=== PATIENT | female | born 1940 | race American Indian/Alaskan Native ===

== ENCOUNTER 2016-09-30 13:29 | Inpatient (IN) | payer MEDICAID, MEDICARE ==
[2016-09-30 15:42] LABS: Anion Gap 21 mmol/L; Blood Urea Nitrogen 26 mg/dL (7-17); Carbon Dioxide 27 mmol/L (22-30); Chloride 98.6 mmol/L (98-107); Glucose 104 mg/dL (65-100); Potassium 3.9 mmol/L (3.6-5.0); Sodium 143 mmol/L (137-145)
[2016-09-30 15:50] LABS: Basophils % (Auto) 0.8 % (0.0-1.8); Eosinophils % (Auto) 0.6 % (0.0-4.3); Hematocrit 44.1 % (30.3-42.9); Hemoglobin 14.2 gm/dl (10.1-14.3); Mean Corpuscular HGB Conc 32 % (30-34); Mean Corpuscular Hemoglobin 29 pg (28-32); Mean Corpuscular Volume 90 fl (79-97); Platelet Count 192 K/mm3 (140-440); Red Blood Count 4.88 M/mm3 (3.65-5.03); White Blood Count 8.6 K/mm3 (4.5-11.0)
--- NOTE | 2016-09-30 18:04 | Emergency Department Report ---
HPI - General Chief Complaint: Psych Time Seen by Provider: 09/30/16 16:13 - HPI HPI: The patient is a 76 yo F with a history of dementia, who presents for evaluation of mental health. The patient arrived via EMS. The patient's daughter reported that the patient has been wondering more frequently, and exhibiting angry moods and behavior over the past week, on and off, progressive , severe for the past one day. The patient states that she has no feelings of anger or sediment for her daughter or others whatsoever. The patient also denies fever, headache, unexplained weight loss or weight gain, heat or cold intolerance, skin, hair, or nail changes, neuro deficits, suicidal ideations, homicidal ideations, or auditory or visual hallucinations. ED Review of Systems ROS: Stated complaint: EVALUATION Other details as noted in HPI Constitutional: denies: fever ENT: denies: throat or neck pain Respiratory: denies: cough, shortness of breath Cardiovascular: denies: chest pain Endocrine: denies unexplained weight loss or gain Gastrointestinal: denies: abdominal pain, nausea Genitourinary: denies: dysuria Musculoskeletal: denies: leg swelling Skin: denies: rash Neurological: denies: headache Hematological/Lymphatic: denies: easy bleeding or easy bruising Psych: denies sadness or hopelessness Physical Exam - Physical Exam Vital Signs: Vital Signs 09/30/16 14:40 Temperature 98.9 F Pulse Rate 83 Respiratory 16 Rate Blood Pressure 155/70 O2 Sat by Pulse 99 Oximetry Physical Exam: General: well-nourished, well-developed, pleasant appearing Head: Normocephalic, atraumatic Eyes: normal sclera ENT: Mucous membranes are pink and moist Neck: trachea midline, neck supple, No neck stiffness, no cervical adenopathy Respiratory: Breath sounds equal bilaterally, no wheezing, rales, or rhonchi Cardio: S1 and S2 present, no murmurs, rubs, gallops, capillary refill is brisk Abdomen: Normoactive bowel sounds, soft abdomen, no tenderness Musc: No pitting edema Skin: No rash Neuro: Alert, oriented to person, Moderate cognitive deficit, no facial drooping , normal speech Psych: Normal affect, normal mood, patient cooperative, no aggression or agitation ED Course Vital Signs 09/30/16 14:40 Temperature 98.9 F Pulse Rate 83 Respiratory 16 Rate Blood Pressure 155/70 O2 Sat by Pulse 99 Oximetry ED Medical Decision Making - Lab Data Result diagrams: 09/30/16 15:06 09/30/16 15:06 - Medical Decision Making The patient was seen and examined by myself. The patient is placed on a youth nutritional monitor and continuous pulse ox. On initial evaluation, the patient was found to be in no distress. Labs are obtained. Lab results are grossly unremarkable. The patient is medically clear. Mental health is consulted. Mental health evaluates the patient and agrees that the patient is negative for any findings concerning for risk of harm to herself or others, or concerning for acute psychosis. Evaluation findings are consistent with moderate to severe dementia. The patient's daughter is informed that the patient does not meet criteria for hospitalization. She is informed that as the patient's primary caregiver she may not abandon the patient in the emergency department. She agrees to presents to the emergency department to forklift picker the patient. If the patient's daughter does not present to forklift picker the patient, then case management social worker and protective services will be consulted in the a.m. Critical care attestation.: If time is entered above; I have spent that time in minutes in the direct care of this critically ill patient, excluding procedure time. ED Disposition Clinical Impression: Dementia Qualifiers: Dementia type: unspecified type Dementia behavioral disturbance: with behavioral disturbance Qualified Code(s): F03.91 - Unspecified dementia with behavioral disturbance Disposition: DISCHARGED TO HOME OR SELFCARE Is pt being admited?: No Does the pt Need Aspirin: No Condition: Stable Instructions: Dementia (ED) Referrals: PRIMARY CARE, [Primary Care Provider[facility] - [facility]5 Days SHALA BERRIOS, [employer], [employer] PROFESSIONAL-BC [Referring] - 3-5 Days Time of Disposition: 17:04
[2016-09-30 22:20] LABS: Urine Drugs of Abuse Note Disclamer
[2016-09-30 22:28] LABS: Bilirubin,Urine NEG (Negative); Blood,Urine LG (Negative); Ketones,Urine TR mg/dL (Negative); Leukocyte Esterase,Urine MOD (Negative); Nitrite,Urine NEG (Negative); Urobilinogen,Urine < 2.0 mg/dL (<2.0)
--- NOTE | 2016-10-01 10:27 | Cat Scan Report ---
CT HEAD WITHOUT CONTRAST INDICATION: Headache. COMPARISON: None similar. FINDINGS: Noncontrast head CT slightly limited due to motion artifact, though demonstrates symmetric, age-appropriate ventricles and sulci. Mild periventricular white matter hypodensities. Minimal, benign bilateral basal ganglia calcifications. No definite acute infarct, hemorrhage, mass effect or midline shift. No abnormal extra axial fluid collections. Normal posterior fossa with preserved basilar cisterns. Unremarkable eye globes. Slight rightward nasal septal bowing. Minimal right maxillary sinus mucosal thickening. Clear remainder imaged paranasal sinuses and mastoid air cells. Atherosclerotic internal carotid artery calcifications. Intact calvarium. Normal scalp. Edentulous jaw. CONCLUSION: No acute intracranial CT abnormality, as described. Thank you for the opportunity to participate in this patient's care.
--- NOTE | 2016-10-01 11:20 | History and Physical Report ---
History of Present Illness Date of examination: 10/01/16 Date of admission: 10/01/16 Chief complaint: ams History of present illness: The patient is a 76 yo F with a history of dementia, who presents for evaluation of mental health. The patient arrived via EMS approximately 2 days ago. The patient's daughter reported that the patient has been wondering more frequently, and exhibiting angry moods and behavior over the past week, on and off, progressive, severe for the past one day. The patient states that she has no feelings of anger or sediment for her daughter or others whatsoever. The patient also denies fever, headache, unexplained weight loss or weight gain, heat or cold intolerance, skin, hair, or nail changes, neuro deficits, suicidal ideations, homicidal ideations, or auditory or visual hallucinations. Patient is unable to give any history. All history was obtained from the ER record. Past History Past Medical History: other (dementia) Past Surgical History: No surgical history Social history: no significant social history Family history: no significant family history Medications and Allergies Allergies Allergy/AdvReac Type Severity Reaction Status Date / Time Unable to Assess Allergy Unverified 09/30/16 14:42 Review of Systems All systems: negative Exam - Constitutional Vitals: Temp Pulse Resp BP Pulse Ox 98.2 F 60 20 140/65 99 09/30/16 19:10 09/30/16 19:10 09/30/16 19:10 09/30/16 19:10 09/30/16 19:10 General appearance: Present: no acute distress, well-nourished - EENT Eyes: Present: PERRL ENT: hearing intact, clear oral mucosa - Neck Neck: Present: supple, normal ROM - Respiratory Respiratory effort: normal Respiratory: bilateral: CTA - Cardiovascular Heart Sounds: Present: S1 & S2. Absent: rub, click - Extremities Extremities: pulses symmetrical, No edema Peripheral Pulses: within normal limits - Abdominal General gastrointestinal: Present: soft, non-tender, non-distended, normal bowel sounds Female genitourinary: Present: normal - Integumentary Integumentary: Present: clear, warm, dry - Musculoskeletal Musculoskeletal: gait normal, strength equal bilaterally - Psychiatric Psychiatric: appropriate mood/affect, intact judgment & insight - Neurologic Neurologic: CNII-XII intact, moves all extremities Results - Labs CBC & Chem 7: 09/30/16 15:06 09/30/16 15:06 Labs: Laboratory Last Values WBC 8.6 K/mm3 (4.5-11.0) 09/30/16 15:06 RBC 4.88 M/mm3 (3.65-5.03) 09/30/16 15:06 Hgb 14.2 gm/dl (10.1-14.3) 09/30/16 15:06 Hct 44.1 % (30.3-42.9) H 09/30/16 15:06 MCV 90 fl (79-97) 09/30/16 15:06 MCH 29 pg (28-32) 09/30/16 15:06 MCHC 32 % (30-34) 09/30/16 15:06 RDW 15.0 % (13.2-15.2) 09/30/16 15:06 Plt Count 192 K/mm3 (140-440) 09/30/16 15:06 Lymph % (Auto) 36.0 % (13.4-35.0) H 09/30/16 15:06 [place] % (Auto) 7.2 % (0.0-7.3) 09/30/16 15:06 Eos % (Auto) 0.6 % (0.0-4.3) 09/30/16 15:06 Baso % (Auto) 0.8 % (0.0-1.8) 09/30/16 15:06 Lymph # 3.1 K/mm3 (1.2-5.4) 09/30/16 15:06 [place] # 0.6 K/mm3 (0.0-0.8) 09/30/16 15:06 Eos # 0.0 K/mm3 (0.0-0.4) 09/30/16 15:06 Baso # 0.1 K/mm3 (0.0-0.1) 09/30/16 15:06 Seg Neutrophils % 55.4 % (40.0-70.0) 09/30/16 15:06 Seg Neutrophils # 4.8 K/mm3 (1.8-7.7) 09/30/16 15:06 Sodium 143 mmol/L (137-145) 09/30/16 15:06 Potassium 3.9 mmol/L (3.6-5.0) 09/30/16 15:06 Chloride 98.6 mmol/L (98-107) 09/30/16 15:06 Carbon Dioxide 27 mmol/L (22-30) 09/30/16 15:06 Anion Gap 21 mmol/L 09/30/16 15:06 BUN 26 mg/dL (7-17) H 09/30/16 15:06 Creatinine 1.0 mg/dL (0.7-1.2) 09/30/16 15:06 Estimated GFR > 60 ml/min 09/30/16 15:06 BUN/Creatinine Ratio 26.00 % 09/30/16 15:06 Glucose 104 mg/dL (65-100) H 09/30/16 15:06 Calcium 10.0 mg/dL (8.4-10.2) 09/30/16 15:06 Urine Color Yellow (Yellow) 09/30/16 22:15 Urine Turbidity Clear (Clear) 09/30/16 22:15 Urine pH 5.0 (5.0-7.0) 09/30/16 22:15 Ur Specific [place] 1.024 (1.003-1.030) 09/30/16 22:15 Urine Protein 30 mg/dl mg/dL (Negative) 09/30/16 22:15 Urine Glucose (UA) Neg mg/dL (Negative) 09/30/16 22:15 Urine Ketones Tr mg/dL (Negative) 09/30/16 22:15 Urine Blood Lg (Negative) 09/30/16 22:15 Urine Nitrite Neg (Negative) 09/30/16 22:15 Urine Bilirubin Neg (Negative) 09/30/16 22:15 Urine Urobilinogen < 2.0 mg/dL (<2.0) 09/30/16 22:15 Ur Leukocyte Esterase Mod (Negative) 09/30/16 22:15 Urine WBC (Auto) 8.0 /HPF (0.0-6.0) H 09/30/16 22:15 Urine RBC (Auto) 15.0 /HPF (0.0-6.0) 09/30/16 22:15 U Epithel Cells (Auto) 1.0 /HPF (0-13.0) 09/30/16 22:15 Urine Opiates Screen Presumptive negative 09/30/16 22:15 Urine Methadone Screen Presumptive negative 09/30/16 22:15 Ur Barbiturates Screen Presumptive negative 09/30/16 22:15 Ur Phencyclidine Scrn Presumptive negative 09/30/16 22:15 Ur Amphetamines Screen Presumptive negative 09/30/16 22:15 U Benzodiazepines Scrn Presumptive negative 09/30/16 22:15 Urine Cocaine Screen Presumptive negative 09/30/16 22:15 U Marijuana (THC) Screen Presumptive negative 09/30/16 22:15 Drugs of Abuse Note Disclamer 09/30/16 22:15 Plasma/Serum Alcohol < 0.01 gm% (0-0.07) 09/30/16 15:06 Assessment and Plan Assessment and plan: 1. Dementia with behavioral disturbance. The patient is medically clear. Mental health is consulted. Mental health evaluates the patient and agrees that the patient is negative for any findings concerning for risk of harm to herself or others, or concerning for acute psychosis. Evaluation findings are consistent with moderate to severe dementia. Case management deformity to admit the patient for placement purposes.
[2016-10-01] MEDS ORDERED: MILK OF MAGNESIA PO PRN (11:28)
[2016-10-01] MEDS ORDERED: TYLENOL PO PRN (11:28)
[2016-10-01] MEDS ORDERED: DULCOLAX PR PRN (11:28)
[2016-10-01] MEDS ORDERED: ZOFRAN IV PRN (11:28)
[2016-10-02 06:09] LABS: Basophils % (Auto) 0.9 % (0.0-1.8); Eosinophils % (Auto) 1.9 % (0.0-4.3); Hematocrit 41.4 % (30.3-42.9); Hemoglobin 13.3 gm/dl (10.1-14.3); Mean Corpuscular HGB Conc 32 % (30-34); Mean Corpuscular Hemoglobin 29 pg (28-32); Mean Corpuscular Volume 91 fl (79-97); Platelet Count 172 K/mm3 (140-440); Red Blood Count 4.56 M/mm3 (3.65-5.03); Red Cell Distribution Width 15.2 % (13.2-15.2); White Blood Count 6.4 K/mm3 (4.5-11.0)
[2016-10-02 06:25] LABS: Anion Gap 16 mmol/L; BUN/Creatinine Ratio 25.71; Blood Urea Nitrogen 18 mg/dL (7-17); Carbon Dioxide 28 mmol/L (22-30); Chloride 99.5 mmol/L (98-107); Glucose 99 mg/dL (65-100); Potassium 3.8 mmol/L (3.6-5.0); Sodium 140 mmol/L (137-145)
[2016-10-02 07:47] LABS: Calcium 9.2 mg/dL (8.4-10.2)
[2016-10-02] MEDS: LOVENOX SUB-Q SCH (09:15)
[2016-10-02] MEDS: LEVAQUIN PO SCH (09:15)
--- NOTE | 2016-10-02 10:14 | Progress Note ---
Assessment and Plan Assessment and plan: The patient is a 76 yo F with a history of dementia, who presents for evaluation of mental health. The patient arrived via EMS approximately 2 days ago. The patient's daughter reported that the patient has been wondering more frequently, and exhibiting angry moods and behavior over the past week, on and off, progressive, severe for the past one day. The patient states that she has no feelings of anger or sediment for her daughter or others whatsoever. The patient also denies fever, headache, unexplained weight loss or weight gain, heat or cold intolerance, skin, hair, or nail changes, neuro deficits, suicidal ideations, homicidal ideations, or auditory or visual hallucinations. Patient is unable to give any history. All history was obtained from the ER record 1. Dementia with behavioral disturbance. The patient is medically clear. Mental health is consulted. Also documentation that Mental health evaluates the patient and agrees that the patient is negative for any findings concerning for risk of harm to herself or others, or concerning for acute psychosis. Evaluation findings are consistent with moderate to severe dementia. I do not see where this was documented nevertheless. Case management consulted for patient for placement purposes. 2. Encephalopathy likely secondary to 1 3. UTI-she reports polydipsia and polyphagia, no dysuria, will check urine culture. We will empirically treat. 4. Remote unavailable at this time plan discussed with patient and she verbalized understanding. History Interval history: Follow-up admitted with mental status change Patient seen and examined this morning in no acute distress Denies any chest pain, nausea, vomiting, diarrhea No fever noted blood pressure controlled No adverse events reported to me by nursing staff Hospitalist Physical - Physical exam Narrative exam: VITAL SIGNS: Reviewed. GENERAL: The patient appeared well nourished and normally developed. Vital signs as documented. HEAD: No signs of head trauma. EYES: Pupils are equal. Extraocular motions intact. EARS: Hearing grossly intact. MOUTH: Oropharynx is normal. NECK: No adenopathy, no JVD. CHEST: Chest with clear breath sounds bilaterally. No wheezes, rales, or rhonchi. CARDIAC: Regular rate and rhythm. S1 and S2, without murmurs, gallops, or rubs. VASCULAR: No Edema. Peripheral pulses normal and equal in all extremities. ABDOMEN: Soft, without detectable tenderness. No sign of distention. No rebound or guarding, and no masses palpated. Bowel Sounds normal. MUSCULOSKELETAL: Good range of motion of all major joints. Extremities without clubbing, cyanosis or edema. NEUROLOGIC EXAM: Alert and oriented x 3. No focal sensory or strength deficits. Speech normal. Follows commands. PSYCHIATRIC: Mood normal. SKIN: No rash or lesions. - Constitutional Vitals: Temp Pulse Resp BP Pulse Ox 97.7 F 53 L 16 115/56 100 10/01/16 23:00 10/01/16 23:00 10/01/16 23:00 10/01/16 23:00 10/01/16 23:00 General appearance: Present: no acute distress, well-nourished Results - Labs CBC & Chem 7: 10/02/16 05:02 10/02/16 05:02 Labs: Laboratory Last Values WBC 6.4 K/mm3 (4.5-11.0) 10/02/16 05:02 RBC 4.56 M/mm3 (3.65-5.03) 10/02/16 05:02 Hgb 13.3 gm/dl (10.1-14.3) 10/02/16 05:02 Hct 41.4 % (30.3-42.9) 10/02/16 05:02 MCV 91 fl (79-97) 10/02/16 05:02 MCH 29 pg (28-32) 10/02/16 05:02 MCHC 32 % (30-34) 10/02/16 05:02 RDW 15.2 % (13.2-15.2) 10/02/16 05:02 Plt Count 172 K/mm3 (140-440) 10/02/16 05:02 Lymph % (Auto) 34.4 % (13.4-35.0) 10/02/16 05:02 [place] % (Auto) 6.7 % (0.0-7.3) 10/02/16 05:02 Eos % (Auto) 1.9 % (0.0-4.3) 10/02/16 05:02 Baso % (Auto) 0.9 % (0.0-1.8) 10/02/16 05:02 Lymph # 2.2 K/mm3 (1.2-5.4) 10/02/16 05:02 [place] # 0.4 K/mm3 (0.0-0.8) 10/02/16 05:02 Eos # 0.1 K/mm3 (0.0-0.4) 10/02/16 05:02 Baso # 0.1 K/mm3 (0.0-0.1) 10/02/16 05:02 Seg Neutrophils % 56.1 % (40.0-70.0) 10/02/16 05:02 Seg Neutrophils # 3.6 K/mm3 (1.8-7.7) 10/02/16 05:02 Sodium 140 mmol/L (137-145) 10/02/16 05:02 Potassium 3.8 mmol/L (3.6-5.0) 10/02/16 05:02 Chloride 99.5 mmol/L (98-107) 10/02/16 05:02 Carbon Dioxide 28 mmol/L (22-30) 10/02/16 05:02 Anion Gap 16 mmol/L 10/02/16 05:02 BUN 18 mg/dL (7-17) H 10/02/16 05:02 Creatinine 0.7 mg/dL (0.7-1.2) 10/02/16 05:02 Estimated GFR > 60 ml/min 10/02/16 05:02 BUN/Creatinine Ratio 25.71 % 10/02/16 05:02 Glucose 99 mg/dL (65-100) 10/02/16 05:02 Calcium 9.2 mg/dL (8.4-10.2) 10/02/16 05:02 Urine Color Yellow (Yellow) 09/30/16 22:15 Urine Turbidity Clear (Clear) 09/30/16 22:15 Urine pH 5.0 (5.0-7.0) 09/30/16 22:15 Ur Specific [place] 1.024 (1.003-1.030) 09/30/16 22:15 Urine Protein 30 mg/dl mg/dL (Negative) 09/30/16 22:15 Urine Glucose (UA) Neg mg/dL (Negative) 09/30/16 22:15 Urine Ketones Tr mg/dL (Negative) 09/30/16 22:15 Urine Blood Lg (Negative) 09/30/16 22:15 Urine Nitrite Neg (Negative) 09/30/16 22:15 Urine Bilirubin Neg (Negative) 09/30/16 22:15 Urine Urobilinogen < 2.0 mg/dL (<2.0) 09/30/16 22:15 Ur Leukocyte Esterase Mod (Negative) 09/30/16 22:15 Urine WBC (Auto) 8.0 /HPF (0.0-6.0) H 09/30/16 22:15 Urine RBC (Auto) 15.0 /HPF (0.0-6.0) 09/30/16 22:15 U Epithel Cells (Auto) 1.0 /HPF (0-13.0) 09/30/16 22:15 Urine Opiates Screen Presumptive negative 09/30/16 22:15 Urine Methadone Screen Presumptive negative 09/30/16 22:15 Ur Barbiturates Screen Presumptive negative 09/30/16 22:15 Ur Phencyclidine Scrn Presumptive negative 09/30/16 22:15 Ur Amphetamines Screen Presumptive negative 09/30/16 22:15 U Benzodiazepines Scrn Presumptive negative 09/30/16 22:15 Urine Cocaine Screen Presumptive negative 09/30/16 22:15 U Marijuana (THC) Screen Presumptive negative 09/30/16 22:15 Drugs of Abuse Note Disclamer 09/30/16 22:15 Plasma/Serum Alcohol < 0.01 gm% (0-0.07) 09/30/16 15:06
--- NOTE | 2016-10-02 15:37 | Consultation ---
History of Present Illness - Reason for Consult Consult date: 10/02/16 Reason for consult: altered mental status - Chief Complaint Chief complaint: ams - History of Present Psychiatric Illness Ms. Alfaro is a 76 year old female seen for bizarre and aggressive behavior. Per the record, she was found wandering in the street and stated she came from a [place] with a horse and a frog. During the interview, she was physically intrusive, but not aggressive. She had to redirected from going into other patient rooms. She stated her money is in there. She states she lives with her daughter, whom she calls mother. She states she was found wandering because "I got attitude with my mother's friend." She was intermittently agitated throughout the interview. Medications and Allergies Allergies Allergy/AdvReac Type Severity Reaction Status Date / Time Unable to Assess Allergy Unverified 09/30/16 14:42 Home Medications Medication Instructions Recorded Confirmed Last Taken Type Clopidogrel [Plavix] 75 mg PO QDAY 10/01/16 10/01/16 Unknown History Lisinopril/Hydrochlorothiazide 1 each PO DAILY 10/01/16 10/01/16 Unknown History [Zestoretic 20-12.5 mg] Metoprolol Tartrate 25 mg PO BID 10/01/16 10/01/16 Unknown History Nitrostat 0.4 mg SUBLINGUAL PRN PRN 10/01/16 10/01/16 Unknown History Simvastatin [Zocor TAB] 20 mg PO DAILY 10/01/16 10/01/16 Unknown History Zantac 150 MG TAB 150 mg PO BID 10/01/16 10/01/16 Unknown History Active Meds: Active Medications Acetaminophen (Tylenol) 650 mg PO Q4H PRN PRN Reason: Pain MILD(1-3)/Fever >100.5/NIÑO Bisacodyl (Dulcolax) 10 mg NV QDAY PRN PRN Reason: Constipation unrelieved by MOM Enoxaparin Sodium (Lovenox) 40 mg SUB-Q QDAY [facility] Last Admin: 10/02/16 09:15 Dose: 40 mg Levofloxacin (Levaquin) 500 mg PO Q24HR [facility] Last Admin: 10/02/16 09:15 Dose: 500 mg Magnesium Hydroxide (Milk Of Magnesia) 30 ml PO Q4H PRN PRN Reason: Constipation Ondansetron HCl (Zofran) 4 mg IV Q8H PRN PRN Reason: N/V unrelieved by Jean Past psychiatric history - Past Medical History Past Medical History: CAD, hypertension, hyperlipidemia - past Psychiatric treatment and history psychiatric treatment history: unknown. Attempt to contact her daughter Koki was unsuccessful - Social History Social history: lives with family (drinks alcohol once weekly, denies abuse of alcohol) Mental Status Exam - Vital signs Last Vital Signs Temp 97.6 F 10/02/16 08:00 Pulse 56 L 10/02/16 08:00 Resp 16 10/02/16 08:00 BP 118/57 10/02/16 08:00 Pulse Ox 100 10/02/16 08:00 - Exam Narrative exam: sleep and appetite disturbances are unknown Orientation: place ("I want out of here"), person Affect: anxious, agitated Mood: other (labile) Thought content: other (bizarre) Thought Process: Disorganized Perceptions: other (per the record, she was having visual hallucinations of seeing a car in the room) Speech: pressured Concentration: unable to pay attention Motor activity: agitated Level of consciousness: alert Memory: Recent Impaired Interaction: irritable Results Result Diagrams: 10/02/16 05:02 10/02/16 05:02 Abnormal lab results 10/02/16 Range/Units 05:02 BUN 18 H (7-17) mg/dL All other labs normal. Assessment and Plan Assessment and plan: Collateral is needed from her daughter. consider dementia with behavioral disturbance consider delirium - Psychiatric problem (1) Altered mental status Current Visit: Yes Status: Acute Qualifiers: Altered mental status type: A Coma depth: C Coma timing: C
[2016-10-03] MEDS: LOVENOX SUB-Q SCH (09:52)
[2016-10-03] MEDS: LEVAQUIN PO SCH (09:52)
--- NOTE | 2016-10-03 12:37 | Progress Note ---
Subjective - Reason for Consult Consult date: 10/03/16 Reason for consult: psychiatric follow up - Chief Complaint Chief complaint: ams Mental Status Exam - Vital signs Last Vital Signs Temp 97.3 F L 10/03/16 09:00 Pulse 91 H 10/03/16 09:00 Resp 19 10/03/16 09:00 BP 141/82 10/03/16 09:00 Pulse Ox 99 10/03/16 09:00 - Exam Narrative exam: "I ain't talking." She was observed attempting to connect the phone wire to the phone, which was already connected; it was not connected to the wall. Orientation: person Affect: anxious Mood: other (irritable) Thought Process: Disoriented Perceptions: other (unable to assess) Speech: normal rate and pattern Concentration: unable to pay attention Motor activity: restless Level of consciousness: alert Memory: Recent Impaired Interaction: uncooperative Assessment and Plan Collateral is needed from her daughter. consider dementia with behavioral disturbance She does not appear to have decision making capacity - Patient Problems (1) Altered mental status Current Visit: Yes Status: Acute Qualifiers: Altered mental status type: A Coma depth: C Coma timing: C
--- NOTE | 2016-10-03 13:43 | Progress Note ---
Assessment and Plan - Patient Problems (1) Altered mental status Current Visit: Yes Status: Acute Qualifiers: Altered mental status type: A Coma depth: C Coma timing: C Plan to address problem: Secondary to poor cognition awaiting placement detention facility remains confused. (2) Dementia Current Visit: Yes Status: Acute Qualifiers: Dementia type: unspecified type Alzheimer's disease onset: A Dementia behavioral disturbance: with behavioral disturbance Qualified Code(s): F03.91 - Unspecified dementia with behavioral disturbance Plan to address problem: Patient has advanced dementia confused wandering. At present very pleasant continue present management. Await skilled nurse facility placement. History Interval history: Very pleasant lady was found in the neighbors home. Asking him for ride home. After interviewing the patient clearly appears to be dementia with some mood disorder. Otherwise stable. Hospitalist Physical - Constitutional Vitals: Temp Pulse Resp BP Pulse Ox 97.3 F L 91 H 19 141/82 99 10/03/16 09:00 10/03/16 09:00 10/03/16 09:00 10/03/16 09:00 10/03/16 09:00 General appearance: Present: no acute distress, well-nourished - Respiratory Respiratory: bilateral: CTA - Cardiovascular Rhythm: regular Heart Sounds: Present: S1 & S2 - Extremities Extremities: no ischemia, pulses intact Peripheral Pulses: within normal limits - Abdominal General gastrointestinal: soft, non-tender, non-distended - Psychiatric Psychiatric: appropriate mood/affect - Neurologic Neurologic: CNII-XII intact Results - Labs CBC & Chem 7: 10/02/16 05:02 10/02/16 05:02 Labs: Laboratory Last Values WBC 6.4 K/mm3 (4.5-11.0) 10/02/16 05:02 RBC 4.56 M/mm3 (3.65-5.03) 10/02/16 05:02 Hgb 13.3 gm/dl (10.1-14.3) 10/02/16 05:02 Hct 41.4 % (30.3-42.9) 10/02/16 05:02 MCV 91 fl (79-97) 10/02/16 05:02 MCH 29 pg (28-32) 10/02/16 05:02 MCHC 32 % (30-34) 10/02/16 05:02 RDW 15.2 % (13.2-15.2) 10/02/16 05:02 Plt Count 172 K/mm3 (140-440) 10/02/16 05:02 Lymph % (Auto) 34.4 % (13.4-35.0) 10/02/16 05:02 [place] % (Auto) 6.7 % (0.0-7.3) 10/02/16 05:02 Eos % (Auto) 1.9 % (0.0-4.3) 10/02/16 05:02 Baso % (Auto) 0.9 % (0.0-1.8) 10/02/16 05:02 Lymph # 2.2 K/mm3 (1.2-5.4) 10/02/16 05:02 [place] # 0.4 K/mm3 (0.0-0.8) 10/02/16 05:02 Eos # 0.1 K/mm3 (0.0-0.4) 10/02/16 05:02 Baso # 0.1 K/mm3 (0.0-0.1) 10/02/16 05:02 Seg Neutrophils % 56.1 % (40.0-70.0) 10/02/16 05:02 Seg Neutrophils # 3.6 K/mm3 (1.8-7.7) 10/02/16 05:02 Sodium 140 mmol/L (137-145) 10/02/16 05:02 Potassium 3.8 mmol/L (3.6-5.0) 10/02/16 05:02 Chloride 99.5 mmol/L (98-107) 10/02/16 05:02 Carbon Dioxide 28 mmol/L (22-30) 10/02/16 05:02 Anion Gap 16 mmol/L 10/02/16 05:02 BUN 18 mg/dL (7-17) H 10/02/16 05:02 Creatinine 0.7 mg/dL (0.7-1.2) 10/02/16 05:02 Estimated GFR > 60 ml/min 10/02/16 05:02 BUN/Creatinine Ratio 25.71 % 10/02/16 05:02 Glucose 99 mg/dL (65-100) 10/02/16 05:02 Calcium 9.2 mg/dL (8.4-10.2) 10/02/16 05:02 Urine Color Yellow (Yellow) 09/30/16 22:15 Urine Turbidity Clear (Clear) 09/30/16 22:15 Urine pH 5.0 (5.0-7.0) 09/30/16 22:15 Ur Specific [place] 1.024 (1.003-1.030) 09/30/16 22:15 Urine Protein 30 mg/dl mg/dL (Negative) 09/30/16 22:15 Urine Glucose (UA) Neg mg/dL (Negative) 09/30/16 22:15 Urine Ketones Tr mg/dL (Negative) 09/30/16 22:15 Urine Blood Lg (Negative) 09/30/16 22:15 Urine Nitrite Neg (Negative) 09/30/16 22:15 Urine Bilirubin Neg (Negative) 09/30/16 22:15 Urine Urobilinogen < 2.0 mg/dL (<2.0) 09/30/16 22:15 Ur Leukocyte Esterase Mod (Negative) 09/30/16 22:15 Urine WBC (Auto) 8.0 /HPF (0.0-6.0) H 09/30/16 22:15 Urine RBC (Auto) 15.0 /HPF (0.0-6.0) 09/30/16 22:15 U Epithel Cells (Auto) 1.0 /HPF (0-13.0) 09/30/16 22:15 Urine Opiates Screen Presumptive negative 09/30/16 22:15 Urine Methadone Screen Presumptive negative 09/30/16 22:15 Ur Barbiturates Screen Presumptive negative 09/30/16 22:15 Ur Phencyclidine Scrn Presumptive negative 09/30/16 22:15 Ur Amphetamines Screen Presumptive negative 09/30/16 22:15 U Benzodiazepines Scrn Presumptive negative 09/30/16 22:15 Urine Cocaine Screen Presumptive negative 09/30/16 22:15 U Marijuana (THC) Screen Presumptive negative 09/30/16 22:15 Drugs of Abuse Note Disclamer 09/30/16 22:15 Plasma/Serum Alcohol < 0.01 gm% (0-0.07) 09/30/16 15:06
[2016-10-04] MEDS: LOVENOX SUB-Q SCH (10:39)
[2016-10-04] MEDS: LEVAQUIN PO SCH (10:39)
--- NOTE | 2016-10-04 14:24 | Progress Note ---
Subjective - Reason for Consult Consult date: 10/04/16 Reason for consult: psychiatric follow up - Chief Complaint Chief complaint: ams Mental Status Exam - Vital signs Last Vital Signs Temp 98.9 F 10/04/16 07:00 Pulse 58 L 10/04/16 07:00 Resp 16 10/04/16 07:00 BP 150/70 10/04/16 07:00 Pulse Ox 98 10/04/16 07:00 - Exam Narrative exam: She would only speak with the mental health professor of visual arts, Gabriel. This author, Jerrod Holloway NP, was present for the discussion. She states the staff is trying to keep her in the hospital. No suicidal or homicidal ideation. She frequently attempts to leave the room. She does not know why she cannot return home. Case management and this author have made attempts to contact her daughter, unsuccessfully. Orientation: place, person Affect: agitated Mood: congruent with affect Thought Process: Tangential Perceptions: none Speech: other (loud at times) Concentration: unable to pay attention Motor activity: restless Level of consciousness: alert Memory: Recent Impaired, Remote Impaired Sleep Symptoms: Restless Appetite: decreased Interaction: irritable, defensive Assessment and Plan Collateral is needed from her daughter. Discussed the need for collateral from daughter. consider dementia with behavioral disturbance She does not appear to have decision making capacity Recommendation: investigations manager, Belkis, informed of need for well check for daughter Koki. - Patient Problems (1) Altered mental status Current Visit: Yes Status: Acute Qualifiers: Altered mental status type: A Coma depth: C Coma timing: C
--- NOTE | 2016-10-04 15:09 | Admit Criteria Form ---
Admission Criteria Documentation: MENTAL STATUS CHANGE Clinical Indications for Inpatient Care (Place 'X' for any and all applicable criteria): Ongoing inpatient care may be needed for ANY ONE of the following(1)(2)(3)(5)(6) : [X ]I. Suspected serious etiology (eg, medical disorder, BRAND MARKETING COORDINATOR event) of mental status change [ ]II. Danger to self or others not manageable at lower level of care [ ]III. Grave disability (eg, inability to perform self care necessary at lower level of care) [ ]IV. Agitation or inappropriate behavior interfering with care for primary condition (eg, attempting to discontinue lines or drains prematurely, unable to cooperate with respiratory care) [ ]V. Delirium [A] [D][E] as described by ANY ONE of the following(26): [ ]a) Delirium due to alcohol or sedative [F] withdrawal [ ]b) Delirium of uncertain etiology that has not responded to appropriate empiric treatment [ ]c) Delirium that prevents performance of a life-sustaining function (eg, feeding or hydrating oneself) [ X]. General contraindications and/or Inappropriate clinical situations for Observational Care in patients with Mental Status Change, when ANY ONE of the following is required: [X ]a) Prediction of prolongation of LOS based on ANY ONE of the following may be considered as a contraindication for observational care 2, 3, 4, 5, 6, 7, 8, 9, 10, 11 [X ]i) Age > 65 yrs. [ ]ii) Patient arriving by ambulance [ ]iii) Patient with high acuity [ ]iv) Patient requiring vital sign monitoring [ ]v) Patient on IV medication [ ]b) Systolic blood pressures 180mmHg 3,12 [ ]c) Patient with altered mental status including delirium and other alteration of consciousness, (3) [ ]d) Patient whose discharge disposition will be to a penitentiary home or rehabilitation home should not be managed in Emergency Department Observation Unit. CMS rule requires 3 days hospital stay before such placement.3,13 [ ]e) Patient with failure to thrive due to broad array of etiologies 3,16,17 [ ]f) Inability to ambulate 3,14 Extended stay beyond goal length of stay for the primary condition may be needed until ALL of the following are present(3)(5): [ ]a) Underlying medical etiology of mental status change is absent, or has been established and adequately treated [ ]b) Danger to self or others is absent or manageable at lower level of care. [ ]c) Behavior crisis management, including physical or chemical restraints, is not required or available at lower level of car [ ]d) Substance or alcohol withdrawal is absent or manageable at lower level of care. [ ]e) Behavioral symptoms (eg, agitation, somnolence, inappropriate behavior) are absent, or are manageable at lower level of care. The original [facility] [employer] content created by [facility] has been revised. The portions of the content which have been revised are identified through the use of italic text or in bold, and [facility] has neither reviewed nor approved the modified material. All other unmodified content is copyright [facility]. Please see references footnoted in the original [facility] edition 2016 Admission Criteria Met: Yes
--- NOTE | 2016-10-04 17:26 | Progress Note ---
Assessment and Plan - Patient Problems (1) Altered mental status Current Visit: Yes Status: Acute Qualifiers: Altered mental status type: A Coma depth: C Coma timing: C Plan to address problem: Altered mental status secondary to advanced dementia. Still awaiting placement. (2) Dementia Current Visit: Yes Status: Acute Qualifiers: Dementia type: unspecified type Alzheimer's disease onset: A Dementia behavioral disturbance: with behavioral disturbance Qualified Code(s): F03.91 - Unspecified dementia with behavioral disturbance Plan to address problem: Patient has advanced dementia confused wandering. At present very pleasant continue present management. Await skilled nurse facility placement. History Interval history: Patient again was noted wondering this time in the neighbor 2 doors down room. He should ask cannot take her home. Hospitalist Physical - Constitutional Vitals: Temp Pulse Resp BP Pulse Ox 98.4 F 102 H 18 166/76 98 10/04/16 16:56 10/04/16 16:56 10/04/16 16:56 10/04/16 16:56 10/04/16 07:00 General appearance: Present: no acute distress, well-nourished - EENT Eyes: Present: PERRL, EOM intact ENT: hearing intact, clear oral mucosa - Neck Neck: Present: supple, normal ROM - Respiratory Respiratory: bilateral: CTA - Cardiovascular Rhythm: regular Heart Sounds: Present: S1 & S2 - Extremities Extremities: no ischemia, pulses intact, pulses symmetrical Peripheral Pulses: within normal limits - Abdominal General gastrointestinal: soft, non-tender, non-distended, normal bowel sounds - Psychiatric Psychiatric: other (mood is calm poor cognition poor insight) - Neurologic Neurologic: moves all extremities Results - Labs CBC & Chem 7: 10/02/16 05:02 10/02/16 05:02 Labs: Laboratory Last Values WBC 6.4 K/mm3 (4.5-11.0) 10/02/16 05:02 RBC 4.56 M/mm3 (3.65-5.03) 10/02/16 05:02 Hgb 13.3 gm/dl (10.1-14.3) 10/02/16 05:02 Hct 41.4 % (30.3-42.9) 10/02/16 05:02 MCV 91 fl (79-97) 10/02/16 05:02 MCH 29 pg (28-32) 10/02/16 05:02 MCHC 32 % (30-34) 10/02/16 05:02 RDW 15.2 % (13.2-15.2) 10/02/16 05:02 Plt Count 172 K/mm3 (140-440) 10/02/16 05:02 Lymph % (Auto) 34.4 % (13.4-35.0) 10/02/16 05:02 [place] % (Auto) 6.7 % (0.0-7.3) 10/02/16 05:02 Eos % (Auto) 1.9 % (0.0-4.3) 10/02/16 05:02 Baso % (Auto) 0.9 % (0.0-1.8) 10/02/16 05:02 Lymph # 2.2 K/mm3 (1.2-5.4) 10/02/16 05:02 [place] # 0.4 K/mm3 (0.0-0.8) 10/02/16 05:02 Eos # 0.1 K/mm3 (0.0-0.4) 10/02/16 05:02 Baso # 0.1 K/mm3 (0.0-0.1) 10/02/16 05:02 Seg Neutrophils % 56.1 % (40.0-70.0) 10/02/16 05:02 Seg Neutrophils # 3.6 K/mm3 (1.8-7.7) 10/02/16 05:02 Sodium 140 mmol/L (137-145) 10/02/16 05:02 Potassium 3.8 mmol/L (3.6-5.0) 10/02/16 05:02 Chloride 99.5 mmol/L (98-107) 10/02/16 05:02 Carbon Dioxide 28 mmol/L (22-30) 10/02/16 05:02 Anion Gap 16 mmol/L 10/02/16 05:02 BUN 18 mg/dL (7-17) H 10/02/16 05:02 Creatinine 0.7 mg/dL (0.7-1.2) 10/02/16 05:02 Estimated GFR > 60 ml/min 10/02/16 05:02 BUN/Creatinine Ratio 25.71 % 10/02/16 05:02 Glucose 99 mg/dL (65-100) 10/02/16 05:02 Calcium 9.2 mg/dL (8.4-10.2) 10/02/16 05:02 Urine Color Yellow (Yellow) 09/30/16 22:15 Urine Turbidity Clear (Clear) 09/30/16 22:15 Urine pH 5.0 (5.0-7.0) 09/30/16 22:15 Ur Specific [place] 1.024 (1.003-1.030) 09/30/16 22:15 Urine Protein 30 mg/dl mg/dL (Negative) 09/30/16 22:15 Urine Glucose (UA) Neg mg/dL (Negative) 09/30/16 22:15 Urine Ketones Tr mg/dL (Negative) 09/30/16 22:15 Urine Blood Lg (Negative) 09/30/16 22:15 Urine Nitrite Neg (Negative) 09/30/16 22:15 Urine Bilirubin Neg (Negative) 09/30/16 22:15 Urine Urobilinogen < 2.0 mg/dL (<2.0) 09/30/16 22:15 Ur Leukocyte Esterase Mod (Negative) 09/30/16 22:15 Urine WBC (Auto) 8.0 /HPF (0.0-6.0) H 09/30/16 22:15 Urine RBC (Auto) 15.0 /HPF (0.0-6.0) 09/30/16 22:15 U Epithel Cells (Auto) 1.0 /HPF (0-13.0) 09/30/16 22:15 Urine Opiates Screen Presumptive negative 09/30/16 22:15 Urine Methadone Screen Presumptive negative 09/30/16 22:15 Ur Barbiturates Screen Presumptive negative 09/30/16 22:15 Ur Phencyclidine Scrn Presumptive negative 09/30/16 22:15 Ur Amphetamines Screen Presumptive negative 09/30/16 22:15 U Benzodiazepines Scrn Presumptive negative 09/30/16 22:15 Urine Cocaine Screen Presumptive negative 09/30/16 22:15 U Marijuana (THC) Screen Presumptive negative 09/30/16 22:15 Drugs of Abuse Note Disclamer 09/30/16 22:15 Plasma/Serum Alcohol < 0.01 gm% (0-0.07) 09/30/16 15:06
--- NOTE | 2016-10-05 09:43 | Discharge Summary ---
Providers - Providers Date of Admission: 10/01/16 11:28 Date of discharge: 10/05/16 Attending physician: LOIDA PATEL MD Primary care physician: CONSTRUCTION SUPERVISOR/CARPENTER Hospitalization Reason for admission: altered mental status Condition: Stable Hospital course: The patient is a 76 yo F with a history of dementia, who presents for evaluation of mental health. The patient arrived via EMS approximately 2 days ago. The patient's daughter reported that the patient has been wondering more frequently, and exhibiting angry moods and behavior over the past week, on and off, progressive, severe for the past one day. The patient states that she has no feelings of anger or sentiments for her daughter or others whatsoever. The patient also denies fever, headache, unexplained weight loss or weight gain, heat or cold intolerance, skin, hair, or nail changes, neuro deficits, suicidal ideations, homicidal ideations, or auditory or visual hallucinations. Patient is unable to give any history. Psychiatry was consulted to see the patient patient was noted that all symptoms are likely related to dementia. UTI was small for soft diagnosis but was treated nevertheless to rule out this as a compound factor. Patient clinically said improved at this time is stable for transfer to inpatient psych for continued treatment. Discharge diagnosis 1. Dementia with behavioral disturbance. 2. Encephalopathy likely secondary to 1 3. UTI- Disposition: DC/[place] SNF [facility] Time spent for discharge: 35 mins Core Measure Documentation - Palliative Care Palliative Care/ Comfort Measures: Not Applicable - Core Measures Any of the following diagnoses?: none - VTE Discharge Requirements Deep Vein Thrombosis/Pulmonary Embolism Present on Admission: No Exam - Physical Exam Narrative exam: VITAL SIGNS: Reviewed. GENERAL: The patient appeared well nourished and normally developed. Vital signs as documented. Sitting up at bedside. HEAD: No signs of head trauma. EYES: Pupils are equal. Extraocular motions intact. EARS: Hearing grossly intact. MOUTH: Oropharynx is normal. NECK: No adenopathy, no JVD. CHEST: Chest with clear breath sounds bilaterally. No wheezes, rales, or rhonchi. CARDIAC: Regular rate and rhythm. S1 and S2, without murmurs, gallops, or rubs. VASCULAR: No Edema. Peripheral pulses normal and equal in all extremities. ABDOMEN: Soft, without detectable tenderness. No sign of distention. No rebound or guarding, and no masses palpated. Bowel Sounds normal. MUSCULOSKELETAL: Good range of motion of all major joints. Extremities without clubbing, cyanosis or edema. NEUROLOGIC EXAM: Alert and oriented x 3. No focal sensory or strength deficits. Speech normal. Follows commands. PSYCHIATRIC: Mood normal. SKIN: No rash or lesions. - Constitutional Vitals: Temp Pulse Resp BP Pulse Ox 98.4 F 57 L 20 152/64 98 10/05/16 04:30 10/05/16 04:30 10/05/16 04:30 10/05/16 04:30 10/04/16 07:00 Plan Activity: advance as tolerated, fall precautions Diet: low fat Special Instructions: record daily weights, record daily BP diary Additional Instructions: fOLLOW WITH NEUROLOGY in 3-5 days. To be arranged by facility Follow up with: [facility] [Outside] - 3-5 Days SHALA BERRIOS, FRAMING MANAGER-BC, BASIN OPERATOR-BC [Referring] - 3-5 Days PRIMARY [facility]ARE, [Primary Care Provider] - 3-5 Days
[2016-10-05] MEDS: LOVENOX SUB-Q SCH (10:45)
[2016-10-05] MEDS: LEVAQUIN PO SCH (10:46)
--- NOTE | 2016-10-05 19:07 | Progress Note ---
Assessment and Plan Assessment and plan: The patient is a 76 yo F with a history of dementia, who presents for evaluation of mental health. The patient arrived via EMS approximately 2 days ago. The patient's daughter reported that the patient has been wondering more frequently, and exhibiting angry moods and behavior over the past week, on and off, progressive, severe for the past one day. The patient states that she has no feelings of anger or sediment for her daughter or others whatsoever. The patient also denies fever, headache, unexplained weight loss or weight gain, heat or cold intolerance, skin, hair, or nail changes, neuro deficits, suicidal ideations, homicidal ideations, or auditory or visual hallucinations. Patient is unable to give any history. All history was obtained from the ER record 1. Dementia with behavioral disturbance. Awaiting placement for patient verbalized that she does not want to go anywhere except for home. Family unable to care for the patient. 2. Encephalopathy likely secondary to 1 3. UTI-she reports polydipsia and polyphagia, no dysuria, no growth and urine culture. We'll discontinue treatment at this point. 4. Family unavailable at this time plan discussed with patient and she verbalized understanding. History Interval history: Follow-up admitted with mental status change Patient seen and examined this morning in no acute distress Denies any chest pain, nausea, vomiting, diarrhea No fever noted blood pressure controlled No adverse events reported to me by nursing staff Hospitalist Physical - Physical exam Narrative exam: VITAL SIGNS: Reviewed. GENERAL: The patient appeared well nourished and normally developed. Vital signs as documented. Sitting up at bedside. HEAD: No signs of head trauma. EYES: Pupils are equal. Extraocular motions intact. EARS: Hearing grossly intact. MOUTH: Oropharynx is normal. NECK: No adenopathy, no JVD. CHEST: Chest with clear breath sounds bilaterally. No wheezes, rales, or rhonchi. CARDIAC: Regular rate and rhythm. S1 and S2, without murmurs, gallops, or rubs. VASCULAR: No Edema. Peripheral pulses normal and equal in all extremities. ABDOMEN: Soft, without detectable tenderness. No sign of distention. No rebound or guarding, and no masses palpated. Bowel Sounds normal. MUSCULOSKELETAL: Good range of motion of all major joints. Extremities without clubbing, cyanosis or edema. NEUROLOGIC EXAM: Alert and oriented x 3. No focal sensory or strength deficits. Speech normal. Follows commands. PSYCHIATRIC: Mood normal. SKIN: No rash or lesions. - Constitutional Vitals: Temp Pulse Resp BP Pulse Ox 98.4 F 57 L 20 152/64 98 10/05/16 04:30 10/05/16 04:30 10/05/16 04:30 10/05/16 04:30 10/04/16 07:00 General appearance: Present: no acute distress, well-nourished Results - Labs CBC & Chem 7: 10/02/16 05:02 10/02/16 05:02 Labs: Laboratory Last Values WBC 6.4 K/mm3 (4.5-11.0) 10/02/16 05:02 RBC 4.56 M/mm3 (3.65-5.03) 10/02/16 05:02 Hgb 13.3 gm/dl (10.1-14.3) 10/02/16 05:02 Hct 41.4 % (30.3-42.9) 10/02/16 05:02 MCV 91 fl (79-97) 10/02/16 05:02 MCH 29 pg (28-32) 10/02/16 05:02 MCHC 32 % (30-34) 10/02/16 05:02 RDW 15.2 % (13.2-15.2) 10/02/16 05:02 Plt Count 172 K/mm3 (140-440) 10/02/16 05:02 Lymph % (Auto) 34.4 % (13.4-35.0) 10/02/16 05:02 [place] % (Auto) 6.7 % (0.0-7.3) 10/02/16 05:02 Eos % (Auto) 1.9 % (0.0-4.3) 10/02/16 05:02 Baso % (Auto) 0.9 % (0.0-1.8) 10/02/16 05:02 Lymph # 2.2 K/mm3 (1.2-5.4) 10/02/16 05:02 [place] # 0.4 K/mm3 (0.0-0.8) 10/02/16 05:02 Eos # 0.1 K/mm3 (0.0-0.4) 10/02/16 05:02 Baso # 0.1 K/mm3 (0.0-0.1) 10/02/16 05:02 Seg Neutrophils % 56.1 % (40.0-70.0) 10/02/16 05:02 Seg Neutrophils # 3.6 K/mm3 (1.8-7.7) 10/02/16 05:02 Sodium 140 mmol/L (137-145) 10/02/16 05:02 Potassium 3.8 mmol/L (3.6-5.0) 10/02/16 05:02 Chloride 99.5 mmol/L (98-107) 10/02/16 05:02 Carbon Dioxide 28 mmol/L (22-30) 10/02/16 05:02 Anion Gap 16 mmol/L 10/02/16 05:02 BUN 18 mg/dL (7-17) H 10/02/16 05:02 Creatinine 0.7 mg/dL (0.7-1.2) 10/02/16 05:02 Estimated GFR > 60 ml/min 10/02/16 05:02 BUN/Creatinine Ratio 25.71 % 10/02/16 05:02 Glucose 99 mg/dL (65-100) 10/02/16 05:02 Calcium 9.2 mg/dL (8.4-10.2) 10/02/16 05:02 Urine Color Yellow (Yellow) 09/30/16 22:15 Urine Turbidity Clear (Clear) 09/30/16 22:15 Urine pH 5.0 (5.0-7.0) 09/30/16 22:15 Ur Specific [place] 1.024 (1.003-1.030) 09/30/16 22:15 Urine Protein 30 mg/dl mg/dL (Negative) 09/30/16 22:15 Urine Glucose (UA) Neg mg/dL (Negative) 09/30/16 22:15 Urine Ketones Tr mg/dL (Negative) 09/30/16 22:15 Urine Blood Lg (Negative) 09/30/16 22:15 Urine Nitrite Neg (Negative) 09/30/16 22:15 Urine Bilirubin Neg (Negative) 09/30/16 22:15 Urine Urobilinogen < 2.0 mg/dL (<2.0) 09/30/16 22:15 Ur Leukocyte Esterase Mod (Negative) 09/30/16 22:15 Urine WBC (Auto) 8.0 /HPF (0.0-6.0) H 09/30/16 22:15 Urine RBC (Auto) 15.0 /HPF (0.0-6.0) 09/30/16 22:15 U Epithel Cells (Auto) 1.0 /HPF (0-13.0) 09/30/16 22:15 Urine Opiates Screen Presumptive negative 09/30/16 22:15 Urine Methadone Screen Presumptive negative 09/30/16 22:15 Ur Barbiturates Screen Presumptive negative 09/30/16 22:15 Ur Phencyclidine Scrn Presumptive negative 09/30/16 22:15 Ur Amphetamines Screen Presumptive negative 09/30/16 22:15 U Benzodiazepines Scrn Presumptive negative 09/30/16 22:15 Urine Cocaine Screen Presumptive negative 09/30/16 22:15 U Marijuana (THC) Screen Presumptive negative 09/30/16 22:15 Drugs of Abuse Note Disclamer 09/30/16 22:15 Plasma/Serum Alcohol < 0.01 gm% (0-0.07) 09/30/16 15:06
--- NOTE | 2016-10-05 22:13 | Progress Note ---
Subjective - Reason for Consult Reason for consult: psych management - Chief Complaint Chief complaint: 76 year old female. Presented to [facility] after her daughter noted some behaviors consistent with ongoing dementia. Pt today was pleasant and cooperative with majority of my interview. She denies any depression, no SI/HI/ AH/VH. No psychosis or deepak. She was sitting quietly watching TV wondering why she needed to be in the hospital. Regarding questions pertaining to her memory she knew her name but spent rest of time answering my memory questions with deflections or misdirection. Mental Status Exam - Vital signs Last Vital Signs Temp 98.2 F 10/05/16 20:00 Pulse 72 10/05/16 20:00 Resp 18 10/05/16 20:00 BP 154/72 10/05/16 20:00 Pulse Ox 100 10/05/16 20:00 - Exam Orientation: person Affect: normal Mood: appropriate Thought Process: Intact Perceptions: none Speech: normal rate and pattern Concentration: distractible Motor activity: normal Level of consciousness: alert Memory: Recent Impaired, Remote Impaired Interaction: pleasant (patient wasn't able to answer the date or place or recall. ) Assessment and Plan 76 year old female. Presented to [facility] after her daughter noted some behaviors consistent with ongoing dementia. Dementia: Regarding questions pertaining to her memory she knew her name but spent rest of time answering my memory questions with deflections or misdirection- which is typical for those suffering with dementia. This should be treated on an outpt basis first with some home health care services initially. Note that we have not been able to talk to the daughter for any collateral
[2016-10-06] MEDS: LOVENOX SUB-Q SCH (10:11)
[2016-10-06] MEDS: LEVAQUIN PO SCH (10:11)
[2016-10-06 16:17] VITALS: BP 145/57
--- NOTE | 2016-10-06 23:17 | Progress Note ---
Subjective - Reason for Consult Reason for consult: psych management - Chief Complaint Chief complaint: 76 year old female. Presented to [facility] after her daughter noted some behaviors consistent with ongoing dementia. Pt today was upset over me talking about her dispo issues. She insists on going home with her daughter. Memory questions attempted were met with laughter and irritability that I would question her memory She denies any SI/HI/AH/VH. She forgot her daughter visited yesterday. Mental Status Exam - Vital signs Last Vital Signs Temp 98 F 10/06/16 16:16 Pulse 86 10/06/16 16:16 Resp 18 10/06/16 16:16 BP 145/57 10/06/16 16:16 Pulse Ox 100 10/05/16 20:00 - Exam Orientation: person Affect: normal Mood: appropriate Thought Process: Circumstantial, Tangential Perceptions: none Speech: normal rate and pattern Concentration: distractible Motor activity: normal Level of consciousness: alert Memory: Recent Impaired, Remote Impaired Interaction: uncooperative Mini mental status exam(if necessary): 0-17 Assessment and Plan 76 year old female. Presented to [facility] after her daughter noted some behaviors consistent with ongoing dementia. Dementia: Patient does not meet inpt criteria for her memory- services can be made on an outpt basis with the family together making a decision in the patient 's best interest for placement. No current acute risk of harm to self or others.
== END 2016-10-06 16:35 | DRG 71 ==
LOC: EEVIPCON 13:29 → ED 13:29 → 3A 10-01 11:28 → CC2 10-04 12:48
PROVIDERS: ADMIT Hospitalist; ATTEND Internal Medicine
DX: G93.40 Encephalopathy, unspecified (principal); F03.91 Unspecified dementia, unspecified severity, with behavioral disturbance; N39.0 Urinary tract infection, site not specified; I25.10 Atherosclerotic heart disease of native coronary artery without angina pectoris; I10 Essential (primary) hypertension; E78.5 Hyperlipidemia, unspecified
CPT/HCPCS: 36415; 70450; 80048; 80307; 80320; 81001; 85025; 87086; G0480; J1650

== ENCOUNTER 2020-09-16 20:34 | Inpatient (IN) | payer MEDICARE, MEDICAID ==
[2020-09-16] MEDS ORDERED: SODIUM CHLORIDE 0.9% 1000 ML IV SOLN IV ONE (21:15)
--- NOTE | 2020-09-16 21:38 | Emergency Department Report ---
HPI - General Chief Complaint: Weakness PUI?: Yes Time Seen by Provider: 09/16/20 21:14 - HPI HPI: Room 30 The patient is a 80-year-old female present with a chief complaint of shortness of breath and decreased intake. The patient's family member states that she tested positive for UTI and a home test kit so that family began administering Levaquin 500 mg daily. The patient would occasionally refuse Levaquin so she only received a total of 3 doses in the past 5 days. Family states over the past week they have noticed increased work of breathing over the patient's baseline shortness of breath, decreased appetite including decreased fluid intake and at times he noted that the patient's fingers were blue. There has be en no history of cough, fever nausea or vomiting. Today the patient told family that she was not feeling well but did not give any specific complaints. When asked if anything is bothering her patient replies "no." ED Past Medical Hx - Past Medical History Previous Medical History?: Yes Hx Hypertension: Yes Hx GERD: Yes Hx of Cancer: Yes (Colon CA status post surgery) Hx Dementia: Yes - Surgical History Past Surgical History?: Yes Additional Surgical History: Colon resection - Family History Family history: no significant - Social History Smoking Status: Former Smoker (None x10 years) Substance Use Type: None (Denies illicit drug use) - Medications Home Medications: Home Medications Medication Instructions Recorded Confirmed Last Taken Type Clopidogrel [Plavix] 75 mg PO QDAY 10/01/16 10/01/16 Unknown History Lisinopril/Hydrochlorothiazide 1 each PO DAILY 10/01/16 10/01/16 Unknown History [Zestoretic 20-12.5 mg] Metoprolol Tartrate 25 mg PO BID 10/01/16 10/01/16 Unknown History Nitrostat 0.4 mg SUBLINGUAL PRN PRN 10/01/16 10/01/16 Unknown History Simvastatin (Nf) [Zocor TAB] 20 mg PO DAILY 10/01/16 10/01/16 Unknown History Zantac 150 MG TAB 150 mg PO BID 10/01/16 10/01/16 Unknown History ED Review of Systems ROS: Stated complaint: CONFUSION/BLUE FINGERS/NOT EATING Other details as noted in HPI Constitutional: denies: fever Eyes: denies: eye pain ENT: denies: throat pain Respiratory: shortness of breath. denies: cough Cardiovascular: denies: chest pain Endocrine: no symptoms reported Gastrointestinal: denies: nausea, vomiting Genitourinary: other (Positive home urine dip) Musculoskeletal: denies: back pain Neurological: denies: headache Physical Exam - Physical Exam Vital Signs: Vital Signs 09/16/20 20:49 Pulse Rate 77 Respiratory 16 Rate Blood Pressure 75/39 [Right] O2 Sat by Pulse 97 Oximetry Physical Exam: GENERAL: The patient is well-developed well-nourished female lying on stretcher not appearing to be in acute distress. [] HEENT: Normocephalic. Atraumatic. Extraocular motions are intact. Patient has moist mucous membranes. NECK: Supple. Trachea midline CHEST/LUNGS: Clear to auscultation. There is no respiratory distress noted. HEART/CARDIOVASCULAR: Regular. There is no tachycardia. There is a 3/6 systolic murmur (chronic per family). ABDOMEN: Abdomen is soft, nontender. Patient has normal bowel sounds. There is no abdominal distention. SKIN: There is no rash. There is no edema. There is no diaphoresis. NEURO: The patient is awake and alert. The patient is intermittently cooperative. The patient has no focal neurologic deficits. The patient has normal speech MUSCULOSKELETAL: There is no evidence of acute injury. ED Course Vital Signs 09/16/20 20:49 Pulse Rate 77 Respiratory 16 Rate Blood Pressure 75/39 [Right] O2 Sat by Pulse 97 Oximetry ED Medical Decision Making - Lab Data Result diagrams: 09/16/20 21:28 09/16/20 23:05 Laboratory Tests 09/16/20 09/16/20 09/16/20 21:28 21:28 21:28 WBC 5.0 RBC 3.89 Hgb 12.1 Hct 36.9 MCV 95 MCH 31 MCHC 33 RDW 16.5 H Plt Count 83 L Lymph % (Auto) 17.5 [place] % (Auto) 4.8 Eos % (Auto) 1.0 Baso % (Auto) 0.3 Lymph # (Auto) 0.9 L [place] # (Auto) 0.2 Eos # (Auto) 0.0 Baso # (Auto) 0.0 Seg Neutrophils % 76.4 H Seg Neutrophils # 3.8 D-Dimer 425.43 H Sodium Potassium Chloride Carbon Dioxide Anion Gap BUN Creatinine Estimated GFR BUN/Creatinine Ratio Glucose Lactic Acid 1.90 Calcium Ferritin Total Bilirubin AST ALT Alkaline Phosphatase Troponin T Total Protein Albumin Albumin/Globulin Ratio Urine Color Urine Turbidity Urine pH Ur Specific [place] Urine Protein Urine Glucose (UA) Urine Ketones Urine Blood Urine Nitrite Urine Bilirubin Urine Urobilinogen Ur Leukocyte Esterase Urine WBC (Auto) Urine RBC (Auto) U Epithel Cells (Auto) Urine Bacteria (Auto) Urine Mucus Urine Yeast (Budding) 09/16/20 09/16/20 09/17/20 21:28 23:05 00:38 WBC RBC Hgb Hct MCV MCH MCHC RDW Plt Count Lymph % (Auto) [place] % (Auto) Eos % (Auto) Baso % (Auto) Lymph # (Auto) [place] # (Auto) Eos # (Auto) Baso # (Auto) Seg Neutrophils % Seg Neutrophils # D-Dimer Sodium 142 Potassium 4.0 Chloride 103.8 Carbon Dioxide 27 Anion Gap 15 BUN 47 H Creatinine 1.6 H Estimated GFR 38 BUN/Creatinine Ratio 29 Glucose 73 Lactic Acid 2.30 H* Calcium 9.9 Ferritin 374.8 H Total Bilirubin 0.50 AST 62 H ALT 54 Alkaline Phosphatase 63 Troponin T 0.029 Total Protein 6.0 L Albumin 3.0 L Albumin/Globulin Ratio 1.0 Urine Color Urine Turbidity Urine pH Ur Specific [place] Urine Protein Urine Glucose (UA) Urine Ketones Urine Blood Urine Nitrite Urine Bilirubin Urine Urobilinogen Ur Leukocyte Esterase Urine WBC (Auto) Urine RBC (Auto) U Epithel Cells (Auto) Urine Bacteria (Auto) Urine Mucus Urine Yeast (Budding) 09/17/20 Unknown WBC RBC Hgb Hct MCV MCH MCHC RDW Plt Count Lymph % (Auto) [place] % (Auto) Eos % (Auto) Baso % (Auto) Lymph # (Auto) [place] # (Auto) Eos # (Auto) Baso # (Auto) Seg Neutrophils % Seg Neutrophils # D-Dimer Sodium Potassium Chloride Carbon Dioxide Anion Gap BUN Creatinine Estimated GFR BUN/Creatinine Ratio Glucose Lactic Acid Calcium Ferritin Total Bilirubin AST ALT Alkaline Phosphatase Troponin T Total Protein Albumin Albumin/Globulin Ratio Urine Color Yellow Urine Turbidity Cloudy Urine pH 5.0 Ur Specific [place] 1.023 Urine Protein 100 mg/dl Urine Glucose (UA) 50 Urine Ketones Tr Urine Blood Lg Urine Nitrite Neg Urine Bilirubin Neg Urine Urobilinogen < 2.0 Ur Leukocyte Esterase Neg Urine WBC (Auto) 28.0 H Urine RBC (Auto) > 182.0 U Epithel Cells (Auto) 7.0 Urine Bacteria (Auto) 1+ Urine Mucus 2+ Urine Yeast (Budding) 1+ - Radiology Data Radiology results: report reviewed (Chest x-ray), image reviewed (Chest x-ray) interpreted by me: Chest x-ray-left peripheral haziness. No pneumothorax. No foreign body seen [facility] [address] [place] [address] XRay Report Signed Patient: CHRISTINE MTZ MR#: [id number] 4 : 1940 Acct:[id number] Age/Sex: 80 / F ADM Date: 09/16/20 Loc: ED Attending Dr: Andrew thomas Physician: BRIDGET RUBALCAVA MD Date of Service: 09/16/20 Procedure(s): XR chest 1V ap Accession Number(s): [id number] cc: BRIDGET RUBALCAVA MD Fluoro Time In Minutes: CHEST 1 VIEW 09/16/2020 8:43 PM INDICATION / CLINICAL INFORMATION: Dyspnea on exertion. Cysts COMPARISON: None available. FINDINGS: SUPPORT DEVICES: None. HEART / MEDIASTINUM: Prominence of the left aspect of the middle mediastinum possibly representing adenopathy. Cardiac silhouette is normal size. LUNGS / PLEURA: Mild opacity in the left lung base which could represent aspiration or developing pneumonia. No significant pleural effusion. No pneumothorax. ADDITIONAL FINDINGS: No significant additional findings. IMPRESSION: 1. Mild left basilar pulmonary airspace disease possibly representing developing pneumonia or aspiration. Recommend clinical correlation and further evaluation as warranted. 2. Enlargement of the left middle med iastinum suggesting adenopathy. Consider further evaluation with CT chest, as warranted. Signer Name: Jennifer James MD Signed: 09/16/2020 10:05 PM Workstation Name: [id number] Transcribed By: RH Dictated By: JENNIFER JAMES III Electronically Authenticated By: JENNIFER JAMES III Signed Date/Time: 09/16/202204 DD/ 01 TD/TT: - Differential Diagnosis Sepsis, UTI, pneumonia, bacteremia, dehydration Critical care attestation.: If time is entered above; I have spent that time in minutes in the direct care of this critically ill patient, excluding procedure time. ED Disposition Clinical Impression: Sepsis, UTI (urinary tract infection), Dehydration, Pneumonia Disposition: DC- OP ADMIT IP TO THIS HOSP Is pt being admited?: Yes Does the pt Need Aspirin: Yes Condition: Fair Instructions: Bacterial Pneumonia (ED) Referrals: TARA DIAZ MD [Primary Care Provider] - 3-5 Days Time of Disposition: 01:28 (Hospitalist paged (Dr Desouza))
[2020-09-16 21:58] LABS: Basophils % (Auto) 0.3 % (0.0-1.8); Hematocrit 36.9 % (30.3-42.9); Hemoglobin 12.1 gm/dl (10.1-14.3); Lymphocytes # (Auto) 0.9 K/mm3 (1.2-5.4); Lymphocytes % (Auto) 17.5 % (13.4-35.0); Mean Corpuscular HGB Conc 33 % (30-34); Mean Corpuscular Volume 95 fl (79-97); Monocytes # (Auto) 0.2 K/mm3 (0.0-0.8); Monocytes % (Auto) 4.8 % (0.0-7.3); Red Blood Count 3.89 M/mm3 (3.65-5.03); Red Cell Distribution Width 16.5 % (13.2-15.2)
--- NOTE | 2020-09-16 22:09 | XRay Report ---
CHEST 1 VIEW 09/16/2020 8:43 PM INDICATION / CLINICAL INFORMATION: Dyspnea on exertion. Cysts COMPARISON: None available. FINDINGS: SUPPORT DEVICES: None. HEART / MEDIASTINUM: Prominence of the left aspect of the middle mediastinum possibly representing ad enopathy. Cardiac silhouette is normal size. LUNGS / PLEURA: Mild opacity in the left lung base which could represent aspiration or developing pne umonia. No significant pleural effusion. No pneumothorax. ADDITIONAL FINDINGS: No significant additional findings. IMPRESSION: 1. Mild left basilar pulmonary airspace disease possibly representing developing pneumonia or aspirat ion. Recommend clinical correlation and further evaluation as warranted. 2. Enlargement of the left middle mediastinum suggesting adenopathy. Consider further evaluation with CT chest, as warranted. Signer Name: Rajeev James MD Signed: 09/16/2020 10:05 PM Workstation Name: [id number]
[2020-09-16 23:03] LABS: Platelet Count 83 K/mm3 (140-440)
[2020-09-16 23:50] LABS: Calcium 9.9 mg/dL (8.4-10.2)
[2020-09-17 01:11] LABS: Bacteria,Urine 1+ /HPF (Negative); Bilirubin,Urine NEG (Negative); Blood,Urine LG (Negative); Color,Urine Yellow (Yellow); Mucus,Urine 2+ /HPF; Urobilinogen,Urine < 2.0 mg/dL (<2.0)
[2020-09-17 01:20] LABS: RBC,Urine > 182.0 /HPF (0.0-6.0)
[2020-09-17] MEDS ORDERED: cefTRIAXone/NS 1 GM/50 ML 1 GM/50 ML BAG IV ONE (01:27)
[2020-09-17] MEDS ORDERED: FLUCONAZOLE 100 MG/10 ML ORAL SYRINGE PO ONE (01:30)
[2020-09-17] MEDS ORDERED: AZITHROMYCIN/NS 500 MG/250 ML 500 MG/250 ML BAG IV ONE (01:30)
[2020-09-17] MEDS ORDERED: FLUCONAZOLE/NS 100 MG/50 ML 100 MG/50 ML BAG IV ONE (02:00)
[2020-09-17] MEDS ORDERED: MAGNESIUM HYDROXIDE (MOM) ORAL LIQD UDC PO PRN (03:32)
[2020-09-17] MEDS ORDERED: MORPHINE 2 MG/1 ML INJ IV PRN (03:32)
[2020-09-17] MEDS ORDERED: ACETAMINOPHEN 325 MG TAB PO PRN (03:32)
[2020-09-17] MEDS ORDERED: ONDANSETRON 4 MG/2 ML INJ IV PRN (03:32)
--- NOTE | 2020-09-17 03:43 | History and Physical Report ---
History of Present Illness Date of examination: 09/17/20 Date of admission: 09/17/20 01:56 Chief complaint: Decreased oral intake Shortness of breath History of present illness: 80-year-old female with known history of hypertension, dementia, and hyperlipidemia brought into the emergency room today accompanied by family member with a complaint of increased work of breathing, shortness of breath, decreased appetite and decreased oral intake over the past few days. Patient had tested positive for UTI on the home test kit and was subsequently started on oral Levaquin 500 mg daily. She has had about 3 doses over the past few days. There has been no fever or chills, no chest pain , no nausea , no vomiting and no diarrhea. No hematuria or dysuria. There has been no history of recent travel or sick contacts. No history of contact with anyone with COVID-19. Work-up in the emergency room today reveals: UTI on urinalysis, chemistry reveals elevated BUN and creatinine. Chest x-ray reveals:. Mild left basilar pulmonary airspace disease possibly representing developing pneumonia or aspiration. Recommend clinical correlation and further evaluation as warranted. 2. Enlargement of the left middle mediastinum suggesting adenopathy. Patient is being admitted with UTI and pneumonia. She will also be ruled out for COVID-19. Past History Past Medical History: GERD, hypertension, hyperlipidemia, other (Dementia.) Past Surgical History: Other (History of colon cancer status post surgery) Social history: smoking (Quit tobacco use 10 years ago) Family history: no significant family history Medications and Allergies Allergies Allergy/AdvReac Type Severity Reaction Status Date / Time No Known Allergies Allergy Verified 09/16/20 20:49 Home Medications Medication Instructions Recorded Confirmed Last Taken Type Clopidogrel [Plavix] 75 mg PO QDAY 10/01/16 10/01/16 Unknown History Lisinopril/Hydrochlorothiazide 1 each PO DAILY 10/01/16 10/01/16 Unknown History [Zestoretic 20-12.5 mg] Metoprolol Tartrate 25 mg PO BID 10/01/16 10/01/16 Unknown History Nitrostat 0.4 mg SUBLINGUAL PRN PRN 10/01/16 10/01/16 Unknown History Simvastatin (Nf) [Zocor TAB] 20 mg PO DAILY 10/01/16 10/01/16 Unknown History Zantac 150 MG TAB 150 mg PO BID 10/01/16 10/01/16 Unknown History Active Meds: Active Medications Acetaminophen (Acetaminophen 325 Mg Tab) 650 mg PO Q4H PRN PRN Reason: Pain MILD(1-3)/Fever >100.5/NIÑO Heparin Sodium (Porcine) (Heparin 5,000 Unit/1 Ml Vial) 5,000 unit SUB-Q Q8HR RIGO Sodium Chloride (Nacl 0.9% 1000 Ml) 1,000 mls @ 75 mls/hr IV DIRECT RIGO Ceftriaxone Sodium (Rocephin/Ns 2 Gm/100 Ml) 2 gm in 100 mls @ 200 mls/hr IV Q24H RIGO; Protocol Azithromycin (Zithromax/Ns) 500 mg in 250 mls @ 250 mls/hr IV Q24H RIGO; Protocol Magnesium Hydroxide (Magnesium Hydroxide (Mom) Oral Liqd Udc) 30 ml PO Q4H PRN PRN Reason: Constipation Morphine Sulfate (Morphine 2 Mg/1 Ml Inj) 2 mg IV Q4H PRN PRN Reason: Pain, Moderate (4-6) Ondansetron HCl (Ondansetron 4 Mg/2 Ml Inj) 4 mg IV Q8H PRN PRN Reason: Nausea And Vomiting Sodium Chloride (Sodium Chloride 0.9% 10 Ml Flush Syringe) 10 ml IV BID RIGO Sodium Chloride (Sodium Chloride 0.9% 10 Ml Flush Syringe) 10 ml IV PRN PRN PRN Reason: LINE FLUSH Review of Systems ROS unobtainable: due to mental status Exam - Constitutional Vitals: Temp Pulse Resp BP Pulse Ox 98.2 F 64 16 118/53 94 09/16/20 23:48 09/16/20 23:48 09/16/20 23:48 09/17/20 03:01 09/17/20 03:01 General appearance: Present: no acute distress, well-nourished - EENT Eyes: Present: PERRL, EOM intact. Absent: scleral icterus ENT: hearing intact, clear oral mucosa, dentition normal - Neck Neck: Present: supple, normal ROM - Respiratory Respiratory effort: normal Respiratory: bilateral: CTA - Cardiovascular Rhythm: regular Heart Sounds: Present: S1 & S2. Absent: gallop, systolic murmur, diastolic murmur, rub, click - Extremities Extremities: no ischemia, pulses intact, pulses symmetrical, No edema, normal temperature, normal color, Full ROM Peripheral Pulses: within normal limits - Abdominal General gastrointestinal: Present: soft, non-tender, non-distended, normal bowel sounds. Absent: mass - Integumentary Integumentary: Present: clear, warm, dry. Absent: rash - Musculoskeletal Musculoskeletal: strength equal bilaterally - Psychiatric Psychiatric: appropriate mood/affect, intact judgment & insight, memory intact, cooperative - Neurologic Neurologic: CNII-XII intact, no focal deficits, moves all extremities HEART Score - HEART Score Troponin: Troponin T 0.029 ng/mL (0.00-0.029) 09/16/20 23:05 Results - Labs CBC & Chem 7: 09/16/20 21:28 09/16/20 23:05 Labs: Abnormal lab results 09/16/20 09/16/20 09/16/20 Range/Units 21:28 21:28 21:28 RDW 16.5 H (13.2-15.2) % Plt Count 83 L (140-440) K/mm3 Lymph # (Auto) 0.9 L (1.2-5.4) K/mm3 Seg Neutrophils % 76.4 H (40.0-70.0) % D-Dimer 425.43 H (0-234) ng/mlDDU BUN (7-17) mg/dL Creatinine (0.6-1.2) mg/dL Lactic Acid (0.7-2.0) mmol/L Ferritin 374.8 H (10.0-200.0) ng/mL AST (5-40) units/L Total Protein (6.3-8.2) g/dL Albumin (3.9-5) g/dL Urine WBC (Auto) (0.0-6.0) /HPF 09/16/20 09/17/20 09/17/20 Range/Units 23:05 00:38 02:01 RDW (13.2-15.2) % Plt Count (140-440) K/mm3 Lymph # (Auto) (1.2-5.4) K/mm3 Seg Neutrophils % (40.0-70.0) % D-Dimer (0-234) ng/mlDDU BUN 47 H (7-17) mg/dL Creatinine 1.6 H (0.6-1.2) mg/dL Lactic Acid 2.30 H* 2.40 H* (0.7-2.0) mmol/L Ferritin (10.0-200.0) ng/mL AST 62 H (5-40) units/L Total Protein 6.0 L (6.3-8.2) g/dL Albumin 3.0 L (3.9-5) g/dL Urine WBC (Auto) (0.0-6.0) /HPF 09/17/20 Range/Units Unknown RDW (13.2-15.2) % Plt Count (140-440) K/mm3 Lymph # (Auto) (1.2-5.4) K/mm3 Seg Neutrophils % (40.0-70.0) % D-Dimer (0-234) ng/mlDDU BUN (7-17) mg/dL Creatinine (0.6-1.2) mg/dL Lactic Acid (0.7-2.0) mmol/L Ferritin (10.0-200.0) ng/mL AST (5-40) units/L Total Protein (6.3-8.2) g/dL Albumin (3.9-5) g/dL Urine WBC (Auto) 28.0 H (0.0-6.0) /HPF Assessment and Plan - Patient Problems (1) Pneumonia Current Visit: Yes Status: Acute Plan to address problem: Patient placed on empiric IV antibiotics. Will await culture results. We will also rule out COVID-19. (2) UTI (urinary tract infection) Current Visit: Yes Status: Acute Plan to address problem: We will continue on empiric IV antibiotics. We await urine culture results. (3) Sepsis Current Visit: Yes Status: Acute Plan to address problem: Possibly secondary to the underlying pneumonia and UTI. We will continue on antibiotics and IV fluid. (4) Dehydration Current Visit: Yes Status: Acute Plan to address problem: Possibly secondary to decreased oral intake. Patient has been placed on IV fluid normal saline. Will monitor BUN and creatinine. (5) Altered mental status Current Visit: No Status: Acute Plan to address problem: Possibly secondary to the underlying infection. Will monitor mental status. (6) Dementia Current Visit: No Status: Acute Qualifiers: Dementia type: unspecified type Dementia behavioral disturbance: with behavioral disturbance Qualified Code(s): F03.91 - Unspecified dementia with behavioral disturbance Plan to address problem: We will continue routine home medications. (7) DVT prophylaxis Current Visit: Yes Status: Acute Plan to address problem: Patient placed on subcutaneous heparin. (8) Full code status Current Visit: Yes Status: Acute Plan to address problem: Patient is a full code.
[2020-09-17] MEDS ORDERED: SODIUM CHLORIDE 0.9% 1000 ML 1,000 ML IV SCH ×2 (03:45→15:15)
[2020-09-17 06:11] LABS: C-Reactive Protein 14.9 mg/dL (0.00-1.30)
[2020-09-17] MEDS: HEPARIN 5,000 UNIT/1 ML VIAL SUB-Q SCH ×3 (11:29→23:51)
--- NOTE | 2020-09-17 15:16 | Progress Note ---
Assessment and Plan Assessment and plan: Sepsis -Presented with hypotension, acute kidney injury, and possible developing pneumonia on CXR -S/p 2.4 L normal saline in the emergency department -Infectious disease consulted, appreciate recommendations -Antibiotic therapy -09/16 blood cultures x2 pending COVID-19 pneumonia -09/17 COVID-19 PCR negative Pneumonia -09/17 CXR shows possible developing pneumonia -Antibiotic therapy -Pulmonary hygiene -SPO2 monitoring Urinary tract infection -Tested positive for urinary tract infection at home Kit and was given 3/5 doses of Levaquin -09/16 urinalysis with pyuria with budding yeast -S/p Diflucan in the emergency department Acute kidney injury -Presented with a BUN/creatinine 47/1.6 -Prior visits BUN 18-26/creatinine 0.7-1 -Avoid nephrotoxic medication -Renally dose medications -Trend BMP -MIVF for 1 L -Consider nephrology consult if not improving Lactic acidosis -09/17 lactic acid 1.9, 2.3, 2.4, 1.1 -Trend lactic acid -S/p 2.4 L normal saline in the ED -MIVF for 1 L Dementia -Supportive care -Verbal de-escalation and redirection as needed -Fall, aspiration precautions -Supportive care Hypertension -Hold antihypertensives in setting of hypotension -Blood pressure monitoring per protocol GERD -Continue PPI Hyperlipidemia -Continue statin therapy DVT prophylaxis -GI prophylaxis -Subcu heparin -SCDs to bilateral lower extremities while in bed History Interval history: This is a 80-year-old female with hypertension, GERD, colon cancer s/p resection, dementia and former smoker who presented to the emergency department with shortness of breath, decreased appetite and decreased p.o. intake over the past few days. Patient tested positive for urinary tract infection on home test kit and was subsequently started on oral Levaquin 500 mg daily for the past 3 days. Work-up in the emergency department revealed acute kidney injury, pyuria, possible developing pneumonia or aspiration, enlarged left middle mediastinum suggesting adenopathies. Patient was admitted to the hospital service for pneumonia as a COVID-19 PUI. Infectious disease was consulted. 09/17: Patient is on room air at the time my examination entry COVID-19 PCR resul natalie as negative. Patient will be transferred to medical floor. Hospitalist Physical - Constitutional Vitals: Temp Pulse Resp BP Pulse Ox 97.9 F 68 22 91/52 98 09/17/20 12:29 09/17/20 12:29 09/17/20 12:29 09/17/20 12:29 09/17/20 12:29 General appearance: Present: no acute distress, well-nourished - EENT Eyes: Present: PERRL ENT: hearing decreased, poor dentition - Neck Neck: Present: normal ROM - Respiratory Respiratory effort: normal - Cardiovascular Rhythm: regular - Extremities Extremities: no ischemia, pulses intact, pulses symmetrical, No edema, normal temperature, normal color, Full ROM Peripheral Pulses: within normal limits - Abdominal General gastrointestinal: soft, non-tender, non-distended, normal bowel sounds - Integumentary Integumentary: Present: clear, dry - Psychiatric Psychiatric: cooperative - Neurologic Neurologic: CNII-XII intact, no focal deficits, moves all extremities - Allied Health Allied health notes reviewed: nursing HEART Score - HEART Score Troponin: Troponin T 0.029 ng/mL (0.00-0.029) 09/16/20 23:05 Results - Labs CBC & Chem 7: 09/16/20 21:28 09/16/20 23:05 Labs: Laboratory Last Values WBC 5.0 K/mm3 (4.5-11.0) 09/16/20 21: RBC 3.89 M/mm3 (3.65-5.03) 09/16/20 21:28 Hgb 12.1 gm/dl (10.1-14.3) 09/16/20 21:28 Hct 36.9 % (30.3-42.9) 09/16/20 21: MCV 95 fl (79-97) 09/16/20 21: MCH 31 pg (28-32) 09/16/20 21:28 MCHC 33 % (30-34) 09/16/20 21: RDW 16.5 % (13.2-15.2) H 09/16/20 21:28 Plt Count 83 K/mm3 (140-440) L 09/16/20 21:28 Lymph % (Auto) 17.5 % (13.4-35.0) 09/16/20 21: [place] % (Auto) 4.8 % (0.0-7.3) 09/16/20 21: Eos % (Auto) 1.0 % (0.0-4.3) 09/16/20 21: Baso % (Auto) 0.3 % (0.0-1.8) 09/16/20: Lymph # (Auto) 0.9 K/mm3 (1.2-5.4) L 09/16/20: [place] # (Auto) 0.2 K/mm3 (0.0-0.8) 09/16/20: Eos # (Auto) 0.0 K/mm3 (0.0-0.4) 09/16/20: Baso # (Auto) 0.0 K/mm3 (0.0-0.1) 09/16/20: Seg Neutrophils % 76.4 % (40.0-70.0) H 09/16/20: Seg Neutrophils # 3.8 K/mm3 (1.8-7.7) 09/16/20: D-Dimer 425.43 ng/mlDDU (0-234) H 09/16/20 21: Sodium 142 mmol/L (137-145) 09/16/20 23:05 Potassium 4.0 mmol/L (3.6-5.0) 09/16/20 23:05 Chloride 103.8 mmol/L (98-107) 09/16/20 23:05 Carbon Dioxide 27 mmol/L (22-30) 09/16/20 23:05 Anion Gap 15 mmol/L 09/16/20 23:05 BUN 47 mg/dL (7-17) H 09/16/20 23:05 Creatinine 1.6 mg/dL (0.6-1.2) H 09/16/20 23:05 Estimated GFR 38 ml/min 09/16/20 23:05 BUN/Creatinine Ratio 29 % 09/16/20 23:05 Glucose 73 mg/dL (65-100) 09/16/20 23:05 Glucose 76 mg/dL (65-100) 09/16/20 23:05 Lactic Acid 1.10 mmol/L (0.7-2.0) 09/17/20 09:08 Calcium 9.9 mg/dL (8.4-10.2) 09/16/20 23:05 Ferritin 374.8 ng/mL (10.0-200.0) H 09/16/20 21:28 Total Bilirubin 0.50 mg/dL (0.1-1.2) 09/16/20 23:05 AST 62 units/L (5-40) H 09/16/20 23:05 ALT 54 units/L (7-56) 09/16/20 23:05 Alkaline Phosphatase 63 units/L (35-129) 09/16/20 23:05 Lactate Dehydrogenase 179 units/L (91-180) 09/16/20 23:05 Troponin T 0.029 ng/mL (0.00-0.029) 09/16/20 23:05 C-Reactive Protein 14.90 mg/dL (0.00-1.30) H 09/16/20 23:05 Total Protein 6.0 g/dL (6.3-8.2) L 09/16/20 23:05 Albumin 3.0 g/dL (3.9-5) L 09/16/20 23:05 Albumin/Globulin Ratio 1.0 % 09/16/20 23:05 Procalcitonin 0.09 ng/mL (<0.15) 09/16/20 21:28 Urine Color Yellow (Yellow) 09/17/20 Unknown Urine Turbidity Cloudy (Clear) 09/17/20 Unknown Urine pH 5.0 (5.0-7.0) 09/17/20 Unknown Ur Specific [place] 1.023 (1.003-1.030) 09/17/20 Unknown Urine Protein 100 mg/dl mg/dL (Negative) 09/17/20 Unknown Urine Glucose (UA) 50 mg/dL (Negative) 09/17/20 Unknown Urine Ketones Tr mg/dL (Negative) 09/17/20 Unknown Urine Blood Lg (Negative) 09/17/20 Unknown Urine Nitrite Neg (Negative) 09/17/20 Unknown Urine Bilirubin Neg (Negative) 09/17/20 Unknown Urine Urobilinogen < 2.0 mg/dL (<2.0) 09/17/20 Unknown Ur Leukocyte Esterase Neg (Negative) 09/17/20 Unknown Urine WBC (Auto) 28.0 /HPF (0.0-6.0) H 09/17/20 Unknown Urine RBC (Auto) > 182.0 /HPF (0.0-6.0) 09/17/20 Unknown U Epithel Cells (Auto) 7.0 /HPF (0-13.0) 09/17/20 Unknown Urine Bacteria (Auto) 1+ /HPF (Negative) 09/17/20 Unknown Urine Mucus 2+ /HPF 09/17/20 Unknown Urine Yeast (Budding) 1+ /HPF 09/17/20 Unknown Coronavirus (PCR) Negative (Negative) 09/17/20 Unknown Microbiology: Microbiology 09/16/20 21:28 Peripheral/Venous Blood Culture - Preliminary Culture in Progress 09/16/20 21:32 Peripheral/Venous Blood Culture - Preliminary Culture in Progress [place]/IV: Voiding Method External Female Catheter Active Medications - Current Medications Current Medications: Generic Name Dose Route Start Last Admin Trade Name Freq PRN Reason Stop Dose Admin Acetaminophen 650 mg 09/17/20 03:32 Acetaminophen 325 Mg Tab PO Q4H PRN Pain MILD(1-3)/Fever >100.5/NIÑO Clopidogrel Bisulfate 75 mg 09/18/20 10:00 Clopidogrel 75 Mg Tab PO QDAY [facility] Heparin Sodium (Porcine) 5,000 unit 09/17/20 06:00 09/17/20 11:29 Heparin 5,000 Unit/1 Ml Vial SUB-Q 5,000 unit Q8HR [facility] Administration Ceftriaxone Sodium 2 gm in 100 mls @ 200 mls/hr 09/17/20 22:00 Rocephin/Ns 2 Gm/100 Ml IV Q24HR@2200 [facility] Protocol Azithromycin 500 mg in 250 mls @ 250 mls/hr 09/17/20 22:00 Zithromax/Ns IV 09/20/20 22:59 Q24HR@2200 [facility] Protocol Sodium Chloride 1,000 mls @ 75 mls/hr 09/17/20 15:15 Nacl 0.9% 1000 Ml IV 09/18/20 04:34 DIRECT [facility] Magnesium Hydroxide 30 ml 09/17/20 03:32 Magnesium Hydroxide (Mom) Oral Liqd Udc PO Q4H PRN Constipation Miscellaneous Medication 20 mg 09/18/20 10:00 Simvastatin (Nf) PO DAILY [facility] Miscellaneous Medication 150 mg 09/17/20 22:00 Zantac 150 Mg Tab PO BID [facility] Morphine Sulfate 2 mg 09/17/20 03:32 Morphine 2 Mg/1 Ml Inj IV Q4H PRN Pain, Moderate (4-6) Ondansetron HCl 4 mg 09/17/20 03:32 Ondansetron 4 Mg/2 Ml Inj IV Q8H PRN Nausea And Vomiting Sodium Chloride 10 ml 09/17/20 10:00 09/17/20 11:29 Sodium Chloride 0.9% 10 Ml Flush Syringe IV 10 ml BID [facility] Administration Sodium Chloride 10 ml 09/17/20 03:32 Sodium Chloride 0.9% 10 Ml Flush Syringe IV PRN PRN LINE FLUSH
--- NOTE | 2020-09-17 16:16 | Consultation ---
History of Present Illness - Reason for Consult Consult date: 09/17/20 - History of Present Illness 80-year-old female past medical history hypertension, dementia, hyperlipidemia brought to the hospital today with complaints of shortness of breath, poor appetite and oral intake. As an outpatient she was diagnosed with UTI and was given outpatient Levaquin and has completed 3 days of therapy. Otherwise denies any known contact with Covid. Afebrile since admission with a white count of 5. Mild pyuria with 28 white blood cells Covid negative. GFR approximately 38. Procalcitonin normal. Blood cultures no growth so far. Imaging personally reviewed: Chest x-ray: Mild left basilar pulmonary airspace disease. Enlargement of the left middle mediastinum Review of Systems: Bold if positive, otherwise negative General: fevers, chills, rigors HEENT: visual disturbance, diplopia, eye pain Respiratory: cough, sputum, hemoptysis, shortness of breath Cardiovascular: chest pain, syncope Gastrointestinal: nausea, vomiting, diarrhea, abdominal pain Genitourinary: dysuria, hematuria, flank pain Musculoskeletal: neck pain, back pain, joint pain, edema Neurologic: headaches, seizures Hematologic: easy bruising or bleeding Endocrine: night sweats, acute weight loss Skin: rash, jaundice, redness Psychiatric: suicidal, homicidal ideation Past History Past Medical History: GERD, hypertension, hyperlipidemia, other (Dementia.) Past Surgical History: Other (History of colon cancer status post surgery) Social history: smoking (Quit tobacco use 10 years ago) Family history: no significant family history Medications and Allergies Allergies Allergy/AdvReac Type Severity Reaction Status Date / Time No Known Allergies Allergy Verified 09/16/20 20:49 Home Medications Medication Instructions Recorded Confirmed Last Taken Type Clopidogrel [Plavix] 75 mg PO QDAY 10/01/16 10/01/16 Unknown History Lisinopril/Hydrochlorothiazide 1 each PO DAILY 10/01/16 10/01/16 Unknown History [Zestoretic 20-12.5 mg] Metoprolol Tartrate 25 mg PO BID 10/01/16 10/01/16 Unknown History Nitrostat 0.4 mg SUBLINGUAL PRN PRN 10/01/16 10/01/16 Unknown History Simvastatin (Nf) [Zocor TAB] 20 mg PO DAILY 10/01/16 10/01/16 Unknown History Zantac 150 MG TAB 150 mg PO BID 10/01/16 10/01/16 Unknown History Active Meds: Active Medications Acetaminophen (Acetaminophen 325 Mg Tab) 650 mg PO Q4H PRN PRN Reason: Pain MILD(1-3)/Fever >100.5/NIÑO Clopidogrel Bisulfate (Clopidogrel 75 Mg Tab) 75 mg PO QDAY [facility] Famotidine (Famotidine 10 Mg Tab) 10 mg PO BID [facility] Heparin Sodium (Porcine) (Heparin 5,000 Unit/1 Ml Vial) 5,000 unit SUB-Q Q8HR S Last Admin: 09/17/20 11:29 Dose: 5,000 unit Documented by: Ceftriaxone Sodium (Rocephin/Ns 2 Gm/100 Ml) 2 gm in 100 mls @ 200 mls/hr IV Q24HR@2200 [facility]; Protocol Azithromycin (Zithromax/Ns) 500 mg in 250 mls @ 250 mls/hr IV Q24HR@2200 [facility]; Protocol Stop: 09/20/20 22:59 Sodium Chloride (Nacl 0.9% 1000 Ml) 1,000 mls @ 75 mls/hr IV DIRECT [facility] Stop: 09/18/20 04:34 Magnesium Hydroxide (Magnesium Hydroxide (Mom) Oral Liqd Udc) 30 ml PO Q4H PRN PRN Reason: Constipation Morphine Sulfate (Morphine 2 Mg/1 Ml Inj) 2 mg IV Q4H PRN PRN Reason: Pain, Moderate (4-6) Ondansetron HCl (Ondansetron 4 Mg/2 Ml Inj) 4 mg IV Q8H PRN PRN Reason: Nausea And Vomiting Pravastatin Sodium (Pravastatin 40 Mg Tab) 40 mg PO QHS [facility] Sodium Chloride (Sodium Chloride 0.9% 10 Ml Flush Syringe) 10 ml IV BID [facility] Last Admin: 09/17/20 11:29 Dose: 10 ml Documented by: Sodium Chloride (Sodium Chloride 0.9% 10 Ml Flush Syringe) 10 ml IV PRN PRN PRN Reason: LINE FLUSH Physical Examination - Physical Exam Narrative exam: Physical exam deferred due to PPE conservation strategy. Please refer to primary team's note. - Constitutional Vitals: Vital Signs Temp Pulse Resp BP Pulse Ox 97.9 F 68 22 91/52 98 09/17/20 12:29 09/17/20 12:29 09/17/20 12:29 09/17/20 12:29 09/17/20 12:29 Temperature -Last 24 Hours Temperature 97.9 F Temperature 98.2 F Results - Labs CBC & Chem 7: 09/16/20 21:28 09/16/20 23:05 Labs: Abnormal lab results 09/16/20 09/16/20 09/16/20 Range/Units 21:28 21:28 21:28 RDW 16.5 H (13.2-15.2) % Plt Count 83 L (140-440) K/mm3 Lymph # (Auto) 0.9 L (1.2-5.4) K/mm3 Seg Neutrophils % 76.4 H (40.0-70.0) % D-Dimer 425.43 H (0-234) ng/mlDDU BUN (7-17) mg/dL Creatinine (0.6-1.2) mg/dL Lactic Acid (0.7-2.0) mmol/L Ferritin 374.8 H (10.0-200.0) ng/mL AST (5-40) units/L C-Reactive Protein (0.00-1.30) mg/dL Total Protein (6.3-8.2) g/dL Albumin (3.9-5) g/dL Urine WBC (Auto) (0.0-6.0) /HPF 09/16/20 09/16/20 09/17/20 Range/Units 23:05 23:05 00:38 RDW (13.2-15.2) % Plt Count (140-440) K/mm3 Lymph # (Auto) (1.2-5.4) K/mm3 Seg Neutrophils % (40.0-70.0) % D-Dimer (0-234) ng/mlDDU BUN 47 H (7-17) mg/dL Creatinine 1.6 H (0.6-1.2) mg/dL Lactic Acid 2.30 H* (0.7-2.0) mmol/L Ferritin (10.0-200.0) ng/mL AST 62 H (5-40) units/L C-Reactive Protein 14.90 H (0.00-1.30) mg/dL Total Protein 6.0 L (6.3-8.2) g/dL Albumin 3.0 L (3.9-5) g/dL Urine WBC (Auto) (0.0-6.0) /HPF 09/17/20 09/17/20 Range/Units 02:01 Unknown RDW (13.2-15.2) % Plt Count (140-440) K/mm3 Lymph # (Auto) (1.2-5.4) K/mm3 Seg Neutrophils % (40.0-70.0) % D-Dimer (0-234) ng/mlDDU BUN (7-17) mg/dL Creatinine (0.6-1.2) mg/dL Lactic Acid 2.40 H* (0.7-2.0) mmol/L Ferritin (10.0-200.0) ng/mL AST (5-40) units/L C-Reactive Protein (0.00-1.30) mg/dL Total Protein (6.3-8.2) g/dL Albumin (3.9-5) g/dL Urine WBC (Auto) 28.0 H (0.0-6.0) /HPF Assessment and Plan Cultures: Blood culture no growth so far A/P: 80-year-old female past medical history hypertension, dementia, hyperlipidemia admitted with shortness of breath. #Left-sided pneumonia: Covid testing negative. Normal procalcitonin. Recommend retest of Covid #UTI: Minor pyuria, already completed 3 days Levaquin. Difficult to assess for symptoms on basis of dementia. #Dementia Recs: -Continue ceftriaxone for 3 days for possible UTI. -Stopazithromycin -Ordered Covid retest for tomorrow. -Follow-up cultures Thank you for the consult, we will continue to follow. Liz Valladares MD [facility] ([facility] O: [phone] F: [phone]
[2020-09-17] MEDS ORDERED: AZITHROMYCIN/NS 500 MG/250 ML 500 MG/250 ML BAG IV SCH (22:00)
[2020-09-17] MEDS ORDERED: ZANTAC 150 MG PO SCH (22:00)
[2020-09-17] MEDS: FAMOTIDINE 10 MG TAB PO SCH (23:49)
[2020-09-17] MEDS: PRAVASTATIN 40 MG TAB PO SCH (23:50)
[2020-09-17] MEDS: cefTRIAXone/NS 2 GM/100 ML 2 GM/100 ML BAG IV SCH (23:52)
[2020-09-18] MEDS: HEPARIN 5,000 UNIT/1 ML VIAL SUB-Q SCH ×2 (05:43→22:18)
[2020-09-18 07:12] LABS: Basophils % (Auto) 0.2 % (0.0-1.8); Hematocrit 32.8 % (30.3-42.9); Hemoglobin 10.7 gm/dl (10.1-14.3); Lymphocytes # (Auto) 0.8 K/mm3 (1.2-5.4); Lymphocytes % (Auto) 21.7 % (13.4-35.0); Mean Corpuscular HGB Conc 33 % (30-34); Mean Corpuscular Volume 95 fl (79-97); Monocytes # (Auto) 0.2 K/mm3 (0.0-0.8); Monocytes % (Auto) 6.2 % (0.0-7.3); Red Blood Count 3.47 M/mm3 (3.65-5.03); Red Cell Distribution Width 16.8 % (13.2-15.2)
[2020-09-18 07:19] LABS: INR 1.13 (0.87-1.13)
[2020-09-18 07:21] LABS: Calcium 9.2 mg/dL (8.4-10.2)
[2020-09-18 07:29] LABS: Platelet Count 73 K/mm3 (140-440)
[2020-09-18] MEDS ORDERED: NON-FORMULARY EACH (Simvastatin (Nf) 20 MG Tablet) PO SCH (10:00)
[2020-09-18] MEDS: CLOPIDOGREL 75 MG TAB PO SCH (11:14)
[2020-09-18] MEDS: FAMOTIDINE 10 MG TAB PO SCH ×2 (11:15→22:13)
--- NOTE | 2020-09-18 14:55 | Progress Note ---
Assessment and Plan Assessment and plan: Sepsis -Presented with hypotension, acute kidney injury, and possible developing pneumonia on CXR -S/p 2.4 L normal saline in the emergency department -Infectious disease consulted, appreciate recommendations -Antibiotic therapy -09/16 blood cultures x2 NGTD Pneumonia -09/17 CXR shows possible developing pneumonia -Antibiotic therapy -Pulmonary hygiene -SPO2 monitoring Urinary tract infection -Tested positive for urinary tract infection at home Kit and was given 3/5 doses of Levaquin -09/16 urinalysis with pyuria with budding yeast -S/p Diflucan in the emergency department -Antibiotic therapy Leukopenia -09/18 WBC 3.7 -Trend CBC Acute kidney injury -Presented with a BUN/creatinine 47/1.6 -Prior visits BUN 18-26/creatinine 0.7-1 -09/18 Bun/Cr 33/1.3 -Avoid nephrotoxic medication -Renally dose medications -Trend BMP -s/p MIVF for 1 L -Consider nephrology consult if not improving -Secondary to vasomotor nephropathy Hypernateremia -09/18 Na 149 -Trend BMP -s/p MIVF for [place]ERVA Hyperchloremia -09/18 Cl 112.6 -s/p MIVF -Trend Chloride Dementia -Supportive care -Verbal de-escalation and redirection as needed -Fall, aspiration precautions -Supportive care Hypertension -Hold antihypertensives in setting of hypotension -Blood pressure monitoring per protocol GERD -Continue PPI Hyperlipidemia -Continue statin therapy DVT prophylaxis -GI prophylaxis -Subcu heparin -SCDs to bilateral lower extremities while in bed COVID-19 pneumonia, ruled out -09/17 COVID-19 PCR negative Lactic acidosis, resolved -09/17 lactic acid 1.9, 2.3, 2.4, 1.1, 0.9 -Trend lactic acid -S/p 2.4 L normal saline in the ED -MIVF for 1 L History Interval history: This is a 80-year-old female with hypertension, GERD, colon cancer s/p resection, dementia and former smoker who presented to the emergency department with shortness of breath, decreased appetite and decreased p.o. intake over the past few days. Patient tested positive for urinary tract infection on home test kit and was subsequently started on oral Levaquin 500 mg daily for the past 3 days. Work-up in the emergency department revealed acute kidney injury, pyuria, possible developing pneumonia or aspiration, enlarged left middle mediastinum suggesting adenopathies. Patient was admitted to the hospital service for pneumonia as a COVID-19 PUI. Infectious disease was consulted. 09/17: Patient is on room air at the time my examination entry COVID-19 PCR resulted as negative. Patient will be transferred to medical floor. Infectious disease has stopped azithromycin continue ceftriaxone for possible urinary tract infection. We have also ordered a repeat COVID-19 PCR 09/18: No acute events reported overnight. Patient still remains in bilateral mittens-repeat COVID-19 PCR will need to be repeated tomorrow per hospital policy.This morning patient has leukopenia, hypernatremia, hyperchloremia but h er acute kidney injury has improved. Hospitalist Physical - Constitutional Vitals: Temp Pulse Resp BP Pulse Ox 98.2 F 85 19 136/75 96 09/18/20 12:49 09/18/20 12:49 09/18/20 12:49 09/18/20 12:49 09/18/20 12:49 General appearance: Present: no acute distress, well-nourished - EENT Eyes: Present: PERRL, EOM intact ENT: dentition normal - Neck Neck: Present: normal ROM - Respiratory Respiratory effort: normal Respiratory: bilateral: CTA - Cardiovascular Rhythm: regular Heart Sounds: Present: S1 & S2. Absent: systolic murmur, diastolic murmur - Extremities Extremities: no ischemia, pulses intact, pulses symmetrical, No edema, normal temperature, normal color, Full ROM Peripheral Pulses: within normal limits - Abdominal General gastrointestinal: soft, non-tender, non-distended, normal bowel sounds - Integumentary Integumentary: Present: clear, warm, dry - Psychiatric Psychiatric: cooperative - Neurologic Neurologic: CNII-XII intact, no focal deficits, moves all extremities - Allied Health Allied health notes reviewed: nursing HEART Score - HEART Score Troponin: Troponin T 0.029 ng/mL (0.00-0.029) 09/16/20 23:05 Results - Labs CBC & Chem 7: 09/18/20 06:14 09/18/20 06:14 Labs: Laboratory Last Values WBC 3.7 K/mm3 (4.5-11.0) L 09/18/20 06:14 RBC 3.47 M/mm3 (3.65-5.03) L 09/18/20 06:14 Hgb 10.7 gm/dl (10.1-14.3) 09/18/20 06:14 Hct 32.8 % (30.3-42.9) 09/18/20 06:14 MCV 95 fl (79-97) 09/18/20 06:14 MCH 31 pg (28-32) 09/18/20 06:14 MCHC 33 % (30-34) 09/18/20 06:14 RDW 16.8 % (13.2-15.2) H 09/18/20 06:14 Plt Count 73 K/mm3 (140-440) L 09/18/20 06:14 Lymph % (Auto) 21.7 % (13.4-35.0) 09/18/20 06:14 [place] % (Auto) 6.2 % (0.0-7.3) 09/18/20 06:14 Eos % (Auto) 1.0 % (0.0-4.3) 09/18/20 06:14 Baso % (Auto) 0.2 % (0.0-1.8) 09/18/20 06:14 Lymph # (Auto) 0.8 K/mm3 (1.2-5.4) L 09/18/20 06:14 [place] # (Auto) 0.2 K/mm3 (0.0-0.8) 09/18/20 06:14 Eos # (Auto) 0.0 K/mm3 (0.0-0.4) 09/18/20 06:14 Baso # (Auto) 0.0 K/mm3 (0.0-0.1) 09/18/20 06:14 Seg Neutrophils % 70.9 % (40.0-70.0) H 09/18/20 06:14 Seg Neutrophils # 2.6 K/mm3 (1.8-7.7) 09/18/20 06:14 PT 14.3 Sec. (12.2-14.9) 09/18/20 06:14 INR 1.13 (0.87-1.13) 09/18/20 06:14 D-Dimer 425.43 ng/mlDDU (0-234) H 09/16/20 21:28 Sodium 149 mmol/L (137-145) H 09/18/20 06:14 Potassium 3.9 mmol/L (3.6-5.0) 09/18/20 06:14 Chloride 112.6 mmol/L (98-107) H 09/18/20 06:14 Carbon Dioxide 26 mmol/L (22-30) 09/18/20 06:14 Anion Gap 14 mmol/L 09/18/20 06:14 BUN 33 mg/dL (7-17) H 09/18/20 06:14 Creatinine 1.3 mg/dL (0.6-1.2) H 09/18/20 06:14 Estimated GFR 48 ml/min 09/18/20 06:14 BUN/Creatinine Ratio 25 % 09/18/20 06:14 Glucose 57 mg/dL (65-100) L 09/18/20 06:14 Lactic Acid 0.90 mmol/L (0.7-2.0) 09/17/20 14:35 Calcium 9.2 mg/dL (8.4-10.2) 09/18/20 06:14 Ferritin 374.8 ng/mL (10.0-200.0) H 09/16/20 21:28 Total Bilirubin 0.50 mg/dL (0.1-1.2) 09/16/20 23:05 AST 62 units/L (5-40) H 09/16/20 23:05 ALT 54 units/L (7-56) 09/16/20 23:05 Alkaline Phosphatase 63 units/L (35-129) 09/16/20 23:05 Lactate Dehydrogenase 179 units/L (91-180) 09/16/20 23:05 Troponin T 0.029 ng/mL (0.00-0.029) 09/16/20 23:05 C-Reactive Protein 14.90 mg/dL (0.00-1.30) H 09/16/20 23:05 Total Protein 6.0 g/dL (6.3-8.2) L 09/16/20 23:05 Albumin 3.0 g/dL (3.9-5) L 09/16/20 23:05 Albumin/Globulin Ratio 1.0 % 09/16/20 23:05 Procalcitonin 0.09 ng/mL (<0.15) 09/16/20 21:28 Urine Color Yellow (Yellow) 09/17/20 Unknown Urine Turbidity Cloudy (Clear) 09/17/20 Unknown Urine pH 5.0 (5.0-7.0) 09/17/20 Unknown Ur Specific [place] 1.023 (1.003-1.030) 09/17/20 Unknown Urine Protein 100 mg/dl mg/dL (Negative) 09/17/20 Unknown Urine Glucose (UA) 50 mg/dL (Negative) 09/17/20 Unknown Urine Ketones Tr mg/dL (Negative) 09/17/20 Unknown Urine Blood Lg (Negative) 09/17/20 Unknown Urine Nitrite Neg (Negative) 09/17/20 Unknown Urine Bilirubin Neg (Negative) 09/17/20 Unknown Urine Urobilinogen < 2.0 mg/dL (<2.0) 09/17/20 Unknown Ur Leukocyte Esterase Neg (Negative) 09/17/20 Unknown Urine WBC (Auto) 28.0 /HPF (0.0-6.0) H 09/17/20 Unknown Urine RBC (Auto) > 182.0 /HPF (0.0-6.0) 09/17/20 Unknown U Epithel Cells (Auto) 7.0 /HPF (0-13.0) 09/17/20 Unknown Urine Bacteria (Auto) 1+ /HPF (Negative) 09/17/20 Unknown Urine Mucus 2+ /HPF 09/17/20 Unknown Urine Yeast (Budding) 1+ /HPF 09/17/20 Unknown Coronavirus (PCR) Negative (Negative) 09/17/20 Unknown Microbiology: Microbiology 09/17/20 Unknown Urine,Clean Catch Urine Culture - Preliminary NO GROWTH AFTER 24 HOURS 09/16/20 21:28 Peripheral/Venous Blood Culture - Preliminary NO GROWTH AFTER 24 HOURS 09/16/20 21:32 Peripheral/Venous Blood Culture - Preliminary NO GROWTH AFTER 24 HOURS [place]/IV: Voiding Method Incontinent Active Medications - Current Medications Current Medications: Generic Name Dose Route Start Last Admin Trade Name Freq PRN Reason Stop Dose Admin Acetaminophen 650 mg 09/17/20 03:32 Acetaminophen 325 Mg Tab PO Q4H PRN Pain MILD(1-3)/Fever >100.5/NIÑO Clopidogrel Bisulfate 75 mg 09/18/20 10:00 09/18/20 11:14 Clopidogrel 75 Mg Tab PO 75 mg QDAY [facility] Administration Famotidine 10 mg 09/17/20 22:00 09/18/20 11:15 Famotidine 10 Mg Tab PO 10 mg BID [facility] Administration Heparin Sodium (Porcine) 5,000 unit 09/17/20 06:00 09/18/20 05:43 Heparin 5,000 Unit/1 Ml Vial SUB-Q 5,000 unit Q8HR [facility] Administration Ceftriaxone Sodium 2 gm in 100 mls @ 200 mls/hr 09/17/20 22:00 09/17/20 23:52 Rocephin/Ns 2 Gm/100 Ml IV 09/19/20 22:29 200 mls/hr Q24HR@2200 [facility] Administration Protocol Magnesium Hydroxide 30 ml 09/17/20 03:32 Magnesium Hydroxide (Mom) Oral Liqd Udc PO Q4H PRN Constipation Morphine Sulfate 2 mg 09/17/20 03:32 Morphine 2 Mg/1 Ml Inj IV Q4H PRN Pain, Moderate (4-6) Ondansetron HCl 4 mg 09/17/20 03:32 Ondansetron 4 Mg/2 Ml Inj IV Q8H PRN Nausea And Vomiting Pravastatin Sodium 40 mg 09/17/20 22:00 09/17/20 23:50 Pravastatin 40 Mg Tab PO 40 mg QHS RIGO Administration Sodium Chloride 10 ml 09/17/20 10:00 09/18/20 11:15 Sodium Chloride 0.9% 10 Ml Flush Syringe IV 10 ml BID RIGO Administration Sodium Chloride 10 ml 09/17/20 03:32 Sodium Chloride 0.9% 10 Ml Flush Syringe IV PRN PRN LINE FLUSH
--- NOTE | 2020-09-18 16:07 | Progress Note ---
Assessment and Plan Cultures: Blood culture no growth so far A/P: 80-year-old female past medical history hypertension, dementia, hyperlipidemia admitted with shortness of breath. #Left-sided pneumonia: Covid testing negative. Normal procalcitonin. Recommend retest of Covid #UTI: Minor pyuria, already completed 3 days Levaquin. Difficult to assess for symptoms on basis of dementia. #Dementia Recs: -Continue ceftriaxone for 3 days for possible UTI. -Ordered Covid retest for 48 hours after the first. -Follow-up cultures Thank you for the consult, we will continue to follow. Liz Valladares MD [facility] ([facility]) O: [phone] F: [phone] Subjective Date of service: 09/18/20 Interval history: Afebrile, white count 3.7. Objective - Exam Narrative Exam: Physical exam deferred due to PPE conservation strategy. Please refer to primary team's note. - Constitutional Vitals: Vital Signs Temp Pulse Resp BP Pulse Ox 98.2 F 85 19 136/75 96 09/18/20 12:49 09/18/20 12:49 09/18/20 12:49 09/18/20 12:49 09/18/20 12:49 Temperature -Last 24 Hours Temperature 98.2 F Temperature 97.5 F Temperature 98.3 F Temperature 98.0 F Temperature 97.1 F - Labs CBC & Chem 7: 09/18/20 06:14 09/18/20 06:14 Labs: Abnormal lab results 09/18/20 09/18/20 Range/Units 06:14 06:14 WBC 3.7 L (4.5-11.0) K/mm3 RBC 3.47 L (3.65-5.03) M/mm3 RDW 16.8 H (13.2-15.2) % Plt Count 73 L (140-440) K/mm3 Lymph # (Auto) 0.8 L (1.2-5.4) K/mm3 Seg Neutrophils % 70.9 H (40.0-70.0) % Sodium 149 H (137-145) mmol/L Chloride 112.6 H (98-107) mmol/L BUN 33 H (7-17) mg/dL Creatinine 1.3 H (0.6-1.2) mg/dL Glucose 57 L (65-100) mg/dL
[2020-09-18] MEDS ORDERED: DEXTROSE 50% IN WATER (25GM) 50 ML SYRINGE IV ONE ×2 (20:32→21:18)
[2020-09-18] MEDS: PRAVASTATIN 40 MG TAB PO SCH (22:14)
[2020-09-18] MEDS: cefTRIAXone/NS 2 GM/100 ML 2 GM/100 ML BAG IV SCH (22:18)
[2020-09-19] MEDS ORDERED: DEXTROSE 50% IN WATER (25GM) 50 ML SYRINGE IV PRN (04:40)
[2020-09-19] MEDS: HEPARIN 5,000 UNIT/1 ML VIAL SUB-Q SCH ×4 (05:15→22:12)
[2020-09-19 06:17] LABS: Hematocrit 32.7 % (30.3-42.9); Hemoglobin 10.7 gm/dl (10.1-14.3); Mean Corpuscular HGB Conc 33 % (30-34); Mean Corpuscular Volume 94 fl (79-97); Red Cell Distribution Width 16.7 % (13.2-15.2)
[2020-09-19 06:24] LABS: Platelet Count 85 K/mm3 (140-440)
[2020-09-19 06:40] LABS: Calcium 9.1 mg/dL (8.4-10.2)
[2020-09-19] MEDS ORDERED: METOPROLOL TARTRATE 5 MG/5 ML INJ IV NR ×2 (06:45→07:13)
[2020-09-19] MEDS ORDERED: POTASSIUM CHLORIDE ER 20 MEQ TAB PO NR (08:20)
[2020-09-19] MEDS ORDERED: METOPROLOL TARTRATE 25 MG TAB PO SCH ×2 (10:00)
[2020-09-19] MEDS ORDERED: AMIODARONE 150 MG in DEXTROSE 5% IN WATER 97 ML IV ONE (11:00)
[2020-09-19] MEDS: FAMOTIDINE 10 MG TAB PO SCH (11:01)
--- NOTE | 2020-09-19 11:18 | Consultation ---
History of Present Illness Consult date: 09/19/20 Requesting physician: NIDIA MALLOY Consult reason: atrial fibrillation History of present illness: The pt is a 80-year-old female with a past medical history of HTN, HLP, dementia. She is previously unknown to our practice. Pt is a poor historian due to dementia and thus HPI is obtained per the chart. She was brought to the hospital on 09/17/2020 for evaluation of shortness of breath, poor appetite and oral intake. As an outpatient she was diagnosed with UTI and was given outpatient Levaquin and completed 3 days of therapy prior to arrival. Admission CXR with concern for left-sided PNA. Initial COVID-19 testing is negative, although pt is currently being retested at the request of ID team. Pt was noted to develop AFib with RVR and thus cardiology has been consulted. Review of telemetry since admission shows that pt was initially in NSR with freq PACs and developed AFib RVR today ~6:30AM. Past History Past Medical History: GERD, hypertension, hyperlipidemia, other (Dementia.) Past Surgical History: Other (History of colon cancer status post surgery) Social history: smoking (Quit tobacco use 10 years ago) Family history: no significant family history Medications and Allergies Allergies Allergy/AdvReac Type Severity Reaction Status Date / Time No Known Allergies Allergy Verified 09/16/20 20:49 Home Medications Medication Instructions Recorded Confirmed Last Taken Type Clopidogrel [Plavix] 75 mg PO QDAY 10/01/16 09/17/20 Unknown History Lisinopril/Hydrochlorothiazide 1 each PO DAILY 10/01/16 09/17/20 Unknown History [Zestoretic 20-12.5 mg] Metoprolol Tartrate 25 mg PO BID 10/01/16 09/17/20 Unknown History Nitrostat 0.4 mg SUBLINGUAL PRN PRN 10/01/16 09/17/20 Unknown History Simvastatin (Nf) [Zocor TAB] 20 mg PO DAILY 10/01/16 09/17/20 Unknown History Zantac 150 MG TAB 150 mg PO BID 10/01/16 09/17/20 Unknown History Active Meds: Active Medications Acetaminophen (Acetaminophen 325 Mg Tab) 650 mg PO Q4H PRN PRN Reason: Pain MILD(1-3)/Fever >100.5/NIÑO Dextrose (Dextrose 50% In Water (25gm) 50 Ml Syringe) 0 ml IV Q30MIN PRN; Protocol PRN Reason: Hypoglycemia Last Admin: 09/19/20 05:15 Dose: 50 ml Documented by: Famotidine (Famotidine 10 Mg Tab) 10 mg PO BID [facility] Last Admin: 09/19/20 11:01 Dose: Not Given Documented by: Heparin Sodium (Porcine) (Heparin 5,000 Unit/1 Ml Vial) 5,000 unit SUB-Q Q8HR [facility] Last Admin: 09/19/20 05:15 Dose: 5,000 unit Documented by: Ceftriaxone Sodium (Rocephin/Ns 2 Gm/100 Ml) 2 gm in 100 mls @ 200 mls/hr IV Q24HR@2200 RIGO; Protocol Stop: 09/19/20 22:29 Last Admin: 09/18/20 22:18 Dose: 200 mls/hr Documented by: Dextrose/Sodium Chloride (D5ns) 1,000 mls @ 42 mls/hr IV DIRECT RIGO Amiodarone HCl 900 mg/ (Dextrose) 500 mls @ 33.333 mls/hr IV DIRECT RIGO; Protocol Magnesium Hydroxide (Magnesium Hydroxide (Mom) Oral Liqd Udc) 30 ml PO Q4H PRN PRN Reason: Constipation Morphine Sulfate (Morphine 2 Mg/1 Ml Inj) 2 mg IV Q4H PRN PRN Reason: Pain, Moderate (4-6) Ondansetron HCl (Ondansetron 4 Mg/2 Ml Inj) 4 mg IV Q8H PRN PRN Reason: Nausea And Vomiting Pravastatin Sodium (Pravastatin 40 Mg Tab) 40 mg PO QHS [facility] Last Admin: 09/18/20 22:14 Dose: Not Given Documented by: Sodium Chloride (Sodium Chloride 0.9% 10 Ml Flush Syringe) 10 ml IV BID [facility] Last Admin: 09/19/20 11:01 Dose: 10 ml Documented by: Sodium Chloride (Sodium Chloride 0.9% 10 Ml Flush Syringe) 10 ml IV PRN PRN PRN Reason: LINE FLUSH Review of Systems ROS unobtainable: due to mental status Physical Examination Vital Signs Pulse Resp BP Pulse Ox 77 16 75/39 97 09/16/20 20:49 09/16/20 20:49 09/16/20 20:49 09/16/20 20:49 General appearance: no acute distress HEENT: Positive: PERRL, Normocephaly, Mucus Membranes Moist Neck: Positive: neck supple, trachea midline Cardiac: Positive: irregularly irregular, S1/S2, Tachycardia Lungs: Positive: Decreased Breath Sounds Neuro: Positive: Other (confused) Skin: Negative: Rash Extremities: Absent: edema Results 09/19/20 04:52 09/19/20 04:52 CBC 09/19/20 Range/Units 04:52 WBC 4.4 L (4.5-11.0) K/mm3 RBC 3.50 L (3.65-5.03) M/mm3 Hgb 10.7 (10.1-14.3) gm/dl Hct 32.7 (30.3-42.9) % Plt Count 85 L (140-440) K/mm3 Comprehensive Metabolic Panel 09/19/20 Range/Units 04:52 Sodium 147 H (137-145) mmol/L Potassium 3.4 L (3.6-5.0) mmol/L Chloride 112.7 H (98-107) mmol/L Carbon Dioxide 24 (22-30) mmol/L BUN 26 H (7-17) mg/dL Creatinine 1.4 H (0.6-1.2) mg/dL Glucose 75 (65-100) mg/dL Calcium 9.1 (8.4-10.2) mg/dL - Imaging and Cardiology Echo: pending EKG: report reviewed, image reviewed EKG interpretations - Telemetry EKG Rhythm: Atrial Fibrillation - EKG Supraventricular dysrhythmia: atrial fibrillation Assessment and Plan Pt was noted to develop AFib with RVR and thus cardiology has been consulted. Review of telemetry since admission shows that pt was initially in NSR with freq PACs and developed AFib RVR today ~6:30AM. BPs are hypotensive. Pt currently not consistently taking PO meds. Optimize HR - initiate IV amio, hold BB in setting of hypotension. Agree with IVF per primary team. F/u CMP in AM. Pt would benefit from initiation of systemic AC. However, she is noted to have thrombocytopenia. Recommend hematology consultation per primary team and initiation of systemic AC if no contraindications. Pt is noted to be receiving Plavix which is listed as a home medication. There is no apparent cardiac indication for continuation of Plavix. Repeat COVID-19 testing is pending, plan to obtain tte pending result. Will follow. The patient has been seen in conjunction with Dr. Elizabeth Smith who agrees with the assessment and plan of care. - Patient Problems (1) New onset atrial fibrillation Current Visit: Yes Status: Acute (2) Person under investigation for COVID-19 Current Visit: Yes Status: Acute (3) Sepsis Current Visit: Yes Status: Suspected (4) Hypotension Current Visit: Yes Status: Acute (5) Pneumonia Current Visit: Yes Status: Suspected (6) UTI (urinary tract infection) Current Visit: Yes Status: Acute (7) Altered mental status Current Visit: Yes Status: Acute (8) Dementia Current Visit: Yes Status: Chronic Qualifiers: Dementia type: unspecified type Dementia behavioral disturbance: with behavioral disturbance Qualified Code(s): F03.91 - Unspecified dementia with behavioral disturbance (9) MINERVA (acute kidney injury) Current Visit: Yes Status: Acute
[2020-09-19] MEDS: AMIODARONE 900 MG in DEXTROSE 5% IN WATER 482 ML IV SCH (11:28)
[2020-09-19] MEDS ORDERED: SODIUM CHLORIDE 0.9% 250ML 250 ML IV ONE (11:34)
--- NOTE | 2020-09-19 15:41 | Progress Note ---
Assessment and Plan Assessment and plan: Sepsis -Presented with hypotension, acute kidney injury, and possible developing pneumonia on CXR -S/p 2.4 L normal saline in the emergency department -Infectious disease consulted, appreciate recommendations -Antibiotic therapy -09/16 blood cultures x2 NGTD Pneumonia -09/17 CXR shows possible developing pneumonia -Antibiotic therapy -Pulmonary hygiene -SPO2 monitoring Urinary tract infection -Tested positive for urinary tract infection at home Kit and was given 3/5 doses of Levaquin -09/16 urinalysis with pyuria with budding yeast -S/p Diflucan in the emergency department -Antibiotic therapy Leukopenia -09/18 WBC 3.7 -Hem/Onc consulted -Trend CBC Thrombocytopenia -Presented with a platelet count of 83 -Trend CBC -Hematology/oncology consulted Acute kidney injury -Presented with a BUN/creatinine 47/1.6 -Prior visits BUN 18-26/creatinine 0.7-1 -09/18 Bun/Cr 33/1.3 -Avoid nephrotoxic medication -Renally dose medications -Trend BMP -MIVF -Consider nephrology consult if not improving -Secondary to vasomotor nephropathy Hypernateremia -09/18 Na 149 -Trend BMP -MIVF Hyperchloremia -09/18 Cl 112.6 -MIVF -Trend Chloride Hypoglycemia -09/18 patient noted to be persistently hypoglycemic -Decreased p.o. intake -MIVF with D5NS -Accu-Cheks AC at bedtime -Hypoglycemia protocol Hypokalemia -09/19 potassium 3.4 -Repleted -Trend BMP Dementia -Supportive care -Verbal de-escalation and redirection as needed -Fall, aspiration precautions -Supportive care Hypertension -Hold antihypertensives in setting of hypotension -Blood pressure monitoring per protocol GERD -Continue PPI -Changed to Protonix due to thrombocytopenia Hyperlipidemia -Continue statin therapy DVT prophylaxis -GI prophylaxis -Subcu heparin -SCDs to bilateral lower extremities while in bed COVID-19 pneumonia, ruled out -09/17 COVID- PCR negative Lactic acidosis, resolved -09/17 lactic acid 1.9, 2.3, 2.4, 1.1, 0.9 -Trend lactic acid -S/p 2.4 L normal saline in the ED -MIVF History Interval history: This is a 80-year-old female with hypertension, GERD, colon cancer s/p resec tion, dementia and former smoker who presented to the emergency department with shortness of breath, decreased appetite and decreased p.o. intake over the past few days. Patient tested positive for urinary tract infection on home test kit and was subsequently started on oral Levaquin 500 mg daily for the past 3 days. Work-up in the emergency department revealed acute kidney injury, pyuria, possi ble developing pneumonia or aspiration, enlarged left middle mediastinum suggesting adenopathies. Patient was admitted to the hospital service for pneumonia as a COVID-19 PUI. Infectious disease was consulted. 09/17: Patient is on room air at the time my examination entry COVID-19 PCR resulted as negative. Patient will be transferred to medical floor. Infectious disease has stopped azithromycin continue ceftriaxone for possible urinary tract infection. We have also ordered a repeat COVID-19 PCR 09/18: No acute events reported overnight. Patient still remains in bilateral mittens-repeat COVID-19 PCR will need to be repeated tomorrow per hospital policy.This morning patient has leukopenia, hypernatremia, hyperchloremia but her acute kidney injury has improved. 09/19: Patient noted to be in atrial fibrillation with RVR this morning around 0600 and cardiology was consulted. Patient has been started on amiodarone drip after bolus. ST was consulted today for decreased p.o. intake as the patient was placed on MIVF due to persistent hypoglycemia yesterday. Her hyperchloremia and hypernatremia have improved however she is hypokalemic on her creatinine/BUN have increased. ST has recommended PEG tube placement. Patient's family unable to be contacted for update, confirmation of history or possible PEG tube placement. Her daughter was called several times today by me. Patient's repeat COVID-19 PCR is pending. She was given a 250 ml normal saline bolus due to hypotension. Repeat CMP in the a.m. Heme/Onc consulted for thrombocytopenia. Hospitalist Physical - Constitutional Vitals: Temp Pulse Resp BP Pulse Ox 98.2 F 122 H 16 136/89 99 09/19/20 03:00 09/19/20 12:43 09/19/20 11:18 09/19/20 12:43 09/19/20 12:43 General appearance: Present: no acute distress - EENT Eyes: Present: PERRL, EOM intact ENT: hearing decreased, poor dentition - Neck Neck: Present: normal ROM - Respiratory Respiratory effort: normal Respiratory: bilateral: CTA - Cardiovascular Rhythm: regular Heart Sounds: Present: S1 & S2. Absent: systolic murmur, diastolic murmur - Extremities Extremities: no ischemia, pulses intact, pulses symmetrical, No edema, normal temperature, normal color, Full ROM Peripheral Pulses: within normal limits - Abdominal General gastrointestinal: soft, non-tender, non-distended, normal bowel sounds - Integumentary Integumentary: Present: clear, warm, dry - Psychiatric Psychiatric: other - Neurologic Neurologic: CNII-XII intact, no focal deficits, moves all extremities (not interactive) HEART Score - HEART Score Troponin: Troponin T 0.029 ng/mL (0.00-0.029) 09/16/20 23:05 Results - Labs CBC & Chem 7: 09/19/20 04:52 09/19/20 04:52 Labs: Laboratory Last Values WBC 4.4 K/mm3 (4.5-11.0) L 09/19/20 04:52 RBC 3.50 M/mm3 (3.65-5.03) L 09/19/20 04:52 Hgb 10.7 gm/dl (10.1-14.3) 09/19/20 04:52 Hct 32.7 % (30.3-42.9) 09/19/20 04:52 MCV 94 fl (79-97) 09/19/20 04:52 MCH 31 pg (28-32) 09/19/20 04:52 MCHC 33 % (30-34) 09/19/20 04:52 RDW 16.7 % (13.2-15.2) H 09/19/20 04:52 Plt Count 85 K/mm3 (140-440) L 09/19/20 04:52 Lymph % (Auto) 21.7 % (13.4-35.0) 09/18/20 06:14 [place] % (Auto) 6.2 % (0.0-7.3) 09/18/20 06:14 Eos % (Auto) 1.0 % (0.0-4.3) 09/18/20 06:14 Baso % (Auto) 0.2 % (0.0-1.8) 09/18/20 06:14 Lymph # (Auto) 0.8 K/mm3 (1.2-5.4) L 09/18/20 06:14 [place] # (Auto) 0.2 K/mm3 (0.0-0.8) 09/18/20 06:14 Eos # (Auto) 0.0 K/mm3 (0.0-0.4) 09/18/20 06:14 Baso # (Auto) 0.0 K/mm3 (0.0-0.1) 09/18/20 06:14 Seg Neutrophils % 70.9 % (40.0-70.0) H 09/18/20 06:14 Seg Neutrophils # 2.6 K/mm3 (1.8-7.7) 09/18/20 06:14 PT 14.3 Sec. (12.2-14.9) 09/18/20 06:14 INR 1.13 (0.87-1.13) 09/18/20 06:14 D-Dimer 425.43 ng/mlDDU (0-234) H 09/16/20 21:28 Sodium 147 mmol/L (137-145) H 09/19/20 04:52 Potassium 3.4 mmol/L (3.6-5.0) L 09/19/20 04:52 Chloride 112.7 mmol/L (98-107) H 09/19/20 04:52 Carbon Dioxide 24 mmol/L (22-30) 09/19/20 04:52 Anion Gap 14 mmol/L 09/19/20 04:52 BUN 26 mg/dL (7-17) H 09/19/20 04:52 Creatinine 1.4 mg/dL (0.6-1.2) H 09/19/20 04:52 Estimated GFR 44 ml/min 09/19/20 04:52 BUN/Creatinine Ratio 19 % 09/19/20 04:52 Glucose 75 mg/dL (65-100) 09/19/20 04:52 POC Glucose 124 mg/dL (70-105) H 09/19/20 11:24 Lactic Acid 0.90 mmol/L (0.7-2.0) 09/17/20 14:35 Calcium 9.1 mg/dL (8.4-10.2) 09/19/20 04:52 Ferritin 374.8 ng/mL (10.0-200.0) H 09/16/20 21:28 Total Bilirubin 0.50 mg/dL (0.1-1.2) 09/16/20 23:05 AST 62 units/L (5-40) H 09/16/20 23:05 ALT 54 units/L (7-56) 09/16/20 23:05 Alkaline Phosphatase 63 units/L (35-129) 09/16/20 23:05 Lactate Dehydrogenase 179 units/L (91-180) 09/16/20 23:05 Troponin T 0.029 ng/mL (0.00-0.029) 09/16/20 23:05 C-Reactive Protein 14.90 mg/dL (0.00-1.30) H 09/16/20 23:05 Total Protein 6.0 g/dL (6.3-8.2) L 09/16/20 23:05 Albumin 3.0 g/dL (3.9-5) L 09/16/20 23:05 Albumin/Globulin Ratio 1.0 % 09/16/20 23:05 Procalcitonin 0.09 ng/mL (<0.15) 09/16/20 21:28 Urine Color Yellow (Yellow) 09/17/20 Unknown Urine Turbidity Cloudy (Clear) 09/17/20 Unknown Urine pH 5.0 (5.0-7.0) 09/17/20 Unknown Ur Specific Aspers 1.023 (1.003-1.030) 09/17/20 Unknown Urine Protein 100 mg/dl mg/dL (Negative) 09/17/20 Unknown Urine Glucose (UA) 50 mg/dL (Negative) 09/17/20 Unknown Urine Ketones Tr mg/dL (Negative) 09/17/20 Unknown Urine Blood Lg (Negative) 09/17/20 Unknown Urine Nitrite Neg (Negative) 09/17/20 Unknown Urine Bilirubin Neg (Negative) 09/17/20 Unknown Urine Urobilinogen < 2.0 mg/dL (<2.0) 09/17/20 Unknown Ur Leukocyte Esterase Neg (Negative) 09/17/20 Unknown Urine WBC (Auto) 28.0 /HPF (0.0-6.0) H 09/17/20 Unknown Urine RBC (Auto) > 182.0 /HPF (0.0-6.0) 09/17/20 Unknown U Epithel Cells (Auto) 7.0 /HPF (0-13.0) 09/17/20 Unknown Urine Bacteria (Auto) 1+ /HPF (Negative) 09/17/20 Unknown Urine Mucus 2+ /HPF 09/17/20 Unknown Urine Yeast (Budding) 1+ /HPF 09/17/20 Unknown Coronavirus (PCR) Negative (Negative) 09/17/20 Unknown Microbiology: Microbiology 09/17/20 Unknown Urine,Clean Catch Urine Culture - Final NO GROWTH AFTER 48 HOURS 09/16/20 21:28 Peripheral/Venous Blood Culture - Preliminary NO GROWTH AFTER 48 HOURS 09/16/20 21:32 Peripheral/Venous Blood Culture - Preliminary NO GROWTH AFTER 48 HOURS [place]/IV: Voiding Method External Female Catheter Active Medications - Current Medications Current Medications: Generic Name Dose Route Start Last Admin Trade Name Freq PRN Reason Stop Dose Admin Acetaminophen 650 mg 09/17/20 03:32 Acetaminophen 325 Mg Tab PO Q4H PRN Pain MILD(1-3)/Fever >100.5/INÑO Dextrose 0 ml 09/19/20 04:40 09/19/20 05:15 Dextrose 50% In Water (25gm) 50 Ml Syringe IV 50 ml Q30MIN PRN Administration Hypoglycemia Protocol Famotidine 10 mg 09/17/20 22:00 09/19/20 11:01 Famotidine 10 Mg Tab PO Not Given BID RIGO Heparin Sodium (Porcine) 5,000 unit 09/17/20 06:00 09/19/20 05:15 Heparin 5,000 Unit/1 Ml Vial SUB-Q 5,000 unit Q8HR RIGO Administration Ceftriaxone Sodium 2 gm in 100 mls @ 200 mls/hr 09/17/20 22:00 09/18/20 22:18 Rocephin/Ns 2 Gm/100 Ml IV 09/19/20 22:29 200 mls/hr Q24HR@2200 RIGO Administration Protocol Dextrose/Sodium Chloride 1,000 mls @ 42 mls/hr 09/18/20 23:45 D5ns IV DIRECT RIGO Amiodarone HCl 900 mg/ 500 mls @ 33.333 mls/hr 09/19/20 11:00 09/19/20 11:28 Dextrose IV 1 mg/min DIRECT RIGO 33.333 mls/hr Administration Protocol 1 MG/MIN Magnesium Hydroxide 30 ml 09/17/20 03:32 Magnesium Hydroxide (Mom) Oral Liqd Udc PO Q4H PRN Constipation Morphine Sulfate 2 mg 09/17/20 03:32 Morphine 2 Mg/1 Ml Inj IV Q4H PRN Pain, Moderate (4-6) Ondansetron HCl 4 mg 09/17/20 03:32 Ondansetron 4 Mg/2 Ml Inj IV Q8H PRN Nausea And Vomiting Pravastatin Sodium 40 mg 09/17/20 22:00 09/18/20 22:14 Pravastatin 40 Mg Tab PO Not Given QHS RIGO Sodium Chloride 10 ml 09/17/20 10:00 09/19/20 11:01 Sodium Chloride 0.9% 10 Ml Flush Syringe IV 10 ml BID RIGO Administration Sodium Chloride 10 ml 09/17/20 03:32 Sodium Chloride 0.9% 10 Ml Flush Syringe IV PRN PRN LINE FLUSH
--- NOTE | 2020-09-19 15:53 | Progress Note ---
Assessment and Plan Cultures: Blood culture no growth so far COVID negative A/P: 80-year-old female past medical history hypertension, dementia, hyperlipidemia admitted with shortness of breath. #Left-sided pneumonia: Covid testing negative. Normal procalcitonin. Recommend retest of Covid #UTI: Minor pyuria, already completed 3 days Levaquin. Difficult to assess for symptoms on basis of dementia. #Dementia Recs: -Continue ceftriaxone for 3 days for possible UTI given poor response to Levaquin -Ordered Covid retest for 48 hours after the first. -Follow-up cultures Thank you for the consult, we will continue to follow. Liz Valladares MD [facility] ([facility]) O: [phone] F: [phone] Subjective Date of service: 09/19/20 Interval history: Afebrile, normal white count. COVID negative. Objective - Exam Narrative Exam: Physical Exam: Constitutional: Alert, cooperative. No acute distress Head, Ears, Nose: Normocephalic, atraumatic. External ears, nose normal Eyes: Conjunctivae/corneas clear. No icterus. No ptosis. Neck: Supple, no meningeal signs Oral: dentition fair, no thrush Cardiovascular: S1, S2 normal. +tachycardia Respiratory: Good air entry, clear to auscultation bilaterally GI: Soft, non-tender; bowel sounds normal. No peritoneal signs. Musculoskeletal: No pedal edema, no cyanosis. Skin: No rash or abscess Hem/Lymphatic: No palpable cervical or supraclavicular nodes. No lymphangitis Psych: Mood ok. Affect normal Neurological: Awake, alert, oriented. No gross abnormality - Constitutional Vitals: Vital Signs Temp Pulse Resp BP Pulse Ox 98.2 F 122 H 16 136/89 99 09/19/20 03:00 09/19/20 12:43 09/19/20 11:18 09/19/20 12:43 09/19/20 12:43 Temperature -Last 24 Hours Temperature 98.2 F Temperature 98.1 F Temperature 97.5 F Temperature 97.9 F - Labs CBC & Chem 7: 09/19/20 04:52 09/19/20 04:52 Labs: Abnormal lab results 09/18/20 09/18/20 09/19/20 Range/Units 20:14 23:04 01:00 WBC (4.5-11.0) K/mm3 RBC (3.65-5.03) M/mm3 RDW (13.2-15.2) % Plt Count (140-440) K/mm3 Sodium (137-145) mmol/L Potassium (3.6-5.0) mmol/L Chloride (98-107) mmol/L BUN (7-17) mg/dL Creatinine (0.6-1.2) mg/dL POC Glucose 50 L 64 L 65 L (70-105) mg/dL 09/19/20 09/19/20 09/19/20 Range/Units 04:30 04:52 04:52 WBC 4.4 L (4.5-11.0) K/mm3 RBC 3.50 L (3.65-5.03) M/mm3 RDW 16.7 H (13.2-15.2) % Plt Count 85 L (140-440) K/mm3 Sodium 147 H (137-145) mmol/L Potassium 3.4 L (3.6-5.0) mmol/L Chloride 112.7 H (98-107) mmol/L BUN 26 H (7-17) mg/dL Creatinine 1.4 H (0.6-1.2) mg/dL POC Glucose 55 L (70-105) mg/dL 09/19/20 Range/Units 11:24 WBC (4.5-11.0) K/mm3 RBC (3.65-5.03) M/mm3 RDW (13.2-15.2) % Plt Count (140-440) K/mm3 Sodium (137-145) mmol/L Potassium (3.6-5.0) mmol/L Chloride (98-107) mmol/L BUN (7-17) mg/dL Creatinine (0.6-1.2) mg/dL POC Glucose 124 H (70-105) mg/dL
[2020-09-19] MEDS ORDERED: SODIUM CHLORIDE 0.9% 250ML 250 ML IV SCH (16:30)
[2020-09-19 17:56] LABS: Creatinine,Urine 179.4 mg/dL (0.1-20.0)
[2020-09-19] MEDS: D5W/0.9% NACL 1,000 ML IV SCH (18:16)
[2020-09-19] MEDS: PRAVASTATIN 40 MG TAB PO SCH (22:11)
[2020-09-19] MEDS: cefTRIAXone/NS 2 GM/100 ML 2 GM/100 ML BAG IV SCH (22:13)
--- NOTE | 2020-09-20 00:18 | Hem/Onc Consultation ---
History of Present Illness - History of Present Illness heme consult for low plt count and anticoag telemed via tsqrd, but A/V cart because PUI for Covid19 80yo elderly woman with dementia per notes, eval for SOB, recent UTI on levaquin presumed pneumonia found to have lo w plt count 80's found to have atrial fibrillation, meg on IV amiodarone, considering anticoag Chest x-ray reveals:. Mild left basilar pulmonary airspace disease possibly representing developing pneumonia or aspiration. 2. Enlargement of the left middle mediastinum suggesting adenopathy. 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 PLAN: lovenox 30mg daily while hospitalized (DVt/pe/stroke prevention) at discharge consider eliquis 2.5mg po bid if she is able to take pills (OK to take eliquis as long as plt>30) Home Medications Medication Instructions Recorded Confirmed Last Taken Clopidogrel [Plavix] 75 mg PO QDAY 10/01/16 09/17/20 Unknown Lisinopril/Hydrochlorothiazide 1 each PO DAILY 10/01/16 09/17/20 Unknown [Zestoretic 20-12.5 mg] Metoprolol Tartrate 25 mg PO BID 10/01/16 09/17/20 Unknown Nitrostat 0.4 mg SUBLINGUAL PRN PRN 10/01/16 09/17/20 Unknown Simvastatin (Nf) [Zocor TAB] 20 mg PO DAILY 10/01/16 09/17/20 Unknown Zantac 150 MG TAB 150 mg PO BID 10/01/16 09/17/20 Unknown Active Medications Heparin Sodium (Porcine) (Heparin 5,000 Unit/1 Ml Vial) 5,000 unit SUB-Q Q8HR RIGO Last Admin: 09/19/20 22:12 Dose: 5,000 unit Documented by: Dextrose/Sodium Chloride (D5ns) 1,000 mls @ 42 mls/hr IV DIRECT RIGO Last Admin: 09/19/20 18:16 Dose: 42 mls/hr Documented by: Amiodarone HCl 900 mg/ (Dextrose) 500 mls @ 33.333 mls/hr IV DIRECT RIGO; Protocol Last Admin: 09/19/20 11:28 Dose: 1 mg/min, 33.333 mls/hr Documented by: Laboratory Last Values WBC 4.4 K/mm3 (4.5-11.0) L 09/19/20 04:52 Hgb 10.7 gm/dl (10.1-14.3) 09/19/20 04:52 Hct 32.7 % (30.3-42.9) 09/19/20 04:52 Plt Count 85 K/mm3 (140-440) L 09/19/20 04:52 PT 14.3 Sec. (12.2-14.9) 09/18/20 06:14 INR 1.13 (0.87-1.13) 09/18/20 06:14 Coronavirus (PCR) Negative (Negative) 09/17/20 Unknown Past History Past Medical History: GERD, hypertension, hyperlipidemia, other (Dementia.) Past Surgical History: Other (History of colon cancer status post surgery) Social history: smoking (Quit tobacco use 10 years ago) Family history: no significant family history Medications and Allergies Allergies Allergy/AdvReac Type Severity Reaction Status Date / Time No Known Allergies Allergy Verified 09/16/20 20:49 Home Medications Medication Instructions Recorded Confirmed Last Taken Type Clopidogrel [Plavix] 75 mg PO QDAY 10/01/16 09/17/20 Unknown History Lisinopril/Hydrochlorothiazide 1 each PO DAILY 10/01/16 09/17/20 Unknown History [Zestoretic 20-12.5 mg] Metoprolol Tartrate 25 mg PO BID 10/01/16 09/17/20 Unknown History Nitrostat 0.4 mg SUBLINGUAL PRN PRN 10/01/16 09/17/20 Unknown History Simvastatin (Nf) [Zocor TAB] 20 mg PO DAILY 10/01/16 09/17/20 Unknown History Zantac 150 MG TAB 150 mg PO BID 10/01/16 09/17/20 Unknown History Active Meds: Active Medications Acetaminophen (Acetaminophen 325 Mg Tab) 650 mg PO Q4H PRN PRN Reason: Pain MILD(1-3)/Fever >100.5/NIÑO Dextrose (Dextrose 50% In Water (25gm) 50 Ml Syringe) 0 ml IV Q30MIN PRN; Protocol PRN Reason: Hypoglycemia Last Admin: 09/19/20 05:15 Dose: 50 ml Documented by: Heparin Sodium (Porcine) (Heparin 5,000 Unit/1 Ml Vial) 5,000 unit SUB-Q Q8HR RIGO Last Admin: 09/19/20 22:12 Dose: 5,000 unit Documented by: Dextrose/Sodium Chloride (D5ns) 1,000 mls @ 42 mls/hr IV DIRECT RIGO Last Admin: 09/19/20 18:16 Dose: 42 mls/hr Documented by: Amiodarone HCl 900 mg/ (Dextrose) 500 mls @ 33.333 mls/hr IV DIRECT RIGO; Protocol Last Admin: 09/19/20 11:28 Dose: 1 mg/min, 33.333 mls/hr Documented by: Magnesium Hydroxide (Magnesium Hydroxide (Mom) Oral Liqd Udc) 30 ml PO Q4H PRN PRN Reason: Constipation Morphine Sulfate (Morphine 2 Mg/1 Ml Inj) 2 mg IV Q4H PRN PRN Reason: Pain, Moderate (4-6) Ondansetron HCl (Ondansetron 4 Mg/2 Ml Inj) 4 mg IV Q8H PRN PRN Reason: Nausea And Vomiting Pantoprazole Sodium (Pantoprazole 20 Mg Tab) 20 mg PO QDAC [facility] Pravastatin Sodium (Pravastatin 40 Mg Tab) 40 mg PO QHS [facility] Last Admin: 09/19/20 22:11 Dose: Not Given Documented by: Sodium Chloride (Sodium Chloride 0.9% 10 Ml Flush Syringe) 10 ml IV BID [facility] Last Admin: 09/19/20 22:11 Dose: Not Given Documented by: Sodium Chloride (Sodium Chloride 0.9% 10 Ml Flush Syringe) 10 ml IV PRN PRN PRN Reason: LINE FLUSH Exam - Constitutional Vitals: Last Vital Signs Temp 99.7 F H 09/19/20 19:27 Pulse 127 H 09/19/20 19:27 Resp 17 09/19/20 19:27 BP 149/89 09/19/20 19:27 Pulse Ox 100 09/19/20 19:27 Results - Labs lab Results: Laboratory Results - last 24 hr 09/18/20 09/19/20 09/19/20 23:04 01:00 04:30 WBC RBC Hgb Hct MCV MCH MCHC RDW Plt Count Sodium Potassium Chloride Carbon Dioxide Anion Gap BUN Creatinine Estimated GFR BUN/Creatinine Ratio Glucose POC Glucose 64 L 65 L 55 L Calcium Urine Osmolality Urine Creatinine Urine Sodium 09/19/20 09/19/2021 04:52 04:52 06:02 WBC 4.4 L RBC 3.50 L Hgb 10.7 Hct 32.7 MCV 94 MCH 31 MCHC 33 RDW 16.7 H Plt Count 85 L Sodium 147 H Potassium 3.4 L Chloride 112.7 H Carbon Dioxide 24 Anion Gap 14 BUN 26 H Creatinine 1.4 H Estimated GFR 44 BUN/Creatinine Ratio 19 Glucose 75 POC Glucose 102 Calcium 9.1 Urine Osmolality Urine Creatinine Urine Sodium 09/19/20 09/19/20 09/19/20 07:47 11:24 16:27 WBC RBC Hgb Hct MCV MCH MCHC RDW Plt Count Sodium Potassium Chloride Carbon Dioxide Anion Gap BUN Creatinine Estimated GFR BUN/Creatinine Ratio Glucose POC Glucose 84 124 H 135 H Calcium Urine Osmolality Urine Creatinine Urine Sodium 09/19/20 09/19/20 17:35 20:40 WBC RBC Hgb Hct MCV MCH MCHC RDW Plt Count Sodium Potassium Chloride Carbon Dioxide Anion Gap BUN Creatinine Estimated GFR BUN/Creatinine Ratio Glucose POC Glucose 124 H Calcium Urine Osmolality 1096 Urine Creatinine 179.4 H Urine Sodium 193
[2020-09-20] MEDS: AMIODARONE 900 MG in DEXTROSE 5% IN WATER 482 ML IV SCH (03:38)
[2020-09-20] MEDS: HEPARIN 5,000 UNIT/1 ML VIAL SUB-Q SCH (05:37)
[2020-09-20 07:07] LABS: Hematocrit 34.8 % (30.3-42.9); Hemoglobin 11.6 gm/dl (10.1-14.3); Mean Corpuscular HGB Conc 33 % (30-34); Mean Corpuscular Volume 94 fl (79-97); Red Blood Count 3.71 M/mm3 (3.65-5.03); Red Cell Distribution Width 16.5 % (13.2-15.2)
[2020-09-20 07:14] LABS: Platelet Count 99 K/mm3 (140-440)
[2020-09-20] MEDS ORDERED: PANTOPRAZOLE 20 MG TAB PO SCH (07:30)
[2020-09-20 07:35] LABS: Albumin 3.1 g/dL (3.9-5); Calcium 8.9 mg/dL (8.4-10.2)
--- NOTE | 2020-09-20 09:48 | Progress Note ---
Assessment and Plan Assessment and plan: This is a 80-year-old female with hypertension, GERD, colon cancer s/p resection, dementia and former smoker who presented to the emergency department with shortness of breath, decreased appetite and decreased p.o. intake over the past few days. Patient tested positive for urinary tract infection on home test kit and was subsequently started on oral Levaquin 500 mg daily for the past 3 days. Work-up in the emergency department revealed acute kidney injury, pyuria, possible developing pneumonia or aspiration, enlarged left middle mediastinum suggesting adenopathies. Patient was admitted to the hospital service for pneumonia as a COVID-19 PUI. Infectious disease was consulted. Sepsis -Presented with hypotension, acute kidney injury, and possible developing pneumonia on CXR -S/p 2.4 L normal saline in the emergency department -Infectious disease consulted, appreciate recommendations -Antibiotic therapy -09/16 blood cultures x2 NGTD Pneumonia -09/17 CXR shows possible developing pneumonia -Antibiotic therapy -Pulmonary hygiene -SPO2 monitoring New onset Afib with RVR Urinary tract infection -Tested positive for urinary tract infection at home Kit and was given 3/5 doses of Levaquin -09/16 urinalysis with pyuria with budding yeast -S/p Diflucan in the emergency department -Antibiotic therapy Leukopenia -09/18 WBC 3.7 -Hem/Onc consulted -Trend CBC Thrombocytopenia -Presented with a platelet count of 83 -Trend CBC -Hematology/oncology consulted Acute kidney injury -Presented with a BUN/creatinine 47/1.6 -Prior visits BUN 18-26/creatinine 0.7-1 -09/18 Bun/Cr 33/1.3 -Avoid nephrotoxic medication -Renally dose medications -Trend BMP -MIVF -Consider nephrology consult if not improving -Secondary to vasomotor nephropathy Hypernateremia -09/18 Na 149 -Trend BMP -MIVF Hyperchloremia -09/18 Cl 112.6 -MIVF -Trend Chloride Hypoglycemia -09/18 patient noted to be persistently hypoglycemic -Decreased p.o. intake -MIVF with D5NS -Accu-Cheks AC at bedtime -Hypoglycemia protocol Hypokalemia -09/19 potassium 3.4 -Repleted -Trend BMP Dementia -Supportive care -Verbal de-escalation and redirection as needed -Fall, aspiration precautions -Supportive care Hypertension -Hold antihypertensives in setting of hypotension -Blood pressure monitoring per protocol GERD -Continue PPI -Changed to Protonix due to thrombocytopenia Hyperlipidemia -Continue statin therapy DVT prophylaxis -GI prophylaxis -Subcu heparin -SCDs to bilateral lower extremities while in bed COVID-19 pneumonia, ruled out -09/17 COVID-19 PCR negative Lactic acidosis, resolved -09/17 lactic acid 1.9, 2.3, 2.4, 1.1, 0.9 -Trend lactic acid -S/p 2.4 L normal saline in the ED -MIVF Hospital course: 09/17: Patient is on room air at the time my examination entry COVID-19 PCR resulted as negative. Patient will be transferred to medical floor. Infectious disease has stopped azithromycin continue ceftriaxone for possible urinary tract infection. We have also ordered a repeat COVID-19 PCR 09/18: No acute events reported overnight. Patient still remains in bilateral mittens-repeat COVID-19 PCR will need to be repeated tomorrow per hospital policy.This morning patient has leukopenia, hypernatremia, hyperchloremia but her acute kidney injury has improved. 09/19: Patient noted to be in atrial fibrillation with RVR this morning around 0600 and cardiology was consulted. Patient has been started on amiodarone drip after bolus. ST was consulted today for decreased p.o. intake as the patient was placed on MIVF due to persistent hypoglycemia yesterday. Her hyperchloremia and hypernatremia have improved however she is hypokalemic on her creatinine/BUN have increased. ST has recommended PEG tube placement. Patient's family unable to be contacted for update, confirmation of history or possible PEG tube placement. Her daughter was called several times today by me. Patient's repeat COVID-19 PCR is pending. She was given a 250 ml normal saline bolus due to hypotension. Repeat CMP in the a.m. Heme/Onc consulted for thrombocytopenia. 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 Start heparin drip for new onset afib with RVR and Eliquis 2.5 mg p.o. twice daily at discharge. Wean IV amiodarone and start digoxin and Lopressor IV per Cardiology. Continue ceftriaxone for total of 3 days for UTI per ID recommendations. Continue to follow blood and urine cultures. Follow-up repeat Covid testing today. PEG placement per Speech recommendations History Interval history: No new issues overnight. Hospitalist Physical - Constitutional Vitals: Temp Pulse Resp BP Pulse Ox 98.9 F 127 H 18 151/87 97 09/20/20 07:59 09/20/20 07:59 09/20/20 07:59 09/20/20 07:59 09/20/20 07:59 General appearance: Present: no acute distress - EENT Eyes: Present: PERRL, EOM intact ENT: hearing intact, clear oral mucosa, dentition normal - Neck Neck: Present: supple, normal ROM - Respiratory Respiratory effort: normal Respiratory: bilateral: CTA - Cardiovascular Rhythm: regular Heart Sounds: Present: S1 & S2. Absent: gallop, rub - Extremities Extremities: no ischemia, No edema, Full ROM - Abdominal General gastrointestinal: soft, non-tender, non-distended, normal bowel sounds - Integumentary Integumentary: Present: clear, warm, dry - Neurologic Neurologic: CNII-XII intact, moves all extremities HEART Score - HEART Score Troponin: Troponin T 0.029 ng/mL (0.00-0.029) 09/16/20 23:05 Results - Labs CBC & Chem 7: 09/20/20 06:15 09/20/20 06:15 Labs: Laboratory Last Values WBC 7.7 K/mm3 (4.5-11.0) 09/20/20 06:15 RBC 3.71 M/mm3 (3.65-5.03) 09/20/20 06:15 Hgb 11.6 gm/dl (10.1-14.3) 09/20/20 06:15 Hct 34.8 % (30.3-42.9) 09/20/20 06:15 MCV 94 fl (79-97) 09/20/20 06:15 MCH 31 pg (28-32) 09/20/20 06:15 MCHC 33 % (30-34) 09/20/20 06:15 RDW 16.5 % (13.2-15.2) H 09/20/20 06:15 Plt Count 99 K/mm3 (140-440) L 09/20/20 06:15 Lymph % (Auto) 21.7 % (13.4-35.0) 09/18/20 06:14 [place] % (Auto) 6.2 % (0.0-7.3) 09/18/20 06:14 Eos % (Auto) 1.0 % (0.0-4.3) 09/18/20 06:14 Baso % (Auto) 0.2 % (0.0-1.8) 09/18/20 06:14 Lymph # (Auto) 0.8 K/mm3 (1.2-5.4) L 09/18/20 06:14 [place] # (Auto) 0.2 K/mm3 (0.0-0.8) 09/18/20 06:14 Eos # (Auto) 0.0 K/mm3 (0.0-0.4) 09/18/20 06:14 Baso # (Auto) 0.0 K/mm3 (0.0-0.1) 09/18/20 06:14 Seg Neutrophils % 70.9 % (40.0-70.0) H 09/18/20 06:14 Seg Neutrophils # 2.6 K/mm3 (1.8-7.7) 09/18/20 06:14 PT 14.3 Sec. (12.2-14.9) 09/18/20 06:14 INR 1.13 (0.87-1.13) 09/18/20 06:14 D-Dimer 425.43 ng/mlDDU (0-234) H 09/16/20 21:28 Sodium 150 mmol/L (137-145) H 09/20/20 06:15 Potassium 3.8 mmol/L (3.6-5.0) 09/20/20 06:15 Chloride 114.8 mmol/L (98-107) H 09/20/20 06:15 Carbon Dioxide 26 mmol/L (22-30) 09/20/20 06:15 Anion Gap 13 mmol/L 09/20/20 06:15 BUN 27 mg/dL (7-17) H 09/20/20 06:15 Creatinine 1.8 mg/dL (0.6-1.2) H 09/20/20 06:15 Estimated GFR 33 ml/min 09/20/20 06:15 BUN/Creatinine Ratio 15 % 09/20/20 06:15 Glucose 135 mg/dL (65-100) H 09/20/20 06:15 POC Glucose 124 mg/dL (70-105) H 09/19/20 20:40 Lactic Acid 0.90 mmol/L (0.7-2.0) 09/17/20 14:35 Calcium 8.9 mg/dL (8.4-10.2) 09/20/20 06:15 Ferritin 374.8 ng/mL (10.0-200.0) H 09/16/20 21:28 Total Bilirubin 0.40 mg/dL (0.1-1.2) 09/20/20 06:15 AST 79 units/L (5-40) H 09/20/20 06:15 ALT 39 units/L (7-56) 09/20/20 06:15 Alkaline Phosphatase 78 units/L (35-129) 09/20/20 06:15 Lactate Dehydrogenase 179 units/L (91-180) 09/16/20 23:05 Troponin T 0.029 ng/mL (0.00-0.029) 09/16/20 23:05 C-Reactive Protein 14.90 mg/dL (0.00-1.30) H 09/16/20 23:05 Total Protein 6.1 g/dL (6.3-8.2) L 09/20/20 06:15 Albumin 3.1 g/dL (3.9-5) L 09/20/20 06:15 Albumin/Globulin Ratio 1.0 % 09/20/20 06:15 Procalcitonin 0.09 ng/mL (<0.15) 09/16/20 21:28 Urine Color Yellow (Yellow) 09/17/20 Unknown Urine Turbidity Cloudy (Clear) 09/17/20 Unknown Urine pH 5.0 (5.0-7.0) 09/17/20 Unknown Ur Specific [place] 1.023 (1.003-1.030) 09/17/20 Unknown Urine Protein 100 mg/dl mg/dL (Negative) 09/17/20 Unknown Urine Glucose (UA) 50 mg/dL (Negative) 09/17/20 Unknown Urine Ketones Tr mg/dL (Negative) 09/17/20 Unknown Urine Blood Lg (Negative) 09/17/20 Unknown Urine Nitrite Neg (Negative) 09/17/20 Unknown Urine Bilirubin Neg (Negative) 09/17/20 Unknown Urine Urobilinogen < 2.0 mg/dL (<2.0) 09/17/20 Unknown Ur Leukocyte Esterase Neg (Negative) 09/17/20 Unknown Urine WBC (Auto) 28.0 /HPF (0.0-6.0) H 09/17/20 Unknown Urine RBC (Auto) > 182.0 /HPF (0.0-6.0) 09/17/20 Unknown U Epithel Cells (Auto) 7.0 /HPF (0-13.0) 09/17/20 Unknown Urine Bacteria (Auto) 1+ /HPF (Negative) 09/17/20 Unknown Urine Mucus 2+ /HPF 09/17/20 Unknown Urine Yeast (Budding) 1+ /HPF 09/17/20 Unknown Urine Osmolality 1096 Mosm/kg 09/19/20 17:35 Urine Creatinine 179.4 mg/dL (0.1-20.0) H 09/19/20 17:35 Urine Sodium 193 mmol/L 09/19/20 17:35 Coronavirus (PCR) Negative (Negative) 09/17/20 Unknown Microbiology: Microbiology 09/16/20 21:28 Peripheral/Venous Blood Culture - Preliminary NO GROWTH AFTER 72 HOURS 09/16/20 21:32 Peripheral/Venous Blood Culture - Preliminary NO GROWTH AFTER 72 HOURS 09/17/20 Unknown Urine,Clean Catch Urine Culture - Final NO GROWTH AFTER 48 HOURS [place]/IV: Voiding Method External Female Catheter Active Medications - Current Medications Current Medications: Generic Name Dose Route Start Last Admin Trade Name Freq PRN Reason Stop Dose Admin Acetaminophen 650 mg 09/17/20 03:32 Acetaminophen 325 Mg Tab PO Q4H PRN Pain MILD(1-3)/Fever >100.5/NIÑO Dextrose 0 ml 09/19/20 04:40 09/19/20 05:15 Dextrose 50% In Water (25gm) 50 Ml Syringe IV 50 ml Q30MIN PRN Administration Hypoglycemia Protocol Heparin Sodium (Porcine) 5,000 unit 09/17/20 06:00 09/20/20 05:37 Heparin 5,000 Unit/1 Ml Vial SUB-Q 5,000 unit Q8HR RIGO Administration Dextrose/Sodium Chloride 1,000 mls @ 42 mls/hr 09/18/20 23:45 09/19/20 18:16 D5ns IV 42 mls/hr DIRECT RIGO Administration Amiodarone HCl 900 mg/ 500 mls @ 33.333 mls/hr 09/19/20 11:00 09/20/20 03:38 Dextrose IV 0.5 mg/min DIRECT RIGO 16.667 mls/hr Administration Protocol 1 MG/MIN Magnesium Hydroxide 30 ml 09/17/20 03:32 Magnesium Hydroxide (Mom) Oral Liqd Udc PO Q4H PRN Constipation Morphine Sulfate 2 mg 09/17/20 03:32 Morphine 2 Mg/1 Ml Inj IV Q4H PRN Pain, Moderate (4-6) Ondansetron HCl 4 mg 09/17/20 03:32 Ondansetron 4 Mg/2 Ml Inj IV Q8H PRN Nausea And Vomiting Pantoprazole Sodium 20 mg 09/20/20 07:30 Pantoprazole 20 Mg Tab PO QDAC RIGO Pravastatin Sodium 40 mg 09/17/20 22:00 09/19/20 22:11 Pravastatin 40 Mg Tab PO Not Given QHS RIGO Sodium Chloride 10 ml 09/17/20 10:00 09/19/20 22:11 Sodium Chloride 0.9% 10 Ml Flush Syringe IV Not Given BID RIGO Sodium Chloride 10 ml 09/17/20 03:32 Sodium Chloride 0.9% 10 Ml Flush Syringe IV PRN PRN LINE FLUSH
[2020-09-20] MEDS ORDERED: SODIUM CHLORIDE 0.9% 1000 ML 1,000 ML IV SCH (10:30)
--- NOTE | 2020-09-20 10:32 | Progress Note ---
Assessment and Plan 80-year-old female with dementia has atrial fibrillation with rapid ventricle response on IV amiodarone we will add digoxin and Lopressor IV as patient unable to take oral medication start normal saline and anticoagulation with Lovenox subcu adjusted for renal dosing. Awaiting echocardiogram check a.m. labs start normal saline - Patient Problems (1) MINERVA (acute kidney injury) Current Visit: Yes Status: Acute (2) Altered mental status Current Visit: Yes Status: Acute (3) Dehydration Current Visit: Yes Status: Acute (4) New onset atrial fibrillation Current Visit: Yes Status: Acute (5) Person under investigation for COVID-19 Current Visit: Yes Status: Acute (6) UTI (urinary tract infection) Current Visit: Yes Status: Acute (7) Dementia Current Visit: Yes Status: Chronic Qualifiers: Dementia type: unspecified type Dementia behavioral disturbance: with behavioral disturbance Qualified Code(s): F03.91 - Unspecified dementia with behavioral disturbance Subjective Date of service: 09/20/20 Principal diagnosis: afib Interval history: non verbal Objective Vital Signs Temp Pulse Resp BP BP Pulse Ox 09/20/20 07:59 98.9 F 127 H 18 151/87 97 09/20/20 03:28 99.0 F 129 H 16 151/77 99 09/19/20 23:31 97.6 F 125 H 16 121/73 99 09/19/20 20:00 126 H 09/19/20 19:27 99.7 F H 127 H 17 149/89 100 09/19/20 14:43 98.7 F 129 H 18 121/76 99 09/19/20 12:43 122 H 136/89 99 09/19/20 11:48 127 H 117/71 98 09/19/20 11:31 118 H 90/63 99 09/19/20 11:18 116 H 16 85/47 99 09/19/20 11:01 139 H 09/19/20 11:00 96 H 18 89/57 99 - Physical Examination General: No Apparent Distress HEENT: Positive: PERRL, Normocephaly, Mucus Membranes Moist Neck: Positive: neck supple, trachea midline Cardiac: Positive: Irregularly Regular Lungs: Positive: clear to auscultation Neuro: Positive: Other (confused) Skin: Negative: Rash Extremities: Absent: edema - Labs and Meds Cardiac Enzymes 09/20/20 Range/Units 06:15 AST 79 H (5-40) units/L CBC 09/20/20 Range/Units 06:15 WBC 7.7 (4.5-11.0) K/mm3 RBC 3.71 (3.65-5.03) M/mm3 Hgb 11.6 (10.1-14.3) gm/dl Hct 34.8 (30.3-42.9) % Plt Count 99 L (140-440) K/mm3 Comprehensive Metabolic Panel 09/20/20 Range/Units 06:15 Sodium 150 H (137-145) mmol/L Potassium 3.8 (3.6-5.0) mmol/L Chloride 114.8 H (98-107) mmol/L Carbon Dioxide 26 (22-30) mmol/L BUN 27 H (7-17) mg/dL Creatinine 1.8 H (0.6-1.2) mg/dL Glucose 135 H (65-100) mg/dL Calcium 8.9 (8.4-10.2) mg/dL AST 79 H (5-40) units/L ALT 39 (7-56) units/L Alkaline Phosphatase 78 (35-129) units/L Total Protein 6.1 L (6.3-8.2) g/dL Albumin 3.1 L (3.9-5) g/dL - Imaging and Cardiology EKG: report reviewed, image reviewed Echo: pending - Telemetry EKG Rhythm: Atrial Fibrillation (120's)
[2020-09-20] MEDS: METOPROLOL TARTRATE 5 MG/5 ML INJ IV SCH ×2 (11:04→18:04)
[2020-09-20] MEDS: DIGOXIN 0.5 MG/2 ML INJ IV SCH ×2 (11:05→18:05)
[2020-09-20] MEDS ORDERED: HEPARIN 10,000 UNITS/10 ML VIAL IV ONE (11:13)
[2020-09-20] MEDS ORDERED: HEPARIN 10,000 UNITS/10 ML VIAL IV PRN (11:13)
[2020-09-20 13:52] LABS: Hematocrit 40.4 % (30.3-42.9); Hemoglobin 12.9 gm/dl (10.1-14.3)
[2020-09-20 13:53] LABS: INR 1.24 (0.87-1.13)
[2020-09-20 13:54] LABS: Partial Thromboplastin Time 37.4 Sec. (24.2-36.6)
[2020-09-20] MEDS: HEPARIN/ 0.45% NACL DRIP 25,000 UNIT/500 ML BAG IV SCH (15:13)
[2020-09-20] MEDS: cefTRIAXone/NS 1 GM/50 ML 1 GM/50 ML BAG IV SCH (15:25)
[2020-09-20] MEDS: PANTOPRAZOLE 40 MG INJ IV SCH (15:25)
--- NOTE | 2020-09-20 15:28 | Ultrasound Report ---
ULTRASOUND RENAL INDICATION / CLINICAL INFORMATION: bebo. COMPARISON: None available. FINDINGS: RIGHT KIDNEY: Length = 10.2 cm. - Echogenicity: Normal. - Cortical Thickness: Normal. - Hydronephrosis: None. - Cyst or mass: Multiple pelvicalyceal calcified stones are noted on the right measuring 3 mm and 5 m m. - Stones: None seen. LEFT KIDNEY: The left kidney is incompletely visualized secondary to overlying bowel gas and the sple en. Transverse diameter was 4.9 cm. URINARY BLADDER: No significant abnormality. FREE FLUID: None. ADDITIONAL FINDINGS: None. IMPRESSION: 1. Calcified nonobstructive right pelvicalyceal stones measure 3 mm and 5 mm without evidence of hydr onephrosis. 2. Limited evaluation of the left kidney. Signer Name: Karl Burnham MD Signed: 09/20/2020 3:24 PM Workstation Name: [id number]
[2020-09-20] MEDS ORDERED: ENOXAPARIN 30 MG/0.3 ML INJ SUB-Q SCH (18:00)
[2020-09-20] MEDS: PRAVASTATIN 40 MG TAB PO SCH (21:27)
[2020-09-20] MEDS: ASCORBIC ACID 250 MG TAB PO SCH (21:27)
[2020-09-20] MEDS: ZINC SULFATE 220 MG CAP PO SCH (21:27)
[2020-09-20] MEDS: methylPREDNISolone Sod Succinate 40 MG/1 ML INJ IV SCH (21:29)
[2020-09-21] MEDS: METOPROLOL TARTRATE 5 MG/5 ML INJ IV SCH ×3 (00:01→12:00)
[2020-09-21] MEDS: DIGOXIN 0.5 MG/2 ML INJ IV SCH (00:01)
[2020-09-21 05:04] LABS: Hematocrit 33.9 % (30.3-42.9); Hemoglobin 11.2 gm/dl (10.1-14.3); Mean Corpuscular HGB Conc 33 % (30-34); Mean Corpuscular Volume 95 fl (79-97); Red Blood Count 3.59 M/mm3 (3.65-5.03); Red Cell Distribution Width 16.1 % (13.2-15.2)
[2020-09-21 05:07] LABS: Platelet Count 98 K/mm3 (140-440)
[2020-09-21 05:08] LABS: Basophils # (Auto) 0.1 K/mm3 (0.0-0.1); Basophils % (Auto) 0.6 % (0.0-1.8); Eosinophils % (Auto) 0.1 % (0.0-4.3); Lymphocytes % (Auto) 13.2 % (13.4-35.0); Monocytes # (Auto) 0.3 K/mm3 (0.0-0.8); Monocytes % (Auto) 3.3 % (0.0-7.3)
[2020-09-21 05:16] LABS: Calcium 8.8 mg/dL (8.4-10.2)
[2020-09-21] MEDS: methylPREDNISolone Sod Succinate 40 MG/1 ML INJ IV SCH (05:32)
[2020-09-21] MEDS: HEPARIN 5,000 UNIT/1 ML VIAL SUB-Q SCH (07:53)
[2020-09-21] MEDS: CLOPIDOGREL 75 MG TAB PO SCH (07:53)
--- NOTE | 2020-09-21 09:16 | Progress Note ---
Assessment and Plan Assessment and plan: This is a 80-year-old female with hypertension, GERD, colon cancer s/p resection, dementia and former smoker who presented to the emergency department with shortness of breath, decreased appetite and decreased p.o. intake over the past few days. Patient tested positive for urinary tract infection on home test kit and was subsequently started on oral Levaquin 500 mg daily for the past 3 days. Work-up in the emergency department revealed acute kidney injury, pyuria, possible developing pneumonia or aspiration, enlarged left middle mediastinum suggesting adenopathies. Patient was admitted to the hospital service for pneumonia as a COVID-19 PUI. Infectious disease was consulted. Sepsis -Presented with hypotension, acute kidney injury, and possible developing pneumonia on CXR -S/p 2.4 L normal saline in the emergency department -Infectious disease consulted, appreciate recommendations -Antibiotic therapy -09/16 blood cultures x2 NGTD Pneumonia -09/17 CXR shows possible developing pneumonia -Antibiotic therapy -Pulmonary hygiene -SPO2 monitoring New onset Afib with RVR Urinary tract infection -Tested positive for urinary tract infection at home Kit and was given 3/5 doses of Levaquin -09/16 urinalysis with pyuria with budding yeast -S/p Diflucan in the emergency department -Antibiotic therapy Leukopenia -09/18 WBC 3.7 -Hem/Onc consulted -Trend CBC Thrombocytopenia -Presented with a platelet count of 83 -Trend CBC -Hematology/oncology consulted Acute kidney injury -Presented with a BUN/creatinine 47/1.6 -Prior visits BUN 18-26/creatinine 0.7-1 -09/18 Bun/Cr 33/1.3 -Avoid nephrotoxic medication -Renally dose medications -Trend BMP -MIVF -Consider nephrology consult if not improving -Secondary to vasomotor nephropathy Hypernateremia -09/18 Na 149 -Trend BMP -MIVF Hyperchloremia -09/18 Cl 112.6 -MIVF -Trend Chloride Hypoglycemia -09/18 patient noted Maxwell persistently hypoglycemic -Decreased p.o. intake -MIVF with D5NS -Accu-Cheks AC at bedtime -Hypoglycemia protocol Hypokalemia -09/19 potassium 3.4 -Repleted -Trend BMP Dementia -Supportive care -Verbal de-escalation and redirection as needed -Fall, aspiration precautions -Supportive care Hypertension -Hold antihypertensives in setting of hypotension -Blood pressure monitoring per protocol GERD -Continue PPI -Changed to Protonix due to thrombocytopenia Hyperlipidemia -Continue statin therapy DVT prophylaxis -GI prophylaxis -Subcu heparin -SCDs to bilateral lower extremities while in bed COVID-19 pneumonia -09/17 COVID-19 PCR negative -Repeat Covid tested completed due to high suspicion and found to be positive on 09/19 Lactic acidosis, resolved -09/17 lactic acid 1.9, 2.3, 2.4, 1.1, 0.9 -Trend lactic acid -S/p 2.4 L normal saline in the ED -MIVF Hospital course: 09/17: Patient is on room air at the time my examination entry COVID-19 PCR resulted as negative. Patient will be transferred to medical floor. Infectious disease has stopped azithromycin continue ceftriaxone for possible urinary tract infection. We have also ordered a repeat COVID-19 PCR 09/18: No acute events reported overnight. Patient still remains in bilateral mittens-repeat COVID-19 PCR will need to be repeated tomorrow per hospital policy.This morning patient has leukopenia, hypernatremia, hyperchloremia but her acute kidney injury has improved. 09/19: Patient noted to be in atrial fibrillation with RVR this morning around 0600 and cardiology was consulted. Patient has been started on amiodarone drip after bolus. ST was consulted today for decreased p.o. intake as the patient was placed on MIVF due to persistent hypoglycemia yesterday. Her hyperchloremia and hypernatremia have improved however she is hypokalemic on her creatinine/BUN have increased. ST has recommended PEG tube placement. Patient's family unable to be contacted for update, confirmation of history or possible PEG tube placement. Her daughter was called several times today by me. Patient's repeat COVID-19 PCR is pending. She was given a 250 ml normal saline bolus due to hypotension. Repeat CMP in the a.m. Heme/Onc consulted for thrombocytopenia. 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 Start heparin drip for new onset afib with RVR and Eliquis 2.5 mg p.o. twice daily at discharge. Wean IV amiodarone and start digoxin and Lopressor IV per Cardiology. Continue ceftriaxone for total of 3 days for UTI per ID recommendations. Continue to follow blood and urine cultures. Follow-up repeat Covid testing today. PEG placement per Speech recommendations. 09/21: Await echocardiogram. Continue heparin drip for new onset atrial fibrillation with RVR and transition to Eliquis at discharge. Cardiology stopped IV amiodarone but will continue with IV digoxin and Lopressor until NG tube placement. NG tube placement ordered this morning. GI consultation pendi ng for PEG placement. Repeat Covid testing positive on 09/19. DC Solu-Medrol 40 mg every 8 hours and start dexamethasone 6 mg IV daily. ? Remdesivir given renal insufficiency and will assess for hypoxia. ID following History Interval history: No new issues overnight. Hospitalist Physical - Constitutional Vitals: Temp Pulse Resp BP Pulse Ox 98.6 F 63 14 169/63 97 09/21/20 07:14 09/21/20 08:00 09/21/20 08:00 09/21/20 05:32 09/21/20 08:00 General appearance: Present: no acute distress - EENT Eyes: Present: PERRL, EOM intact ENT: hearing intact, clear oral mucosa, dentition normal - Neck Neck: Present: supple, normal ROM - Respiratory Respiratory effort: normal Respiratory: bilateral: CTA - Cardiovascular Rhythm: regular Heart Sounds: Present: S1 & S2. Absent: gallop, rub - Extremities Extremities: no ischemia, No edema, Full ROM - Abdominal General gastrointestinal: soft, non-tender, non-distended, normal bowel sounds - Integumentary Integumentary: Present: clear, warm, dry - Neurologic Neurologic: CNII-XII intact, moves all extremities HEART Score - HEART Score Troponin: Troponin T 0.029 ng/mL (0.00-0.029) 09/16/20 23:05 Results - Labs CBC & Chem 7: 09/21/20 04:34 09/21/20 04:34 Labs: Laboratory Last Values WBC 7.9 K/mm3 (4.5-11.0) 09/21/20 04:34 RBC 3.59 M/mm3 (3.65-5.03) L 09/21/20 04:34 Hgb 11.2 gm/dl (10.1-14.3) 09/21/20 04:34 Hct 33.9 % (30.3-42.9) D 09/21/20 04:34 MCV 95 fl (79-97) 09/21/20 04:34 MCH 31 pg (28-32) 09/21/20 04:34 MCHC 33 % (30-34) 09/21/20 04:34 RDW 16.1 % (13.2-15.2) H 09/21/20 04:34 Plt Count 98 K/mm3 (140-440) L 09/21/20 04:34 Lymph % (Auto) 13.2 % (13.4-35.0) L 09/21/20 04:34 [place] % (Auto) 3.3 % (0.0-7.3) 09/21/20 04:34 Eos % (Auto) 0.1 % (0.0-4.3) 09/21/20 04:34 Baso % (Auto) 0.6 % (0.0-1.8) 09/21/20 04:34 Lymph # (Auto) 1.0 K/mm3 (1.2-5.4) L 09/21/20 04:34 [place] # (Auto) 0.3 K/mm3 (0.0-0.8) 09/21/20 04:34 Eos # (Auto) 0.0 K/mm3 (0.0-0.4) 09/21/20 04:34 Baso # (Auto) 0.1 K/mm3 (0.0-0.1) 09/21/20 04:34 Seg Neutrophils % 82.8 % (40.0-70.0) H 09/21/20 04:34 Seg Neutrophils # 6.5 K/mm3 (1.8-7.7) 09/21/20 04:34 PT 15.4 Sec. (12.2-14.9) H 09/20/20 13:06 INR 1.24 (0.87-1.13) H 09/20/20 13:06 APTT 37.4 Sec. (24.2-36.6) H 09/20/20 13:06 D-Dimer 425.43 ng/mlDDU (0-234) H 09/16/20 21:28 Heparin Anti-Xa Level 1.37 U.I./ml (0.3-0.7) H 09/21/20 04:34 Sodium 149 mmol/L (137-145) H 09/21/20 04:34 Potassium 4.0 mmol/L (3.6-5.0) 09/21/20 04:34 Chloride 115.3 mmol/L (98-107) H 09/21/20 04:34 Carbon Dioxide 24 mmol/L (22-30) 09/21/20 04:34 Anion Gap 14 mmol/L 09/21/20 04:34 BUN 28 mg/dL (7-17) H 09/21/20 04:34 Creatinine 1.7 mg/dL (0.6-1.2) H 09/21/20 04:34 Estimated GFR 35 ml/min 09/21/20 04:34 BUN/Creatinine Ratio 16 % 09/21/20 04:34 Glucose 153 mg/dL (65-100) H 09/21/20 04:34 POC Glucose 145 mg/dL (70-105) H 09/21/20 03:12 Lactic Acid 0.90 mmol/L (0.7-2.0) 09/17/20 14:35 Calcium 8.8 mg/dL (8.4-10.2) 09/21/20 04:34 Ferritin 374.8 ng/mL (10.0-200.0) H 09/16/20 21:28 Total Bilirubin 0.40 mg/dL (0.1-1.2) 09/20/20 06:15 AST 79 units/L (5-40) H 09/20/20 06:15 ALT 39 units/L (7-56) 09/20/20 06:15 Alkaline Phosphatase 78 units/L (35-129) 09/20/20 06:15 Lactate Dehydrogenase 179 units/L (91-180) 09/16/20 23:05 Troponin T 0.029 ng/mL (0.00-0.029) 09/16/20 23:05 C-Reactive Protein 14.90 mg/dL (0.00-1.30) H 09/16/20 23:05 Total Protein 6.1 g/dL (6.3-8.2) L 09/20/20 06:15 Albumin 3.1 g/dL (3.9-5) L 09/20/20 06:15 Albumin/Globulin Ratio 1.0 % 09/20/20 06:15 Procalcitonin 0.09 ng/mL (<0.15) 09/16/20 21:28 Urine Color Yellow (Yellow) 09/17/20 Unknown Urine Turbidity Cloudy (Clear) 09/17/20 Unknown Urine pH 5.0 (5.0-7.0) 09/17/20 Unknown Ur Specific [employer] 1.023 (1.003-1.030) 09/17/20 Unknown Urine Protein 100 mg/dl mg/dL (Negative) 09/17/20 Unknown Urine Glucose (UA) 50 mg/dL (Negative) 09/17/20 Unknown Urine Ketones Tr mg/dL (Negative) 09/17/20 Unknown Urine Blood Lg (Negative) 09/17/20 Unknown Urine Nitrite Neg (Negative) 09/17/20 Unknown Urine Bilirubin Neg (Negative) 09/17/20 Unknown Urine Urobilinogen < 2.0 mg/dL (<2.0) 09/17/20 Unknown Ur Leukocyte Esterase Neg (Negative) 09/17/20 Unknown Urine WBC (Auto) 28.0 /HPF (0.0-6.0) H 09/17/20 Unknown Urine RBC (Auto) > 182.0 /HPF (0.0-6.0) 09/17/20 Unknown U Epithel Cells (Auto) 7.0 /HPF (0-13.0) 09/17/20 Unknown Urine Bacteria (Auto) 1+ /HPF (Negative) 09/17/20 Unknown Urine Mucus 2+ /HPF 09/17/20 Unknown Urine Yeast (Budding) 1+ /HPF 09/17/20 Unknown Urine Osmolality 1096 Mosm/kg 09/19/20 17:35 Urine Creatinine 179.4 mg/dL (0.1-20.0) H 09/19/20 17:35 Urine Sodium 193 mmol/L 09/19/20 17:35 Coronavirus (PCR) Positive (Negative) A 09/19/20 11:00 Microbiology: Microbiology 09/16/20 21:28 Peripheral/Venous Blood Culture - Preliminary NO GROWTH AFTER 4 DAYS 09/16/20 21:32 Peripheral/Venous Blood Culture - Preliminary NO GROWTH AFTER 4 DAYS - Diagnostic Impressions Diagnostic Impressions: Echocardiogram 09/20/20 10:42 Transthoracic Echocardiogram Indication: A FIB BP: 151/87 HR: 86 Conclusions *Global left ventricular systolic function is normal. *The estimated ejection fraction is 50-55%. *The right ventricular global systolic function is normal. *The aortic valve is not well visualized. *There is mild aortic regurgitation. *Mild aortic leaflet calcification is visualized. *There is mild mitral regurgitation. *There is mild to moderate pulmonic regurgitation. *There is evidence of moderate pulmonary hypertension. Findings Procedure Info: The study quality is fair. Left Ventricle: The left ventricular chamber size is normal. There is no left ventricular hypertrophy. Global left ventricular wall motion and contractility are within normal limits. Global left ventricular systolic function is normal. The estimated ejection fraction is 50-55%. Abnormal left ventricular diastolic function is observed. Left Atrium: The left atrium is severely dilated. Right Ventricle: The right ventricular cavity size is normal. The right ventricular global systolic function is normal. Right Atrium: The right atrial cavity size is normal. Aortic Valve: The aortic valve is not well visualized. Mild aortic leaflet calcification is visualized. There is mild aortic regurgitation. Mitral Valve: There is mitral annular calcification. The mitral valve leaflets are mildly thickened. There is mild mitral regurgitation. Tricuspid Valve: The tricuspid valve appears normal in structure and function. There is moderate tricuspid regurgitation. There is evidence of moderate pulmonary hypertension. Pulmonic Valve: The pulmonic valve is not well visualized.High gradients seen can not rule out stenosis There is mild to moderate pulmonic regurgitation. Pericardium: There is no pericardial effusion. Aorta: The aorta appears normal. Pulmonary Artery: The main pulmonary artery is not well visualized. Venous: The inferior vena cava appears abnormal. The inferior vena cava is dilated. There is less than 50% respiratory change in the inferior vena cava dimension. Measurements Chambers 2D Name Value Normal Range IVSd (2D) 0.89 cm (0.6 - 1.1) LVPWd (2D) 0.84 cm (0.6 - 1.1) LVIDd (2D) 4.67 cm (3.7 - 5.6) LVIDs (2D) 3.42 cm (2 - 3.8) LV FS (2D) 26.77 % - EF Teichholz (2D) 52.3 % - Ao root diameter (2D) 3.07 cm (2 - 3.7) Volumes/Mass Name Value Normal Range LA ESV SP 4CH (A/L) 78.85 ml - LA ESV SP 2CH (A/L) 111.2 ml - LA ESV BP (A/L) 93.86 ml - LA ESV BP (A/L) index 51.57 ml/m2 - LA ESV SP 4CH (MOD) 69.77 ml - LA ESV SP 2CH (MOD) 105.54 ml - LA ESV BP (MOD) 85.78 ml - LA ESV BP (MOD) index 47.13 ml/m2 - LV EDV SP 4CH (MOD) 68.03 ml - LV ESV SP 4CH (MOD) 31.63 ml - EF SP 4CH (MOD) 53.5 % - LV EDV SP 2CH (MOD) 68.71 ml - LV ESV SP 2CH (MOD) 28.59 ml - EF SP 2CH (MOD) 58.39 % - LV EDV BP 68.15 ml - LV ESV BP 30.43 ml - BP EF (MOD) 55.34 % - Diastolic/Systolic Function Name Value Normal Range MV E-wave Vmax 0.99 m/sec - MV deceleration time 131.92 msec - MV A-wave Vmax 1.17 m/sec - MV E:A ratio 0.85 ratio - Aortic Valve Name Value Normal Range AV Vmax 1.38 m/sec - AV VTI 26.19 cm - AV peak gradient 7.59 mmHg - AV mean gradient 4.81 mmHg - LVOT diameter 2.19 cm - LVOT Vmax 0.78 m/sec - LVOT VTI 21.91 cm - LVOT peak gradient 2.46 mmHg - LVOT mean gradient 1.53 mmHg - SV LVOT 82.34 ml - EMMY (continuity Vmax) 2.14 cm2 - EMMY (continuity VTI) 3.14 cm2 - AR PHT 657.65 msec - AR peak gradient 67.31 mmHg - Ascending Ao 2.79 cm - Tricuspid Valve Name Value Normal Range TR Vmax 4.33 m/sec - TR peak gradient 75 mmHg - RAP 8 mmHg - RVSP 83 mmHg - IVC diameter 2.15 cm (1.2 - 2.3) Pulmonic Valve/Qp:Qs Name Value Normal Range PV Vmax 3.01 m/sec - PV VTI 86.98 cm - PV peak gradient 36.25 mmHg - PV mean gradient 29.37 mmHg - MN end-diastolic Vmax 1.69 m/sec - RVOT Vmax 0.36 m/sec - RVOT VTI 7.36 cm - RVOT peak gradient 0.52 mmHg - PV acceleration time 81.83 msec - [place]/IV: Voiding Method External Female Catheter Active Medications - Current Medications Current Medications: Generic Name Dose Route Start Last Admin Trade Name Freq PRN Reason Stop Dose Admin Acetaminophen 650 mg 09/17/20 03:32 Acetaminophen 325 Mg Tab PO Q4H PRN Pain MILD(1-3)/Fever >100.5/NIÑO Ascorbic Acid 250 mg 09/20/20 22:00 09/20/20 21:27 Ascorbic Acid 250 Mg Tab PO Not Given BID RIGO Cholecalciferol 1,000 unit 09/21/20 10:00 Cholecalciferol (Vit D3) 1000 Unit (25 Mcg) Tab PO QDAY RIGO Dextrose 0 ml 09/19/20 04:40 09/19/20 05:15 Dextrose 50% In Water (25gm) 50 Ml Syringe IV 50 ml Q30MIN PRN Administration Hypoglycemia Protocol Dextrose/Sodium Chloride 1,000 mls @ 42 mls/hr 09/18/20 23:45 09/19/20 18:16 D5ns IV 42 mls/hr DIRECT RIGO Administration Amiodarone HCl 900 mg/ 500 mls @ 33.333 mls/hr 09/19/20 11:00 09/20/20 03:38 Dextrose IV 0.5 mg/min DIRECT RIGO 16.667 mls/hr Administration Protocol 1 MG/MIN Heparin Sodium/Sodium Chloride 25,000 unit in 500 mls @ 24 mls/hr 09/20/20 14:00 09/21/20 06:40 Heparin/ 0.45% Nacl-25,000 Unit/500 Ml IV 800 units/hr TITR RIGO 16 mls/hr Titration Protocol 1,200 UNITS/HR Ceftriaxone Sodium 1 gm in 50 mls @ 100 mls/hr 09/20/20 14:45 09/20/20 15:25 Rocephin/Ns 1 Gm/50 Ml IV 09/23/20 23:59 100 mls/hr Q24HR RIGO Administration Protocol Magnesium Hydroxide 30 ml 09/17/20 03:32 Magnesium Hydroxide (Mom) Oral Liqd Udc PO Q4H PRN Constipation Methylprednisolone Sodium Succinate 40 mg 09/20/20 22:00 09/21/20 05:32 Methylprednisolone Sod Succinate 40 Mg/1 Ml Inj IV 40 mg Q8HR RIGO Administration Metoprolol Tartrate 5 mg 09/20/20 12:00 09/21/20 05:32 Metoprolol Tartrate 5 Mg/5 Ml Inj IV 5 mg Q6HR RIGO Administration Morphine Sulfate 2 mg 09/17/20 03:32 Morphine 2 Mg/1 Ml Inj IV Q4H PRN Pain, Moderate (4-6) Ondansetron HCl 4 mg 09/17/20 03:32 Ondansetron 4 Mg/2 Ml Inj IV Q8H PRN Nausea And Vomiting Pantoprazole Sodium 40 mg 09/20/20 11:00 09/20/20 15:25 Pantoprazole 40 Mg Inj IV 40 mg QDAY RIGO Administration Pravastatin Sodium 40 mg 09/17/20 22:00 09/20/20 21:27 Pravastatin 40 Mg Tab PO Not Given QHS RIGO Sodium Chloride 10 ml 09/17/20 10:00 09/20/20 21:29 Sodium Chloride 0.9% 10 Ml Flush Syringe IV 10 ml BID RIGO Administration Sodium Chloride 10 ml 09/17/20 03:32 Sodium Chloride 0.9% 10 Ml Flush Syringe IV PRN PRN LINE FLUSH Zinc Sulfate 220 mg 09/20/20 22:00 09/20/20 21:27 Zinc Sulfate 220 Mg Cap PO Not Given BID RIGO
[2020-09-21] MEDS ORDERED: SODIUM BICARBONATE 325 MG TAB FEEDTUBE PRN (09:46)
[2020-09-21] MEDS ORDERED: SIMPLE SYRUP 15 ML FEEDTUBE PRN ×2 (09:46)
--- NOTE | 2020-09-21 09:46 | Progress Note ---
Assessment and Plan 80-year-old female with dementia has tested positive for coronavirus on isolation. Continue IV heparin patient DC amiodarone Place NG tube for metoprolol - Patient Problems (1) MINERVA (acute kidney injury) Current Visit: Yes Status: Acute (2) Altered mental status Current Visit: Yes Status: Acute (3) Dehydration Current Visit: Yes Status: Acute (4) New onset atrial fibrillation Current Visit: Yes Status: Acute (5) Person under investigation for COVID-19 Current Visit: Yes Status: Acute (6) UTI (urinary tract infection) Current Visit: Yes Status: Acute (7) Dementia Current Visit: Yes Status: Chronic Qualifiers: Dementia type: unspecified type Dementia behavioral disturbance: with behavioral disturbance Qualified Code(s): F03.91 - Unspecified dementia with behavioral disturbance Subjective Date of service: 09/21/20 Principal diagnosis: afib Interval history: Not responsive except to painful stimuli Objective Vital Signs Temp Pulse Pulse Resp BP Pulse Ox 09/21/20 08:00 63 14 97 09/21/20 07:14 98.6 F 09/21/20 05:32 74 169/63 09/21/20 04:00 99.3 F 76 14 97 09/21/20 00:01 70 179/75 09/21/20 00:00 98.9 F 68 80 16 97 09/20/20 20:22 98.8 F 09/20/20 20:00 83 13 99 09/20/20 18:05 78 163/76 09/20/20 18:04 80 163/76 09/20/20 14:14 77 09/20/20 11:05 133 H 09/20/20 11:04 133 H - Physical Examination General: No Apparent Distress HEENT: Positive: PERRL, Normocephaly, Mucus Membranes Moist Neck: Positive: neck supple, trachea midline Cardiac: Positive: Reg Rate and Rhythm, Audible Murmur (2/6) Lungs: Positive: clear to auscultation Neuro: Positive: Other (confused) Skin: Negative: Rash Extremities: Absent: edema - Labs and Meds Coagulation 09/20/20 Range/Units 13:06 PT 15.4 H (12.2-14.9) Sec. INR 1.24 H (0.87-1.13) APTT 37.4 H (24.2-36.6) Sec. CBC 09/20/20 09/21/20 Range/Units 13:06 04:34 WBC 7.9 (4.5-11.0) K/mm3 RBC 3.59 L (3.65-5.03) M/mm3 Hgb 12.9 11.2 (10.1-14.3) gm/dl Hct 40.4 33.9 D (30.3-42.9) % Plt Count 90 L 98 L (140-440) K/mm3 Lymph # (Auto) 1.0 L (1.2-5.4) K/mm3 [place] # (Auto) 0.3 (0.0-0.8) K/mm3 Eos # (Auto) 0.0 (0.0-0.4) K/mm3 Baso # (Auto) 0.1 (0.0-0.1) K/mm3 Comprehensive Metabolic Panel 09/21/20 Range/Units 04:34 Sodium 149 H (137-145) mmol/L Potassium 4.0 (3.6-5.0) mmol/L Chloride 115.3 H (98-107) mmol/L Carbon Dioxide 24 (22-30) mmol/L BUN 28 H (7-17) mg/dL Creatinine 1.7 H (0.6-1.2) mg/dL Glucose 153 H (65-100) mg/dL Calcium 8.8 (8.4-10.2) mg/dL - Imaging and Cardiology EKG: report reviewed, image reviewed Echo: report reviewed (Normal LV function moderate pulmonary pretension mild aortic regurgitation mild mitral regurgitation - TDS) - Telemetry EKG Rhythm: Sinus Rhythm
[2020-09-21] MEDS: PANTOPRAZOLE 40 MG INJ IV SCH (09:50)
[2020-09-21] MEDS: cefTRIAXone/NS 1 GM/50 ML 1 GM/50 ML BAG IV SCH (09:50)
[2020-09-21] MEDS ORDERED: LIPASE 10,500/PROTEASE 25,000/AMYLASE 43,750 (UNITS) DR CAP FEEDTUBE PRN (10:00)
--- NOTE | 2020-09-21 10:47 | XRay Report ---
ABDOMEN 1 VIEW(S) 09/21/2020 10:02 AM INDICATION: NG Tube placement. COMPARISON: Chest radiograph dated 09/16/2020 FINDINGS: The tip of the nasogastric tube projects over the gastric lumen in appropriate position. Signer Name: Karl Burnham MD Signed: 09/21/2020 10:42 AM Workstation Name: [id number]
[2020-09-21] MEDS: dexAMETHasone 4 MG/ML VIAL IV SCH (10:49)
[2020-09-21] MEDS: CHOLECALCIFEROL (VIT D3) 1000 UNIT (25 mcg) TAB PO SCH (12:31)
[2020-09-21] MEDS: ASCORBIC ACID 250 MG TAB PO SCH ×2 (12:31→22:42)
[2020-09-21] MEDS: METOPROLOL TARTRATE 25 MG TAB FEEDTUBE SCH ×3 (12:32→22:41)
[2020-09-21] MEDS: ZINC SULFATE 220 MG CAP PO SCH ×2 (12:32→22:15)
--- NOTE | 2020-09-21 12:34 | Progress Note ---
Assessment and Plan Cultures: Blood culture no growth so far Urine culture: no growth A/P: 80-year-old female past medical history hypertension, dementia, hyperlipidemia admitted with shortness of breath. #Left-sided pneumonia: COVID-19 testing negative initially, then positive. Normal procalcitonin. Remains on room air. #UTI: Minor pyuria, already completed 3 days Levaquin. Difficult to assess for symptoms on basis of dementia. #Dementia #MINERVA: renally adjust abx as needed. Recs: -Continue ceftriaxone to complete 3 days tomorrow -not hypoxic, not a candidate for Remdesivir at this time Jan Manley MD, FACP [facility] O: [phone] F: [phone] Subjective Date of service: 09/21/20 Principal diagnosis: afib Interval history: No fever. Remains on room air. COVID-19 test came back positive. Objective - Exam Narrative Exam: Physical Exam (reviewed in chart to minimize risk of transmission) Constitutional: deferred Head, Ears, Nose: deferred Eyes: deferred Neck: deferred Oral: deferred Cardiovascular: deferred Respiratory: deferred GI: deferred Musculoskeletal: deferred Skin: deferred Hem/Lymphatic: deferred Psych: deferred Neurological: deferred - Constitutional Vitals: Vital Signs Temp Pulse Resp BP Pulse Ox 98.5 F 71 14 170/64 97 09/21/20 12:26 09/21/20 12:32 09/21/20 12:00 09/21/20 12:32 09/21/20 12:00 Temperature -Last 24 Hours Temperature 98.5 F Temperature 98.6 F Temperature 99.3 F Temperature 98.9 F Temperature 98.8 F - Labs CBC & Chem 7: 09/21/20 04:34 09/21/20 04:34 Labs: Abnormal lab results 09/19/20 09/20/20 09/20/20 Range/Units 11:00 07:57 10:51 RBC (3.65-5.03) M/mm3 RDW (13.2-15.2) % Plt Count (140-440) K/mm3 Lymph % (Auto) (13.4-35.0) % Lymph # (Auto) (1.2-5.4) K/mm3 Seg Neutrophils % (40.0-70.0) % PT (12.2-14.9) Sec. INR (0.87-1.13) APTT (24.2-36.6) Sec. Heparin Anti-Xa Level (0.3-0.7) U.I./ml Sodium (137-145) mmol/L Chloride (98-107) mmol/L BUN (7-17) mg/dL Creatinine (0.6-1.2) mg/dL Glucose (65-100) mg/dL POC Glucose 123 H 142 H (70-105) mg/dL Coronavirus (PCR) Positive A (Negative) 09/20/20 09/20/20 09/20/20 Range/Units 13:06 13:06 16:43 RBC (3.65-5.03) M/mm3 RDW (13.2-15.2) % Plt Count 90 L (140-440) K/mm3 Lymph % (Auto) (13.4-35.0) % Lymph # (Auto) (1.2-5.4) K/mm3 Seg Neutrophils % (40.0-70.0) % PT 15.4 H (12.2-14.9) Sec. INR 1.24 H (0.87-1.13) APTT 37.4 H (24.2-36.6) Sec. Heparin Anti-Xa Level (0.3-0.7) U.I./ml Sodium (137-145) mmol/L Chloride (98-107) mmol/L BUN (7-17) mg/dL Creatinine (0.6-1.2) mg/dL Glucose (65-100) mg/dL POC Glucose 117 H (70-105) mg/dL Coronavirus (PCR) (Negative) 09/20/20 09/20/20 09/21/20 Range/Units 18:19 22:23 03:12 RBC (3.65-5.03) M/mm3 RDW (13.2-15.2) % Plt Count (140-440) K/mm3 Lymph % (Auto) (13.4-35.0) % Lymph # (Auto) (1.2-5.4) K/mm3 Seg Neutrophils % (40.0-70.0) % PT (12.2-14.9) Sec. INR (0.87-1.13) APTT (24.2-36.6) Sec. Heparin Anti-Xa Level 0.14 L 0.90 H (0.3-0.7) U.I./ml Sodium (137-145) mmol/L Chloride (98-107) mmol/L BUN (7-17) mg/dL Creatinine (0.6-1.2) mg/dL Glucose (65-100) mg/dL POC Glucose 145 H (70-105) mg/dL Coronavirus (PCR) (Negative) 09/21/20 09/21/20 09/21/20 Range/Units 04:34 04:34 04:34 RBC 3.59 L (3.65-5.03) M/mm3 RDW 16.1 H (13.2-15.2) % Plt Count 98 L (140-440) K/mm3 Lymph % (Auto) 13.2 L (13.4-35.0) % Lymph # (Auto) 1.0 L (1.2-5.4) K/mm3 Seg Neutrophils % 82.8 H (40.0-70.0) % PT (12.2-14.9) Sec. INR (0.87-1.13) APTT (24.2-36.6) Sec. Heparin Anti-Xa Level 1.37 H (0.3-0.7) U.I./ml Sodium 149 H (137-145) mmol/L Chloride 115.3 H (98-107) mmol/L BUN 28 H (7-17) mg/dL Creatinine 1.7 H (0.6-1.2) mg/dL Glucose 153 H (65-100) mg/dL POC Glucose (70-105) mg/dL Coronavirus (PCR) (Negative) 09/21/20 Range/Units 05:35 RBC (3.65-5.03) M/mm3 RDW (13.2-15.2) % Plt Count (140-440) K/mm3 Lymph % (Auto) (13.4-35.0) % Lymph # (Auto) (1.2-5.4) K/mm3 Seg Neutrophils % (40.0-70.0) % PT (12.2-14.9) Sec. INR (0.87-1.13) APTT (24.2-36.6) Sec. Heparin Anti-Xa Level (0.3-0.7) U.I./ml Sodium (137-145) mmol/L Chloride (98-107) mmol/L BUN (7-17) mg/dL Creatinine (0.6-1.2) mg/dL Glucose (65-100) mg/dL POC Glucose 133 H (70-105) mg/dL Coronavirus (PCR) (Negative)
[2020-09-21] MEDS: D5W/0.9% NACL 1,000 ML IV SCH (18:11)
[2020-09-21] MEDS: HEPARIN/ 0.45% NACL DRIP 25,000 UNIT/500 ML BAG IV SCH (20:25)
[2020-09-21] MEDS: PRAVASTATIN 40 MG TAB PO SCH (22:15)
[2020-09-22 02:59] LABS: Hematocrit 32.6 % (30.3-42.9); Hemoglobin 10.6 gm/dl (10.1-14.3)
[2020-09-22] MEDS: METOPROLOL TARTRATE 25 MG TAB FEEDTUBE SCH ×3 (05:53→22:02)
--- NOTE | 2020-09-22 09:52 | Progress Note ---
Assessment and Plan tte reviewed - EF 50-55%, mild AR, mild MR, mod TR, mild to mod [place], pulm HTN with RVSP 83mmHg. tele reviewed - in SR HR 69, SB HR low 44bpm noted overnight. Cont PO meds via feeding tube. Reduce lopressor in setting of bradycardia. 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 Ok to take Eliquis 2.5mg BID as long as plt count is >30. D/c heparin gtt and initiate Eliquis via feeding tube. The patient has been seen in conjunction with Dr. Hollingsworth who agrees with the assessment and plan of care. - Patient Problems (1) New onset atrial fibrillation Current Visit: Yes Status: Acute Plan to address problem: --> NSR (2) COVID-19 virus infection Current Visit: Yes Status: Acute (3) Sepsis Current Visit: Yes Status: Suspected (4) Hypotension Current Visit: Yes Status: Resolved (5) Pneumonia Current Visit: Yes Status: Suspected (6) UTI (urinary tract infection) Current Visit: Yes Status: Acute (7) Altered mental status Current Visit: Yes Status: Acute (8) Dementia Current Visit: Yes Status: Chronic Qualifiers: Dementia type: unspecified type Dementia behavioral disturbance: with behavioral disturbance Qualified Code(s): F03.91 - Unspecified dementia with behavioral disturbance (9) MINERVA (acute kidney injury) Current Visit: Yes Status: Acute (10) Dehydration Current Visit: Yes Status: Acute (11) Thrombocytopenia Current Visit: Yes Status: Acute (12) HTN (hypertension) Current Visit: Yes Status: Chronic (13) Pulmonary hypertension Current Visit: Yes Status: Chronic (14) Moderate tricuspid regurgitation Current Visit: Yes Status: Chronic Subjective Date of service: 09/22/20 Principal diagnosis: afib Interval history: pt resting in bed, alert, confused. tele reviewed - in SR HR 69, SB HR low 44bpm noted overnight. Objective Last Vital Signs Temp 99.0 F 09/22/20 05:41 Pulse 97 H 09/22/20 06:02 Resp 18 09/22/20 05:41 BP 151/62 09/22/20 05:53 Pulse Ox 96 09/21/20 22:38 - Physical Examination General: No Apparent Distress HEENT: Positive: PERRL, Normocephaly, Mucus Membranes Moist Neck: Positive: neck supple, trachea midline Cardiac: Positive: Reg Rate and Rhythm, S1/S2, Systolic Murmur Lungs: Positive: Decreased Breath Sounds Neuro: Positive: Other (confused) Skin: Negative: Rash Extremities: Absent: edema - Labs and Meds CBC 09/22/20 Range/Units 02:30 Hgb 10.6 (10.1-14.3) gm/dl Hct 32.6 (30.3-42.9) % Plt Count 119 L (140-440) K/mm3 - Imaging and Cardiology EKG: report reviewed, image reviewed Echo: report reviewed (Normal LV function moderate pulmonary pretension mild aortic regurgitation mild mitral regurgitation - TDS) - Telemetry EKG Rhythm: Sinus Rhythm
[2020-09-22] MEDS: cefTRIAXone/NS 1 GM/50 ML 1 GM/50 ML BAG IV SCH (10:25)
[2020-09-22] MEDS: ZINC SULFATE 220 MG CAP PO SCH ×2 (10:26→21:32)
[2020-09-22] MEDS: dexAMETHasone 4 MG/ML VIAL IV SCH (10:26)
[2020-09-22] MEDS: PANTOPRAZOLE 40 MG INJ IV SCH (10:26)
[2020-09-22] MEDS: CHOLECALCIFEROL (VIT D3) 1000 UNIT (25 mcg) TAB PO SCH (10:26)
[2020-09-22] MEDS: ASCORBIC ACID 250 MG TAB PO SCH ×2 (10:27→21:32)
[2020-09-22] MEDS: APIXABAN 2.5 MG TAB PO SCH ×2 (10:31→21:33)
--- NOTE | 2020-09-22 12:42 | Progress Note ---
Assessment and Plan Cultures: Blood culture no growth so far Urine culture: no growth A/P: 80-year-old female past medical history hypertension, dementia, hyperlipidemia admitted with shortness of breath. #Left-sided pneumonia: COVID-19 testing negative initially, then positive. Normal procalcitonin. Remains on room air. #UTI: Minor pyuria, already completed 3 days Levaquin. Difficult to assess for symptoms on basis of dementia. #Thrombocytopenia: likely secondary to COVID. #Dementia #MINERVA: renally adjust abx as needed. Recs: -Complte ceftriaxone today. -not hypoxic, not a candidate for Remdesivir at this time Liz Valladares MD [facility] ([facility]) O: [phone] F: [phone] Subjective Date of service: 09/22/20 Principal diagnosis: afib Interval history: Afebrile, repeat COVID positive. White count normal. Objective - Exam Narrative Exam: Physical Exam: Constitutional: Alert, cooperative. No acute distress Head, Ears, Nose: Normocephalic, atraumatic. External ears, nose normal Eyes: Conjunctivae/corneas clear. No icterus. No ptosis. Neck: Supple, no meningeal signs Oral: dentition fair, no thrush Cardiovascular: S1, S2 normal. +tachycardia Respiratory: Good air entry, clear to auscultation bilaterally GI: Soft, non-tender; bowel sounds normal. No peritoneal signs. Musculoskeletal: No pedal edema, no cyanosis. Skin: No rash or abscess Hem/Lymphatic: No palpable cervical or supraclavicular nodes. No lymphangitis Psych: Mood ok. Affect normal Neurological: Awake, alert, oriented. No gross abnormality - Constitutional Vitals: Vital Signs Temp Pulse Resp BP Pulse Ox 99.0 F 97 H 18 151/62 96 09/22/20 05:41 09/22/20 06:02 09/22/20 05:41 09/22/20 05:53 09/21/20 22:38 Temperature -Last 24 Hours Temperature 99.0 F Temperature 99.5 F Temperature 97.5 F - Labs CBC & Chem 7: 09/22/20 02:30 09/21/20 04:34 Labs: Abnormal lab results 09/21/20 09/21/20 09/21/20 Range/Units 14:37 16:16 22:37 Plt Count (140-440) K/mm3 Heparin Anti-Xa Level 1.09 H (0.3-0.7) U.I./ml POC Glucose 113 H 125 H (70-105) mg/dL 09/22/20 Range/Units 02:30 Plt Count 119 L (140-440) K/mm3 Heparin Anti-Xa Level (0.3-0.7) U.I./ml POC Glucose (70-105) mg/dL
--- NOTE | 2020-09-22 16:24 | Progress Note ---
Assessment and Plan Assessment and plan: Sepsis -Presented with hypotension, acute kidney injury, and possible developing pneumonia on CXR -S/p 2.4 L normal saline in the emergency department -Infectious disease consulted, appreciate recommendations -Antibiotic therapy -09/16 blood cultures x2 NGTD COVID-19 pneumonia -09/17 COVID-19 PCR negative -09/19 COVID 19 PCR positive -Infectious disease consulted, patient recommendations -S/p antibiotic therapy -Droplet/isolation precautions -Pulmonary hygiene -OOB 3 times daily -Prone to sleep as needed -Supplemental oxygen as needed -Anticoagulation per protocol -Trend COVID- inflammatory markers for risk stratification -Vitamin C, D and zinc Pneumonia -09/17 CXR shows possible developing pneumonia -s/p Antibiotic therapy -Pulmonary hygiene -SPO2 monitoring Urinary tract infection -Tested positive for urinary tract infection at home Kit and was given 3/5 doses of Levaquin -09/16 urinalysis with pyuria with budding yeast -S/p Diflucan in the emergency department -Antibiotic therapy Thrombocytopenia -Presented with a platelet count of 83 -Trend CBC -Hematology/oncology consulted, appreciate recommendations -Per heme-onc 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 fib with RVR -Patient has a history of atrial fibrillation is on beta-blockers and anticoagulation -09/19 patient noted to be in A. fib with RVR -Cardiology consult, appreciate recommendations -S/p heparin drip -Per oncology: Okay to take Eliquis 2.5 twice daily as hospital counts greater than 30 -09/20 TTE shows ejection fraction 55%, mild AR, mild MR, moderate TR, mild to moderate MO with mild pulmonary hypertension and RVSP calculated at 83 mmHg. -S/p amiodarone, IV digoxin and beta-jennifer -Now rate controlled with beta-jennifer p.o. Hypernateremia -09/18 Na 149 -Trend BMP -MIVF Hyperchloremia -09/18 Cl 112.6 -MIVF -Trend Chloride Hypoglycemia -09/18 patient noted to be persistently hypoglycemic -Decreased p.o. intake -MIVF with D5NS -Accu-Cheks AC at bedtime -Hypoglycemia protocol Dementia -Supportive care -Verbal de-escalation and redirection as needed -Fall, aspiration precautions -Supportive care Hypertension -Hold antihypertensives in setting of hypotension -Blood pressure monitoring per protocol GERD -Continue PPI -Changed to Protonix due to thrombocytopenia Hyperlipidemia -Continue statin therapy DVT prophylaxis -GI prophylaxis -Subcu heparin -SCDs to bilateral lower extremities while in bed Leukopenia, resolved -09/18 WBC 3.7 -Hem/Onc consulted -Trend CBC -09/22 WBC 7.7 Hypokalemia, resolved -09/19 potassium 3.4, 09/21 K 3.8 -Repleted -Trend BMP History Interval history: This is a 80-year-old female with hypertension, GERD, colon cancer s/p resection, dementia and former smoker who presented to the emergency department with shortness of breath, decreased appetite and decreased p.o. intake over the past few days. Patient tested positive for urinary tract infection on home test kit and was subsequently started on oral Levaquin 500 mg daily for the past 3 days. Work-up in the emergency department revealed acute kidney injury, pyuria, possible developing pneumonia or aspiration, enlarged left middle mediastinum suggesting adenopathies. Patient was admitted to the hospital service for pneumonia as a COVID-19 PUI. Infectious disease was consulted. 09/17: Patient is on room air at the time my examination entry COVID-19 PCR resulted as negative. Patient will be transferred to medical floor. Infectious disease has stopped azithromycin continue ceftriaxone for possible urinary tract infection. We have also ordered a repeat COVID-19 PCR 09/18: No acute events reported overnight. Patient still remains in bilateral mittens-repeat COVID-19 PCR will need to be repeated tomorrow per hospital policy.This morning patient has leukopenia, hypernatremia, hyperchloremia but her acute kidney injury has improved. 09/19: Patient noted to be in atrial fibrillation with RVR this morning around 0600 and cardiology was consulted. Patient has been started on amiodarone drip after bolus. ST was consulted today for decreased p.o. intake as the patient was placed on MIVF due to persistent hypoglycemia yesterday. Her hyperchloremia and hypernatremia have improved however she is hypokalemic on her creatinine/BUN have increased. ST has recommended PEG tube placement. Patient's family unable to be contacted for update, confirmation of history or possible PEG tube placement. Her daughter was called several times today by CLAIM [employer]. Patient's repeat COVID-19 PCR is pending. She was given a 250 ml normal saline bolus due to hypotension. Repeat CMP in the a.m. Heme/Onc consulted for thrombocytopenia. 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 Start heparin drip for new onset afib with RVR and Eliquis 2.5 mg p.o. twice daily at discharge. Wean IV amiodarone and start digoxin and Lopressor IV per Cardiology. Continue ceftriaxone for total of 3 days for UTI per ID recommendations. Continue to follow blood and urine cultures. Follow-up repeat Covid testing today. PEG placement per Speech recommendations. 09/21: Await echocardiogram. Continue heparin drip for new onset atrial fibrillation with RVR and transition to Eliquis at discharge. Cardiology stopped IV amiodarone but will continue with IV digoxin and Lopressor until NG tube placement. NG tube placement ordered this morning. GI consultation pending for PEG placement. Repeat Covid testing positive on 09/19. DC Solu- Medrol 40 mg every 8 hours and start dexamethasone 6 mg IV daily. ? Remdesivir given renal insufficiency and will assess for hypoxia. ID following Hospitalist Physical - Constitutional Vitals: Temp Pulse Resp BP Pulse Ox 99.0 F 97 H 18 151/62 96 09/22/20 05:41 09/22/20 06:02 09/22/20 05:41 09/22/20 05:53 09/21/20 22:38 General appearance: Present: no acute distress - EENT Eyes: Present: PERRL, EOM intact ENT: poor dentition - Neck Neck: Present: normal ROM - Respiratory Respiratory effort: normal - Cardiovascular Rhythm: regular - Extremities Extremities: no ischemia, pulses intact, pulses symmetrical, No edema, normal temperature, normal color, Full ROM Peripheral Pulses: within normal limits - Abdominal General gastrointestinal: soft, non-tender, non-distended - Integumentary Integumentary: Present: warm, dry - Psychiatric Psychiatric: agitated - Neurologic Neurologic: CNII-XII intact, moves all extremities HEART Score - HEART Score Troponin: Troponin T 0.029 ng/mL (0.00-0.029) 09/16/20 23:05 Results - Labs CBC & Chem 7: 09/22/20 02:30 09/21/20 04:34 Labs: Laboratory Last Values WBC 7.9 K/mm3 (4.5-11.0) 09/21/20 04:34 RBC 3.59 M/mm3 (3.65-5.03) L 09/21/20 04:34 Hgb 10.6 gm/dl (10.1-14.3) 09/22/20 02:30 Hct 32.6 % (30.3-42.9) 09/22/20 02:30 MCV 95 fl (79-97) 09/21/20 04:34 MCH 31 pg (28-32) 09/21/20 04:34 MCHC 33 % (30-34) 09/21/20 04:34 RDW 16.1 % (13.2-15.2) H 09/21/20 04:34 Plt Count 119 K/mm3 (140-440) L 09/22/20 02:30 Lymph % (Auto) 13.2 % (13.4-35.0) L 09/21/20 04:34 [place] % (Auto) 3.3 % (0.0-7.3) 09/21/20 04:34 Eos % (Auto) 0.1 % (0.0-4.3) 09/21/20 04:34 Baso % (Auto) 0.6 % (0.0-1.8) 09/21/20 04:34 Lymph # (Auto) 1.0 K/mm3 (1.2-5.4) L 09/21/20 04:34 [place] # (Auto) 0.3 K/mm3 (0.0-0.8) 09/21/20 04:34 Eos # (Auto) 0.0 K/mm3 (0.0-0.4) 09/21/20 04:34 Baso # (Auto) 0.1 K/mm3 (0.0-0.1) 09/21/20 04:34 Seg Neutrophils % 82.8 % (40.0-70.0) H 09/21/20 04:34 Seg Neutrophils # 6.5 K/mm3 (1.8-7.7) 09/21/20 04:34 PT 15.4 Sec. (12.2-14.9) H 09/20/20 13:06 INR 1.24 (0.87-1.13) H 09/20/20 13:06 APTT 37.4 Sec. (24.2-36.6) H 09/20/20 13:06 D-Dimer 425.43 ng/mlDDU (0-234) H 09/16/20 21:28 Heparin Anti-Xa Level 0.32 U.I./ml (0.3-0.7) 09/22/20 07:58 Sodium 149 mmol/L (137-145) H 09/21/20 04:34 Potassium 4.0 mmol/L (3.6-5.0) 09/21/20 04:34 Chloride 115.3 mmol/L (98-107) H 09/21/20 04:34 Carbon Dioxide 24 mmol/L (22-30) 09/21/20 04:34 Anion Gap 14 mmol/L 09/21/20 04:34 BUN 28 mg/dL (7-17) H 09/21/20 04:34 Creatinine 1.7 mg/dL (0.6-1.2) H 09/21/20 04:34 Estimated GFR 35 ml/min 09/21/20 04:34 BUN/Creatinine Ratio 16 % 09/21/20 04:34 Glucose 153 mg/dL (65-100) H 09/21/20 04:34 POC Glucose 111 mg/dL (70-105) H 09/22/20 11:47 Lactic Acid 0.90 mmol/L (0.7-2.0) 09/17/20 14:35 Calcium 8.8 mg/dL (8.4-10.2) 09/21/20 04:34 Ferritin 374.8 ng/mL (10.0-200.0) H 09/16/20 21:28 Total Bilirubin 0.40 mg/dL (0.1-1.2) 09/20/20 06:15 AST 79 units/L (5-40) H 09/20/20 06:15 ALT 39 units/L (7-56) 09/20/20 06:15 Alkaline Phosphatase 78 units/L (35-129) 09/20/20 06:15 Lactate Dehydrogenase 179 units/L (91-180) 09/16/20 23:05 Troponin T 0.029 ng/mL (0.00-0.029) 09/16/20 23:05 C-Reactive Protein 14.90 mg/dL (0.00-1.30) H 09/16/20 23:05 Total Protein 6.1 g/dL (6.3-8.2) L 09/20/20 06:15 Albumin 3.1 g/dL (3.9-5) L 09/20/20 06:15 Albumin/Globulin Ratio 1.0 % 09/20/20 06:15 Procalcitonin 0.09 ng/mL (<0.15) 09/16/20 21:28 Urine Color Yellow (Yellow) 09/17/20 Unknown Urine Turbidity Cloudy (Clear) 09/17/20 Unknown Urine pH 5.0 (5.0-7.0) 09/17/20 Unknown Ur Specific [place] 1.023 (1.003-1.030) 09/17/20 Unknown Urine Protein 100 mg/dl mg/dL (Negative) 09/17/20 Unknown Urine Glucose (UA) 50 mg/dL (Negative) 09/17/20 Unknown Urine Ketones Tr mg/dL (Negative) 09/17/20 Unknown Urine Blood Lg (Negative) 09/17/20 Unknown Urine Nitrite Neg (Negative) 09/17/20 Unknown Urine Bilirubin Neg (Negative) 09/17/20 Unknown Urine Urobilinogen < 2.0 mg/dL (<2.0) 09/17/20 Unknown Ur Leukocyte Esterase Neg (Negative) 09/17/20 Unknown Urine WBC (Auto) 28.0 /HPF (0.0-6.0) H 09/17/20 Unknown Urine RBC (Auto) > 182.0 /HPF (0.0-6.0) 09/17/20 Unknown U Epithel Cells (Auto) 7.0 /HPF (0-13.0) 09/17/20 Unknown Urine Bacteria (Auto) 1+ /HPF (Negative) 09/17/20 Unknown Urine Mucus 2+ /HPF 09/17/20 Unknown Urine Yeast (Budding) 1+ /HPF 09/17/20 Unknown Urine Osmolality 1096 Mosm/kg 09/19/20 17:35 Urine Creatinine 179.4 mg/dL (0.1-20.0) H 09/19/20 17:35 Urine Sodium 193 mmol/L 09/19/20 17:35 Coronavirus (PCR) Positive (Negative) A 09/19/20 11:00 Microbiology: Microbiology 09/16/20 21:28 Peripheral/Venous Blood Culture - Final NO GROWTH AFTER 5 DAYS 09/16/20 21:32 Peripheral/Venous Blood Culture - Final NO GROWTH AFTER 5 DAYS - Diagnostic Impressions Diagnostic Impressions: Echocardiogram 09/20/20 10:42 Transthoracic Echocardiogram Indication: A FIB BP: 151/87 HR: 86 Conclusions *Global left ventricular systolic function is normal. *The estimated ejection fraction is 50-55%. *The right ventricular global systolic function is normal. *The aortic valve is not well visualized. *There is mild aortic regurgitation. *Mild aortic leaflet calcification is visualized. *There is mild mitral regurgitation. *There is mild to moderate pulmonic regurgitation. *There is evidence of moderate pulmonary hypertension. Findings Procedure Info: The study quality is fair. Left Ventricle: The left ventricular chamber size is normal. There is no left ventricular hypertrophy. Global left ventricular wall motion and contractility are within normal limits. Global left ventricular systolic function is normal. The estimated ejection fraction is 50-55%. Abnormal left ventricular diastolic function is observed. Left Atrium: The left atrium is severely dilated. Right Ventricle: The right ventricular cavity size is normal. The right ventricular global systolic function is normal. Right Atrium: The right atrial cavity size is normal. Aortic Valve: The aortic valve is not well visualized. Mild aortic leaflet calcification is visualized. There is mild aortic regurgitation. Mitral Valve: There is mitral annular calcification. The mitral valve leaflets are mildly thickened. There is mild mitral regurgitation. Tricuspid Valve: The tricuspid valve appears normal in structure and function. There is moderate tricuspid regurgitation. There is evidence of moderate pulmonary hypertension. Pulmonic Valve: The pulmonic valve is not well visualized.High gradients seen can not rule out stenosis There is mild to moderate pulmonic regurgitation. Pericardium: There is no pericardial effusion. Aorta: The aorta appears normal. Pulmonary Artery: The main pulmonary artery is not well visualized. Venous: The inferior vena cava appears abnormal. The inferior vena cava is dilated. There is less than 50% respiratory change in the inferior vena cava dimension. Measurements Chambers 2D Name Value Normal Range IVSd (2D) 0.89 cm (0.6 - 1.1) LVPWd (2D) 0.84 cm (0.6 - 1.1) LVIDd (2D) 4.67 cm (3.7 - 5.6) LVIDs (2D) 3.42 cm (2 - 3.8) LV FS (2D) 26.77 % - EF Teichholz (2D) 52.3 % - Ao root diameter (2D) 3.07 cm (2 - 3.7) Volumes/Mass Name Value Normal Range LA ESV SP 4CH (A/L) 78.85 ml - LA ESV SP 2CH (A/L) 111.2 ml - LA ESV BP (A/L) 93.86 ml - LA ESV BP (A/L) index 51.57 ml/m2 - LA ESV SP 4CH (MOD) 69.77 ml - LA ESV SP 2CH (MOD) 105.54 ml - LA ESV BP (MOD) 85.78 ml - LA ESV BP (MOD) index 47.13 ml/m2 - LV EDV SP 4CH (MOD) 68.03 ml - LV ESV SP 4CH (MOD) 31.63 ml - EF SP 4CH (MOD) 53.5 % - LV EDV SP 2CH (MOD) 68.71 ml - LV ESV SP 2CH (MOD) 28.59 ml - EF SP 2CH (MOD) 58.39 % - LV EDV BP 68.15 ml - LV ESV BP 30.43 ml - BP EF (MOD) 55.34 % - Diastolic/Systolic Function Name Value Normal Range MV E-wave Vmax 0.99 m/sec - MV deceleration time 131.92 msec - MV A-wave Vmax 1.17 m/sec - MV E:A ratio 0.85 ratio - Aortic Valve Name Value Normal Range AV Vmax 1.38 m/sec - AV VTI 26.19 cm - AV peak gradient 7.59 mmHg - AV mean gradient 4.81 mmHg - LVOT diameter 2.19 cm - LVOT Vmax 0.78 m/sec - LVOT VTI 21.91 cm - LVOT peak gradient 2.46 mmHg - LVOT mean gradient 1.53 mmHg - SV LVOT 82.34 ml - EMMY (continuity Vmax) 2.14 cm2 - EMMY (continuity VTI) 3.14 cm2 - AR PHT 657.65 msec - AR peak gradient 67.31 mmHg - Ascending Ao 2.79 cm - Tricuspid Valve Name Value Normal Range TR Vmax 4.33 m/sec - TR peak gradient 75 mmHg - RAP 8 mmHg - RVSP 83 mmHg - IVC diameter 2.15 cm (1.2 - 2.3) Pulmonic Valve/Qp:Qs Name Value Normal Range PV Vmax 3.01 m/sec - PV VTI 86.98 cm - PV peak gradient 36.25 mmHg - PV mean gradient 29.37 mmHg - MO end-diastolic Vmax 1.69 m/sec - RVOT Vmax 0.36 m/sec - RVOT VTI 7.36 cm - RVOT peak gradient 0.52 mmHg - PV acceleration time 81.83 msec - [place]/IV: Voiding Method Incontinent Active Medications - Current Medications Current Medications: Generic Name Dose Route Start Last Admin Trade Name Freq PRN Reason Stop Dose Admin Acetaminophen 650 mg 09/17/20 03:32 Acetaminophen 325 Mg Tab PO Q4H PRN Pain MILD(1-3)/Fever >100.5/NIÑO Lipase/Protease/Amylase 1 each 09/21/20 10:00 Lipase 10,500/Protease 25,000/Amylase 43,750 (Units) Dr Og FEEDTUBE PRN PRN For Clogged Feeding Tube Apixaban 2.5 mg 09/22/20 11:00 09/22/20 10:31 Apixaban 2.5 Mg Tab PO 2.5 mg BID RIGO Administration Ascorbic Acid 250 mg 09/20/20 22:00 09/22/20 10:27 Ascorbic Acid 250 Mg Tab PO 250 mg BID RIGO Administration Cholecalciferol 1,000 unit 09/21/20 10:00 09/22/20 10:26 Cholecalciferol (Vit D3) 1000 Unit (25 Mcg) Tab PO 1,000 unit QDAY RIGO Administration Dexamethasone 6 mg 09/21/20 10:00 09/22/20 10:26 Dexamethasone 4 Mg/Ml Vial IV 09/30/20 10:01 6 mg DAILY RIGO Administration Dextrose 0 ml 09/19/20 04:40 09/19/20 05:15 Dextrose 50% In Water (25gm) 50 Ml Syringe IV 50 ml Q30MIN PRN Administration Hypoglycemia Protocol Dextrose/Sodium Chloride 1,000 mls @ 42 mls/hr 09/18/20 23:45 09/21/20 18:11 D5ns IV 42 mls/hr DIRECT RIGO Administration Magnesium Hydroxide 30 ml 09/17/20 03:32 Magnesium Hydroxide (Mom) Oral Liqd Udc PO Q4H PRN Constipation Metoprolol Tartrate 25 mg 09/22/20 11:00 09/22/20 10:31 Metoprolol Tartrate 25 Mg Tab FEEDTUBE 25 mg BID RIGO Administration Morphine Sulfate 2 mg 09/17/20 03:32 Morphine 2 Mg/1 Ml Inj IV Q4H PRN Pain, Moderate (4-6) Ondansetron HCl 4 mg 09/17/20 03:32 Ondansetron 4 Mg/2 Ml Inj IV Q8H PRN Nausea And Vomiting Pantoprazole Sodium 40 mg 09/20/20 11:00 09/22/20 10:26 Pantoprazole 40 Mg Inj IV 40 mg QDAY RIGO Administration Pravastatin Sodium 40 mg 09/17/20 22:00 09/21/20 22:15 Pravastatin 40 Mg Tab PO 40 mg QHS RIGO Administration Simple Syrup 15 ml 09/21/20 09:46 Simple Syrup 15 Ml FEEDTUBE PRN PRN Hypoglycemia Simple Syrup 30 ml 09/21/20 09:46 Simple Syrup 15 Ml FEEDTUBE PRN PRN Hypoglycemia Sodium Bicarbonate 325 mg 09/21/20 09:46 Sodium Bicarbonate 325 Mg Tab FEEDTUBE PRN PRN For Clogged Feeding Tube Sodium Chloride 10 ml 09/17/20 10:00 09/22/20 10:25 Sodium Chloride 0.9% 10 Ml Flush Syringe IV 10 ml BID RIGO Administration Sodium Chloride 10 ml 09/17/20 03:32 Sodium Chloride 0.9% 10 Ml Flush Syringe IV PRN PRN LINE FLUSH Zinc Sulfate 220 mg 09/20/20 22:00 09/22/20 10:26 Zinc Sulfate 220 Mg Cap PO 220 mg BID RIGO Administration Nutrition/Malnutrition Assess - Dietary Evaluation Nutrition/Malnutrition Findings: Nutrition Notes Start: 09/21/20 09:22 Freq: Status: Active Protocol: Document 09/21/20 09:22 LM (Rec: 09/21/20 09:46 LM [id number]) Nutrition Notes Need for Assessment generated from: MD Order Initial or Follow up Assessment Current Diagnosis Acute Kidney Injury,Decubitus( Pressure Ulcer),Sepsis, Hypertension,Hyperlipidemia Other Pertinent Diagnosis suspected COVID-19, L & R heel PU, Afib, UTI, dehydration, AMS, Dementia Current Diet NPO Labs/Tests Na 149 BUN 28 Cr 1.7 BG 153 Pertinent Medications Reviewed Height 5 ft 2 in Weight 81.8 kg [place] Body Weight (kg) 50.00 BMI 33.0 Weight Status Obese Subjective/Other Information MD consult for TF. Pt with AMS and suspected COVID-19. Per H &P pt with decreased intake for 2 days. Pt with 2+ pitting edema and weak guidance consultant strength. SILVER WRAPPER recommends PEG for pt. Burn Absent Trauma Absent Current % PO Negligible Minimum of two criteria Yes Fluid Accumulation Mild (non-severe) Reduced Pattern Chain Builder Strength Measurably Reduced (severe) #3 Nutrition Diagnosis Increased nutrient needs ( specify in comment below) Comments: Protein Etiology wound healing As Evidenced by Signs and Symptoms Pt with L & R heel PU #2 Nutrition Diagnosis Malnutrition Etiology Chronic illness, dementia As Evidenced by Signs and Symptoms Pt with 2+ pitting edema and weak guidance consultant strength #1 Nutrition Diagnosis Inadequate oral intake Etiology AMS As Evidenced by Signs and Symptoms Pt requiring TF Is patient on ventilator? No Is Patient Ambulatory and/or Out of Bed No REE-([facility]-confined to bed) 1508.004 Kcal/Kg value to use for calculation 16 Approximate Energy Requirements Using 1309 kcal/Kg Calculation Used for Recommendations Kcal/kg Additional Notes Protein: 53-99g (0.8-1.5g/kg using AdjBW 66kg) Fluid: 1ml/kcal Nutrition Intervention Change Diet Order: TF Nutrition Support: Osmolite 1.5 at 40ml/hr Flush 170ml q4h for hypernatremia Flush 200ml q4h once resolved Kcal 1,440 Protein (gm) 60 Fluid (mL) 732 Add Supplement/Snack (indicate name/kcal [place] BID /protein ) Provides kCal: 190 Provides Protein (gm) 5 Goal #1 TF start/tolerance Goal #2 wound healing Anticipated Discharge Needs: unable to determine at this time Follow-Up By: 09/23/20 Additional Comments F/U for TF start/tolerance, An[place]an, Na
--- NOTE | 2020-09-22 19:50 | Gastroenterology Consultation ---
History of Present Illness - Reason for Consult Consult date: 09/22/20 PEG tube evaluation Requesting physician: JULIANNE THOMAS - History of Present Illness The patient is a 80 yo female who presented with sob;fatigue and poor po intake. history primarily gathered from chart review regarding events from hospitalization. Discussed with pt's daughter regarding patient's symptoms prior to presentation. she was eating the day prior to admission, but less so over the last 1 week. however, states her mom had been able to eat on her own prior to arrival. Pt does have degree of dementia; she was found to have COVID- 19 and developed afib with rvr, was in ICU temporarily, now transferred to floor, has NG tube in place and tolerating tube feeds. Past History Past Medical History: GERD, hypertension, hyperlipidemia, other (Dementia.) Past Surgical History: Other (History of colon cancer status post surgery) Social history: smoking (Quit tobacco use 10 years ago) Family history: no significant family history Medications and Allergies Allergies Allergy/AdvReac Type Severity Reaction Status Date / Time No Known Allergies Allergy Verified 09/16/20 20:49 Home Medications Medication Instructions Recorded Confirmed Last Taken Type Clopidogrel [Plavix] 75 mg PO QDAY 10/01/16 09/17/20 Unknown History Lisinopril/Hydrochlorothiazide 1 each PO DAILY 10/01/16 09/17/20 Unknown History [Zestoretic 20-12.5 mg] Metoprolol Tartrate 25 mg PO BID 10/01/16 09/17/20 Unknown History Nitrostat 0.4 mg SUBLINGUAL PRN PRN 10/01/16 09/17/20 Unknown History Simvastatin (Nf) [Zocor TAB] 20 mg PO DAILY 10/01/16 09/17/20 Unknown History Zantac 150 MG TAB 150 mg PO BID 10/01/16 09/17/20 Unknown History Active Meds: Active Medications Acetaminophen (Acetaminophen 325 Mg Tab) 650 mg PO Q4H PRN PRN Reason: Pain MILD(1-3)/Fever >100.5/NIÑO Lipase/Protease/Amylase (Lipase 10,500/Protease 25,000/Amylase 43,750 (Units) Dr Og) 1 each FEEDTUBE PRN PRN PRN Reason: For Clogged Feeding Tube Apixaban (Apixaban 2.5 Mg Tab) 2.5 mg PO BID RIGO Last Admin: 09/22/20 10:31 Dose: 2.5 mg Documented by: Ascorbic Acid (Ascorbic Acid 250 Mg Tab) 250 mg PO BID [facility] Last Admin: 09/22/20 10:27 Dose: 250 mg Documented by: Cholecalciferol (Cholecalciferol (Vit D3) 1000 Unit (25 Mcg) Tab) 1,000 unit PO QDAY [facility] Last Admin: 09/22/20 10:26 Dose: 1,000 unit Documented by: Dexamethasone (Dexamethasone 4 Mg/Ml Vial) 6 mg IV DAILY [facility] Stop: 09/30/20 10:01 Last Admin: 09/22/20 10:26 Dose: 6 mg Documented by: Dextrose (Dextrose 50% In Water (25gm) 50 Ml Syringe) 0 ml IV Q30MIN PRN; Protocol PRN Reason: Hypoglycemia Last Admin: 09/19/20 05:15 Dose: 50 ml Documented by: Magnesium Hydroxide (Magnesium Hydroxide (Mom) Oral Liqd Udc) 30 ml PO Q4H PRN PRN Reason: Constipation Metoprolol Tartrate (Metoprolol Tartrate 25 Mg Tab) 25 mg FEEDTUBE BID [facility] Last Admin: 09/22/20 10:31 Dose: 25 mg Documented by: Morphine Sulfate (Morphine 2 Mg/1 Ml Inj) 2 mg IV Q4H PRN PRN Reason: Pain, Moderate (4-6) Ondansetron HCl (Ondansetron 4 Mg/2 Ml Inj) 4 mg IV Q8H PRN PRN Reason: Nausea And Vomiting Pantoprazole Sodium (Pantoprazole 40 Mg Inj) 40 mg IV QDAY [facility] Last Admin: 09/22/20 10:26 Dose: 40 mg Documented by: Pravastatin Sodium (Pravastatin 40 Mg Tab) 40 mg PO QHS [facility] Last Admin: 09/21/20 22:15 Dose: 40 mg Documented by: Simple Syrup (Simple Syrup 15 Ml) 15 ml FEEDTUBE PRN PRN PRN Reason: Hypoglycemia Simple Syrup (Simple Syrup 15 Ml) 30 ml FEEDTUBE PRN PRN PRN Reason: Hypoglycemia Sodium Bicarbonate (Sodium Bicarbonate 325 Mg Tab) 325 mg FEEDTUBE PRN PRN PRN Reason: For Clogged Feeding Tube Sodium Chloride (Sodium Chloride 0.9% 10 Ml Flush Syringe) 10 ml IV BID [facility] Last Admin: 09/22/20 10:25 Dose: 10 ml Documented by: Sodium Chloride (Sodium Chloride 0.9% 10 Ml Flush Syringe) 10 ml IV PRN PRN PRN Reason: LINE FLUSH Zinc Sulfate (Zinc Sulfate 220 Mg Cap) 220 mg PO BID [facility]IG[facility] Last Admin: 09/22/20 10:26 Dose: 220 mg Documented by: Reviewed/updated patient's home and current medications Review of Systems - Review of Systems ROS unobtainable: due to mental status Exam - Constitutional Vital Signs: Temp Pulse Resp BP Pulse Ox 100.0 F H 84 18 164/63 94 09/22/20 15:40 09/22/20 15:40 09/22/20 15:40 09/22/20 15:40 09/22/20 15:40 General appearance: no acute distress - EENT ENT: other (+ NG tube) - Respiratory Respiratory effort: normal Respiratory: bilateral: CTA - Cardiovascular Rhythm: regular Heart Sounds: Present: S1 & S2 - Gastrointestinal General gastrointestinal: Present: soft, non-tender, non-distended, other (surgical scar) - Neurologic Neurological: other (disoriented) - Labs CBC & Chem 7: 09/22/20 02:30 09/21/20 04:34 Lab Results: Laboratory Results - last 24 hr 09/21/20 09/21/20 09/22/20 22:37 22:46 02:30 Hgb 10.6 Hct 32.6 Plt Count 119 L Heparin Anti-Xa Level 0.41 POC Glucose 125 H 09/22/20 09/22/20 09/22/20 07:44 07:58 11:47 Hgb Hct Plt Count Heparin Anti-Xa Level 0.32 POC Glucose 124 H 111 H Assessment and Plan Oropharyngeal dysphagia COVID-19 afib discussed with pt's daughter over phone, she was eating before admission, stated her mom's current inability to safely resume po intake and has NG tube as temporary means for nutrition. pt's daughter wishes to see if there is any recover in swallowing function while acute medical issues are being treated, but understands, PEG will need to be considered if no improvement (and if stable for procedure). will follow regarding timing and pt's daughter wishes.
[2020-09-22] MEDS: PRAVASTATIN 40 MG TAB PO SCH (21:31)
[2020-09-22] MEDS ORDERED: APIXABAN 5 MG TAB PO SCH (22:00)
[2020-09-23 05:34] LABS: Hematocrit 29.6 % (30.3-42.9); Hemoglobin 9.7 gm/dl (10.1-14.3); Mean Corpuscular HGB Conc 33 % (30-34); Mean Corpuscular Volume 97 fl (79-97); Platelet Count 124 K/mm3 (140-440); Red Blood Count 3.06 M/mm3 (3.65-5.03); Red Cell Distribution Width 16.5 % (13.2-15.2)
[2020-09-23 05:57] LABS: Calcium 8.6 mg/dL (8.4-10.2)
[2020-09-23] MEDS ORDERED: DEXTROSE 5% IN WATER 1,000 ML IV SCH (08:00)
--- NOTE | 2020-09-23 09:20 | Progress Note ---
Assessment and Plan Currently stable cardiac status. Cont PO lopressor and Eliquis via feeding tube. GI consultation noted - pt's daughter wishes to see if there is any recover in swallowing function while acute medical issues are being treated, but understands, PEG will need to be considered if no improvement (and if stable for procedure). The patient has been seen in conjunction with Dr. Hollingsworth who agrees with the assessment and plan of care. - Patient Problems (1) New onset atrial fibrillation Current Visit: Yes Status: Acute (2) COVID-19 virus infection Current Visit: Yes Status: Acute (3) Sepsis Current Visit: Yes Status: Suspected (4) Hypotension Current Visit: Yes Status: Resolved (5) Pneumonia Current Visit: Yes Status: Suspected (6) UTI (urinary tract infection) Current Visit: Yes Status: Acute (7) Altered mental status Current Visit: Yes Status: Acute (8) Dementia Current Visit: Yes Status: Chronic Qualifiers: Dementia type: unspecified type Dementia behavioral disturbance: with behavioral disturbance Qualified Code(s): F03.91 - Unspecified dementia with behavioral disturbance (9) MINERVA (acute kidney injury) Current Visit: Yes Status: Acute (10) Dehydration Current Visit: Yes Status: Acute (11) Thrombocytopenia Current Visit: Yes Status: Acute (12) HTN (hypertension) Current Visit: Yes Status: Chronic (13) Pulmonary hypertension Current Visit: Yes Status: Chronic (14) Moderate tricuspid regurgitation Current Visit: Yes Status: Chronic Subjective Date of service: 09/23/20 Principal diagnosis: afib Interval history: pt resting in bed, alert, confused. tele reviewed - in SR overnight with AFib this AM, HR 70s. Objective Last Vital Signs Temp 99.7 F H 09/23/20 04:59 Pulse 67 09/23/20 04:59 Resp 16 09/23/20 04:59 BP 157/47 09/23/20 04:59 Pulse Ox 96 09/23/20 04:59 - Physical Examination General: No Apparent Distress HEENT: Positive: PERRL, Normocephaly, Mucus Membranes Moist Neck: Positive: neck supple, trachea midline Cardiac: Positive: irregularly irregular, S1/S2 Lungs: Positive: Decreased Breath Sounds Neuro: Positive: Other (confused) Skin: Negative: Rash Extremities: Absent: edema - Labs and Meds CBC 09/23/20 Range/Units 05:17 WBC 8.1 (4.5-11.0) K/mm3 RBC 3.06 L (3.65-5.03) M/mm3 Hgb 9.7 L (10.1-14.3) gm/dl Hct 29.6 L (30.3-42.9) % Plt Count 124 L (140-440) K/mm3 Comprehensive Metabolic Panel 09/23/20 Range/Units 05:17 Sodium 150 H (137-145) mmol/L Potassium 4.1 (3.6-5.0) mmol/L Chloride 116.4 H (98-107) mmol/L Carbon Dioxide 29 (22-30) mmol/L BUN 39 H (7-17) mg/dL Creatinine 1.5 H (0.6-1.2) mg/dL Glucose 136 H (65-100) mg/dL Calcium 8.6 (8.4-10.2) mg/dL - Imaging and Cardiology EKG: report reviewed, image reviewed Echo: report reviewed ( EF 50-55%, mild AR, mild MR, mod TR, mild to mod OR, pulm HTN with RVSP 83mmHg. ) - Telemetry EKG Rhythm: Atrial Fibrillation
[2020-09-23] MEDS: ASCORBIC ACID 250 MG TAB PO SCH ×2 (09:26→22:59)
[2020-09-23] MEDS: APIXABAN 2.5 MG TAB PO SCH ×2 (09:26→22:59)
[2020-09-23] MEDS: ZINC SULFATE 220 MG CAP PO SCH ×2 (09:26→22:59)
[2020-09-23] MEDS: LANSOPRAZOLE 30 MG SOLUTAB FEEDTUBE SCH (09:26)
[2020-09-23] MEDS: CHOLECALCIFEROL (VIT D3) 1000 UNIT (25 mcg) TAB PO SCH (09:26)
[2020-09-23] MEDS: METOPROLOL TARTRATE 25 MG TAB FEEDTUBE SCH ×2 (09:26→22:59)
[2020-09-23] MEDS: dexAMETHasone 4 MG/ML VIAL IV SCH (09:27)
--- NOTE | 2020-09-23 11:26 | Progress Note ---
Assessment and Plan Cultures: Blood culture no growth so far Urine culture: no growth A/P: 80-year-old female past medical history hypertension, dementia, hyperlipidemia admitted with shortness of breath. #Left-sided pneumonia: COVID-19 testing negative initially, then positive. Normal procalcitonin. Remains on room air. #UTI: Minor pyuria, already completed 3 days Levaquin. Difficult to assess for symptoms on basis of dementia. #Thrombocytopenia: likely secondary to COVID. #Dementia #MINERVA: renally adjust abx as needed. Recs: -not hypoxic, not a candidate for Remdesivir at this time Liz Valladares MD [facility] ([facility]) O: [phone] F: [phone] Subjective Date of service: 09/23/20 Principal diagnosis: afib Interval history: Afebrile, normal white count. Objective - Exam Narrative Exam: Physical exam deferred due to PPE conservation strategy. Please refer to primary team's note. - Constitutional Vitals: Vital Signs Temp Pulse Resp BP Pulse Ox 99.7 F H 67 16 157/47 96 09/23/20 04:59 09/23/20 04:59 09/23/20 04:59 09/23/20 04:59 09/23/20 04:59 Temperature -Last 24 Hours Temperature 99.7 F Temperature 99.3 F Temperature 100.0 F Temperature 98.5 F - Labs CBC & Chem 7: 09/23/20 05:17 09/23/20 05:17 Labs: Abnormal lab results 09/22/20 09/22/20 09/22/20 Range/Units 07:44 11:47 16:25 RBC (3.65-5.03) M/mm3 Hgb (10.1-14.3) gm/dl Hct (30.3-42.9) % RDW (13.2-15.2) % Plt Count (140-440) K/mm3 Sodium (137-145) mmol/L Chloride (98-107) mmol/L BUN (7-17) mg/dL Creatinine (0.6-1.2) mg/dL Glucose (65-100) mg/dL POC Glucose 124 H 111 H 173 H (70-105) mg/dL 09/23/20 09/23/20 09/23/20 Range/Units 00:27 05:07 05:17 RBC 3.06 L (3.65-5.03) M/mm3 Hgb 9.7 L (10.1-14.3) gm/dl Hct 29.6 L (30.3-42.9) % RDW 16.5 H (13.2-15.2) % Plt Count 124 L (140-440) K/mm3 Sodium (137-145) mmol/L Chloride (98-107) mmol/L BUN (7-17) mg/dL Creatinine (0.6-1.2) mg/dL Glucose (65-100) mg/dL POC Glucose 132 H 131 H (70-105) mg/dL 09/23/20 Range/Units 05:17 RBC (3.65-5.03) M/mm3 Hgb (10.1-14.3) gm/dl Hct (30.3-42.9) % RDW (13.2-15.2) % Plt Count (140-440) K/mm3 Sodium 150 H (137-145) mmol/L Chloride 116.4 H (98-107) mmol/L BUN 39 H (7-17) mg/dL Creatinine 1.5 H (0.6-1.2) mg/dL Glucose 136 H (65-100) mg/dL POC Glucose (70-105) mg/dL
--- NOTE | 2020-09-23 14:10 | Progress Note ---
<NIDIA RAGLAND - Last Filed: 09/23/20 14:10> Assessment and Plan Assessment and plan: Sepsis -Presented with hypotension, acute kidney injury, and possible developing pneumonia on CXR -S/p 2.4 L normal saline in the emergency department -Infectious disease consulted, appreciate recommendations -Antibiotic therapy -09/16 blood cultures x2 NGTD COVID-19 pneumonia -09/17 COVID-19 PCR negative -09/19 COVID 19 PCR positive -Infectious disease consulted, patient recommendations -S/p antibiotic therapy -Droplet/isolation precautions -Pulmonary hygiene -OOB 3 times daily -Prone to sleep as needed -Supplemental oxygen as needed -Anticoagulation per protocol -Trend COVID-19 inflammatory markers for risk stratification -Vitamin C, D and zinc Pneumonia -09/17 CXR shows possible developing pneumonia -s/p Antibiotic therapy -Pulmonary hygiene -SPO2 monitoring Urinary tract infection -Tested positive for urinary tract infection at home Kit and was given 3/5 doses of Levaquin -09/16 urinalysis with pyuria with budding yeast -S/p Diflucan in the emergency department -Antibiotic therapy Thrombocytopenia -Presented with a platelet count of 83 -Trend CBC -Hematology/oncology consulted, appreciate recommendations -Per heme-onc 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 fib with RVR -Patient has a history of atrial fibrillation is on beta-blockers and anticoagulation -09/19 patient noted to be in A. fib with RVR -Cardiology consult, appreciate recommendations -S/p heparin drip -Per oncology: Okay to take Eliquis 2.5 twice daily as hospital counts greater than 30 -09/20 TTE shows ejection fraction 55%, mild AR, mild MR, moderate TR, mild to moderate MO with mild pulmonary hypertension and RVSP calculated at 83 mmHg. -S/p amiodarone, IV digoxin and beta-jennifer -Now rate controlled with beta-jennifer p.o. Hypernateremia -09/18 Na 149 -Trend BMP -MIVF -FWF 400mL q8 Hyperchloremia -09/18 Cl 112.6 -MIVF -Trend Chloride -FWF 400mL q8 Dementia -Supportive care -Verbal de-escalation and redirection as needed -Fall, aspiration precautions -Supportive care -GI consulted for PEG tube placement Hypertension -Hold antihypertensives in setting of hypotension -Blood pressure monitoring per protocol GERD -Continue PPI -Changed to Protonix due to thrombocytopenia Hyperlipidemia -Continue statin therapy DVT prophylaxis -GI prophylaxis -Subcu heparin -SCDs to bilateral lower extremities while in bed Hypoglycemia, resolved -09/18 patient noted to be persistently hypoglycemic -Decreased p.o. intake -MIVF with D5NS -Accu-Cheks AC at bedtime -Hypoglycemia protocol History Interval history: This is a 80-year-old female with hypertension, GERD, colon cancer s/p resection, dementia and former smoker who presented to the emergency department with shortness of breath, decreased appetite and decreased p.o. intake over the past few days. Patient tested positive for urinary tract infection on home test kit and was subsequently started on oral Levaquin 500 mg daily for the past 3 days. Work-up in the emergency department revealed acute kidney injury, pyuria, possible developing pneumonia or aspiration, enlarged left middle mediastinum suggesting adenopathies. Patient was admitted to the hospital service for pneumonia as a COVID-19 PUI. Infectious disease was consulted. 09/17: Patient is on room air at the time my examination entry COVID-19 PCR resulted as negative. Patient will be transferred to medical floor. Infectious disease has stopped azithromycin continue ceftriaxone for possible urinary tract infection. We have also ordered a repeat COVID-19 PCR 09/18: No acute events reported overnight. Patient still remains in bilateral mittens-repeat COVID-19 PCR will need to be repeated tomorrow per hospital policy.This morning patient has leukopenia, hypernatremia, hyperchloremia but her acute kidney injury has improved. 09/19: Patient noted to be in atrial fibrillation with RVR this morning around 0600 and cardiology was consulted. Patient has been started on amiodarone drip after bolus. ST was consulted today for decreased p.o. intake as the patient was placed on MIVF due to persistent hypoglycemia yesterday. Her hyperchloremia and hypernatremia have improved however she is hypokalemic on her creatinine/BUN have increased. ST has recommended PEG tube placement. Patient's family unable to be contacted for update, confirmation of history or possible PEG tube [place] cement. Her daughter was called several times today by [employer]. Patient's repeat COVID-19 PCR is pending. She was given a 250 ml normal saline bolus due to hypotension. Repeat CMP in the a.m. Heme/Onc consulted for thrombocytopenia. 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 Start heparin drip for new onset afib with RVR and Eliquis 2.5 mg p.o. twice daily at discharge. Wean IV amiodarone and start digoxin and Lopressor IV per Cardiology. Continue ceftriaxone for total of 3 days for UTI per ID recommendations. Continue to follow blood and urine cultures. Follow-up repeat Covid testing today. PEG placement per Speech recommendations. 09/21: Await echocardiogram. Continue heparin drip for new onset atrial fibrillation with RVR and transition to Eliquis at discharge. Cardiology stopped IV amiodarone but will continue with IV digoxin and Lopressor until NG tube placement. NG tube placement ordered this morning. GI consultation pending for PEG placement. Repeat Covid testing positive on 09/19. DC Solu- Medrol 40 mg every 8 hours and start dexamethasone 6 mg IV daily. ? Remdesivir given renal insufficiency and will assess for hypoxia. ID following 09/22: Patient's hypernatremia slightly improved however she remains with hyperkalemia and MINERVA slightly improved. Patient is minimally interactive and remains on room air. No acute events reported overnight. GI consulted regarding PEG tube placement 09/23: Patient hypernatremia and hyperchloremia worsened therefore she was started on 400 mL FWF every 8 hours and her MINERVA slightly improved. No acute events reported overnight. Patient still remains minimally interactive and on room air. Hospitalist Physical - Constitutional Vitals: Temp Pulse Resp BP Pulse Ox 99.7 F H 67 16 157/47 96 09/23/20 04:59 09/23/20 04:59 09/23/20 04:59 09/23/20 04:59 09/23/20 04:59 General appearance: Present: no acute distress - EENT Eyes: Present: PERRL, EOM intact ENT: poor dentition - Neck Neck: Present: normal ROM - Respiratory Respiratory effort: normal - Cardiovascular Rhythm: irregularly irregular - Extremities Extremities: no ischemia, pulses intact, pulses symmetrical, No edema, normal temperature, normal color Peripheral Pulses: within normal limits - Abdominal General gastrointestinal: soft, non-tender, non-distended, normal bowel sounds - Integumentary Integumentary: Present: clear, warm, dry - Psychiatric Psychiatric: appropriate mood/affect, cooperative - Neurologic Neurologic: CNII-XII intact, no focal deficits, moves all extremities - Allied Health Allied health notes reviewed: nursing HEART Score - HEART Score Troponin: Troponin T 0.029 ng/mL (0.00-0.029) 09/16/20 23:05 Results - Labs CBC & Chem 7: 09/23/20 05:17 09/23/20 05:17 Labs: Laboratory Last Values WBC 8.1 K/mm3 (4.5-11.0) 09/23/20 05:17 RBC 3.06 M/mm3 (3.65-5.03) L 09/23/20 05:17 Hgb 9.7 gm/dl (10.1-14.3) L 09/23/20 05:17 Hct 29.6 % (30.3-42.9) L 09/23/20 05:17 MCV 97 fl (79-97) 09/23/20 05:17 MCH 32 pg (28-32) 09/23/20 05:17 MCHC 33 % (30-34) 09/23/20 05:17 RDW 16.5 % (13.2-15.2) H 09/23/20 05:17 Plt Count 124 K/mm3 (140-440) L 09/23/20 05:17 Lymph % (Auto) 13.2 % (13.4-35.0) L 09/21/20 04:34 [place] % (Auto) 3.3 % (0.0-7.3) 09/21/20 04:34 Eos % (Auto) 0.1 % (0.0-4.3) 09/21/20 04:34 Baso % (Auto) 0.6 % (0.0-1.8) 09/21/20 04:34 Lymph # (Auto) 1.0 K/mm3 (1.2-5.4) L 09/21/20 04:34 [place] # (Auto) 0.3 K/mm3 (0.0-0.8) 09/21/20 04:34 Eos # (Auto) 0.0 K/mm3 (0.0-0.4) 09/21/20 04:34 Baso # (Auto) 0.1 K/mm3 (0.0-0.1) 09/21/20 04:34 Seg Neutrophils % 82.8 % (40.0-70.0) H 09/21/20 04:34 Seg Neutrophils # 6.5 K/mm3 (1.8-7.7) 09/21/20 04:34 PT 15.4 Sec. (12.2-14.9) H 09/20/20 13:06 INR 1.24 (0.87-1.13) H 09/20/20 13:06 APTT 37.4 Sec. (24.2-36.6) H 09/20/20 13:06 D-Dimer 425.43 ng/mlDDU (0-234) H 09/16/20 21:28 Heparin Anti-Xa Level 0.32 U.I./ml (0.3-0.7) 09/22/20 07:58 Sodium 150 mmol/L (137-145) H 09/23/20 05:17 Potassium 4.1 mmol/L (3.6-5.0) 09/23/20 05:17 Chloride 116.4 mmol/L (98-107) H 09/23/20 05:17 Carbon Dioxide 29 mmol/L (22-30) 09/23/20 05:17 Anion Gap 9 mmol/L 09/23/20 05:17 BUN 39 mg/dL (7-17) H 09/23/20 05:17 Creatinine 1.5 mg/dL (0.6-1.2) H 09/23/20 05:17 Estimated GFR 41 ml/min 09/23/20 05:17 BUN/Creatinine Ratio 26 % 09/23/20 05:17 Glucose 136 mg/dL (65-100) H 09/23/20 05:17 POC Glucose 156 mg/dL (70-105) H 09/23/20 12:04 Lactic Acid 0.90 mmol/L (0.7-2.0) 09/17/20 14:35 Calcium 8.6 mg/dL (8.4-10.2) 09/23/20 05:17 Ferritin 374.8 ng/mL (10.0-200.0) H 09/16/20 21:28 Total Bilirubin 0.40 mg/dL (0.1-1.2) 09/20/20 06:15 AST 79 units/L (5-40) H 09/20/20 06:15 ALT 39 units/L (7-56) 09/20/20 06:15 Alkaline Phosphatase 78 units/L (35-129) 09/20/20 06:15 Lactate Dehydrogenase 179 units/L (91-180) 09/16/20 23:05 Troponin T 0.029 ng/mL (0.00-0.029) 09/16/20 23:05 C-Reactive Protein 14.90 mg/dL (0.00-1.30) H 09/16/20 23:05 Total Protein 6.1 g/dL (6.3-8.2) L 09/20/20 06:15 Albumin 3.1 g/dL (3.9-5) L 09/20/20 06:15 Albumin/Globulin Ratio 1.0 % 09/20/20 06:15 Procalcitonin 0.09 ng/mL (<0.15) 09/16/20 21:28 Urine Color Yellow (Yellow) 09/17/20 Unknown Urine Turbidity Cloudy (Clear) 09/17/20 Unknown Urine pH 5.0 (5.0-7.0) 09/17/20 Unknown Ur Specific [place] 1.023 (1.003-1.030) 09/17/20 Unknown Urine Protein 100 mg/dl mg/dL (Negative) 09/17/20 Unknown Urine Glucose (UA) 50 mg/dL (Negative) 09/17/20 Unknown Urine Ketones Tr mg/dL (Negative) 09/17/20 Unknown Urine Blood Lg (Negative) 09/17/20 Unknown Urine Nitrite Neg (Negative) 09/17/20 Unknown Urine Bilirubin Neg (Negative) 09/17/20 Unknown Urine Urobilinogen < 2.0 mg/dL (<2.0) 09/17/20 Unknown Ur Leukocyte Esterase Neg (Negative) 09/17/20 Unknown Urine WBC (Auto) 28.0 /HPF (0.0-6.0) H 09/17/20 Unknown Urine RBC (Auto) > 182.0 /HPF (0.0-6.0) 09/17/20 Unknown U Epithel Cells (Auto) 7.0 /HPF (0-13.0) 09/17/20 Unknown Urine Bacteria (Auto) 1+ /HPF (Negative) 09/17/20 Unknown Urine Mucus 2+ /HPF 09/17/20 Unknown Urine Yeast (Budding) 1+ /HPF 09/17/20 Unknown Urine Osmolality 1096 Mosm/kg 09/19/20 17:35 Urine Creatinine 179.4 mg/dL (0.1-20.0) H 09/19/20 17:35 Urine Sodium 193 mmol/L 09/19/20 17:35 Coronavirus (PCR) Positive (Negative) A 09/19/20 11:00 - Diagnostic Impressions Diagnostic Impressions: Echocardiogram 09/20/20 10:42 Transthoracic Echocardiogram Indication: A FIB BP: 151/87 HR: 86 Conclusions *Global left ventricular systolic function is normal. *The estimated ejection fraction is 50-55%. *The right ventricular global systolic function is normal. *The aortic valve is not well visualized. *There is mild aortic regurgitation. *Mild aortic leaflet calcification is visualized. *There is mild mitral regurgitation. *There is mild to moderate pulmonic regurgitation. *There is evidence of moderate pulmonary hypertension. Findings Procedure Info: The study quality is fair. Left Ventricle: The left ventricular chamber size is normal. There is no left ventricular hypertrophy. Global left ventricular wall motion and contractility are within normal limits. Global left ventricular systolic function is normal. The estimated ejection fraction is 50-55%. Abnormal left ventricular diastolic function is observed. Left Atrium: The left atrium is severely dilated. Right Ventricle: The right ventricular cavity size is normal. The right ventricular global systolic function is normal. Right Atrium: The right atrial cavity size is normal. Aortic Valve: The aortic valve is not well visualized. Mild aortic leaflet calcification is visualized. There is mild aortic regurgitation. Mitral Valve: There is mitral annular calcification. The mitral valve leaflets are mildly thickened. There is mild mitral regurgitation. Tricuspid Valve: The tricuspid valve appears normal in structure and function. There is moderate tricuspid regurgitation. There is evidence of moderate pulmonary hypertension. Pulmonic Valve: The pulmonic valve is not well visualized.High gradients seen can not rule out stenosis There is mild to moderate pulmonic regurgitation. Pericardium: There is no pericardial effusion. Aorta: The aorta appears normal. Pulmonary Artery: The main pulmonary artery is not well visualized. Venous: The inferior vena cava appears abnormal. The inferior vena cava is dilated. There is less than 50% respiratory change in the inferior vena cava dimension. Measurements Chambers 2D Name Value Normal Range IVSd (2D) 0.89 cm (0.6 - 1.1) LVPWd (2D) 0.84 cm (0.6 - 1.1) LVIDd (2D) 4.67 cm (3.7 - 5.6) LVIDs (2D) 3.42 cm (2 - 3.8) LV FS (2D) 26.77 % - EF Teichholz (2D) 52.3 % - Ao root diameter (2D) 3.07 cm (2 - 3.7) Volumes/Mass Name Value Normal Range LA ESV SP 4CH (A/L) 78.85 ml - LA ESV SP 2CH (A/L) 111.2 ml - LA ESV BP (A/L) 93.86 ml - LA ESV BP (A/L) index 51.57 ml/m2 - LA ESV SP 4CH (MOD) 69.77 ml - LA ESV SP 2CH (MOD) 105.54 ml - LA ESV BP (MOD) 85.78 ml - LA ESV BP (MOD) index 47.13 ml/m2 - LV EDV SP 4CH (MOD) 68.03 ml - LV ESV SP 4CH (MOD) 31.63 ml - EF SP 4CH (MOD) 53.5 % - LV EDV SP 2CH (MOD) 68.71 ml - LV ESV SP 2CH (MOD) 28.59 ml - EF SP 2CH (MOD) 58.39 % - LV EDV BP 68.15 ml - LV ESV BP 30.43 ml - BP EF (MOD) 55.34 % - Diastolic/Systolic Function Name Value Normal Range MV E-wave Vmax 0.99 m/sec - MV deceleration time 131.92 msec - MV A-wave Vmax 1.17 m/sec - MV E:A ratio 0.85 ratio - Aortic Valve Name Value Normal Range AV Vmax 1.38 m/sec - AV VTI 26.19 cm - AV peak gradient 7.59 mmHg - AV mean gradient 4.81 mmHg - LVOT diameter 2.19 cm - LVOT Vmax 0.78 m/sec - LVOT VTI 21.91 cm - LVOT peak gradient 2.46 mmHg - LVOT mean gradient 1.53 mmHg - SV LVOT 82.34 ml - EMMY (continuity Vmax) 2.14 cm2 - EMMY (continuity VTI) 3.14 cm2 - AR PHT 657.65 msec - AR peak gradient 67.31 mmHg - Ascending Ao 2.79 cm - Tricuspid Valve Name Value Normal Range TR Vmax 4.33 m/sec - TR peak gradient 75 mmHg - RAP 8 mmHg - RVSP 83 mmHg - IVC diameter 2.15 cm (1.2 - 2.3) Pulmonic Valve/Qp:Qs Name Value Normal Range PV Vmax 3.01 m/sec - PV VTI 86.98 cm - PV peak gradient 36.25 mmHg - PV mean gradient 29.37 mmHg - MO end-diastolic Vmax 1.69 m/sec - RVOT Vmax 0.36 m/sec - RVOT VTI 7.36 cm - RVOT peak gradient 0.52 mmHg - PV acceleration time 81.83 msec - [place]/IV: Voiding Method Incontinent Active Medications - Current Medications Current Medications: Generic Name Dose Route Start Last Admin Trade Name Freq PRN Reason Stop Dose Admin Acetaminophen 650 mg 09/17/20 03:32 Acetaminophen 325 Mg Tab PO Q4H PRN Pain MILD(1-3)/Fever >100.5/NIÑO Lipase/Protease/Amylase 1 each 09/21/20 10:00 Lipase 10,500/Protease 25,000/Amylase 43,750 (Units) Dr Og FEEDTUBE PRN PRN For Clogged Feeding Tube Apixaban 2.5 mg 09/22/20 11:00 09/23/20 09:26 Apixaban 2.5 Mg Tab PO 2.5 mg BID RIGO Administration Ascorbic Acid 250 mg 09/20/20 22:00 09/23/20 09:26 Ascorbic Acid 250 Mg Tab PO 250 mg BID RIGO Administration Cholecalciferol 1,000 unit 09/21/20 10:00 09/23/20 09:26 Cholecalciferol (Vit D3) 1000 Unit (25 Mcg) Tab PO 1,000 unit QDAY RIGO Administration Dexamethasone 6 mg 09/21/20 10:00 09/23/20 09:27 Dexamethasone 4 Mg/Ml Vial IV 09/30/20 10:01 6 mg DAILY RIGO Administration Dextrose 0 ml 09/19/20 04:40 09/19/20 05:15 Dextrose 50% In Water (25gm) 50 Ml Syringe IV 50 ml Q30MIN PRN Administration Hypoglycemia Protocol Dextrose 1,000 mls @ 42 mls/hr 09/23/20 08:00 D5w IV DIRECT RIGO Lansoprazole 30 mg 09/23/20 10:00 09/23/20 09:26 Lansoprazole 30 Mg Solutab FEEDTUBE 30 mg QDAY RIGO Administration Magnesium Hydroxide 30 ml 09/17/20 03:32 Magnesium Hydroxide (Mom) Oral Liqd Udc PO Q4H PRN Constipation Metoprolol Tartrate 25 mg 09/22/20 11:00 09/23/20 09:26 Metoprolol Tartrate 25 Mg Tab FEEDTUBE 25 mg BID RIGO Administration Morphine Sulfate 2 mg 09/17/20 03:32 Morphine 2 Mg/1 Ml Inj IV Q4H PRN Pain, Moderate (4-6) Ondansetron HCl 4 mg 09/17/20 03:32 Ondansetron 4 Mg/2 Ml Inj IV Q8H PRN Nausea And Vomiting Pravastatin Sodium 40 mg 09/17/20 22:00 09/22/20 21:31 Pravastatin 40 Mg Tab PO 40 mg QHS RIGO Administration Simple Syrup 15 ml 09/21/20 09:46 Simple Syrup 15 Ml FEEDTUBE PRN PRN Hypoglycemia Simple Syrup 30 ml 09/21/20 09:46 Simple Syrup 15 Ml FEEDTUBE PRN PRN Hypoglycemia Sodium Bicarbonate 325 mg 09/21/20 09:46 Sodium Bicarbonate 325 Mg Tab FEEDTUBE PRN PRN For Clogged Feeding Tube Sodium Chloride 10 ml 09/17/20 10:00 09/23/20 09:26 Sodium Chloride 0.9% 10 Ml Flush Syringe IV 10 ml BID RIGO Administration Sodium Chloride 10 ml 09/17/20 03:32 Sodium Chloride 0.9% 10 Ml Flush Syringe IV PRN PRN LINE FLUSH Zinc Sulfate 220 mg 09/20/20 22:00 09/23/20 09:26 Zinc Sulfate 220 Mg Cap PO 220 mg BID RIGO Administration Nutrition/Malnutrition Assess - Dietary Evaluation Nutrition/Malnutrition Findings: Nutrition Notes Start: 09/21/20 09:22 Freq: Status: Active Protocol: Document 09/23/20 13:13 AT (Rec: 09/23/20 13:44 AT [id number]) Co-Sign 09/23/20 13:13 NHALL Nutrition Notes Initial or Follow up Reassessment Current Diagnosis Acute Kidney Injury,Sepsis, Hypertension,Hyperlipidemia Other Pertinent Diagnosis Dementia, COVID(+), UTI, AMS, A-fib Current Diet Osmolite 1.5 at 40 mL/hr Labs/Tests Na 150 BUN 39 Cr 1.5 BG 136 Pertinent Medications Decadron Zinc Sulfate Vit D3 Vit C Height 5 ft 2 in Weight 81.8 kg [place] Body Weight (kg) 50.00 BMI 33.0 Weight Status Obese Subjective/Other Information Follow up for TF start/ tolerance, Antwan, Na. Pt has worsening hypernatremia. Per chart, TF is running at goal rate and pt is tolerating well . RN reports that she has not seen Antwan, but will administer it when possible. Percent of energy/protein needs met: 100%/100% Burn Absent Trauma Absent Current % PO Negligible Minimum of two criteria Yes Fluid Accumulation Mild (non-severe) Reduced Engine Head Repairer Strength Measurably Reduced (severe) #3 Nutrition Diagnosis Increased nutrient needs ( specify in comment below) Diagnosis Progress(for reassessment Continues documentation) #2 Nutrition Diagnosis Malnutrition As Evidenced by Signs and Symptoms edema improving Diagnosis Progress(for reassessment Improved documentation) #1 Nutrition Diagnosis Inadequate oral intake Diagnosis Progress(for reassessment Continues documentation) Is patient on ventilator? No Is Patient Ambulatory and/or Out of Bed No REE-([facility]-confined to bed) 1508.004 Kcal/Kg value to use for calculation 16 Approximate Energy Requirements Using 1309 kcal/Kg Calculation Used for Recommendations Kcal/kg Additional Notes PRO needs: 53-99g (0.8-1.5 g/ kg AdBW 66) Fluid needs: 1mL/kcal or per MD Nutrition Intervention Change Diet Order: Continue Nutrition Support: Osmolite 1.5 at 40ml/hr Flush 200 mL q4h for hypernatremia Flush 170 ml q4h once resolved Kcal 1,440 Protein (gm) 60 Fluid (mL) 732 Add Supplement/Snack (indicate name/kcal Antwan BID /protein ) Provides kCal: 190 Provides Protein (gm) 5 Goal #1 TF tolerance Goal #2 Wound healing Goal #3 Meet at least 75% of estimated energy and protein needs via TF Anticipated Discharge Needs: Unable to determine at this time Follow-Up By: 09/26/20 Additional Comments F/U flushes and Na <BERNADETTE HAGEN - Last Filed: 09/23/20 16:57> Assessment and Plan Assessment and plan: I agree with history, examination and assessment and plan as written by Nidia Ragland [employer]. Hospitalist Physical - Constitutional Vitals: Temp Pulse Resp BP Pulse Ox 99.7 F H 67 16 157/47 96 09/23/20 04:59 09/23/20 04:59 09/23/20 04:59 09/23/20 04:59 09/23/20 04:59 HEART Score - HEART Score Troponin: Troponin T 0.029 ng/mL (0.00-0.029) 09/16/20 23:05 Results - Labs CBC & Chem 7: 09/23/20 05:17 09/23/20 15:10 Labs: Laboratory Last Values WBC 8.1 K/mm3 (4.5-11.0) 09/23/20 05:17 RBC 3.06 M/mm3 (3.65-5.03) L 09/23/20 05:17 Hgb 9.7 gm/dl (10.1-14.3) L 09/23/20 05:17 Hct 29.6 % (30.3-42.9) L 09/23/20 05:17 MCV 97 fl (79-97) 09/23/20 05:17 MCH 32 pg (28-32) 09/23/20 05:17 MCHC 33 % (30-34) 09/23/20 05:17 RDW 16.5 % (13.2-15.2) H 09/23/20 05:17 Plt Count 124 K/mm3 (140-440) L 09/23/20 05:17 Lymph % (Auto) 13.2 % (13.4-35.0) L 09/21/20 04:34 [place] % (Auto) 3.3 % (0.0-7.3) 09/21/20 04:34 Eos % (Auto) 0.1 % (0.0-4.3) 09/21/20 04:34 Baso % (Auto) 0.6 % (0.0-1.8) 09/21/20 04:34 Lymph # (Auto) 1.0 K/mm3 (1.2-5.4) L 09/21/20 04:34 [place] # (Auto) 0.3 K/mm3 (0.0-0.8) 09/21/20 04:34 Eos # (Auto) 0.0 K/mm3 (0.0-0.4) 09/21/20 04:34 Baso # (Auto) 0.1 K/mm3 (0.0-0.1) 09/21/20 04:34 Seg Neutrophils % 82.8 % (40.0-70.0) H 09/21/20 04:34 Seg Neutrophils # 6.5 K/mm3 (1.8-7.7) 09/21/20 04:34 PT 15.4 Sec. (12.2-14.9) H 09/20/20 13:06 INR 1.24 (0.87-1.13) H 09/20/20 13:06 APTT 37.4 Sec. (24.2-36.6) H 09/20/20 13:06 D-Dimer 425.43 ng/mlDDU (0-234) H 09/16/20 21:28 Heparin Anti-Xa Level 0.32 U.I./ml (0.3-0.7) 09/22/20 07:58 Sodium 145 mmol/L (137-145) 09/23/20 15:10 Potassium 4.0 mmol/L (3.6-5.0) 09/23/20 15:10 Chloride 112.3 mmol/L (98-107) H 09/23/20 15:10 Carbon Dioxide 28 mmol/L (22-30) 09/23/20 15:10 Anion Gap 9 mmol/L 09/23/20 15:10 BUN 37 mg/dL (7-17) H 09/23/20 15:10 Creatinine 1.3 mg/dL (0.6-1.2) H 09/23/20 15:10 Estimated GFR 48 ml/min 09/23/20 15:10 BUN/Creatinine Ratio 28 % 09/23/20 15:10 Glucose 215 mg/dL (65-100) H 09/23/20 15:10 POC Glucose 156 mg/dL (70-105) H 09/23/20 12:04 Lactic Acid 0.90 mmol/L (0.7-2.0) 09/17/20 14:35 Calcium 8.2 mg/dL (8.4-10.2) L 09/23/20 15:10 Ferritin 374.8 ng/mL (10.0-200.0) H 09/16/20 21:28 Total Bilirubin 0.40 mg/dL (0.1-1.2) 09/20/20 06:15 AST 79 units/L (5-40) H 09/20/20 06:15 ALT 39 units/L (7-56) 09/20/20 06:15 Alkaline Phosphatase 78 units/L (35-129) 09/20/20 06:15 Lactate Dehydrogenase 179 units/L (91-180) 09/16/20 23:05 Troponin T 0.029 ng/mL (0.00-0.029) 09/16/20 23:05 C-Reactive Protein 14.90 mg/dL (0.00-1.30) H 09/16/20 23:05 Total Protein 6.1 g/dL (6.3-8.2) L 09/20/20 06:15 Albumin 3.1 g/dL (3.9-5) L 09/20/20 06:15 Albumin/Globulin Ratio 1.0 % 09/20/20 06:15 Procalcitonin 0.09 ng/mL (<0.15) 09/16/20 21:28 Urine Color Yellow (Yellow) 09/17/20 Unknown Urine Turbidity Cloudy (Clear) 09/17/20 Unknown Urine pH 5.0 (5.0-7.0) 09/17/20 Unknown Ur Specific [place] 1.023 (1.003-1.030) 09/17/20 Unknown Urine Protein 100 mg/dl mg/dL (Negative) 09/17/20 Unknown Urine Glucose (UA) 50 mg/dL (Negative) 09/17/20 Unknown Urine Ketones Tr mg/dL (Negative) 09/17/20 Unknown Urine Blood Lg (Negative) 09/17/20 Unknown Urine Nitrite Neg (Negative) 09/17/20 Unknown Urine Bilirubin Neg (Negative) 09/17/20 Unknown Urine Urobilinogen < 2.0 mg/dL (<2.0) 09/17/20 Unknown Ur Leukocyte Esterase Neg (Negative) 09/17/20 Unknown Urine WBC (Auto) 28.0 /HPF (0.0-6.0) H 09/17/20 Unknown Urine RBC (Auto) > 182.0 /HPF (0.0-6.0) 09/17/20 Unknown U Epithel Cells (Auto) 7.0 /HPF (0-13.0) 09/17/20 Unknown Urine Bacteria (Auto) 1+ /HPF (Negative) 09/17/20 Unknown Urine Mucus 2+ /HPF 09/17/20 Unknown Urine Yeast (Budding) 1+ /HPF 09/17/20 Unknown Urine Osmolality 1096 Mosm/kg 09/19/20 17:35 Urine Creatinine 179.4 mg/dL (0.1-20.0) H 09/19/20 17:35 Urine Sodium 193 mmol/L 09/19/20 17:35 Coronavirus (PCR) Positive (Negative) A 09/19/20 11:00 - Diagnostic Impressions Diagnostic Impressions: Echocardiogram 09/20/20 10:42 Transthoracic Echocardiogram Indication: A FIB BP: 151/87 HR: 86 Conclusions *Global left ventricular systolic function is normal. *The estimated ejection fraction is 50-55%. *The right ventricular global systolic function is normal. *The aortic valve is not well visualized. *There is mild aortic regurgitation. *Mild aortic leaflet calcification is visualized. *There is mild mitral regurgitation. *There is mild to moderate pulmonic regurgitation. *There is evidence of moderate pulmonary hypertension. Findings Procedure Info: The study quality is fair. Left Ventricle: The left ventricular chamber size is normal. There is no left ventricular hypertrophy. Global left ventricular wall motion and contractility are within normal limits. Global left ventricular systolic function is normal. The estimated ejection fraction is 50-55%. Abnormal left ventricular diastolic function is observed. Left Atrium: The left atrium is severely dilated. Right Ventricle: The right ventricular cavity size is normal. The right ventricular global systolic function is normal. Right Atrium: The right atrial cavity size is normal. Aortic Valve: The aortic valve is not well visualized. Mild aortic leaflet calcification is visualized. There is mild aortic regurgitation. Mitral Valve: There is mitral annular calcification. The mitral valve leaflets are mildly thickened. There is mild mitral regurgitation. Tricuspid Valve: The tricuspid valve appears normal in structure and function. There is moderate tricuspid regurgitation. There is evidence of moderate pulmonary hypertension. Pulmonic Valve: The pulmonic valve is not well visualized.High gradients seen can not rule out stenosis There is mild to moderate pulmonic regurgitation. Pericardium: There is no pericardial effusion. Aorta: The aorta appears normal. Pulmonary Artery: The main pulmonary artery is not well visualized. Venous: The inferior vena cava appears abnormal. The inferior vena cava is dilated. There is less than 50% respiratory change in the inferior vena cava dimension. Measurements Chambers 2D Name Value Normal Range IVSd (2D) 0.89 cm (0.6 - 1.1) LVPWd (2D) 0.84 cm (0.6 - 1.1) LVIDd (2D) 4.67 cm (3.7 - 5.6) LVIDs (2D) 3.42 cm (2 - 3.8) LV FS (2D) 26.77 % - EF Teichholz (2D) 52.3 % - Ao root diameter (2D) 3.07 cm (2 - 3.7) Volumes/Mass Name Value Normal Range LA ESV SP 4CH (A/L) 78.85 ml - LA ESV SP 2CH (A/L) 111.2 ml - LA ESV BP (A/L) 93.86 ml - LA ESV BP (A/L) index 51.57 ml/m2 - LA ESV SP 4CH (MOD) 69.77 ml - LA ESV SP 2CH (MOD) 105.54 ml - LA ESV BP (MOD) 85.78 ml - LA ESV BP (MOD) index 47.13 ml/m2 - LV EDV SP 4CH (MOD) 68.03 ml - LV ESV SP 4CH (MOD) 31.63 ml - EF SP 4CH (MOD) 53.5 % - LV EDV SP 2CH (MOD) 68.71 ml - LV ESV SP 2CH (MOD) 28.59 ml - EF SP 2CH (MOD) 58.39 % - LV EDV BP 68.15 ml - LV ESV BP 30.43 ml - BP EF (MOD) 55.34 % - Diastolic/Systolic Function Name Value Normal Range MV E-wave Vmax 0.99 m/sec - MV deceleration time 131.92 msec - MV A-wave Vmax 1.17 m/sec - MV E:A ratio 0.85 ratio - Aortic Valve Name Value Normal Range AV Vmax 1.38 m/sec - AV VTI 26.19 cm - AV peak gradient 7.59 mmHg - AV mean gradient 4.81 mmHg - LVOT diameter 2.19 cm - LVOT Vmax 0.78 m/sec - LVOT VTI 21.91 cm - LVOT peak gradient 2.46 mmHg - LVOT mean gradient 1.53 mmHg - SV LVOT 82.34 ml - EMMY (continuity Vmax) 2.14 cm2 - EMMY (continuity VTI) 3.14 cm2 - AR PHT 657.65 msec - AR peak gradient 67.31 mmHg - Ascending Ao 2.79 cm - Tricuspid Valve Name Value Normal Range TR Vmax 4.33 m/sec - TR peak gradient 75 mmHg - RAP 8 mmHg - RVSP 83 mmHg - IVC diameter 2.15 cm (1.2 - 2.3) Pulmonic Valve/Qp:Qs Name Value Normal Range PV Vmax 3.01 m/sec - PV VTI 86.98 cm - PV peak gradient 36.25 mmHg - PV mean gradient 29.37 mmHg - MO end-diastolic Vmax 1.69 m/sec - RVOT Vmax 0.36 m/sec - RVOT VTI 7.36 cm - RVOT peak gradient 0.52 mmHg - PV acceleration time 81.83 msec - [place]/IV: Voiding Method Incontinent Active Medications - Current Medications Current Medications: Generic Name Dose Route Start Last Admin Trade Name Freq PRN Reason Stop Dose Admin Acetaminophen 650 mg 09/17/20 03:32 Acetaminophen 325 Mg Tab PO Q4H PRN Pain MILD(1-3)/Fever >100.5/NIÑO Lipase/Protease/Amylase 1 each 09/21/20 10:00 Lipase 10,500/Protease 25,000/Amylase 43,750 (Units) Dr Og FEEDTUBE PRN PRN For Clogged Feeding Tube Apixaban 2.5 mg 09/22/20 11:00 09/23/20 09:26 Apixaban 2.5 Mg Tab PO 2.5 mg BID RIGO Administration Ascorbic Acid 250 mg 09/20/20 22:00 09/23/20 09:26 Ascorbic Acid 250 Mg Tab PO 250 mg BID RIGO Administration Cholecalciferol 1,000 unit 09/21/20 10:00 09/23/20 09:26 Cholecalciferol (Vit D3) 1000 Unit (25 Mcg) Tab PO 1,000 unit QDAY RIGO Administration Dexamethasone 6 mg 09/21/20 10:00 09/23/20 09:27 Dexamethasone 4 Mg/Ml Vial IV 09/30/20 10:01 6 mg DAILY RIGO Administration Dextrose 0 ml 09/19/20 04:40 09/19/20 05:15 Dextrose 50% In Water (25gm) 50 Ml Syringe IV 50 ml Q30MIN PRN Administration Hypoglycemia Protocol Lansoprazole 30 mg 09/23/20 10:00 09/23/20 09:26 Lansoprazole 30 Mg Solutab FEEDTUBE 30 mg QDAY RIGO Administration Magnesium Hydroxide 30 ml 09/17/20 03:32 Magnesium Hydroxide (Mom) Oral Liqd Udc PO Q4H PRN Constipation Metoprolol Tartrate 25 mg 09/22/20 11:00 09/23/20 09:26 Metoprolol Tartrate 25 Mg Tab FEEDTUBE 25 mg BID RIGO Administration Morphine Sulfate 2 mg 09/17/20 03:32 Morphine 2 Mg/1 Ml Inj IV Q4H PRN Pain, Moderate (4-6) Ondansetron HCl 4 mg 09/17/20 03:32 Ondansetron 4 Mg/2 Ml Inj IV Q8H PRN Nausea And Vomiting Pravastatin Sodium 40 mg 09/17/20 22:00 09/22/20 21:31 Pravastatin 40 Mg Tab PO 40 mg QHS RIGO Administration Simple Syrup 15 ml 09/21/20 09:46 Simple Syrup 15 Ml FEEDTUBE PRN PRN Hypoglycemia Simple Syrup 30 ml 09/21/20 09:46 Simple Syrup 15 Ml FEEDTUBE PRN PRN Hypoglycemia Sodium Bicarbonate 325 mg 09/21/20 09:46 Sodium Bicarbonate 325 Mg Tab FEEDTUBE PRN PRN For Clogged Feeding Tube Sodium Chloride 10 ml 09/17/20 10:00 09/23/20 09:26 Sodium Chloride 0.9% 10 Ml Flush Syringe IV 10 ml BID RIGO Administration Sodium Chloride 10 ml 09/17/20 03:32 Sodium Chloride 0.9% 10 Ml Flush Syringe IV PRN PRN LINE FLUSH Zinc Sulfate 220 mg 09/20/20 22:00 09/23/20 09:26 Zinc Sulfate 220 Mg Cap PO 220 mg BID RIGO Administration Nutrition/Malnutrition Assess - Dietary Evaluation Nutrition/Malnutrition Findings: Nutrition Notes Start: 09/21/20 09:22 Freq: Status: Active Protocol: Document 09/23/20 13:13 AT (Rec: 09/23/20 13:44 AT [id number]) Co-Sign 09/23/20 13:13 NHALL Nutrition Notes Initial or Follow up Reassessment Current Diagnosis Acute Kidney Injury,Sepsis, Hypertension,Hyperlipidemia Other Pertinent Diagnosis Dementia, COVID(+), UTI, AMS, A-fib Current Diet Osmolite 1.5 at 40 mL/hr Labs/Tests Na 150 BUN 39 Cr 1.5 BG 136 Pertinent Medications Decadron Zinc Sulfate Vit D3 Vit C Height 5 ft 2 in Weight 81.8 kg [place] Body Weight (kg) 50.00 BMI 33.0 Weight Status Obese Subjective/Other Information Follow up for TF start/ tolerance, Antwan, Na. Pt has worsening hypernatremia. Per chart, TF is running at goal rate and pt is tolerating well . RN reports that she has not seen Antwan, but will administer it when possible. Percent of energy/protein needs met: 100%/100% Burn Absent Trauma Absent Current % PO Negligible Minimum of two criteria Yes Fluid Accumulation Mild (non-severe) Reduced [employer] Strength Measurably Reduced (severe) #3 Nutrition Diagnosis Increased nutrient needs ( specify in comment below) Diagnosis Progress(for reassessment Continues documentation) #2 Nutrition Diagnosis Malnutrition As Evidenced by Signs and Symptoms edema improving Diagnosis Progress(for reassessment Improved documentation) #1 Nutrition Diagnosis Inadequate oral intake Diagnosis Progress(for reassessment Continues documentation) Is patient on ventilator? No Is Patient Ambulatory and/or Out of Bed No REE-([facility]-confined to bed) 1508.004 Kcal/Kg value to use for calculation 16 Approximate Energy Requirements Using 1309 kcal/Kg Calculation Used for Recommendations Kcal/kg Additional Notes PRO needs: 53-99g (0.8-1.5 g/ kg AdBW 66) Fluid needs: 1mL/kcal or per MD Nutrition Intervention Change Diet Order: Continue Nutrition Support: Osmolite 1.5 at 40ml/hr Flush 200 mL q4h for hypernatremia Flush 170 ml q4h once resolved Kcal 1,440 Protein (gm) 60 Fluid (mL) 732 Add Supplement/Snack (indicate name/kcal Antwan BID /protein ) Provides kCal: 190 Provides Protein (gm) 5 Goal #1 TF tolerance Goal #2 Wound healing Goal #3 Meet at least 75% of estimated energy and protein needs via TF Anticipated Discharge Needs: Unable to determine at this time Follow-Up By: 09/26/20 Additional Comments F/U flushes and Na
[2020-09-23 15:53] LABS: Calcium 8.2 mg/dL (8.4-10.2)
[2020-09-23] MEDS: PRAVASTATIN 40 MG TAB PO SCH (22:59)
[2020-09-24 05:41] LABS: Calcium 8.4 mg/dL (8.4-10.2)
[2020-09-24] MEDS: ASCORBIC ACID 250 MG TAB PO SCH ×2 (09:37→22:37)
[2020-09-24] MEDS: CHOLECALCIFEROL (VIT D3) 1000 UNIT (25 mcg) TAB PO SCH (09:38)
[2020-09-24] MEDS: METOPROLOL TARTRATE 25 MG TAB FEEDTUBE SCH ×2 (09:39→22:31)
[2020-09-24] MEDS: LANSOPRAZOLE 30 MG SOLUTAB FEEDTUBE SCH (09:39)
[2020-09-24] MEDS: APIXABAN 2.5 MG TAB PO SCH ×2 (09:40→22:37)
[2020-09-24] MEDS: dexAMETHasone 4 MG/ML VIAL IV SCH (09:40)
[2020-09-24] MEDS: ZINC SULFATE 220 MG CAP PO SCH ×2 (09:41→22:37)
--- NOTE | 2020-09-24 11:04 | Gastroenterology Progress Note ---
Assessment and Plan 1. Oropharyngeal dysphagia/dementia 2. Afib 3. COVID-19 minimal changes/improvement in mental status; likely will need egd/peg if able to get consent from family/daughter. eliquis will need to be held for 2 days prior to peg placement if consent obtained for procedure. Subjective Date of service: 09/24/20 Principal diagnosis: afib, COVID Interval history: pt tolerating tube feeds via NG tube, minimal changes in mental status Objective - Exam Narrative Exam: Gen: awake, but minimally verbal, + confusion Abd: soft, nt, nd - Constitutional Vitals: Temp Pulse Resp BP Pulse Ox 100.2 F H 60 20 139/46 94 09/24/20 04:33 09/24/20 09:39 09/24/20 04:33 09/24/20 09:39 09/24/20 04:33 - Labs CBC & Chem 7: 09/23/20 05:17 09/24/20 05:04 Labs: Laboratory Results - last 24 hr 09/23/20 09/23/20 09/23/20 12:04 15:10 17:15 Sodium 145 Potassium 4.0 Chloride 112.3 H Carbon Dioxide 28 Anion Gap 9 BUN 37 H Creatinine 1.3 H Estimated GFR 48 BUN/Creatinine Ratio 28 Glucose 215 H POC Glucose 156 H 174 H Calcium 8.2 L 09/23/20 09/24/20 09/24/20 22:01 05:04 06:29 Sodium 146 H Potassium 4.4 Chloride 110.5 H Carbon Dioxide 29 Anion Gap 11 BUN 33 H Creatinine 1.3 H Estimated GFR 48 BUN/Creatinine Ratio 25 Glucose 124 H POC Glucose 166 H 133 H Calcium 8.4
--- NOTE | 2020-09-24 12:41 | Progress Note ---
Assessment and Plan Assessment and plan: Sepsis -Presented with hypotension, acute kidney injury, and possible developing pneumonia on CXR -S/p 2.4 L normal saline in the emergency department -Infectious disease consulted, appreciate recommendations -Antibiotic therapy -09/16 blood cultures x2 NGTD COVID-19 pneumonia -09/17 COVID-19 PCR negative -09/19 COVID 19 PCR positive -Infectious disease consulted, patient recommendations -S/p antibiotic therapy -Droplet/isolation precautions -Pulmonary hygiene -OOB 3 times daily -Prone to sleep as needed -Supplemental oxygen as needed -Anticoagulation per protocol -Trend COVID- inflammatory markers for risk stratification -Vitamin C, D and zinc Pneumonia -09/17 CXR shows possible developing pneumonia -s/p Antibiotic therapy -Pulmonary hygiene -SPO2 monitoring Urinary tract infection -Tested positive for urinary tract infection at home Kit and was given 3/5 doses of Levaquin -09/16 urinalysis with pyuria with budding yeast -S/p Diflucan in the emergency department -Antibiotic therapy Thrombocytopenia -Presented with a platelet count of 83 -Trend CBC -Hematology/oncology consulted, appreciate recommendations -Per heme-onc 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 fib with RVR -Patient has a history of atrial fibrillation is on beta-blockers and anticoagulation -09/19 patient noted to be in A. fib with RVR -Cardiology consult, appreciate recommendations -S/p heparin drip -Per oncology: Okay to take Eliquis 2.5 twice daily as long as platelet count is greater than 30 -09/20 TTE shows ejection fraction 55%, mild AR, mild MR, moderate TR, mild to moderate WA with mild pulmonary hypertension and RVSP calculated at 83 mmHg. -S/p amiodarone, IV digoxin and beta-jennifer -Now rate controlled Hypernateremia -09/18 Na 149 which trended up to 150 -Trend BMP -s/p MIVF -FWF 400mL q8 -09/23 sodium 145, 09/24 Na 146 Hyperchloremia -09/18 Cl 112.6 -s/p MIVF -Trend Chloride -FWF 400mL q8 Dementia -Supportive care -Verbal de-escalation and redirection as needed -Fall, aspiration precautions -Supportive care -GI consulted for PEG tube placement Hypertension -Hold antihypertensives in setting of hypotension -Blood pressure monitoring per protocol GERD -Continue PPI -Changed to Protonix due to thrombocytopenia Hyperlipidemia -Continue statin therapy DVT prophylaxis -GI prophylaxis -Subcu heparin -SCDs to bilateral lower extremities while in bed Hypoglycemia, resolved -09/18 patient noted to be persistently hypoglycemic -Decreased p.o. intake -MIVF with D5NS -Accu-Cheks AC at bedtime -Hypoglycemia protocol History Interval history: This is a 80-year-old female with hypertension, GERD, colon cancer s/p resection, dementia and former smoker who presented to the emergency department with shortness of breath, decreased appetite and decreased p.o. intake over the past few days. Patient tested positive for urinary tract infection on home test kit and was subsequently started on oral Levaquin 500 mg daily for the past 3 days. Work-up in the emergency department revealed acute kidney injury, pyuria, possible developing pneumonia or aspiration, enlarged left middle mediastinum suggesting adenopathies. Patient was admitted to the hospital service for pneumonia as a COVID-19 PUI. Infectious disease was consulted. 09/17: Patient is on room air at the time my examination entry COVID-19 PCR resulted as negative. Patient will be transferred to medical floor. Infectious disease has stopped azithromycin continue ceftriaxone for possible urinary tract infection. We have also ordered a repeat COVID-19 PCR 09/18: No acute events reported overnight. Patient still remains in bilateral mittens-repeat COVID-19 PCR will need to be repeated tomorrow per hospital policy.This morning patient has leukopenia, hypernatremia, hyperchloremia but her acute kidney injury has improved. 09/19: Patient noted to be in atrial fibrillation with RVR this morning around 0600 and cardiology was consulted. Patient has been started on amiodarone drip after bolus. ST was consulted today for decreased p.o. intake as the patient was placed on MIVF due to persistent hypoglycemia yesterday. Her hyperchloremia and hypernatremia have improved however she is hypokalemic on her creatinine/BUN have increased. ST has recommended PEG tube placement. Patient's family unable to be contacted for update, confirmation of history or possible PEG tube placement. Her daughter was called several times today by [employer]. Patient's repeat COVID-19 PCR is pending. She was given a 250 ml normal saline bolus due to hypotension. Repeat CMP in the a.m. Heme/Onc consulted for thrombocytopenia. 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 Start heparin drip for new onset afib with RVR and Eliquis 2.5 mg p.o. twice daily at discharge. Wean IV amiodarone and start digoxin and Lopressor IV per Cardiology. Continue ceftriaxone for total of 3 days for UTI per ID recommendations. Continue to follow blood and urine cultures. Follow-up repeat Covid testing today. PEG placement per Speech recommendations. 09/21: Await echocardiogram. Continue heparin drip for new onset atrial fibrillation with RVR and transition to Eliquis at discharge. Cardiology stopp ed IV amiodarone but will continue with IV digoxin and Lopressor until NG tube placement. NG tube placement ordered this morning. GI consultation pending for PEG placement. Repeat Covid testing positive on 09/19. DC Solu-Medrol 40 mg every 8 hours and start dexamethasone 6 mg IV daily. ? Remdesivir given renal insufficiency and will assess for hypoxia. ID following 09/22: Patient's hypernatremia slightly improved however she remains with hyperkalemia and MINERVA slightly improved. Patient is minimally interactive and remains on room air. No acute events reported overnight. GI consulted reg feliberto PEG tube placement 09/23: Patient hypernatremia and hyperchloremia worsened therefore she was started on 400 mL FWF every 8 hours and her MINERVA slightly improved. No acute events reported overnight. Patient still remains minimally interactive and on room air. 09/24: With increase of FWF and hypotonic IVF patients hyper natremia resolved yesterday evening and her hyperchloremia has improved. This morning the hypotonic IVF was discontinued. Her BUN/creatinine also improved. Per GI in order for PEG tube placement patient is Eliquis has to be held for 2 days prior. Patient remains on room air with no acute events reported overnight. Hospitalist Physical - Constitutional Vitals: Temp Pulse Resp BP Pulse Ox 100.2 F H 60 20 139/46 94 09/24/20 04:33 09/24/20 09:39 09/24/20 04:33 09/24/20 09:39 09/24/20 04:33 General appearance: Present: no acute distress - EENT Eyes: Present: PERRL, EOM intact ENT: clear oral mucosa, hearing decreased - Neck Neck: Present: normal ROM - Respiratory Respiratory effort: normal - Cardiovascular Rhythm: regular - Extremities Extremities: no ischemia, pulses intact, pulses symmetrical, No edema, normal temperature, normal color, Full ROM Peripheral Pulses: within normal limits - Abdominal General gastrointestinal: soft, non-tender, non-distended - Integumentary Integumentary: Present: warm, dry - Psychiatric Psychiatric: cooperative - Neurologic Neurologic: CNII-XII intact, no focal deficits, moves all extremities - Allied Health Allied health notes reviewed: nursing HEART Score - HEART Score Troponin: Troponin T 0.029 ng/mL (0.00-0.029) 09/16/20 23:05 Results - Labs CBC & Chem 7: 09/23/20 05:17 09/24/20 05:04 Labs: Laboratory Last Values WBC 8.1 K/mm3 (4.5-11.0) 09/23/20 05:17 RBC 3.06 M/mm3 (3.65-5.03) L 09/23/20 05:17 Hgb 9.7 gm/dl (10.1-14.3) L 09/23/20 05:17 Hct 29.6 % (30.3-42.9) L 09/23/20 05:17 MCV 97 fl (79-97) 09/23/20 05:17 MCH 32 pg (28-32) 09/23/20 05:17 MCHC 33 % (30-34) 09/23/20 05:17 RDW 16.5 % (13.2-15.2) H 09/23/20 05:17 Plt Count 124 K/mm3 (140-440) L 09/23/20 05:17 Lymph % (Auto) 13.2 % (13.4-35.0) L 09/21/20 04:34 [place] % (Auto) 3.3 % (0.0-7.3) 09/21/20 04:34 Eos % (Auto) 0.1 % (0.0-4.3) 09/21/20 04:34 Baso % (Auto) 0.6 % (0.0-1.8) 09/21/20 04:34 Lymph # (Auto) 1.0 K/mm3 (1.2-5.4) L 09/21/20 04:34 [place] # (Auto) 0.3 K/mm3 (0.0-0.8) 09/21/20 04:34 Eos # (Auto) 0.0 K/mm3 (0.0-0.4) 09/21/20 04:34 Baso # (Auto) 0.1 K/mm3 (0.0-0.1) 09/21/20 04:34 Seg Neutrophils % 82.8 % (40.0-70.0) H 09/21/20 04:34 Seg Neutrophils # 6.5 K/mm3 (1.8-7.7) 09/21/20 04:34 PT 15.4 Sec. (12.2-14.9) H 09/20/20 13:06 INR 1.24 (0.87-1.13) H 09/20/20 13:06 APTT 37.4 Sec. (24.2-36.6) H 09/20/20 13:06 D-Dimer 425.43 ng/mlDDU (0-234) H 09/16/20 21:28 Heparin Anti-Xa Level 0.32 U.I./ml (0.3-0.7) 09/22/20 07:58 Sodium 146 mmol/L (137-145) H 09/24/20 05:04 Potassium 4.4 mmol/L (3.6-5.0) 09/24/20 05:04 Chloride 110.5 mmol/L (98-107) H 09/24/20 05:04 Carbon Dioxide 29 mmol/L (22-30) 09/24/20 05:04 Anion Gap 11 mmol/L 09/24/20 05:04 BUN 33 mg/dL (7-17) H 09/24/20 05:04 Creatinine 1.3 mg/dL (0.6-1.2) H 09/24/20 05:04 Estimated GFR 48 ml/min 09/24/20 05:04 BUN/Creatinine Ratio 25 % 09/24/20 05:04 Glucose 124 mg/dL (65-100) H 09/24/20 05:04 POC Glucose 133 mg/dL (70-105) H 09/24/20 06:29 Lactic Acid 0.90 mmol/L (0.7-2.0) 09/17/20 14:35 Calcium 8.4 mg/dL (8.4-10.2) 09/24/20 05:04 Ferritin 374.8 ng/mL (10.0-200.0) H 09/16/20 21:28 Total Bilirubin 0.40 mg/dL (0.1-1.2) 09/20/20 06:15 AST 79 units/L (5-40) H 09/20/20 06:15 ALT 39 units/L (7-56) 09/20/20 06:15 Alkaline Phosphatase 78 units/L (35-129) 09/20/20 06:15 Lactate Dehydrogenase 179 units/L (91-180) 09/16/20 23:05 Troponin T 0.029 ng/mL (0.00-0.029) 09/16/20 23:05 C-Reactive Protein 14.90 mg/dL (0.00-1.30) H 09/16/20 23:05 Total Protein 6.1 g/dL (6.3-8.2) L 09/20/20 06:15 Albumin 3.1 g/dL (3.9-5) L 09/20/20 06:15 Albumin/Globulin Ratio 1.0 % 09/20/20 06:15 Procalcitonin 0.09 ng/mL (<0.15) 09/16/20 21:28 Urine Color Yellow (Yellow) 09/17/20 Unknown Urine Turbidity Cloudy (Clear) 09/17/20 Unknown Urine pH 5.0 (5.0-7.0) 09/17/20 Unknown Ur Specific [place] 1.023 (1.003-1.030) 09/17/20 Unknown Urine Protein 100 mg/dl mg/dL (Negative) 09/17/20 Unknown Urine Glucose (UA) 50 mg/dL (Negative) 09/17/20 Unknown Urine Ketones Tr mg/dL (Negative) 09/17/20 Unknown Urine Blood Lg (Negative) 09/17/20 Unknown Urine Nitrite Neg (Negative) 09/17/20 Unknown Urine Bilirubin Neg (Negative) 09/17/20 Unknown Urine Urobilinogen < 2.0 mg/dL (<2.0) 09/17/20 Unknown Ur Leukocyte Esterase Neg (Negative) 09/17/20 Unknown Urine WBC (Auto) 28.0 /HPF (0.0-6.0) H 09/17/20 Unknown Urine RBC (Auto) > 182.0 /HPF (0.0-6.0) 09/17/20 Unknown U Epithel Cells (Auto) 7.0 /HPF (0-13.0) 09/17/20 Unknown Urine Bacteria (Auto) 1+ /HPF (Negative) 09/17/20 Unknown Urine Mucus 2+ /HPF 09/17/20 Unknown Urine Yeast (Budding) 1+ /HPF 09/17/20 Unknown Urine Osmolality 1096 Mosm/kg 09/19/20 17:35 Urine Creatinine 179.4 mg/dL (0.1-20.0) H 09/19/20 17:35 Urine Sodium 193 mmol/L 09/19/20 17:35 Coronavirus (PCR) Positive (Negative) A 09/19/20 11:00 - Diagnostic Impressions Diagnostic Impressions: Echocardiogram 09/20/20 10:42 Transthoracic Echocardiogram Indication: A FIB BP: 151/87 HR: 86 Conclusions *Global left ventricular systolic function is normal. *The estimated ejection fraction is 50-55%. *The right ventricular global systolic function is normal. *The aortic valve is not well visualized. *There is mild aortic regurgitation. *Mild aortic leaflet calcification is visualized. *There is mild mitral regurgitation. *There is mild to moderate pulmonic regurgitation. *There is evidence of moderate pulmonary hypertension. Findings Procedure Info: The study quality is fair. Left Ventricle: The left ventricular chamber size is normal. There is no left ventricular hypertrophy. Global left ventricular wall motion and contractility are within normal limits. Global left ventricular systolic function is normal. The estimated ejection fraction is 50-55%. Abnormal left ventricular diastolic function is observed. Left Atrium: The left atrium is severely dilated. Right Ventricle: The right ventricular cavity size is normal. The right ventricular global systolic function is normal. Right Atrium: The right atrial cavity size is normal. Aortic Valve: The aortic valve is not well visualized. Mild aortic leaflet calcification is visualized. There is mild aortic regurgitation. Mitral Valve: There is mitral annular calcification. The mitral valve leaflets are mildly thickened. There is mild mitral regurgitation. Tricuspid Valve: The tricuspid valve appears normal in structure and function. There is moderate tricuspid regurgitation. There is evidence of moderate pulmonary hypertension. Pulmonic Valve: The pulmonic valve is not well visualized.High gradients seen can not rule out stenosis There is mild to moderate pulmonic regurgitation. Pericardium: There is no pericardial effusion. Aorta: The aorta appears normal. Pulmonary Artery: The main pulmonary artery is not well visualized. Venous: The inferior vena cava appears abnormal. The inferior vena cava is dilated. There is less than 50% respiratory change in the inferior vena cava dimension. Measurements Chambers 2D Name Value Normal Range IVSd (2D) 0.89 cm (0.6 - 1.1) LVPWd (2D) 0.84 cm (0.6 - 1.1) LVIDd (2D) 4.67 cm (3.7 - 5.6) LVIDs (2D) 3.42 cm (2 - 3.8) LV FS (2D) 26.77 % - EF Teichholz (2D) 52.3 % - Ao root diameter (2D) 3.07 cm (2 - 3.7) Volumes/Mass Name Value Normal Range LA ESV SP 4CH (A/L) 78.85 ml - LA ESV SP 2CH (A/L) 111.2 ml - LA ESV BP (A/L) 93.86 ml - LA ESV BP (A/L) index 51.57 ml/m2 - LA ESV SP 4CH (MOD) 69.77 ml - LA ESV SP 2CH (MOD) 105.54 ml - LA ESV BP (MOD) 85.78 ml - LA ESV BP (MOD) index 47.13 ml/m2 - LV EDV SP 4CH (MOD) 68.03 ml - LV ESV SP 4CH (MOD) 31.63 ml - EF SP 4CH (MOD) 53.5 % - LV EDV SP 2CH (MOD) 68.71 ml - LV ESV SP 2CH (MOD) 28.59 ml - EF SP 2CH (MOD) 58.39 % - LV EDV BP 68.15 ml - LV ESV BP 30.43 ml - BP EF (MOD) 55.34 % - Diastolic/Systolic Function Name Value Normal Range MV E-wave Vmax 0.99 m/sec - MV deceleration time 131.92 msec - MV A-wave Vmax 1.17 m/sec - MV E:A ratio 0.85 ratio - Aortic Valve Name Value Normal Range AV Vmax 1.38 m/sec - AV VTI 26.19 cm - AV peak gradient 7.59 mmHg - AV mean gradient 4.81 mmHg - LVOT diameter 2.19 cm - LVOT Vmax 0.78 m/sec - LVOT VTI 21.91 cm - LVOT peak gradient 2.46 mmHg - LVOT mean gradient 1.53 mmHg - SV LVOT 82.34 ml - EMMY (continuity Vmax) 2.14 cm2 - EMMY (continuity VTI) 3.14 cm2 - AR PHT 657.65 msec - AR peak gradient 67.31 mmHg - Ascending Ao 2.79 cm - Tricuspid Valve Name Value Normal Range TR Vmax 4.33 m/sec - TR peak gradient 75 mmHg - RAP 8 mmHg - RVSP 83 mmHg - IVC diameter 2.15 cm (1.2 - 2.3) Pulmonic Valve/Qp:Qs Name Value Normal Range PV Vmax 3.01 m/sec - PV VTI 86.98 cm - PV peak gradient 36.25 mmHg - PV mean gradient 29.37 mmHg - WA end-diastolic Vmax 1.69 m/sec - RVOT Vmax 0.36 m/sec - RVOT VTI 7.36 cm - RVOT peak gradient 0.52 mmHg - PV acceleration time 81.83 msec - [place]/IV: Voiding Method Incontinent Active Medications - Current Medications Current Medications: Generic Name Dose Route Start Last Admin Trade Name Freq PRN Reason Stop Dose Admin Acetaminophen 650 mg 09/17/20 03:32 Acetaminophen 325 Mg Tab PO Q4H PRN Pain MILD(1-3)/Fever >100.5/NIÑO Lipase/Protease/Amylase 1 each 09/21/20 10:00 Lipase 10,500/Protease 25,000/Amylase 43,750 (Units) Dr Earle RIOSTUBE PRN PRN For Clogged Feeding Tube Apixaban 2.5 mg 09/22/20 11:00 09/24/20 09:40 Apixaban 2.5 Mg Tab PO 2.5 mg BID RIGO Administration Ascorbic Acid 250 mg 09/20/20 22:00 09/24/20 09:37 Ascorbic Acid 250 Mg Tab PO 250 mg BID RIGO Administration Cholecalciferol 1,000 unit 09/21/20 10:00 09/24/20 09:38 Cholecalciferol (Vit D3) 1000 Unit (25 Mcg) Tab PO 1,000 unit QDAY RIGO Administration Dexamethasone 6 mg 09/21/20 10:00 09/24/20 09:40 Dexamethasone 4 Mg/Ml Vial IV 09/30/20 10:01 6 mg DAILY RIGO Administration Dextrose 0 ml 09/19/20 04:40 09/19/20 05:15 Dextrose 50% In Water (25gm) 50 Ml Syringe IV 50 ml Q30MIN PRN Administration Hypoglycemia Protocol Lansoprazole 30 mg 09/23/20 10:00 09/24/20 09:39 Lansoprazole 30 Mg Solutab FEEDTUBE 30 mg QDAY RIGO Administration Magnesium Hydroxide 30 ml 09/17/20 03:32 Magnesium Hydroxide (Mom) Oral Liqd Udc PO Q4H PRN Constipation Metoprolol Tartrate 25 mg 09/22/20 11:00 09/24/20 09:39 Metoprolol Tartrate 25 Mg Tab FEEDTUBE 25 mg BID RIGO Administration Morphine Sulfate 2 mg 09/17/20 03:32 Morphine 2 Mg/1 Ml Inj IV Q4H PRN Pain, Moderate (4-6) Ondansetron HCl 4 mg 09/17/20 03:32 Ondansetron 4 Mg/2 Ml Inj IV Q8H PRN Nausea And Vomiting Pravastatin Sodium 40 mg 09/17/20 22:00 09/23/20 22:59 Pravastatin 40 Mg Tab PO 40 mg QHS RIGO Administration Simple Syrup 15 ml 09/21/20 09:46 Simple Syrup 15 Ml FEEDTUBE PRN PRN Hypoglycemia Simple Syrup 30 ml 09/21/20 09:46 Simple Syrup 15 Ml FEEDTUBE PRN PRN Hypoglycemia Sodium Bicarbonate 325 mg 09/21/20 09:46 Sodium Bicarbonate 325 Mg Tab FEEDTUBE PRN PRN For Clogged Feeding Tube Sodium Chloride 10 ml 09/17/20 10:00 09/24/20 09:39 Sodium Chloride 0.9% 10 Ml Flush Syringe IV 10 ml BID RIGO Administration Sodium Chloride 10 ml 09/17/20 03:32 Sodium Chloride 0.9% 10 Ml Flush Syringe IV PRN PRN LINE FLUSH Zinc Sulfate 220 mg 02/20/21 22:00 09/24/20 09:41 Zinc Sulfate 220 Mg Cap PO 220 mg BID RIGO Administration Nutrition/Malnutrition Assess - Dietary Evaluation Nutrition/Malnutrition Findings: Nutrition Notes Start: 09/21/20 09:22 Freq: Status: Active Protocol: Document 09/23/20 13:13 AT (Rec: 09/23/20 13:44 AT [id number]) Co-Sign 09/23/20 13:13 NHALL Nutrition Notes Initial or Follow up Reassessment Current Diagnosis Acute Kidney Injury,Sepsis, Hypertension,Hyperlipidemia Other Pertinent Diagnosis Dementia, COVID(+), UTI, AMS, A-fib Current Diet Osmolite 1.5 at 40 mL/hr Labs/Tests Na 150 BUN 39 Cr 1.5 BG 136 Pertinent Medications Decadron Zinc Sulfate Vit D3 Vit C Height 5 ft 2 in Weight 81.8 kg Raymond Body Weight (kg) 50.00 BMI 33.0 Weight Status Obese Subjective/Other Information Follow up for TF start/ tolerance, Antwan, Na. Pt has worsening hypernatremia. Per chart, TF is running at goal rate and pt is tolerating well . RN reports that she has not seen Antwan, but will administer it when possible. Percent of energy/protein needs met: 100%/100% Burn Absent Trauma Absent Current % PO Negligible Minimum of two criteria Yes Fluid Accumulation Mild (non-severe) Reduced Rail Assembler Strength Measurably Reduced (severe) #3 Nutrition Diagnosis Increased nutrient needs ( specify in comment below) Diagnosis Progress(for reassessment Continues documentation) #2 Nutrition Diagnosis Malnutrition As Evidenced by Signs and Symptoms edema improving Diagnosis Progress(for reassessment Improved documentation) #1 Nutrition Diagnosis Inadequate oral intake Diagnosis Progress(for reassessment Continues documentation) Is patient on ventilator? No Is Patient Ambulatory and/or Out of Bed No REE-([place]-confined to bed) 1508.004 Kcal/Kg value to use for calculation 16 Approximate Energy Requirements Using 1309 kcal/Kg Calculation Used for Recommendations Kcal/kg Additional Notes PRO needs: 53-99g (0.8-1.5 g/ kg AdBW 66) Fluid needs: 1mL/kcal or per MD Nutrition Intervention Change Diet Order: Continue Nutrition Support: Osmolite 1.5 at 40ml/hr Flush 200 mL q4h for hypernatremia Flush 170 ml q4h once resolved Kcal 1,440 Protein (gm) 60 Fluid (mL) 732 Add Supplement/Snack (indicate name/kcal Antwan BID /protein ) Provides kCal: 190 Provides Protein (gm) 5 Goal #1 TF tolerance Goal #2 Wound healing Goal #3 Meet at least 75% of estimated energy and protein needs via TF Anticipated Discharge Needs: Unable to determine at this time Follow-Up By: 09/26/20 Additional Comments F/U flushes and Na
--- NOTE | 2020-09-24 15:08 | Cat Scan Report ---
CT head/brain wo con INDICATION / CLINICAL INFORMATION: 80 years Female; MAIN. TECHNIQUE: Routine CT head without contrast. All CT scans at this location are performed using CT dos e reduction for ALARA by means of automated exposure control. COMPARISON: The study is compared to the previous CT of 10/01/2016. FINDINGS: BRAIN / INTRACRANIAL CONTENTS: There is moderate cerebral white matter disease most consistent with m icrovascular angiopathy. The findings appear to slightly progressed from the previous CT. There is in cidental hyperostosis frontalis interna with beam hardening artifact. However, there is no clear CT e vidence of acute intracranial hemorrhage. There is a persistent extra-axial lesion projected along the right anterior falx currently measuring 0.7 cm transverse by 1.6 cm AP in greatest dimensions. This finding would appear most consistent with a meningioma and has slightly increased in size from 10/01/2016 in which the lesion measured 0.5 x 1.2 cm in respective projections There is mild cerebral atrophy with associated prominence of the ventri cular system. ORBITS: No significant abnormality of visualized orbits. SINUSES / MASTOIDS: There is presence of a nasogastric tube. The paranasal sinuses are clear. CRANIOCERVICAL JUNCTION: No significant abnormality. ADDITIONAL FINDINGS: There is continued diffuse heterogeneous appearance of the calvarium without gemini dence of developing focal dominant lesions. IMPRESSION: 1. 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 2. There appears be mild interval increase in size of the extra-axial lesion along the anterior right falx currently measuring 0.7 x 1.6 cm, most consistent with a meningioma, also detailed above. Signer Name: Houston Stapleton MD Signed: 09/24/2020 3:04 PM Workstation Name: [id number]
--- NOTE | 2020-09-24 15:27 | XRay Report ---
CHEST 1 VIEW INDICATION / CLINICAL INFORMATION: Pneumonia. COMPARISON: 09/16/2020 FINDINGS: SUPPORT DEVICES: Nasogastric tube HEART / MEDIASTINUM: No significant abnormality. LUNGS / PLEURA: Improving left-sided airspace disease No pneumothorax. ADDITIONAL FINDINGS: No significant additional findings. IMPRESSION: Left-sided airspace disease has improved since 09/16/2020 but has not completely resolved Signer Name: Jose Michael MD FACR Signed: 09/24/2020 3:23 PM Workstation Name: [id number]
[2020-09-24 16:56] LABS: Basophils # (Auto) 0.1 K/mm3 (0.0-0.1); Basophils % (Auto) 0.8 % (0.0-1.8); Eosinophils % (Auto) 0.2 % (0.0-4.3); Hematocrit 31.4 % (30.3-42.9); Hemoglobin 10.3 gm/dl (10.1-14.3); Mean Corpuscular HGB Conc 33 % (30-34); Mean Corpuscular Volume 96 fl (79-97); Monocytes # (Auto) 0.3 K/mm3 (0.0-0.8); Monocytes % (Auto) 2.7 % (0.0-7.3); Platelet Count 148 K/mm3 (140-440); Red Blood Count 3.27 M/mm3 (3.65-5.03); Red Cell Distribution Width 16.2 % (13.2-15.2)
[2020-09-24 17:07] LABS: Alanine Aminotransferase 98 units/L (7-56); Albumin 2.9 g/dL (3.9-5); BUN/Creatinine Ratio 33; Blood Urea Nitrogen 33 mg/dL (7-17); Calcium 8.6 mg/dL (8.4-10.2); Hemolysis Index 0
--- NOTE | 2020-09-24 17:12 | Progress Note ---
Assessment and Plan Cultures: Blood culture no growth so far Urine culture: no growth A/P: 80-year-old female past medical history hypertension, dementia, hyperlipidemia admitted with shortness of breath. #Left-sided pneumonia: COVID-19 testing negative initially, then positive. Normal procalcitonin. Remains on room air. #UTI: Minor pyuria, already completed 3 days Levaquin. Difficult to assess for symptoms on basis of dementia. #Thrombocytopenia: likely secondary to COVID. #Dementia #MINERVA: renally adjust abx as needed. Recs: -not hypoxic, not a candidate for Remdesivir at this time Liz Valladares MD [facility] ([facility]) O: [phone] F: [phone] Subjective Date of service: 09/24/20 Principal diagnosis: afib, COVID Interval history: Afebrile, normalizing white count. Imaging personally reviewed: CXR: Improving but not resolved pneumonia. Objective - Exam Narrative Exam: Physical exam deferred due to PPE conservation strategy. Please refer to primary team's note. - Constitutional Vitals: Vital Signs Temp Pulse Resp BP Pulse Ox 99.6 F 61 18 172/61 96 09/24/20 11:47 09/24/20 11:47 09/24/20 11:47 09/24/20 11:47 09/24/20 11:47 Temperature -Last 24 Hours Temperature 99.6 F Temperature 100.2 F Temperature 99.1 F - Labs CBC & Chem 7: 09/24/20 15:25 09/24/20 05:04 Labs: Abnormal lab results 09/23/20 09/23/20 09/24/20 Range/Units 17:15 22:01 05:04 RBC (3.65-5.03) M/mm3 RDW (13.2-15.2) % Seg Neutrophils % (40.0-70.0) % Seg Neutrophils # (1.8-7.7) K/mm3 Sodium 146 H (137-145) mmol/L Chloride 110.5 H (98-107) mmol/L BUN 33 H (7-17) mg/dL Creatinine 1.3 H (0.6-1.2) mg/dL Glucose 124 H (65-100) mg/dL POC Glucose 174 H 166 H (70-105) mg/dL 09/24/20 09/24/20 09/24/20 Range/Units 06:29 12:24 15:25 RBC 3.27 L (3.65-5.03) M/mm3 RDW 16.2 H (13.2-15.2) % Seg Neutrophils % 77.3 H (40.0-70.0) % Seg Neutrophils # 7.9 H (1.8-7.7) K/mm3 Sodium (137-145) mmol/L Chloride (98-107) mmol/L BUN (7-17) mg/dL Creatinine (0.6-1.2) mg/dL Glucose (65-100) mg/dL POC Glucose 133 H 157 H (70-105) mg/dL 09/24/20 Range/Units 16:59 RBC (3.65-5.03) M/mm3 RDW (13.2-15.2) % Seg Neutrophils % (40.0-70.0) % Seg Neutrophils # (1.8-7.7) K/mm3 Sodium (137-145) mmol/L Chloride (98-107) mmol/L BUN (7-17) mg/dL Creatinine (0.6-1.2) mg/dL Glucose (65-100) mg/dL POC Glucose 158 H (70-105) mg/dL
[2020-09-24] MEDS: PRAVASTATIN 40 MG TAB PO SCH (22:37)
[2020-09-24 23:48] LABS: Bilirubin,Urine NEG (Negative); Blood,Urine NEG (Negative); Color,Urine Yellow (Yellow); Urobilinogen,Urine < 2.0 mg/dL (<2.0)
[2020-09-25 05:10] LABS: Hematocrit 29.5 % (30.3-42.9); Hemoglobin 9.8 gm/dl (10.1-14.3); Mean Corpuscular HGB Conc 33 % (30-34); Mean Corpuscular Volume 96 fl (79-97); Platelet Count 149 K/mm3 (140-440); Red Blood Count 3.09 M/mm3 (3.65-5.03); Red Cell Distribution Width 16.4 % (13.2-15.2)
[2020-09-25 05:32] LABS: BUN/Creatinine Ratio 30; Blood Urea Nitrogen 30 mg/dL (7-17); Calcium 8.4 mg/dL (8.4-10.2); Hemolysis Index 0
--- NOTE | 2020-09-25 10:16 | Progress Note ---
Assessment and Plan Currently stable cardiac status. Pt currently in SR. Cont PO lopressor with hold parameters. Per GI team, pt will likely need egd/peg if able to get consent from family/daughter. Eliquis is currently being held due to impending procedure. Recommend resumption of eliquis 2.5mg BID if/when ok per GI team. Will follow on as needed basis. The patient has been seen in conjunction with Dr. Hollingsworth who agrees with the assessment and plan of care. - Patient Problems (1) New onset atrial fibrillation Current Visit: Yes Status: Acute Plan to address problem: --> NSR (2) COVID-19 virus infection Current Visit: Yes Status: Acute (3) Sepsis Current Visit: Yes Status: Suspected (4) Hypotension Current Visit: Yes Status: Resolved (5) Pneumonia Current Visit: Yes Status: Suspected (6) UTI (urinary tract infection) Current Visit: Yes Status: Acute (7) Altered mental status Current Visit: Yes Status: Acute (8) Dementia Current Visit: Yes Status: Chronic Qualifiers: Dementia type: unspecified type Dementia behavioral disturbance: with behavioral disturbance Qualified Code(s): F03.91 - Unspecified dementia with behavioral disturbance (9) MINERVA (acute kidney injury) Current Visit: Yes Status: Acute (10) Dehydration Current Visit: Yes Status: Acute (11) Thrombocytopenia Current Visit: Yes Status: Acute (12) HTN (hypertension) Current Visit: Yes Status: Chronic (13) Pulmonary hypertension Current Visit: Yes Status: Chronic (14) Moderate tricuspid regurgitation Current Visit: Yes Status: Chronic Subjective Date of service: 09/25/20 Principal diagnosis: afib, COVID Interval history: pt resting in bed, more alert. tele reviewed - in SR/SB overnight with HR 50s. Objective Last Vital Signs Temp 98.6 F 09/25/20 04:58 Pulse 56 L 09/25/20 04:58 Resp 16 09/25/20 04:58 BP 145/50 09/25/20 04:58 Pulse Ox 95 09/25/20 04:58 - Physical Examination General: No Apparent Distress HEENT: Positive: PERRL, Normocephaly, Mucus Membranes Moist Neck: Positive: neck supple, trachea midline Cardiac: Positive: Regular Rhythm, S1/S2 Lungs: Positive: Decreased Breath Sounds Neuro: Positive: Grossly Intact Skin: Negative: Rash Extremities: Absent: edema - Labs and Meds Cardiac Enzymes 09/24/20 Range/Units 15:25 AST 106 H (5-40) units/L CBC 09/24/20 09/25/20 Range/Units 15:25 04:30 WBC 10.3 10.5 (4.5-11.0) K/mm3 RBC 3.27 L 3.09 L (3.65-5.03) M/mm3 Hgb 10.3 9.8 L (10.1-14.3) gm/dl Hct 31.4 29.5 L (30.3-42.9) % Plt Count 148 149 (140-440) K/mm3 Lymph # (Auto) 2.0 (1.2-5.4) K/mm3 Divide # (Auto) 0.3 (0.0-0.8) K/mm3 Eos # (Auto) 0.0 (0.0-0.4) K/mm3 Baso # (Auto) 0.1 (0.0-0.1) K/mm3 Comprehensive Metabolic Panel 09/24/20 09/25/20 Range/Units 15:25 04:30 Sodium 142 142 (137-145) mmol/L Potassium 4.7 4.3 (3.6-5.0) mmol/L Chloride 108.0 H 106.4 (98-107) mmol/L Carbon Dioxide 30 30 (22-30) mmol/L BUN 33 H 30 H (7-17) mg/dL Creatinine 1.0 1.0 (0.6-1.2) mg/dL Glucose 192 H 133 H (65-100) mg/dL Calcium 8.6 8.4 (8.4-10.2) mg/dL AST 106 H (5-40) units/L ALT 98 H (7-56) units/L Alkaline Phosphatase 73 (35-129) units/L Total Protein 6.0 L (6.3-8.2) g/dL Albumin 2.9 L (3.9-5) g/dL - Imaging and Cardiology EKG: report reviewed, image reviewed Echo: report reviewed ( EF 50-55%, mild AR, mild MR, mod TR, mild to mod [place], pulm HTN with RVSP 83mmHg. )
[2020-09-25] MEDS: ZINC SULFATE 220 MG CAP PO SCH ×2 (10:56→22:30)
[2020-09-25] MEDS: ASCORBIC ACID 250 MG TAB PO SCH ×2 (10:56→22:30)
[2020-09-25] MEDS: METOPROLOL TARTRATE 25 MG TAB FEEDTUBE SCH ×2 (10:56→22:31)
[2020-09-25] MEDS: LANSOPRAZOLE 30 MG SOLUTAB FEEDTUBE SCH (10:57)
[2020-09-25] MEDS: CHOLECALCIFEROL (VIT D3) 1000 UNIT (25 mcg) TAB PO SCH (10:57)
[2020-09-25] MEDS: INSULIN LISPRO 100 UNIT/ML SUB-Q SCH ×3 (11:30→22:25)
--- NOTE | 2020-09-25 14:39 | Progress Note ---
Assessment and Plan Assessment and plan: Sepsis -Presented with hypotension, acute kidney injury, and possible developing pneumonia on CXR -S/p 2.4 L normal saline in the emergency department -Infectious disease consulted, appreciate recommendations -Antibiotic therapy -09/16 blood cultures x2 NGTD COVID-19 pneumonia -09/17 COVID-19 PCR negative -09/19 COVID 19 PCR positive -Infectious disease consulted, patient recommendations -S/p antibiotic therapy -Droplet/isolation precautions -Pulmonary hygiene -OOB 3 times daily -Prone to sleep as needed -Supplemental oxygen as needed -Anticoagulation per protocol -Trend COVID- inflammatory markers for risk stratification -Vitamin C, D and zinc Pneumonia -09/17 CXR shows possible developing pneumonia -09/24 CXR shows left-sided airspace disease improvement since but has not completely resolved -s/p Antibiotic therapy -Pulmonary hygiene -SPO2 monitoring A. fib with RVR -Patient has a history of atrial fibrillation is on beta-blockers and anticoagulation -09/19 patient noted to be in A. fib with RVR -Cardiology consult, appreciate recommendations -S/p heparin drip -Per oncology: Okay to take Eliquis 2.5 twice daily as long as platelet count is greater than 30 -09/20 TTE shows ejection fraction 55%, mild AR, mild MR, moderate TR, mild to moderate LA with mild pulmonary hypertension and RVSP calculated at 83 mmHg. -S/p amiodarone, IV digoxin and beta-jennifer -Now rate controlled Dementia -Supportive care -Verbal de-escalation and redirection as needed -Fall, aspiration precautions -Supportive care -GI consulted for PEG tube placement -09/24 CT head/brain shows moderate microvascular angiopathy with mild cerebral atrophy without clear CT evidence of acute intracranial hemorrhage and mild interval increase in size of extra-axial lesion along the anterior right flax currently measuring 0.7 x 1.6 cm most consistent with a meningioma which was previously 0.5 x 1.2 cm -Outpatient neurosurgery follow-up recommended Hypertension -Hold antihypertensives in setting of hypotension -Blood pressure monitoring per protocol GERD -Continue PPI -Changed to Protonix due to thrombocytopenia Hyperlipidemia -Continue statin therapy DVT prophylaxis -GI prophylaxis -Subcu heparin -SCDs to bilateral lower extremities while in bed Hypoglycemia, resolved -09/18 patient noted to be persistently hypoglycemic -Decreased p.o. 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 and okay to take Eliquis as long as platelet count greater than 30 -09/24 plt 148 Acute kidney injury, resolved -Presented with a BUN/creatinine 47/1.6 -Prior visits BUN -/creatinine 0.7-1 -09/18 Bun/Cr 33/1.3, 09/24 BUN/creatinine 33/1.0 -Avoid nephrotoxic medication -Renally dose medications -Trend BMP -s/p MIVF -Consider nephrology consult if not improving -Secondary to vasomotor nephropathy Hypernateremia, resolved -09/18 Na 149 which trended up to 150 -Trend BMP -s/p MIVF -FWF 400mL q8 -09/23 sodium 145, 09/24 Na 146 Hyperchloremia, resolved -09/18 Cl 112.6, 09/25 chloride 106.4 -s/p MIVF -Trend Chloride -FWF 400mL q8 History Interval history: This is a 80-year-old female with hypertension, GERD, colon cancer s/p resection, dementia and former smoker who presented to the emergency department with shortness of breath, decreased appetite and decreased p.o. intake over the past few days. Patient tested positive for urinary tract infection on home test kit and was subsequently started on oral Levaquin 500 mg daily for the past 3 days. Work-up in the emergency department revealed acute kidney injury, pyuria, possible developing pneumonia or aspiration, enlarged left middle mediastinum suggesting adenopathies. Patient was admitted to the hospital service for pneumonia as a COVID-19 PUI. Infectious disease was consulted. 09/17: Patient is on room air at the time my examination entry COVID-19 PCR resulted as negative. Patient will be transferred to medical floor. Infectious disease has stopped azithromycin continue ceftriaxone for possible urinary tract infection. We have also ordered a repeat COVID-19 PCR 09/18: No acute events reported overnight. Patient still remains in bilateral mittens-repeat COVID-19 PCR will need to be repeated tomorrow per hospital policy.This morning patient has leukopenia, hypernatremia, hyperchloremia but her acute kidney injury has improved. 09/19: Patient noted to be in atrial fibrillation with RVR this morning around 0600 and cardiology was consulted. Patient has been started on amiodarone drip after bolus. ST was consulted today for decreased p.o. intake as the patient was placed on MIVF due to persistent hypoglycemia yesterday. Her hyperchloremia and hypernatremia have improved however she is hypokalemic on her creatinine/BUN have increased. ST has recommended PEG tube placement. Patient's family unable to be contacted for update, confirmation of history or possible PEG tube placement. Her daughter was called several times today by CLASSIFIED ADVERTISING MANAGER. Patient's repeat COVID-19 PCR is pending. She was given a 250 ml normal saline bolus due to hypotension. Repeat CMP in the a.m. Heme/Onc consulted for thrombocytopenia. 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 Start heparin drip for new onset afib with RVR and Eliquis 2.5 mg p.o. twice daily at discharge. Wean IV amiodarone and start digoxin and Lopressor IV per Cardiology. Continue ceftriaxone for total of 3 days for UTI per ID recommendations. Continue to follow blood and urine cultures. Follow-up repeat Covid testing today. PEG placement per Speech recommendations. 09/21: Await echocardiogram. Continue heparin drip for new onset atrial f ibrillation with RVR and transition to Eliquis at discharge. Cardiology stopped IV amiodarone but will continue with IV digoxin and Lopressor until NG tube placement. NG tube placement ordered this morning. GI consultation pending for PEG placement. Repeat Covid testing positive on 09/19. DC Solu-Medrol 40 mg every 8 hours and start dexamethasone 6 mg IV daily. ? Remdesivir given renal insufficiency and will assess for hypoxia. ID following 09/22: Patient's hypernatremia slightly improved however she remains with hyperkalemia and MINERVA slightly improved. Patient is minimally interactive and remains on room air. No acute events reported overnight. GI consulted regarding PEG tube placement 09/23: Patient hypernatremia and hyperchloremia worsened therefore she was started on 400 mL FWF every 8 hours and her MINERVA slightly improved. No acute events reported overnight. Patient still remains minimally interactive and on room air. 09/24: With increase of FWF and hypotonic IVF patients hyper natremia resolved yesterday evening and her hyperchloremia has improved. This morning the hypot onic IVF was discontinued. Her BUN/creatinine also improved. Per GI in order for PEG tube placement patient is Eliquis has to be held for 2 days prior. Patient remains on room air with no acute events reported overnight. CTH, CXR, NH3 and repeat BC x2 pending 09/25: Peg placement consent obtained by [facility] holding for procedure. Remaind on RA with selective interaction. No acute events reported overnight. CXR has improved, CTH shows slight increase in extra-axial lesion. No acute events reported overnight. Hospitalist Physical - Constitutional Vitals: Temp Pulse Resp BP Pulse Ox 99.9 F H 52 L 16 101/50 100 09/25/20 10:49 09/25/20 10:56 09/25/20 10:49 09/25/20 10:56 09/25/20 10:49 General appearance: Present: no acute distress - EENT Eyes: Present: PERRL, EOM intact ENT: clear oral mucosa - Neck Neck: Present: normal ROM - Respiratory Respiratory effort: normal - Cardiovascular Rhythm: regular Heart Sounds: Present: systolic murmur - Extremities Extremities: no ischemia, pulses intact, pulses symmetrical, No edema, normal temperature, normal color, Full ROM Peripheral Pulses: within normal limits - Abdominal General gastrointestinal: soft, non-tender, non-distended, normal bowel sounds - Integumentary Integumentary: Present: clear, warm, dry - Psychiatric Psychiatric: cooperative - Neurologic Neurologic: CNII-XII intact, no focal deficits, moves all extremities - Allied Health Allied health notes reviewed: nursing HEART Score - HEART Score Troponin: Troponin T 0.029 ng/mL (0.00-0.029) 09/16/20 23:05 Results - Labs CBC & Chem 7: 09/25/20 04:30 09/25/20 04:30 Labs: Laboratory Last Values WBC 10.5 K/mm3 (4.5-11.0) 09/25/20 04:30 RBC 3.09 M/mm3 (3.65-5.03) L 09/25/20 04:30 Hgb 9.8 gm/dl (10.1-14.3) L 09/25/20 04:30 Hct 29.5 % (30.3-42.9) L 09/25/20 04:30 MCV 96 fl (79-97) 09/25/20 04:30 MCH 32 pg (28-32) 09/25/20 04:30 MCHC 33 % (30-34) 09/25/20 04:30 RDW 16.4 % (13.2-15.2) H 09/25/20 04:30 Plt Count 149 K/mm3 (140-440) 09/25/20 04:30 Lymph % (Auto) 19.0 % (13.4-35.0) 09/24/20 15:25 [place] % (Auto) 2.7 % (0.0-7.3) 09/24/20 15:25 Eos % (Auto) 0.2 % (0.0-4.3) 09/24/20 15:25 Baso % (Auto) 0.8 % (0.0-1.8) 09/24/20 15:25 Lymph # (Auto) 2.0 K/mm3 (1.2-5.4) 09/24/20 15:25 [place] # (Auto) 0.3 K/mm3 (0.0-0.8) 09/24/20 15:25 Eos # (Auto) 0.0 K/mm3 (0.0-0.4) 09/24/20 15:25 Baso # (Auto) 0.1 K/mm3 (0.0-0.1) 09/24/20 15:25 Seg Neutrophils % 77.3 % (40.0-70.0) H 09/24/20 15:25 Seg Neutrophils # 7.9 K/mm3 (1.8-7.7) H 09/24/20 15:25 PT 15.4 Sec. (12.2-14.9) H 09/20/20 13:06 INR 1.24 (0.87-1.13) H 09/20/20 13:06 APTT 37.4 Sec. (24.2-36.6) H 09/20/20 13:06 D-Dimer 425.43 ng/mlDDU (0-234) H 09/16/20 21:28 Heparin Anti-Xa Level 0.32 U.I./ml (0.3-0.7) 09/22/20 07:58 Sodium 142 mmol/L (137-145) 09/25/20 04:30 Potassium 4.3 mmol/L (3.6-5.0) 09/25/20 04:30 Chloride 106.4 mmol/L (98-107) 09/25/20 04:30 Carbon Dioxide 30 mmol/L (22-30) 09/25/20 04:30 Anion Gap 10 mmol/L 09/25/20 04:30 BUN 30 mg/dL (7-17) H 09/25/20 04:30 Creatinine 1.0 mg/dL (0.6-1.2) 09/25/20 04:30 Estimated GFR > 60 ml/min 09/25/20 04:30 BUN/Creatinine Ratio 30 % 09/25/20 04:30 Glucose 133 mg/dL (65-100) H 09/25/20 04:30 POC Glucose 143 mg/dL (70-105) H 09/25/20 05:31 Lactic Acid 0.90 mmol/L (0.7-2.0) 09/17/20 14:35 Calcium 8.4 mg/dL (8.4-10.2) 09/25/20 04:30 Ferritin 374.8 ng/mL (10.0-200.0) H 09/16/20 21:28 Total Bilirubin 0.50 mg/dL (0.1-1.2) 09/24/20 15:25 AST 106 units/L (5-40) H 09/24/20 15:25 ALT 98 units/L (7-56) H 09/24/20 15:25 Alkaline Phosphatase 73 units/L (35-129) 09/24/20 15:25 Ammonia 24.0 umol/L (25-60) L 09/25/20 07:57 Lactate Dehydrogenase 179 units/L (91-180) 09/16/20 23:05 Troponin T 0.029 ng/mL (0.00-0.029) 09/16/20 23:05 C-Reactive Protein 14.90 mg/dL (0.00-1.30) H 09/16/20 23:05 Total Protein 6.0 g/dL (6.3-8.2) L 09/24/20 15:25 Albumin 2.9 g/dL (3.9-5) L 09/24/20 15:25 Albumin/Globulin Ratio 0.9 % 09/24/20 15:25 Procalcitonin 0.07 ng/mL (<0.15) 09/24/20 15:25 Urine Color Yellow (Yellow) 09/24/20 22:50 Urine Turbidity Clear (Clear) 09/24/20 22:50 Urine pH 7.0 (5.0-7.0) 09/24/20 22:50 Ur Specific [place] 1.016 (1.003-1.030) 09/24/20 22:50 Urine Protein 30 mg/dl mg/dL (Negative) 09/24/20 22:50 Urine Glucose (UA) >=500 mg/dL (Negative) 09/24/20 22:50 Urine Ketones Neg mg/dL (Negative) 09/24/20 22:50 Urine Blood Neg (Negative) 09/24/20 22:50 Urine Nitrite Neg (Negative) 09/24/20 22:50 Urine Bilirubin Neg (Negative) 09/24/20 22:50 Urine Urobilinogen < 2.0 mg/dL (<2.0) 09/24/20 22:50 Ur Leukocyte Esterase Neg (Negative) 09/24/20 22:50 Urine WBC (Auto) 1.0 /HPF (0.0-6.0) 09/24/20 22:50 Urine RBC (Auto) 1.0 /HPF (0.0-6.0) 09/24/20 22:50 U Epithel Cells (Auto) < 1.0 /HPF (0-13.0) 09/24/20 22:50 Urine Bacteria (Auto) 1+ /HPF (Negative) 09/17/20 Unknown Urine Mucus 2+ /HPF 09/17/20 Unknown Urine Yeast (Budding) 1+ /HPF 09/17/20 Unknown Urine Osmolality 1096 Mosm/kg 09/19/20 17:35 Urine Creatinine 179.4 mg/dL (0.1-20.0) H 09/19/20 17:35 Urine Sodium 193 mmol/L 09/19/20 17:35 Coronavirus (PCR) Positive (Negative) A 09/19/20 11:00 Microbiology: Microbiology 09/24/20 15:40 Peripheral/Venous Blood Culture - Preliminary Culture in Progress 09/24/20 15:25 Peripheral/Venous Blood Culture - Preliminary Culture in Progress - Diagnostic Impressions Diagnostic Impressions: Echocardiogram 09/20/20 10:42 Transthoracic Echocardiogram Indication: A FIB BP: 151/87 HR: 86 Conclusions *Global left ventricular systolic function is normal. *The estimated ejection fraction is 50-55%. *The right ventricular global systolic function is normal. *The aortic valve is not well visualized. *There is mild aortic regurgitation. *Mild aortic leaflet calcification is visualized. *There is mild mitral regurgitation. *There is mild to moderate pulmonic regurgitation. *There is evidence of moderate pulmonary hypertension. Findings Procedure Info: The study quality is fair. Left Ventricle: The left ventricular chamber size is normal. There is no left ventricular hypertrophy. Global left ventricular wall motion and contractility are within normal limits. Global left ventricular systolic function is normal. The estimated ejection fraction is 50-55%. Abnormal left ventricular diastolic function is observed. Left Atrium: The left atrium is severely dilated. Right Ventricle: The right ventricular cavity size is normal. The right ventricular global systolic function is normal. Right Atrium: The right atrial cavity size is normal. Aortic Valve: The aortic valve is not well visualized. Mild aortic leaflet calcification is visualized. There is mild aortic regurgitation. Mitral Valve: There is mitral annular calcification. The mitral valve leaflets are mildly thickened. There is mild mitral regurgitation. Tricuspid Valve: The tricuspid valve appears normal in structure and function. There is moderate tricuspid regurgitation. There is evidence of moderate pulmonary hypertension. Pulmonic Valve: The pulmonic valve is not well visualized.High gradients seen can not rule out stenosis There is mild to moderate pulmonic regurgitation. Pericardium: There is no pericardial effusion. Aorta: The aorta appears normal. Pulmonary Artery: The main pulmonary artery is not well visualized. Venous: The inferior vena cava appears abnormal. The inferior vena cava is dilated. There is less than 50% respiratory change in the inferior vena cava dimension. Measurements Chambers 2D Name Value Normal Range IVSd (2D) 0.89 cm (0.6 - 1.1) LVPWd (2D) 0.84 cm (0.6 - 1.1) LVIDd (2D) 4.67 cm (3.7 - 5.6) LVIDs (2D) 3.42 cm (2 - 3.8) LV FS (2D) 26.77 % - EF Teichholz (2D) 52.3 % - Ao root diameter (2D) 3.07 cm (2 - 3.7) Volumes/Mass Name Value Normal Range LA ESV SP 4CH (A/L) 78.85 ml - LA ESV SP 2CH (A/L) 111.2 ml - LA ESV BP (A/L) 93.86 ml - LA ESV BP (A/L) index 51.57 ml/m2 - LA ESV SP 4CH (MOD) 69.77 ml - LA ESV SP 2CH (MOD) 105.54 ml - LA ESV BP (MOD) 85.78 ml - LA ESV BP (MOD) index 47.13 ml/m2 - LV EDV SP 4CH (MOD) 68.03 ml - LV ESV SP 4CH (MOD) 31.63 ml - EF SP 4CH (MOD) 53.5 % - LV EDV SP 2CH (MOD) 68.71 ml - LV ESV SP 2CH (MOD) 28.59 ml - EF SP 2CH (MOD) 58.39 % - LV EDV BP 68.15 ml - LV ESV BP 30.43 ml - BP EF (MOD) 55.34 % - Diastolic/Systolic Function Name Value Normal Range MV E-wave Vmax 0.99 m/sec - MV deceleration time 131.92 msec - MV A-wave Vmax 1.17 m/sec - MV E:A ratio 0.85 ratio - Aortic Valve Name Value Normal Range AV Vmax 1.38 m/sec - AV VTI 26.19 cm - AV peak gradient 7.59 mmHg - AV mean gradient 4.81 mmHg - LVOT diameter 2.19 cm - LVOT Vmax 0.78 m/sec - LVOT VTI 21.91 cm - LVOT peak gradient 2.46 mmHg - LVOT mean gradient 1.53 mmHg - SV LVOT 82.34 ml - EMMY (continuity Vmax) 2.14 cm2 - EMMY (continuity VTI) 3.14 cm2 - AR PHT 657.65 msec - AR peak gradient 67.31 mmHg - Ascending Ao 2.79 cm - Tricuspid Valve Name Value Normal Range TR Vmax 4.33 m/sec - TR peak gradient 75 mmHg - RAP 8 mmHg - RVSP 83 mmHg - IVC diameter 2.15 cm (1.2 - 2.3) Pulmonic Valve/Qp:Qs Name Value Normal Range PV Vmax 3.01 m/sec - PV VTI 86.98 cm - PV peak gradient 36.25 mmHg - PV mean gradient 29.37 mmHg - LA end-diastolic Vmax 1.69 m/sec - RVOT Vmax 0.36 m/sec - RVOT VTI 7.36 cm - RVOT peak gradient 0.52 mmHg - PV acceleration time 81.83 msec - [place]/IV: Voiding Method External Female Catheter Active Medications - Current Medications Current Medications: Generic Name Dose Route Start Last Admin Trade Name Freq PRN Reason Stop Dose Admin Acetaminophen 650 mg 09/17/20 03:32 Acetaminophen 325 Mg Tab PO Q4H PRN Pain MILD(1-3)/Fever >100.5/NIÑO Lipase/Protease/Amylase 1 each 09/21/20 10:00 Lipase 10,500/Protease 25,000/Amylase 43,750 (Units) Dr Og FEEDTUBE PRN PRN For Clogged Feeding Tube Ascorbic Acid 250 mg 09/20/20 22:00 09/25/20 10:56 Ascorbic Acid 250 Mg Tab PO 250 mg BID RIGO Administration Cholecalciferol 1,000 unit 09/21/20 10:00 09/25/20 10:57 Cholecalciferol (Vit D3) 1000 Unit (25 Mcg) Tab PO 1,000 unit QDAY RIGO Administration Dextrose 0 ml 09/19/20 04:40 09/19/20 05:15 Dextrose 50% In Water (25gm) 50 Ml Syringe IV 50 ml Q30MIN PRN Administration Hypoglycemia Protocol Insulin Human Lispro 0 unit 09/25/20 11:30 09/25/20 11:30 Insulin Lispro 100 Unit/Ml SUB-Q Not Given ACHS RIGO Protocol Lansoprazole 30 mg 09/23/20 10:00 09/25/20 10:57 Lansoprazole 30 Mg Solutab FEEDTUBE 30 mg QDAY RIGO Administration Magnesium Hydroxide 30 ml 09/17/20 03:32 Magnesium Hydroxide (Mom) Oral Liqd Udc PO Q4H PRN Constipation Metoprolol Tartrate 25 mg 02/22/21 11:00 09/25/20 10:56 Metoprolol Tartrate 25 Mg Tab FEEDTUBE Not Given BID RIGO Morphine Sulfate 2 mg 09/17/20 03:32 Morphine 2 Mg/1 Ml Inj IV Q4H PRN Pain, Moderate (4-6) Ondansetron HCl 4 mg 09/17/20 03:32 Ondansetron 4 Mg/2 Ml Inj IV Q8H PRN Nausea And Vomiting Pravastatin Sodium 40 mg 09/17/20 22:00 09/24/20 22:37 Pravastatin 40 Mg Tab PO 40 mg QHS RIGO Administration Simple Syrup 15 ml 09/21/20 09:46 Simple Syrup 15 Ml FEEDTUBE PRN PRN Hypoglycemia Simple Syrup 30 ml 09/21/20 09:46 Simple Syrup 15 Ml FEEDTUBE PRN PRN Hypoglycemia Sodium Bicarbonate 325 mg 09/21/20 09:46 Sodium Bicarbonate 325 Mg Tab FEEDTUBE PRN PRN For Clogged Feeding Tube Sodium Chloride 10 ml 09/17/20 10:00 09/25/20 10:57 Sodium Chloride 0.9% 10 Ml Flush Syringe IV 10 ml BID RIGO Administration Sodium Chloride 10 ml 09/17/20 03:32 Sodium Chloride 0.9% 10 Ml Flush Syringe IV PRN PRN LINE FLUSH Zinc Sulfate 220 mg 09/20/20 22:00 09/25/20 10:56 Zinc Sulfate 220 Mg Cap PO 220 mg BID RIGO Administration Nutrition/Malnutrition Assess - Dietary Evaluation Nutrition/Malnutrition Findings: Nutrition Notes Start: 09/21/20 09:22 Freq: Status: Active Protocol: Document 09/23/20 13:13 AT (Rec: 09/23/20 13:44 AT [id number]) Co-Sign 09/23/20 13:13 NHALL Nutrition Notes Initial or Follow up Reassessment Current Diagnosis Acute Kidney Injury,Sepsis, Hypertension,Hyperlipidemia Other Pertinent Diagnosis Dementia, COVID(+), UTI, AMS, A-fib Current Diet Osmolite 1.5 at 40 mL/hr Labs/Tests Na 150 BUN 39 Cr 1.5 BG 136 Pertinent Medications Decadron Zinc Sulfate Vit D3 Vit C Height 5 ft 2 in Weight 81.8 kg [place] Body Weight (kg) 50.00 BMI 33.0 Weight Status Obese Subjective/Other Information Follow up for TF start/ tolerance, Antwan, Na. Pt has worsening hypernatremia. Per chart, TF is running at goal rate and pt is tolerating well . RN reports that she has not seen Antwan, but will administer it when possible. Percent of energy/protein needs met: 100%/100% Burn Absent Trauma Absent Current % PO Negligible Minimum of two criteria Yes Fluid Accumulation Mild (non-severe) Reduced Auxiliary Powerplant Operator Strength Measurably Reduced (severe) #3 Nutrition Diagnosis Increased nutrient needs ( specify in comment below) Diagnosis Progress(for reassessment Continues documentation) #2 Nutrition Diagnosis Malnutrition As Evidenced by Signs and Symptoms edema improving Diagnosis Progress(for reassessment Improved documentation) #1 Nutrition Diagnosis Inadequate oral intake Diagnosis Progress(for reassessment Continues documentation) Is patient on ventilator? No Is Patient Ambulatory and/or Out of Bed No REE-([facility]-confined to bed) 1508.004 Kcal/Kg value to use for calculation 16 Approximate Energy Requirements Using 1309 kcal/Kg Calculation Used for Recommendations Kcal/kg Additional Notes PRO needs: 53-99g (0.8-1.5 g/ kg AdBW 66) Fluid needs: 1mL/kcal or per MD Nutrition Intervention Change Diet Order: Continue Nutrition Support: Osmolite 1.5 at 40ml/hr Flush 200 mL q4h for hypernatremia Flush 170 ml q4h once resolved Kcal 1,440 Protein (gm) 60 Fluid (mL) 732 Add Supplement/Snack (indicate name/kcal Antwan BID /protein ) Provides kCal: 190 Provides Protein (gm) 5 Goal #1 TF tolerance Goal #2 Wound healing Goal #3 Meet at least 75% of estimated energy and protein needs via TF Anticipated Discharge Needs: Unable to determine at this time Follow-Up By: 09/26/20 Additional Comments F/U flushes and Na
[2020-09-25 14:49] LABS: INR 1.11 (0.87-1.13)
--- NOTE | 2020-09-25 15:52 | Event Note ---
Date: 09/25/20 Discussed with pt's daughter over phone, will plan for egd/peg tomorrow. frank held yesterday, hold tube feeds at midnight.
--- NOTE | 2020-09-25 17:35 | Progress Note ---
Assessment and Plan Cultures: Blood culture no growth so far Urine culture: no growth A/P: 80-year-old female past medical history hypertension, dementia, hyperlipidemia admitted with shortness of breath. #Left-sided pneumonia: COVID-19 testing negative initially, then positive. Normal procalcitonin. Remains on room air. #UTI: Minor pyuria, already completed 3 days Levaquin. Difficult to assess for symptoms on basis of dementia. #Thrombocytopenia: likely secondary to COVID. #Dementia #MINERVA: renally adjust abx as needed. Recs: -not hypoxic, not a candidate for Remdesivir at this time Infectious disease will sign off. Please call questions. Liz Valladares MD [facility] O: [phone] F: [phone] Subjective Date of service: 09/25/20 Principal diagnosis: afib, COVID Interval history: Afebrile, normal white count. Cultures all remain negative. Objective - Exam Narrative Exam: Physical exam deferred due to PPE conservation strategy. Please refer to primary team's note. - Constitutional Vitals: Vital Signs Temp Pulse Resp BP Pulse Ox 99.9 F H 52 L 16 101/50 100 09/25/20 10:49 09/25/20 10:56 09/25/20 10:49 09/25/20 10:56 09/25/20 10:49 Temperature -Last 24 Hours Temperature 99.9 F Temperature 98.6 F Temperature 98.9 F - Labs CBC & Chem 7: 09/25/20 04:30 09/25/20 04:30 Labs: Abnormal lab results 09/24/20 09/25/20 09/25/20 Range/Units 21:46 02:12 04:30 RBC 3.09 L (3.65-5.03) M/mm3 Hgb 9.8 L (10.1-14.3) gm/dl Hct 29.5 L (30.3-42.9) % RDW 16.4 H (13.2-15.2) % BUN (7-17) mg/dL Glucose (65-100) mg/dL POC Glucose 174 H 150 H (70-105) mg/dL Ammonia (25-60) umol/L 09/25/20 09/25/20 09/25/20 Range/Units 04:30 05:31 07:57 RBC (3.65-5.03) M/mm3 Hgb (10.1-14.3) gm/dl Hct (30.3-42.9) % RDW (13.2-15.2) % BUN 30 H (7-17) mg/dL Glucose 133 H (65-100) mg/dL POC Glucose 143 H (70-105) mg/dL Ammonia 24.0 L (25-60) umol/L 09/25/20 09/25/20 Range/Units 11:39 16:42 RBC (3.65-5.03) M/mm3 Hgb (10.1-14.3) gm/dl Hct (30.3-42.9) % RDW (13.2-15.2) % BUN (7-17) mg/dL Glucose (65-100) mg/dL POC Glucose 133 H 144 H (70-105) mg/dL Ammonia (25-60) umol/L
[2020-09-25] MEDS: PRAVASTATIN 40 MG TAB PO SCH (22:30)
[2020-09-26 01:50] LABS: Hematocrit 29.5 % (30.3-42.9); Hemoglobin 9.7 gm/dl (10.1-14.3); Mean Corpuscular HGB Conc 33 % (30-34); Mean Corpuscular Volume 96 fl (79-97); Platelet Count 179 K/mm3 (140-440); Red Blood Count 3.09 M/mm3 (3.65-5.03); Red Cell Distribution Width 16.5 % (13.2-15.2)
[2020-09-26 01:52] LABS: INR 1.14 (0.87-1.13)
[2020-09-26] MEDS: INSULIN LISPRO 100 UNIT/ML SUB-Q SCH ×4 (09:20→22:52)
[2020-09-26] MEDS: METOPROLOL TARTRATE 25 MG TAB FEEDTUBE SCH ×2 (10:55→22:55)
[2020-09-26] MEDS: LANSOPRAZOLE 30 MG SOLUTAB FEEDTUBE SCH (10:55)
[2020-09-26] MEDS: ASCORBIC ACID 250 MG TAB PO SCH ×2 (10:55→22:53)
[2020-09-26] MEDS ORDERED: D5W/0.45% NACL 1,000 ML IV SCH (11:00)
[2020-09-26] MEDS: ZINC SULFATE 220 MG CAP PO SCH ×2 (11:21→22:49)
[2020-09-26] MEDS: CHOLECALCIFEROL (VIT D3) 1000 UNIT (25 mcg) TAB PO SCH (11:21)
[2020-09-26] MEDS ORDERED: propofoL 200 MG/20 ML VIAL IV ONE (11:52)
[2020-09-26] MEDS: SODIUM CHLORIDE 0.9% 1000 ML 1,000 ML IV SCH (11:54)
[2020-09-26] MEDS ORDERED: ceFAZolin/Water 2 GM/20 ML 2 GM/20 ML SYRINGE IV NR (12:00)
--- NOTE | 2020-09-26 16:56 | Progress Note ---
<GAMANIDIA H. - Last Filed: 09/26/20 16:59> Assessment and Plan Assessment and plan: Sepsis -Presented with hypotension, acute kidney injury, and possible developing pneumonia on CXR -S/p 2.4 L normal saline in the emergency department -Infectious disease consulted, appreciate recommendations -Antibiotic therapy -09/16 blood cultures x2 NGTD COVID-19 pneumonia -09/17 COVID-19 PCR negative -09/19 COVID 19 PCR positive -Infectious disease consulted, patient recommendations -S/p antibiotic therapy -Droplet/isolation precautions -Pulmonary hygiene -OOB 3 times daily -Prone to sleep as needed -Supplemental oxygen as needed -Anticoagulation per protocol -Trend COVID- inflammatory markers for risk stratification -Vitamin C, D and zinc Pneumonia -09/17 CXR shows possible developing pneumonia -09/24 CXR shows left-sided airspace disease improvement since but has not completely resolved -s/p Antibiotic therapy -Pulmonary hygiene -SPO2 monitoring A. fib with RVR -Patient has a history of atrial fibrillation is on beta-blockers and anticoagulation -09/19 patient noted to be in A. fib with RVR -Cardiology consult, appreciate recommendations -S/p heparin drip -Per oncology: Okay to take Eliquis 2.5 twice daily as long as platelet count is greater than 30 -09/20 TTE shows ejection fraction 55%, mild AR, mild MR, moderate TR, mild to moderate WI with mild pulmonary hypertension and RVSP calculated at 83 mmHg. -S/p amiodarone, IV digoxin and beta-jennifer -Now rate controlled Dementia -Supportive care -Verbal de-escalation and redirection as needed -Fall, aspiration precautions -Supportive care -GI consulted for PEG tube placement -09/24 CT head/brain shows moderate microvascular angiopathy with mild cerebral atrophy without clear CT evidence of acute intracranial hemorrhage and mild interval increase in size of extra-axial lesion along the anterior right flax currently measuring 0.7 x 1.6 cm most consistent with a meningioma which was previously 0.5 x 1.2 cm -Outpatient neurosurgery follow-up recommended Hypertension -Hold antihypertensives in setting of hypotension -Blood pressure monitoring per protocol GERD -Continue PPI -Changed to Protonix due to thrombocytopenia Hyperlipidemia -Continue statin therapy DVT prophylaxis -GI prophylaxis -Subcu heparin -SCDs to bilateral lower extremities while in bed History Interval history: This is a 80-year-old female with hypertension, GERD, colon cancer s/p resection, dementia and former smoker who presented to the emergency department with shortness of breath, decreased appetite and decreased p.o. intake over the past few days. Patient tested positive for urinary tract infection on home test kit and was subsequently started on oral Levaquin 500 mg daily for the past 3 days. Work-up in the emergency department revealed acute kidney injury, pyuria, possible developing pneumonia or aspiration, enlarged left middle mediastinum suggesting adenopathies. Patient was admitted to the hospital service for pneumonia as a COVID-19 PUI. Infectious disease was consulted. 09/17: Patient is on room air at the time my examination entry COVID-19 PCR resulted as negative. Patient will be transferred to medical floor. Infectious disease has stopped azithromycin continue ceftriaxone for possible urinary tract infection. We have also ordered a repeat COVID-19 PCR 09/18: No acute events reported overnight. Patient still remains in bilateral mittens-repeat COVID-19 PCR will need to be repeated tomorrow per hospital policy.This morning patient has leukopenia, hypernatremia, hyperchloremia but her acute kidney injury has improved. 09/19: Patient noted to be in atrial fibrillation with RVR this morning around 0600 and cardiology was consulted. Patient has been started on amiodarone drip after bolus. ST was consulted today for decreased p.o. intake as the patient was placed on MIVF due to persistent hypoglycemia yesterday. Her hyperchloremia and hypernatremia have improved however she is hypokalemic on her creatinine/BUN have increased. ST has recommended PEG tube placement. Patient's family unable to be contacted for update, confirmation of history or possible PEG tube placeme nt. Her daughter was called several times today by [employer]. Patient's repeat COVID- 19 PCR is pending. She was given a 250 ml normal saline bolus due to hypotension. Repeat CMP in the a.m. Heme/Onc consulted for thrombocytopenia. 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 Start heparin drip for new onset afib with RVR and Eliquis 2.5 mg p.o. twice daily at discharge. Wean IV amiodarone and start digoxin and Lopressor IV per Cardiology. Continue ceftriaxone for total of 3 days for UTI per ID recommendations. Continue to follow blood and urine cultures. Follow-up repeat Covid testing today. PEG placement per Speech recommendations. 09/21: Await echocardiogram. Continue heparin drip for new onset atrial fibrillation with RVR and transition to Eliquis at discharge. Cardiology stopped IV amiodarone but will continue with IV digoxin and Lopressor until NG tube placement. NG tube placement ordered this morning. GI consultation pending for PEG placement. Repeat Covid testing positive on 09/19. DC Solu- Medrol 40 mg every 8 hours and start dexamethasone 6 mg IV daily. ? Remdesivir given renal insufficiency and will assess for hypoxia. ID following 09/22: Patient's hypernatremia slightly improved however she remains with hyperkalemia and MINERVA slightly improved. Patient is minimally interactive and remains on room air. No acute events reported overnight. GI consulted regarding PEG tube placement 09/23: Patient hypernatremia and hyperchloremia worsened therefore she was started on 400 mL FWF every 8 hours and her MINERVA slightly improved. No acute events reported overnight. Patient still remains minimally interactive and on room air. 09/24: With increase of FWF and hypotonic IVF patients hyper natremia resolved yesterday evening and her hyperchloremia has improved. This morning the hypotonic IVF was discontinued. Her BUN/creatinine also improved. Per GI in order for PEG tube placement patient is Eliquis has to be held for 2 days prior. Patient remains on room air with no acute events reported overnight. CTH, CXR, NH3 and repeat BC x2 pending 09/25: Peg placement consent obtained by CYNDI, Jenniferquis holding for procedure. Remains on RA with selective interaction. No acute events reported overnight. CXR has improved, CTH shows slight increase in extra-axial lesion. No acute events reported overnight. 09/26: No acute events reported overnight. Patient was supposed to have a PEG tube placement today however this has been delayed till this weekend. We will continue to withhold Eliquis. Patient will be n.p.o. after midnight. ID has signed off today. Hospitalist Physical - Constitutional Vitals: Temp Pulse Resp BP Pulse Ox 99.3 F 52 L 22 127/39 99 09/26/20 12:13 09/26/20 12:13 09/26/20 12:13 09/26/20 12:13 09/26/20 12:13 General appearance: Present: no acute distress - EENT Eyes: Present: PERRL, EOM intact ENT: poor dentition - Neck Neck: Present: normal ROM - Respiratory Respiratory effort: normal - Cardiovascular Rhythm: regular - Extremities Extremities: no ischemia, pulses intact, pulses symmetrical, No edema, normal temperature, normal color Peripheral Pulses: within normal limits - Abdominal General gastrointestinal: soft, non-tender, non-distended, normal bowel sounds - Integumentary Integumentary: Present: clear, warm, dry - Psychiatric Psychiatric: agitated - Neurologic Neurologic: CNII-XII intact, moves all extremities - Allied Health Allied health notes reviewed: nursing HEART Score - HEART Score Troponin: Troponin T 0.029 ng/mL (0.00-0.029) 09/16/20 23:05 Results - Labs CBC & Chem 7: 09/26/20 00:56 09/25/20 04:30 Labs: Laboratory Last Values WBC 10.9 K/mm3 (4.5-11.0) 09/26/20 00:56 RBC 3.09 M/mm3 (3.65-5.03) L 09/26/20 00:56 Hgb 9.7 gm/dl (10.1-14.3) L 09/26/20 00:56 Hct 29.5 % (30.3-42.9) L 09/26/20 00:56 MCV 96 fl (79-97) 09/26/20 00:56 MCH 31 pg (28-32) 09/26/20 00:56 MCHC 33 % (30-34) 09/26/20 00:56 RDW 16.5 % (13.2-15.2) H 09/26/20 00:56 Plt Count 179 K/mm3 (140-440) 09/26/20 00:56 Lymph % (Auto) 19.0 % (13.4-35.0) 09/24/20 15:25 [place] % (Auto) 2.7 % (0.0-7.3) 09/24/20 15:25 Eos % (Auto) 0.2 % (0.0-4.3) 09/24/20 15:25 Baso % (Auto) 0.8 % (0.0-1.8) 09/24/20 15:25 Lymph # (Auto) 2.0 K/mm3 (1.2-5.4) 09/24/20 15:25 [place] # (Auto) 0.3 K/mm3 (0.0-0.8) 09/24/20 15:25 Eos # (Auto) 0.0 K/mm3 (0.0-0.4) 09/24/20 15:25 Baso # (Auto) 0.1 K/mm3 (0.0-0.1) 09/24/20 15:25 Seg Neutrophils % 77.3 % (40.0-70.0) H 09/24/20 15:25 Seg Neutrophils # 7.9 K/mm3 (1.8-7.7) H 09/24/20 15:25 PT 14.5 Sec. (12.2-14.9) 09/26/20 00:56 INR 1.14 (0.87-1.13) H 09/26/20 00:56 APTT 37.4 Sec. (24.2-36.6) H 09/20/20 13:06 D-Dimer 425.43 ng/mlDDU (0-234) H 09/16/20 21:28 Heparin Anti-Xa Level 0.32 U.I./ml (0.3-0.7) 09/22/20 07:58 Sodium 142 mmol/L (137-145) 09/25/20 04:30 Potassium 4.3 mmol/L (3.6-5.0) 09/25/20 04:30 Chloride 106.4 mmol/L (98-107) 09/25/20 04:30 Carbon Dioxide 30 mmol/L (22-30) 09/25/20 04:30 Anion Gap 10 mmol/L 09/25/20 04:30 BUN 30 mg/dL (7-17) H 09/25/20 04:30 Creatinine 1.0 mg/dL (0.6-1.2) 09/25/20 04:30 Estimated GFR > 60 ml/min 09/25/20 04:30 BUN/Creatinine Ratio 30 % 09/25/20 04:30 Glucose 133 mg/dL (65-100) H 09/25/20 04:30 POC Glucose 110 mg/dL (70-105) H 09/26/20 12:09 Lactic Acid 0.90 mmol/L (0.7-2.0) 09/17/20 14:35 Calcium 8.4 mg/dL (8.4-10.2) 09/25/20 04:30 Ferritin 374.8 ng/mL (10.0-200.0) H 09/16/20 21:28 Total Bilirubin 0.50 mg/dL (0.1-1.2) 09/24/20 15:25 AST 106 units/L (5-40) H 09/24/20 15:25 ALT 98 units/L (7-56) H 09/24/20 15:25 Alkaline Phosphatase 73 units/L (35-129) 09/24/20 15:25 Ammonia 24.0 umol/L (25-60) L 09/25/20 07:57 Lactate Dehydrogenase 179 units/L (91-180) 09/16/20 23:05 Troponin T 0.029 ng/mL (0.00-0.029) 09/16/20 23:05 C-Reactive Protein 14.90 mg/dL (0.00-1.30) H 09/16/20 23:05 Total Protein 6.0 g/dL (6.3-8.2) L 09/24/20 15:25 Albumin 2.9 g/dL (3.9-5) L 09/24/20 15:25 Albumin/Globulin Ratio 0.9 % 09/24/20 15:25 Procalcitonin 0.07 ng/mL (<0.15) 09/24/20 15:25 Urine Color Yellow (Yellow) 09/24/20 22:50 Urine Turbidity Clear (Clear) 09/24/20 22:50 Urine pH 7.0 (5.0-7.0) 09/24/20 22:50 Ur Specific [place] 1.016 (1.003-1.030) 09/24/20 22:50 Urine Protein 30 mg/dl mg/dL (Negative) 09/24/20 22:50 Urine Glucose (UA) >=500 mg/dL (Negative) 09/24/20 22:50 Urine Ketones Neg mg/dL (Negative) 09/24/20 22:50 Urine Blood Neg (Negative) 09/24/20 22:50 Urine Nitrite Neg (Negative) 09/24/20 22:50 Urine Bilirubin Neg (Negative) 09/24/20 22:50 Urine Urobilinogen < 2.0 mg/dL (<2.0) 09/24/20 22:50 Ur Leukocyte Esterase Neg (Negative) 09/24/20 22:50 Urine WBC (Auto) 1.0 /HPF (0.0-6.0) 09/24/20 22:50 Urine RBC (Auto) 1.0 /HPF (0.0-6.0) 09/24/20 22:50 U Epithel Cells (Auto) < 1.0 /HPF (0-13.0) 09/24/20 22:50 Urine Bacteria (Auto) 1+ /HPF (Negative) 09/17/20 Unknown Urine Mucus 2+ /HPF 09/17/20 Unknown Urine Yeast (Budding) 1+ /HPF 09/17/20 Unknown Urine Osmolality 1096 Mosm/kg 09/19/20 17:35 Urine Creatinine 179.4 mg/dL (0.1-20.0) H 09/19/20 17:35 Urine Sodium 193 mmol/L 09/19/20 17:35 Coronavirus (PCR) Positive (Negative) A 09/19/20 11:00 Microbiology: Microbiology 09/24/20 15:40 Peripheral/Venous Blood Culture - Preliminary NO GROWTH AFTER 48 HOURS 09/24/20 15:25 Peripheral/Venous Blood Culture - Preliminary NO GROWTH AFTER 48 HOURS - Diagnostic Impressions Diagnostic Impressions: Echocardiogram 09/20/20 10:42 Transthoracic Echocardiogram Indication: A FIB BP: 151/87 HR: 86 Conclusions *Global left ventricular systolic function is normal. *The estimated ejection fraction is 50-55%. *The right ventricular global systolic function is normal. *The aortic valve is not well visualized. *There is mild aortic regurgitation. *Mild aortic leaflet calcification is visualized. *There is mild mitral regurgitation. *There is mild to moderate pulmonic regurgitation. *There is evidence of moderate pulmonary hypertension. Findings Procedure Info: The study quality is fair. Left Ventricle: The left ventricular chamber size is normal. There is no left ventricular hypertrophy. Global left ventricular wall motion and contractility are within normal limits. Global left ventricular systolic function is normal. The estimated ejection fraction is 50-55%. Abnormal left ventricular diastolic function is observed. Left Atrium: The left atrium is severely dilated. Right Ventricle: The right ventricular cavity size is normal. The right ventricular global systolic function is normal. Right Atrium: The right atrial cavity size is normal. Aortic Valve: The aortic valve is not well visualized. Mild aortic leaflet calcification is visualized. There is mild aortic regurgitation. Mitral Valve: There is mitral annular calcification. The mitral valve leaflets are mildly thickened. There is mild mitral regurgitation. Tricuspid Valve: The tricuspid valve appears normal in structure and function. There is moderate tricuspid regurgitation. There is evidence of moderate pulmonary hypertension. Pulmonic Valve: The pulmonic valve is not well visualized.High gradients seen can not rule out stenosis There is mild to moderate pulmonic regurgitation. Pericardium: There is no pericardial effusion. Aorta: The aorta appears normal. Pulmonary Artery: The main pulmonary artery is not well visualized. Venous: The inferior vena cava appears abnormal. The inferior vena cava is dilated. There is less than 50% respiratory change in the inferior vena cava dimension. Measurements Chambers 2D Name Value Normal Range IVSd (2D) 0.89 cm (0.6 - 1.1) LVPWd (2D) 0.84 cm (0.6 - 1.1) LVIDd (2D) 4.67 cm (3.7 - 5.6) LVIDs (2D) 3.42 cm (2 - 3.8) LV FS (2D) 26.77 % - EF Teichholz (2D) 52.3 % - Ao root diameter (2D) 3.07 cm (2 - 3.7) Volumes/Mass Name Value Normal Range LA ESV SP 4CH (A/L) 78.85 ml - LA ESV SP 2CH (A/L) 111.2 ml - LA ESV BP (A/L) 93.86 ml - LA ESV BP (A/L) index 51.57 ml/m2 - LA ESV SP 4CH (MOD) 69.77 ml - LA ESV SP 2CH (MOD) 105.54 ml - LA ESV BP (MOD) 85.78 ml - LA ESV BP (MOD) index 47.13 ml/m2 - LV EDV SP 4CH (MOD) 68.03 ml - LV ESV SP 4CH (MOD) 31.63 ml - EF SP 4CH (MOD) 53.5 % - LV EDV SP 2CH (MOD) 68.71 ml - LV ESV SP 2CH (MOD) 28.59 ml - EF SP 2CH (MOD) 58.39 % - LV EDV BP 68.15 ml - LV ESV BP 30.43 ml - BP EF (MOD) 55.34 % - Diastolic/Systolic Function Name Value Normal Range MV E-wave Vmax 0.99 m/sec - MV deceleration time 131.92 msec - MV A-wave Vmax 1.17 m/sec - MV E:A ratio 0.85 ratio - Aortic Valve Name Value Normal Range AV Vmax 1.38 m/sec - AV VTI 26.19 cm - AV peak gradient 7.59 mmHg - AV mean gradient 4.81 mmHg - LVOT diameter 2.19 cm - LVOT Vmax 0.78 m/sec - LVOT VTI 21.91 cm - LVOT peak gradient 2.46 mmHg - LVOT mean gradient 1.53 mmHg - SV LVOT 82.34 ml - EMMY (continuity Vmax) 2.14 cm2 - EMMY (continuity VTI) 3.14 cm2 - AR PHT 657.65 msec - AR peak gradient 67.31 mmHg - Ascending Ao 2.79 cm - Tricuspid Valve Name Value Normal Range TR Vmax 4.33 m/sec - TR peak gradient 75 mmHg - RAP 8 mmHg - RVSP 83 mmHg - IVC diameter 2.15 cm (1.2 - 2.3) Pulmonic Valve/Qp:Qs Name Value Normal Range PV Vmax 3.01 m/sec - PV VTI 86.98 cm - PV peak gradient 36.25 mmHg - PV mean gradient 29.37 mmHg - WI end-diastolic Vmax 1.69 m/sec - RVOT Vmax 0.36 m/sec - RVOT VTI 7.36 cm - RVOT peak gradient 0.52 mmHg - PV acceleration time 81.83 msec - [place]/IV: Voiding Method External Female Catheter Active Medications - Current Medications Current Medications: Generic Name Dose Route Start Last Admin Trade Name Freq PRN Reason Stop Dose Admin Acetaminophen 650 mg 09/17/20 03:32 Acetaminophen 325 Mg Tab PO Q4H PRN Pain MILD(1-3)/Fever >100.5/NIÑO Lipase/Protease/Amylase 1 each 09/21/20 10:00 Lipase 10,500/Protease 25,000/Amylase 43,750 (Units) Dr Og FEEDTUBE PRN PRN For Clogged Feeding Tube Apixaban 2.5 mg 09/26/20 22:00 Apixaban 2.5 Mg Tab PO 09/27/20 15:00 BID ON LICENSE OF [facility] Protocol Ascorbic Acid 250 mg 09/20/20 22:00 09/26/20 10:55 Ascorbic Acid 250 Mg Tab PO Not Given BID ON LICENSE OF [facility] Cholecalciferol 1,000 unit 09/21/20 10:00 09/26/20 11:21 Cholecalciferol (Vit D3) 1000 Unit (25 Mcg) Tab PO Not Given QDAY ON LICENSE OF [facility] Dextrose 0 ml 09/19/20 04:40 09/19/20 05:15 Dextrose 50% In Water (25gm) 50 Ml Syringe IV 50 ml Q30MIN PRN Administration Hypoglycemia Protocol Sodium Chloride 1,000 mls @ 50 mls/hr 09/26/20 12:00 09/26/20 11:54 Nacl 0.9% 1000 Ml IV 50 mls/hr DIRECT RIGO Administration Cefazolin Sodium 2 gm in 20 mls @ 80 mls/hr 09/26/20 12:00 Ancef/Sterile Water 2 Gm/20 Ml IV 09/26/20 23:00 PREOP NR Protocol Insulin Human Lispro 0 unit 09/25/20 11:30 09/26/20 13:32 Insulin Lispro 100 Unit/Ml SUB-Q Not Given ACHS ON LICENSE OF [facility] Protocol Lansoprazole 30 mg 09/23/20 10:00 09/26/20 10:55 Lansoprazole 30 Mg Solutab FEEDTUBE Not Given QDAY ON LICENSE OF [facility] Magnesium Hydroxide 30 ml 09/17/20 03:32 Magnesium Hydroxide (Mom) Oral Liqd Udc PO Q4H PRN Constipation Metoprolol Tartrate 25 mg 09/22/20 11:00 09/26/20 10:55 Metoprolol Tartrate 25 Mg Tab FEEDTUBE Not Given BID ON LICENSE OF [facility] Morphine Sulfate 2 mg 09/17/20 03:32 Morphine 2 Mg/1 Ml Inj IV Q4H PRN Pain, Moderate (4-6) Ondansetron HCl 4 mg 09/17/20 03:32 Ondansetron 4 Mg/2 Ml Inj IV Q8H PRN Nausea And Vomiting Pravastatin Sodium 40 mg 09/17/20 22:00 09/25/20 22:30 Pravastatin 40 Mg Tab PO 40 mg QHS RIGO Administration Simple Syrup 15 ml 09/21/20 09:46 Simple Syrup 15 Ml FEEDTUBE PRN PRN Hypoglycemia Simple Syrup 30 ml 09/21/20 09:46 Simple Syrup 15 Ml FEEDTUBE PRN PRN Hypoglycemia Sodium Bicarbonate 325 mg 09/21/20 09:46 Sodium Bicarbonate 325 Mg Tab FEEDTUBE PRN PRN For Clogged Feeding Tube Sodium Chloride 10 ml 09/17/20 10:00 09/26/20 11:03 Sodium Chloride 0.9% 10 Ml Flush Syringe IV 10 ml BID RIGO Administration Sodium Chloride 10 ml 09/17/20 03:32 Sodium Chloride 0.9% 10 Ml Flush Syringe IV PRN PRN LINE FLUSH Zinc Sulfate 220 mg 09/20/20 22:00 09/26/20 11:21 Zinc Sulfate 220 Mg Cap PO Not Given BID RIGO Nutrition/Malnutrition Assess - Dietary Evaluation Nutrition/Malnutrition Findings: Nutrition Notes Start: 09/21/20 09:22 Freq: Status: Active Protocol: Document 09/26/20 09:53 AT (Rec: 09/26/20 10:04 AT [id number]) Co-Sign 09/26/20 09:53 CW Nutrition Notes Initial or Follow up Reassessment Current Diagnosis Acute Kidney Injury,Decubitus( Pressure Ulcer),Sepsis, Hypertension,Hyperlipidemia Other Pertinent Diagnosis Dementia, COVID(+), UTI, AMS, A-fib Current Diet NPO Labs/Tests Na 142 Pertinent Medications Reviewed Height 5 ft 2 in Weight 72.2 kg [place] Body Weight (kg) 50.00 BMI 29.1 Weight change and time frame 12% weight loss x 3 days ( possibly due to errors) Weight Status Overweight Subjective/Other Information Follow up for flushes and Na. Pt's Na is WNL. Last flush given was 400mL, pt now NPO for a procedure this morning. As of 23:28 09/25, pt was on Osmolite 1.5 at goal rate and tolerating the feeds. Percent of energy/protein needs met: 0%/0% Burn Absent Trauma Absent Current % PO Negligible Minimum of two criteria Yes Interpretation of Weight Loss (severe) >2% in 1 week Fluid Accumulation Mild (non-severe) Reduced Bingo Manager Strength Measurably Reduced (severe) #3 Nutrition Diagnosis Increased nutrient needs ( specify in comment below) Diagnosis Progress(for reassessment Continues documentation) #2 Nutrition Diagnosis Malnutrition As Evidenced by Signs and Symptoms possible weight loss of 12% Diagnosis Progress(for reassessment Worsened documentation) #1 Nutrition Diagnosis Inadequate oral intake Diagnosis Progress(for reassessment Continues documentation) Is patient on ventilator? No Is Patient Ambulatory and/or Out of Bed No REE-([facility]-confined to bed) 1392.924 Calculation Used for Recommendations [facility] Additional Notes PRO needs: 58-108g (0.8-1.5g/ kg ABW) Fluid needs: 1 mL/kcal or per MD Nutrition Intervention Change Diet Order: Resume TF Nutrition Support: Osmolite 1.5 at 40ml/hr Flush 120 ml q4h Kcal 1,440 Protein (gm) 60 Fluid (mL) 732 Add Supplement/Snack (indicate name/kcal [place] BID /protein ) Provides kCal: 190 Provides Protein (gm) 5 Goal #1 TF tolerance Goal #2 Wound healing Goal #3 Meet at least 75% of estimated energy and protein needs via TF Anticipated Discharge Needs: Unable to determine at this time Follow-Up By: 09/30/20 Additional Comments F/U TF restart/tolerance, weight stabilization <BERNADETTE HAGEN - Last Filed: 09/27/20 07:33> Assessment and Plan Assessment and plan: I agree with history, examination and assessment and plan as written by Nidia Ragland NP. Resume Eliquis and stop after Tuesday a.m. dose for procedure on Tuesday N.p.o. after midnight on Tuesday Hospitalist Physical - Constitutional Vitals: Temp Pulse Resp BP Pulse Ox 97.1 F L 60 18 116/26 96 09/26/20 22:39 09/26/20 22:55 09/26/20 22:39 09/26/20 22:55 09/26/20 22:39 HEART Score - HEART Score Troponin: Troponin T 0.029 ng/mL (0.00-0.029) 09/16/20 23:05 Results - Labs CBC & Chem 7: 09/27/20 04:43 09/27/20 04:43 Labs: Laboratory Last Values WBC 10.5 K/mm3 (4.5-11.0) 09/27/20 04:43 RBC 3.27 M/mm3 (3.65-5.03) L 09/27/20 04:43 Hgb 10.3 gm/dl (10.1-14.3) 09/27/20 04:43 Hct 31.5 % (30.3-42.9) 09/27/20 04:43 MCV 96 fl (79-97) 09/27/20 04:43 MCH 32 pg (28-32) 09/27/20 04:43 MCHC 33 % (30-34) 09/27/20 04:43 RDW 16.7 % (13.2-15.2) H 09/27/20 04:43 Plt Count 221 K/mm3 (140-440) 09/27/20 04:43 Lymph % (Auto) 19.0 % (13.4-35.0) 09/24/20 15:25 [place] % (Auto) 2.7 % (0.0-7.3) 09/24/20 15:25 Eos % (Auto) 0.2 % (0.0-4.3) 09/24/20 15:25 Baso % (Auto) 0.8 % (0.0-1.8) 09/24/20 15:25 Lymph # (Auto) 2.0 K/mm3 (1.2-5.4) 09/24/20 15:25 [place] # (Auto) 0.3 K/mm3 (0.0-0.8) 09/24/20 15:25 Eos # (Auto) 0.0 K/mm3 (0.0-0.4) 09/24/20 15:25 Baso # (Auto) 0.1 K/mm3 (0.0-0.1) 09/24/20 15:25 Seg Neutrophils % 77.3 % (40.0-70.0) H 09/24/20 15:25 Seg Neutrophils # 7.9 K/mm3 (1.8-7.7) H 09/24/20 15:25 PT 14.2 Sec. (12.2-14.9) 09/27/20 04:43 INR 1.11 (0.87-1.13) 09/27/20 04:43 APTT 37.4 Sec. (24.2-36.6) H 09/20/20 13:06 D-Dimer 425.43 ng/mlDDU (0-234) H 09/16/20 21:28 Heparin Anti-Xa Level 0.32 U.I./ml (0.3-0.7) 09/22/20 07:58 Sodium 140 mmol/L (137-145) 09/27/20 04:43 Potassium 4.3 mmol/L (3.6-5.0) 09/27/20 04:43 Chloride 105.0 mmol/L (98-107) 09/27/20 04:43 Carbon Dioxide 28 mmol/L (22-30) 09/27/20 04:43 Anion Gap 11 mmol/L 09/27/20 04:43 BUN 22 mg/dL (7-17) H 09/27/20 04:43 Creatinine 0.9 mg/dL (0.6-1.2) 09/27/20 04:43 Estimated GFR > 60 ml/min 09/27/20 04:43 BUN/Creatinine Ratio 24 % 09/27/20 04:43 Glucose 92 mg/dL (65-100) 09/27/20 04:43 POC Glucose 145 mg/dL (70-105) H 09/26/20 22:36 Lactic Acid 0.90 mmol/L (0.7-2.0) 09/17/20 14:35 Calcium 8.7 mg/dL (8.4-10.2) 09/27/20 04:43 Ferritin 374.8 ng/mL (10.0-200.0) H 09/16/20 21:28 Total Bilirubin 0.50 mg/dL (0.1-1.2) 09/24/20 15:25 AST 106 units/L (5-40) H 09/24/20 15:25 ALT 98 units/L (7-56) H 09/24/20 15:25 Alkaline Phosphatase 73 units/L (35-129) 09/24/20 15:25 Ammonia 24.0 umol/L (25-60) L 09/25/20 07:57 Lactate Dehydrogenase 179 units/L (91-180) 09/16/20 23:05 Troponin T 0.029 ng/mL (0.00-0.029) 09/16/20 23:05 C-Reactive Protein 14.90 mg/dL (0.00-1.30) H 09/16/20 23:05 Total Protein 6.0 g/dL (6.3-8.2) L 09/24/20 15:25 Albumin 2.9 g/dL (3.9-5) L 09/24/20 15:25 Albumin/Globulin Ratio 0.9 % 09/24/20 15:25 Procalcitonin 0.07 ng/mL (<0.15) 09/24/20 15:25 Urine Color Yellow (Yellow) 09/24/20 22:50 Urine Turbidity Clear (Clear) 09/24/20 22:50 Urine pH 7.0 (5.0-7.0) 09/24/20 22:50 Ur Specific [place] 1.016 (1.003-1.030) 09/24/20 22:50 Urine Protein 30 mg/dl mg/dL (Negative) 09/24/20 22:50 Urine Glucose (UA) >=500 mg/dL (Negative) 09/24/20 22:50 Urine Ketones Neg mg/dL (Negative) 09/24/20 22:50 Urine Blood Neg (Negative) 09/24/20 22:50 Urine Nitrite Neg (Negative) 09/24/20 22:50 Urine Bilirubin Neg (Negative) 09/24/20 22:50 Urine Urobilinogen < 2.0 mg/dL (<2.0) 09/24/20 22:50 Ur Leukocyte Esterase Neg (Negative) 09/24/20 22:50 Urine WBC (Auto) 1.0 /HPF (0.0-6.0) 09/24/20 22:50 Urine RBC (Auto) 1.0 /HPF (0.0-6.0) 09/24/20 22:50 U Epithel Cells (Auto) < 1.0 /HPF (0-13.0) 09/24/20 22:50 Urine Bacteria (Auto) 1+ /HPF (Negative) 09/17/20 Unknown Urine Mucus 2+ /HPF 09/17/20 Unknown Urine Yeast (Budding) 1+ /HPF 09/17/20 Unknown Urine Osmolality 1096 Mosm/kg 09/19/20 17:35 Urine Creatinine 179.4 mg/dL (0.1-20.0) H 09/19/20 17:35 Urine Sodium 193 mmol/L 09/19/20 17:35 Coronavirus (PCR) Positive (Negative) A 09/19/20 11:00 Microbiology: Microbiology 09/24/20 15:40 Peripheral/Venous Blood Culture - Preliminary NO GROWTH AFTER 48 HOURS 09/24/20 15:25 Peripheral/Venous Blood Culture - Preliminary NO GROWTH AFTER 48 HOURS - Diagnostic Impressions Diagnostic Impressions: Echocardiogram 09/20/20 10:42 Transthoracic Echocardiogram Indication: A FIB BP: 151/87 HR: 86 Conclusions *Global left ventricular systolic function is normal. *The estimated ejection fraction is 50-55%. *The right ventricular global systolic function is normal. *The aortic valve is not well visualized. *There is mild aortic regurgitation. *Mild aortic leaflet calcification is visualized. *There is mild mitral regurgitation. *There is mild to moderate pulmonic regurgitation. *There is evidence of moderate pulmonary hypertension. Findings Procedure Info: The study quality is fair. Left Ventricle: The left ventricular chamber size is normal. There is no left ventricular hypertrophy. Global left ventricular wall motion and contractility are within normal limits. Global left ventricular systolic function is normal. The estimated ejection fraction is 50-55%. Abnormal left ventricular diastolic function is observed. Left Atrium: The left atrium is severely dilated. Right Ventricle: The right ventricular cavity size is normal. The right ventricular global systolic function is normal. Right Atrium: The right atrial cavity size is normal. Aortic Valve: The aortic valve is not well visualized. Mild aortic leaflet calcification is visualized. There is mild aortic regurgitation. Mitral Valve: There is mitral annular calcification. The mitral valve leaflets are mildly thickened. There is mild mitral regurgitation. Tricuspid Valve: The tricuspid valve appears normal in structure and function. There is moderate tricuspid regurgitation. There is evidence of moderate pulmonary hypertension. Pulmonic Valve: The pulmonic valve is not well visualized.High gradients seen can not rule out stenosis There is mild to moderate pulmonic regurgitation. Pericardium: There is no pericardial effusion. Aorta: The aorta appears normal. Pulmonary Artery: The main pulmonary artery is not well visualized. Venous: The inferior vena cava appears abnormal. The inferior vena cava is dilated. There is less than 50% respiratory change in the inferior vena cava dimension. Measurements Chambers 2D Name Value Normal Range IVSd (2D) 0.89 cm (0.6 - 1.1) LVPWd (2D) 0.84 cm (0.6 - 1.1) LVIDd (2D) 4.67 cm (3.7 - 5.6) LVIDs (2D) 3.42 cm (2 - 3.8) LV FS (2D) 26.77 % - EF Teichholz (2D) 52.3 % - Ao root diameter (2D) 3.07 cm (2 - 3.7) Volumes/Mass Name Value Normal Range LA ESV SP 4CH (A/L) 78.85 ml - LA ESV SP 2CH (A/L) 111.2 ml - LA ESV BP (A/L) 93.86 ml - LA ESV BP (A/L) index 51.57 ml/m2 - LA ESV SP 4CH (MOD) 69.77 ml - LA ESV SP 2CH (MOD) 105.54 ml - LA ESV BP (MOD) 85.78 ml - LA ESV BP (MOD) index 47.13 ml/m2 - LV EDV SP 4CH (MOD) 68.03 ml - LV ESV SP 4CH (MOD) 31.63 ml - EF SP 4CH (MOD) 53.5 % - LV EDV SP 2CH (MOD) 68.71 ml - LV ESV SP 2CH (MOD) 28.59 ml - EF SP 2CH (MOD) 58.39 % - LV EDV BP 68.15 ml - LV ESV BP 30.43 ml - BP EF (MOD) 55.34 % - Diastolic/Systolic Function Name Value Normal Range MV E-wave Vmax 0.99 m/sec - MV deceleration time 131.92 msec - MV A-wave Vmax 1.17 m/sec - MV E:A ratio 0.85 ratio - Aortic Valve Name Value Normal Range AV Vmax 1.38 m/sec - AV VTI 26.19 cm - AV peak gradient 7.59 mmHg - AV mean gradient 4.81 mmHg - LVOT diameter 2.19 cm - LVOT Vmax 0.78 m/sec - LVOT VTI 21.91 cm - LVOT peak gradient 2.46 mmHg - LVOT mean gradient 1.53 mmHg - SV LVOT 82.34 ml - EMMY (continuity Vmax) 2.14 cm2 - EMMY (continuity VTI) 3.14 cm2 - AR PHT 657.65 msec - AR peak gradient 67.31 mmHg - Ascending Ao 2.79 cm - Tricuspid Valve Name Value Normal Range TR Vmax 4.33 m/sec - TR peak gradient 75 mmHg - RAP 8 mmHg - RVSP 83 mmHg - IVC diameter 2.15 cm (1.2 - 2.3) Pulmonic Valve/Qp:Qs Name Value Normal Range PV Vmax 3.01 m/sec - PV VTI 86.98 cm - PV peak gradient 36.25 mmHg - PV mean gradient 29.37 mmHg - WI end-diastolic Vmax 1.69 m/sec - RVOT Vmax 0.36 m/sec - RVOT VTI 7.36 cm - RVOT peak gradient 0.52 mmHg - PV acceleration time 81.83 msec - Meriad/IV: Voiding Method Incontinent Active Medications - Current Medications Current Medications: Generic Name Dose Route Start Last Admin Trade Name Freq PRN Reason Stop Dose Admin Acetaminophen 650 mg 09/17/20 03:32 Acetaminophen 325 Mg Tab PO Q4H PRN Pain MILD(1-3)/Fever >100.5/NIÑO Lipase/Protease/Amylase 1 each 09/21/20 10:00 Lipase 10,500/Protease 25,000/Amylase 43,750 (Units) Dr Og FEEDTUBE PRN PRN For Clogged Feeding Tube Ascorbic Acid 250 mg 09/20/20 22:00 09/26/20 22:53 Ascorbic Acid 250 Mg Tab PO 250 mg BID RIGO Administration Cholecalciferol 1,000 unit 09/21/20 10:00 09/26/20 11:21 Cholecalciferol (Vit D3) 1000 Unit (25 Mcg) Tab PO Not Given QDAY RIGO Dextrose 0 ml 09/19/20 04:40 09/19/20 05:15 Dextrose 50% In Water (25gm) 50 Ml Syringe IV 50 ml Q30MIN PRN Administration Hypoglycemia Protocol Sodium Chloride 1,000 mls @ 50 mls/hr 09/26/20 12:00 09/27/20 04:02 Nacl 0.9% 1000 Ml IV 50 mls/hr DIRECT RIGO Administration Insulin Human Lispro 0 unit 09/25/20 11:30 09/26/20 22:52 Insulin Lispro 100 Unit/Ml SUB-Q Not Given ACHS RIGO Protocol Lansoprazole 30 mg 09/23/20 10:00 09/26/20 10:55 Lansoprazole 30 Mg Solutab FEEDTUBE Not Given QDAY RIGO Magnesium Hydroxide 30 ml 09/17/20 03:32 Magnesium Hydroxide (Mom) Oral Liqd Udc PO Q4H PRN Constipation Metoprolol Tartrate 25 mg 09/22/20 11:00 09/26/20 22:55 Metoprolol Tartrate 25 Mg Tab FEEDTUBE Not Given BID RIGO Morphine Sulfate 2 mg 09/17/20 03:32 Morphine 2 Mg/1 Ml Inj IV Q4H PRN Pain, Moderate (4-6) Ondansetron HCl 4 mg 09/17/20 03:32 Ondansetron 4 Mg/2 Ml Inj IV Q8H PRN Nausea And Vomiting Pravastatin Sodium 40 mg 09/17/20 22:00 09/26/20 22:53 Pravastatin 40 Mg Tab PO 40 mg QHS RIGO Administration Simple Syrup 15 ml 09/21/20 09:46 Simple Syrup 15 Ml FEEDTUBE PRN PRN Hypoglycemia Simple Syrup 30 ml 09/21/20 09:46 Simple Syrup 15 Ml FEEDTUBE PRN PRN Hypoglycemia Sodium Bicarbonate 325 mg 09/21/20 09:46 Sodium Bicarbonate 325 Mg Tab FEEDTUBE PRN PRN For Clogged Feeding Tube Sodium Chloride 10 ml 09/17/20 10:00 09/26/20 22:53 Sodium Chloride 0.9% 10 Ml Flush Syringe IV 10 ml BID RIGO Administration Sodium Chloride 10 ml 09/17/20 03:32 Sodium Chloride 0.9% 10 Ml Flush Syringe IV PRN PRN LINE FLUSH Zinc Sulfate 220 mg 09/20/20 22:00 09/26/20 22:49 Zinc Sulfate 220 Mg Cap PO 220 mg BID RIGO Administration Nutrition/Malnutrition Assess - Dietary Evaluation Nutrition/Malnutrition Findings: Nutrition Notes Start: 09/21/20 09:22 Freq: Status: Active Protocol: Document 09/26/20 09:53 AT (Rec: 09/26/20 10:04 AT [id number]) Co-Sign 09/26/20 09:53 CW Nutrition Notes Initial or Follow up Reassessment Current Diagnosis Acute Kidney Injury,Decubitus( Pressure Ulcer),Sepsis, Hypertension,Hyperlipidemia Other Pertinent Diagnosis Dementia, COVID(+), UTI, AMS, A-fib Current Diet NPO Labs/Tests Na 142 Pertinent Medications Reviewed Height 5 ft 2 in Weight 72.2 kg [place] Body Weight (kg) 50.00 BMI 29.1 Weight change and time frame 12% weight loss x 3 days ( possibly due to errors) Weight Status Overweight Subjective/Other Information Follow up for flushes and Na. Pt's Na is WNL. Last flush given was 400mL, pt now NPO for a procedure this morning. As of 23:28 09/25, pt was on Osmolite 1.5 at goal rate and tolerating the feeds. Percent of energy/protein needs met: 0%/0% Burn Absent Trauma Absent Current % PO Negligible Minimum of two criteria Yes Interpretation of Weight Loss (severe) >2% in 1 week Fluid Accumulation Mild (non-severe) Reduced Bingo Manager Strength Measurably Reduced (severe) #3 Nutrition Diagnosis Increased nutrient needs ( specify in comment below) Diagnosis Progress(for reassessment Continues documentation) #2 Nutrition Diagnosis Malnutrition As Evidenced by Signs and Symptoms possible weight loss of 12% Diagnosis Progress(for reassessment Worsened documentation) #1 Nutrition Diagnosis Inadequate oral intake Diagnosis Progress(for reassessment Continues documentation) Is patient on ventilator? No Is Patient Ambulatory and/or Out of Bed No REE-([facility]-confined to bed) 1392.924 Calculation Used for Recommendations [facility] Additional Notes PRO needs: 58-108g (0.8-1.5g/ kg ABW) Fluid needs: 1 mL/kcal or per MD Nutrition Intervention Change Diet Order: Resume TF Nutrition Support: Osmolite 1.5 at 40ml/hr Flush 120 ml q4h Kcal 1,440 Protein (gm) 60 Fluid (mL) 732 Add Supplement/Snack (indicate name/kcal [place] BID /protein ) Provides kCal: 190 Provides Protein (gm) 5 Goal #1 TF tolerance Goal #2 Wound healing Goal #3 Meet at least 75% of estimated energy and protein needs via TF Anticipated Discharge Needs: Unable to determine at this time Follow-Up By: 09/30/20 Additional Comments F/U TF restart/tolerance, weight stabilization
[2020-09-26] MEDS ORDERED: APIXABAN 2.5 MG TAB PO SCH (22:00)
[2020-09-26] MEDS: PRAVASTATIN 40 MG TAB PO SCH (22:53)
[2020-09-27] MEDS: SODIUM CHLORIDE 0.9% 1000 ML 1,000 ML IV SCH ×2 (04:02→22:26)
[2020-09-27 06:25] LABS: Hematocrit 31.5 % (30.3-42.9); Hemoglobin 10.3 gm/dl (10.1-14.3); Mean Corpuscular HGB Conc 33 % (30-34); Mean Corpuscular Volume 96 fl (79-97); Platelet Count 221 K/mm3 (140-440); Red Blood Count 3.27 M/mm3 (3.65-5.03); Red Cell Distribution Width 16.7 % (13.2-15.2)
[2020-09-27 06:35] LABS: INR 1.11 (0.87-1.13)
[2020-09-27 06:36] LABS: BUN/Creatinine Ratio 24; Blood Urea Nitrogen 22 mg/dL (7-17); Calcium 8.7 mg/dL (8.4-10.2); Hemolysis Index 1
[2020-09-27] MEDS: LANSOPRAZOLE 30 MG SOLUTAB FEEDTUBE SCH (09:40)
[2020-09-27] MEDS: ASCORBIC ACID 250 MG TAB PO SCH ×2 (09:40→21:09)
[2020-09-27] MEDS: ZINC SULFATE 220 MG CAP PO SCH ×2 (09:40→21:10)
[2020-09-27] MEDS: METOPROLOL TARTRATE 25 MG TAB FEEDTUBE SCH ×2 (09:40→22:11)
[2020-09-27] MEDS: CHOLECALCIFEROL (VIT D3) 1000 UNIT (25 mcg) TAB PO SCH (09:41)
[2020-09-27] MEDS: INSULIN LISPRO 100 UNIT/ML SUB-Q SCH ×4 (09:46→22:45)
[2020-09-27] MEDS ORDERED: APIXABAN 5 MG TAB PO SCH (10:00)
--- NOTE | 2020-09-27 12:12 | Progress Note ---
Assessment and Plan Assessment and plan: Sepsis -Presented with hypotension, acute kidney injury, and possible developing pneumonia on CXR -S/p 2.4 L normal saline in the emergency department -Infectious disease consulted, appreciate recommendations -Antibiotic therapy -09/16 blood cultures x2 NGTD COVID-19 pneumonia -09/17 COVID-19 PCR negative -09/19 COVID 19 PCR positive -Infectious disease consulted, patient recommendations -S/p antibiotic therapy -Droplet/isolation precautions -Pulmonary hygiene -OOB 3 times daily -Prone to sleep as needed -Supplemental oxygen as needed -Anticoagulation per protocol -Trend COVID- inflammatory markers for risk stratification -Vitamin C, D and zinc Pneumonia -09/17 CXR shows possible developing pneumonia -09/24 CXR shows left-sided airspace disease improvement since but has not completely resolved -s/p Antibiotic therapy -Pulmonary hygiene -SPO2 monitoring A. fib with RVR -Patient has a history of atrial fibrillation is on beta-blockers and anticoagulation -09/19 patient noted to be in A. fib with RVR -Cardiology consult, appreciate recommendations -S/p heparin drip -Per oncology: Okay to take Eliquis 2.5 twice daily as long as platelet count is greater than 30 -09/20 TTE shows ejection fraction 55%, mild AR, mild MR, moderate TR, mild to moderate [place] with mild pulmonary hypertension and RVSP calculated at 83 mmHg. -S/p amiodarone, IV digoxin and beta-jennifer -Now rate controlled Dementia -Supportive care -Verbal de-escalation and redirection as needed -Fall, aspiration precautions -Supportive care -GI consulted for PEG tube placement -09/24 CT head/brain shows moderate microvascular angiopathy with mild cerebral atrophy without clear CT evidence of acute intracranial hemorrhage and mild interval increase in size of extra-axial lesion along the anterior right flax currently measuring 0.7 x 1.6 cm most consistent with a meningioma which was previously 0.5 x 1.2 cm -Outpatient neurosurgery follow-up recommended Hypertension -Hold antihypertensives in setting of hypotension -Blood pressure monitoring per protocol GERD -Continue PPI -Changed to Protonix due to thrombocytopenia Hyperlipidemia -Continue statin therapy DVT prophylaxis -GI prophylaxis -Subcu heparin -SCDs to bilateral lower extremities while in bed History Interval history: This is a 80-year-old female with hypertension, GERD, colon cancer s/p resection, dementia and former smoker who presented to the emergency department with shortness of breath, decreased appetite and decreased p.o. intake over the past few days. Patient tested positive for urinary tract infection on home test kit and was subsequently started on oral Levaquin 500 mg daily for the past 3 days. Work-up in the emergency department revealed acute kidney injury, pyuria, possible developing pneumonia or aspiration, enlarged left middle mediastinum suggesting adenopathies. Patient was admitted to the hospital service for pneumonia as a COVID-19 PUI. Infectious disease was consulted. 09/17: Patient is on room air at the time my examination entry COVID-19 PCR resulted as negative. Patient will be transferred to medical floor. Infectious disease has stopped azithromycin continue ceftriaxone for possible urinary tract infection. We have also ordered a repeat COVID-19 PCR 09/18: No acute events reported overnight. Patient still remains in bilateral mittens-repeat COVID-19 PCR will need to be repeated tomorrow per hospital policy.This morning patient has leukopenia, hypernatremia, hyperchloremia but her acute kidney injury has improved. 09/19: Patient noted to be in atrial fibrillation with RVR this morning around 0600 and cardiology was consulted. Patient has been started on amiodarone drip after bolus. ST was consulted today for decreased p.o. intake as the patient was placed on MIVF due to persistent hypoglycemia yesterday. Her hyperchloremia and hypernatremia have improved however she is hypokalemic on her creatinine/BUN have increased. ST has recommended PEG tube placement. Patient's family unable to be contacted for update, confirmation of history or possible PEG tube placement. Her daughter was called several times today by PROTOTYPE MACHINE OPERATOR. Patient's repeat COVID-19 PCR is pending. She was given a 250 ml normal saline bolus due to hypotension. Repeat CMP in the a.m. Heme/Onc consulted for thrombocytopenia. 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 Start heparin drip for new onset afib with RVR and Eliquis 2.5 mg p.o. twice daily at discharge. Wean IV amiodarone and start digoxin and Lopressor IV per Cardiology. Continue ceftriaxone for total of 3 days for UTI per ID recommendations. Continue to follow blood and urine cultures. Follow-up repeat Covid testing today. PEG placement per Speech recommendations. 09/21: Await echocardiogram. Continue heparin drip for new onset atrial fibrillation with RVR and transition to Eliquis at discharge. Cardiology stopped IV amiodarone but will continue with IV digoxin and Lopressor until NG tube placement. NG tube placement ordered this morning. GI consultation pending for PEG placement. Repeat Covid testing positive on 09/19. DC Solu- Medrol 40 mg every 8 hours and start dexamethasone 6 mg IV daily. ? Remdesivir given renal insufficiency and will assess for hypoxia. ID following 09/22: Patient's hypernatremia slightly improved however she remains with hyperkalemia and MINERVA slightly improved. Patient is minimally interactive and remains on room air. No acute events reported overnight. GI consulted regarding PEG tube placement 09/23: Patient hypernatremia and hyperchloremia worsened therefore she was started on 400 mL FWF every 8 hours and her MINERVA slightly improved. No acute events reported overnight. Patient still remains minimally interactive and on r oom air. 09/24: With increase of FWF and hypotonic IVF patients hyper natremia resolved yesterday evening and her hyperchloremia has improved. This morning the hypotonic IVF was discontinued. Her BUN/creatinine also improved. Per GI in order for PEG tube placement patient is Eliquis has to be held for 2 days prior. Patient remains on room air with no acute events reported overnight. CTH, CXR, NH3 and repeat BC x2 pending 09/25: Peg placement consent obtained by Severino HANNA holding for procedure. Remains on RA with selective interaction. No acute events reported overnight. CXR has improved, CTH shows slight increase in extra-axial lesion. No acute events reported overnight. She will need follow up with neurosurgery in the office 09/26: No acute events reported overnight. Patient was supposed to have a PEG tube placement today however this has been delayed till this weekend. We will continue to withhold Eliquis. Patient will be n.p.o. after midnight. ID has signed off today. 09/27: No acute events noted overnight. Plan for PEG placement on Tuesday. NPO after midnight on 09/29. Hospitalist Physical - Physical exam Narrative exam: VITAL SIGNS: Reviewed. GENERAL: Awake HEAD: No signs of head trauma. EYES: Pupils are equal. Extraocular motions intact. MOUTH: Oropharynx is normal. NECK: No adenopathy, no JVD. CHEST: Chest with diminished breath sounds bilaterally. No wheezes, rales, or rhonchi. CARDIAC: normal S1 and S2, without murmurs, gallops, or rubs. ABDOMEN: Soft, non tender and non distended. No rebound or guarding, and no masses palpated. Bowel Sounds normal. MUSCULOSKELETAL: No edema NEUROLOGIC EXAM: Alert and oriented x3. No focal neurologic deficits SKIN: No obvious lesions - Constitutional Vitals: Temp Pulse Resp BP Pulse Ox 97.1 F L 59 L 18 140/36 96 09/26/20 22:39 09/27/20 09:40 09/26/20 22:39 09/27/20 09:40 09/26/20 22:39 HEART Score - HEART Score Troponin: Troponin T 0.029 ng/mL (0.00-0.029) 09/16/20 23:05 Results - Labs CBC & Chem 7: 09/27/20 04:43 09/27/20 04:43 Labs: Laboratory Last Values WBC 10.5 K/mm3 (4.5-11.0) 09/27/20 04:43 RBC 3.27 M/mm3 (3.65-5.03) L 09/27/20 04:43 Hgb 10.3 gm/dl (10.1-14.3) 09/27/20 04:43 Hct 31.5 % (30.3-42.9) 09/27/20 04:43 MCV 96 fl (79-97) 09/27/20 04:43 MCH 32 pg (28-32) 09/27/20 04:43 MCHC 33 % (30-34) 09/27/20 04:43 RDW 16.7 % (13.2-15.2) H 09/27/20 04:43 Plt Count 221 K/mm3 (140-440) 09/27/20 04:43 Lymph % (Auto) 19.0 % (13.4-35.0) 09/24/20 15:25 [place] % (Auto) 2.7 % (0.0-7.3) 09/24/20 15:25 Eos % (Auto) 0.2 % (0.0-4.3) 09/24/20 15:25 Baso % (Auto) 0.8 % (0.0-1.8) 09/24/20 15:25 Lymph # (Auto) 2.0 K/mm3 (1.2-5.4) 09/24/20 15:25 [place] # (Auto) 0.3 K/mm3 (0.0-0.8) 09/24/20 15:25 Eos # (Auto) 0.0 K/mm3 (0.0-0.4) 09/24/20 15:25 Baso # (Auto) 0.1 K/mm3 (0.0-0.1) 09/24/20 15:25 Seg Neutrophils % 77.3 % (40.0-70.0) H 09/24/20 15:25 Seg Neutrophils # 7.9 K/mm3 (1.8-7.7) H 09/24/20 15:25 PT 14.2 Sec. (12.2-14.9) 09/27/20 04:43 INR 1.11 (0.87-1.13) 09/27/20 04:43 APTT 37.4 Sec. (24.2-36.6) H 09/20/20 13:06 D-Dimer 425.43 ng/mlDDU (0-234) H 09/16/20 21:28 Heparin Anti-Xa Level 0.32 U.I./ml (0.3-0.7) 09/22/20 07:58 Sodium 140 mmol/L (137-145) 09/27/20 04:43 Potassium 4.3 mmol/L (3.6-5.0) 09/27/20 04:43 Chloride 105.0 mmol/L (98-107) 09/27/20 04:43 Carbon Dioxide 28 mmol/L (22-30) 09/27/20 04:43 Anion Gap 11 mmol/L 09/27/20 04:43 BUN 22 mg/dL (7-17) H 09/27/20 04:43 Creatinine 0.9 mg/dL (0.6-1.2) 09/27/20 04:43 Estimated GFR > 60 ml/min 09/27/20 04:43 BUN/Creatinine Ratio 24 % 09/27/20 04:43 Glucose 92 mg/dL (65-100) 09/27/20 04:43 POC Glucose 95 mg/dL (70-105) 09/27/20 07:39 Lactic Acid 0.90 mmol/L (0.7-2.0) 09/17/20 14:35 Calcium 8.7 mg/dL (8.4-10.2) 09/27/20 04:43 Ferritin 374.8 ng/mL (10.0-200.0) H 09/16/20 21:28 Total Bilirubin 0.50 mg/dL (0.1-1.2) 09/24/20 15:25 AST 106 units/L (5-40) H 09/24/20 15:25 ALT 98 units/L (7-56) H 09/24/20 15:25 Alkaline Phosphatase 73 units/L (35-129) 09/24/20 15:25 Ammonia 24.0 umol/L (25-60) L 09/25/20 07:57 Lactate Dehydrogenase 179 units/L (91-180) 09/16/20 23:05 Troponin T 0.029 ng/mL (0.00-0.029) 09/16/20 23:05 C-Reactive Protein 14.90 mg/dL (0.00-1.30) H 09/16/20 23:05 Total Protein 6.0 g/dL (6.3-8.2) L 09/24/20 15:25 Albumin 2.9 g/dL (3.9-5) L 09/24/20 15:25 Albumin/Globulin Ratio 0.9 % 09/24/20 15:25 Procalcitonin 0.07 ng/mL (<0.15) 09/24/20 15:25 Urine Color Yellow (Yellow) 09/24/20 22:50 Urine Turbidity Clear (Clear) 09/24/20 22:50 Urine pH 7.0 (5.0-7.0) 09/24/20 22:50 Ur Specific [place] 1.016 (1.003-1.030) 09/24/20 22:50 Urine Protein 30 mg/dl mg/dL (Negative) 09/24/20 22:50 Urine Glucose (UA) >=500 mg/dL (Negative) 09/24/20 22:50 Urine Ketones Neg mg/dL (Negative) 09/24/20 22:50 Urine Blood Neg (Negative) 09/24/20 22:50 Urine Nitrite Neg (Negative) 09/24/20 22:50 Urine Bilirubin Neg (Negative) 09/24/20 22:50 Urine Urobilinogen < 2.0 mg/dL (<2.0) 09/24/20 22:50 Ur Leukocyte Esterase Neg (Negative) 09/24/20 22:50 Urine WBC (Auto) 1.0 /HPF (0.0-6.0) 09/24/20 22:50 Urine RBC (Auto) 1.0 /HPF (0.0-6.0) 09/24/20 22:50 U Epithel Cells (Auto) < 1.0 /HPF (0-13.0) 09/24/20 22:50 Urine Bacteria (Auto) 1+ /HPF (Negative) 09/17/20 Unknown Urine Mucus 2+ /HPF 09/17/20 Unknown Urine Yeast (Budding) 1+ /HPF 09/17/20 Unknown Urine Osmolality 1096 Mosm/kg 09/19/20 17:35 Urine Creatinine 179.4 mg/dL (0.1-20.0) H 09/19/20 17:35 Urine Sodium 193 mmol/L 09/19/20 17:35 Coronavirus (PCR) Positive (Negative) A 09/19/20 11:00 Microbiology: Microbiology 09/24/20 15:40 Peripheral/Venous Blood Culture - Preliminary NO GROWTH AFTER 48 HOURS 09/24/20 15:25 Peripheral/Venous Blood Culture - Preliminary NO GROWTH AFTER 48 HOURS - Diagnostic Impressions Diagnostic Impressions: Echocardiogram 09/20/20 10:42 Transthoracic Echocardiogram Indication: A FIB BP: 151/87 HR: 86 Conclusions *Global left ventricular systolic function is normal. *The estimated ejection fraction is 50-55%. *The right ventricular global systolic function is normal. *The aortic valve is not well visualized. *There is mild aortic regurgitation. *Mild aortic leaflet calcification is visualized. *There is mild mitral regurgitation. *There is mild to moderate pulmonic regurgitation. *There is evidence of moderate pulmonary hypertension. Findings Procedure Info: The study quality is fair. Left Ventricle: The left ventricular chamber size is normal. There is no left ventricular hypertrophy. Global left ventricular wall motion and contractility are within normal limits. Global left ventricular systolic function is normal. The estimated ejection fraction is 50-55%. Abnormal left ventricular diastolic function is observed. Left Atrium: The left atrium is severely dilated. Right Ventricle: The right ventricular cavity size is normal. The right ventricular global systolic function is normal. Right Atrium: The right atrial cavity size is normal. Aortic Valve: The aortic valve is not well visualized. Mild aortic leaflet calcification is visualized. There is mild aortic regurgitation. Mitral Valve: There is mitral annular calcification. The mitral valve leaflets are mildly thickened. There is mild mitral regurgitation. Tricuspid Valve: The tricuspid valve appears normal in structure and function. There is moderate tricuspid regurgitation. There is evidence of moderate pulmonary hypertension. Pulmonic Valve: The pulmonic valve is not well visualized.High gradients seen can not rule out stenosis There is mild to moderate pulmonic regurgitation. Pericardium: There is no pericardial effusion. Aorta: The aorta appears normal. Pulmonary Artery: The main pulmonary artery is not well visualized. Venous: The inferior vena cava appears abnormal. The inferior vena cava is dilated. There is less than 50% respiratory change in the inferior vena cava dimension. Measurements Chambers 2D Name Value Normal Range IVSd (2D) 0.89 cm (0.6 - 1.1) LVPWd (2D) 0.84 cm (0.6 - 1.1) LVIDd (2D) 4.67 cm (3.7 - 5.6) LVIDs (2D) 3.42 cm (2 - 3.8) LV FS (2D) 26.77 % - EF Teichholz (2D) 52.3 % - Ao root diameter (2D) 3.07 cm (2 - 3.7) Volumes/Mass Name Value Normal Range LA ESV SP 4CH (A/L) 78.85 ml - LA ESV SP 2CH (A/L) 111.2 ml - LA ESV BP (A/L) 93.86 ml - LA ESV BP (A/L) index 51.57 ml/m2 - LA ESV SP 4CH (MOD) 69.77 ml - LA ESV SP 2CH (MOD) 105.54 ml - LA ESV BP (MOD) 85.78 ml - LA ESV BP (MOD) index 47.13 ml/m2 - LV EDV SP 4CH (MOD) 68.03 ml - LV ESV SP 4CH (MOD) 31.63 ml - EF SP 4CH (MOD) 53.5 % - LV EDV SP 2CH (MOD) 68.71 ml - LV ESV SP 2CH (MOD) 28.59 ml - EF SP 2CH (MOD) 58.39 % - LV EDV BP 68.15 ml - LV ESV BP 30.43 ml - BP EF (MOD) 55.34 % - Diastolic/Systolic Function Name Value Normal Range MV E-wave Vmax 0.99 m/sec - MV deceleration time 131.92 msec - MV A-wave Vmax 1.17 m/sec - MV E:A ratio 0.85 ratio - Aortic Valve Name Value Normal Range AV Vmax 1.38 m/sec - AV VTI 26.19 cm - AV peak gradient 7.59 mmHg - AV mean gradient 4.81 mmHg - LVOT diameter 2.19 cm - LVOT Vmax 0.78 m/sec - LVOT VTI 21.91 cm - LVOT peak gradient 2.46 mmHg - LVOT mean gradient 1.53 mmHg - SV LVOT 82.34 ml - EMMY (continuity Vmax) 2.14 cm2 - EMMY (continuity VTI) 3.14 cm2 - AR PHT 657.65 msec - AR peak gradient 67.31 mmHg - Ascending Ao 2.79 cm - Tricuspid Valve Name Value Normal Range TR Vmax 4.33 m/sec - TR peak gradient 75 mmHg - RAP 8 mmHg - RVSP 83 mmHg - IVC diameter 2.15 cm (1.2 - 2.3) Pulmonic Valve/Qp:Qs Name Value Normal Range PV Vmax 3.01 m/sec - PV VTI 86.98 cm - PV peak gradient 36.25 mmHg - PV mean gradient 29.37 mmHg - WV end-diastolic Vmax 1.69 m/sec - RVOT Vmax 0.36 m/sec - RVOT VTI 7.36 cm - RVOT peak gradient 0.52 mmHg - PV acceleration time 81.83 msec - [place]/IV: Voiding Method Incontinent Active Medications - Current Medications Current Medications: Generic Name Dose Route Start Last Admin Trade Name Freq PRN Reason Stop Dose Admin Acetaminophen 650 mg 09/17/20 03:32 Acetaminophen 325 Mg Tab PO Q4H PRN Pain MILD(1-3)/Fever >100.5/NIÑO Lipase/Protease/Amylase 1 each 09/21/20 10:00 Lipase 10,500/Protease 25,000/Amylase 43,750 (Units) Dr Og FEEDTUBE PRN PRN For Clogged Feeding Tube Ascorbic Acid 250 mg 09/20/20 22:00 09/27/20 09:40 Ascorbic Acid 250 Mg Tab PO 250 mg BID RIGO Administration Cholecalciferol 1,000 unit 09/21/20 10:00 09/27/20 09:41 Cholecalciferol (Vit D3) 1000 Unit (25 Mcg) Tab PO 1,000 unit QDAY RIGO Administration Dextrose 0 ml 09/19/20 04:40 09/19/20 05:15 Dextrose 50% In Water (25gm) 50 Ml Syringe IV 50 ml Q30MIN PRN Administration Hypoglycemia Protocol Sodium Chloride 1,000 mls @ 50 mls/hr 09/26/20 12:00 09/27/20 04:02 Nacl 0.9% 1000 Ml IV 50 mls/hr DIRECT RIGO Administration Insulin Human Lispro 0 unit 09/25/20 11:30 09/27/20 09:46 Insulin Lispro 100 Unit/Ml SUB-Q Not Given ACHS RIGO Protocol Lansoprazole 30 mg 09/23/20 10:00 09/27/20 09:40 Lansoprazole 30 Mg Solutab FEEDTUBE 30 mg QDAY RIGO Administration Magnesium Hydroxide 30 ml 09/17/20 03:32 Magnesium Hydroxide (Mom) Oral Liqd Udc PO Q4H PRN Constipation Metoprolol Tartrate 25 mg 09/22/20 11:00 09/27/20 09:40 Metoprolol Tartrate 25 Mg Tab FEEDTUBE 25 mg BID RIGO Administration Morphine Sulfate 2 mg 09/17/20 03:32 Morphine 2 Mg/1 Ml Inj IV Q4H PRN Pain, Moderate (4-6) Ondansetron HCl 4 mg 09/17/20 03:32 Ondansetron 4 Mg/2 Ml Inj IV Q8H PRN Nausea And Vomiting Pravastatin Sodium 40 mg 09/17/20 22:00 09/26/20 22:53 Pravastatin 40 Mg Tab PO 40 mg QHS RIGO Administration Simple Syrup 15 ml 09/21/20 09:46 Simple Syrup 15 Ml FEEDTUBE PRN PRN Hypoglycemia Simple Syrup 30 ml 09/21/20 09:46 Simple Syrup 15 Ml FEEDTUBE PRN PRN Hypoglycemia Sodium Bicarbonate 325 mg 09/21/20 09:46 Sodium Bicarbonate 325 Mg Tab FEEDTUBE PRN PRN For Clogged Feeding Tube Sodium Chloride 10 ml 09/17/20 10:00 09/27/20 09:42 Sodium Chloride 0.9% 10 Ml Flush Syringe IV 10 ml BID RIGO Administration Sodium Chloride 10 ml 09/17/20 03:32 Sodium Chloride 0.9% 10 Ml Flush Syringe IV PRN PRN LINE FLUSH Zinc Sulfate 220 mg 09/20/20 22:00 09/27/20 09:40 Zinc Sulfate 220 Mg Cap PO 220 mg BID RIGO Administration Nutrition/Malnutrition Assess - Dietary Evaluation Nutrition/Malnutrition Findings: Nutrition Notes Start: 09/21/20 09:22 Freq: Status: Active Protocol: Document 09/26/20 09:53 AT (Rec: 09/26/20 10:04 AT [id number]) Co-Sign 09/26/20 09:53 CW Nutrition Notes Initial or Follow up Reassessment Current Diagnosis Acute Kidney Injury,Decubitus( Pressure Ulcer),Sepsis, Hypertension,Hyperlipidemia Other Pertinent Diagnosis Dementia, COVID(+), UTI, AMS, A-fib Current Diet NPO Labs/Tests Na 142 Pertinent Medications Reviewed Height 5 ft 2 in Weight 72.2 kg [place] Body Weight (kg) 50.00 BMI 29.1 Weight change and time frame 12% weight loss x 3 days ( possibly due to errors) Weight Status Overweight Subjective/Other Information Follow up for flushes and Na. Pt's Na is WNL. Last flush given was 400mL, pt now NPO for a procedure this morning. As of 23:28 09/25, pt was on Osmolite 1.5 at goal rate and tolerating the feeds. Percent of energy/protein needs met: 0%/0% Burn Absent Trauma Absent Current % PO Negligible Minimum of two criteria Yes Interpretation of Weight Loss (severe) >2% in 1 week Fluid Accumulation Mild (non-severe) Reduced [employer] Strength Measurably Reduced (severe) #3 Nutrition Diagnosis Increased nutrient needs ( specify in comment below) Diagnosis Progress(for reassessment Continues documentation) #2 Nutrition Diagnosis Malnutrition As Evidenced by Signs and Symptoms possible weight loss of 12% Diagnosis Progress(for reassessment Worsened documentation) #1 Nutrition Diagnosis Inadequate oral intake Diagnosis Progress(for reassessment Continues documentation) Is patient on ventilator? No Is Patient Ambulatory and/or Out of Bed No REE-([place]-St. Jeor-confined to bed) 1392.924 Calculation Used for Recommendations [place]-[facility] Jeor Additional Notes PRO needs: 58-108g (0.8-1.5g/ kg ABW) Fluid needs: 1 mL/kcal or per MD Nutrition Intervention Change Diet Order: Resume TF Nutrition Support: Osmolite 1.5 at 40ml/hr Flush 120 ml q4h Kcal 1,440 Protein (gm) 60 Fluid (mL) 732 Add Supplement/Snack (indicate name/kcal [place] BID /protein ) Provides kCal: 190 Provides Protein (gm) 5 Goal #1 TF tolerance Goal #2 Wound healing Goal #3 Meet at least 75% of estimated energy and protein needs via TF Anticipated Discharge Needs: Unable to determine at this time Follow-Up By: 09/30/20 Additional Comments F/U TF restart/tolerance, weight stabilization
--- NOTE | 2020-09-27 14:16 | Gastroenterology Progress Note ---
Assessment and Plan GI: stable without GI complaints - probable EGD/PEG on Tuesday - continue current meds and diet Subjective Date of service: 09/27/20 Principal diagnosis: afib, COVID Interval history: - no GI issues overnight Objective - Constitutional Vitals: Temp Pulse Resp BP Pulse Ox 97.9 F 84 18 130/41 95 09/27/20 12:24 09/27/20 12:24 09/27/20 12:24 09/27/20 12:24 09/27/20 12:24 General appearance: no acute distress - EENT Eyes: PERRL - Respiratory Respiratory: bilateral: CTA - Cardiovascular Rhythm: regular - Gastrointestinal General gastrointestinal: Present: soft, non-tender, non-distended - Labs CBC & Chem 7: 09/27/20 04:43 09/27/20 04:43 Labs: Laboratory Results - last 24 hr 09/26/20 09/26/20 09/26/20 12:09 18:00 22:36 WBC RBC Hgb Hct MCV MCH MCHC RDW Plt Count PT INR Sodium Potassium Chloride Carbon Dioxide Anion Gap BUN Creatinine Estimated GFR BUN/Creatinine Ratio Glucose POC Glucose 110 H 124 H 145 H Calcium 09/27/20 09/27/20 09/27/20 04:43 04:43 04:43 WBC 10.5 RBC 3.27 L Hgb 10.3 Hct 31.5 MCV 96 MCH 32 MCHC 33 RDW 16.7 H Plt Count 221 PT 14.2 INR 1.11 Sodium 140 Potassium 4.3 Chloride 105.0 Carbon Dioxide 28 Anion Gap 11 BUN 22 H Creatinine 0.9 Estimated GFR > 60 BUN/Creatinine Ratio 24 Glucose 92 POC Glucose Calcium 8.7 09/27/20 07:39 WBC RBC Hgb Hct MCV MCH MCHC RDW Plt Count PT INR Sodium Potassium Chloride Carbon Dioxide Anion Gap BUN Creatinine Estimated GFR BUN/Creatinine Ratio Glucose POC Glucose 95 Calcium
[2020-09-27] MEDS: PRAVASTATIN 40 MG TAB PO SCH (21:09)
[2020-09-28] MEDS: INSULIN LISPRO 100 UNIT/ML SUB-Q SCH ×4 (08:26→23:30)
--- NOTE | 2020-09-28 08:46 | Progress Note ---
Assessment and Plan Assessment and plan: Sepsis -Presented with hypotension, acute kidney injury, and possible developing pneumonia on CXR -S/p 2.4 L normal saline in the emergency department -Infectious disease consulted, appreciate recommendations -Antibiotic therapy -09/16 blood cultures x2 NGTD COVID-19 pneumonia -09/17 COVID-19 PCR negative -09/19 COVID 19 PCR positive -Infectious disease consulted, patient recommendations -S/p antibiotic therapy -Droplet/isolation precautions -Pulmonary hygiene -OOB 3 times daily -Prone to sleep as needed -Supplemental oxygen as needed -Anticoagulation per protocol -Trend COVID- inflammatory markers for risk stratification -Vitamin C, D and zinc Pneumonia -09/17 CXR shows possible developing pneumonia -09/24 CXR shows left-sided airspace disease improvement since but has not completely resolved -s/p Antibiotic therapy -Pulmonary hygiene -SPO2 monitoring A. fib with RVR -Patient has a history of atrial fibrillation is on beta-blockers and anticoagulation -09/19 patient noted to be in A. fib with RVR -Cardiology consult, appreciate recommendations -S/p heparin drip -Per oncology: Okay to take Eliquis 2.5 twice daily as long as platelet count is greater than 30 -09/20 TTE shows ejection fraction 55%, mild AR, mild MR, moderate TR, mild to moderate VT with mild pulmonary hypertension and RVSP calculated at 83 mmHg. -S/p amiodarone, IV digoxin and beta-jennifer -Now rate controlled Dementia -Supportive care -Verbal de-escalation and redirection as needed -Fall, aspiration precautions -Supportive care -GI consulted for PEG tube placement -09/24 CT head/brain shows moderate microvascular angiopathy with mild cerebral atrophy without clear CT evidence of acute intracranial hemorrhage and mild interval increase in size of extra-axial lesion along the anterior right flax currently measuring 0.7 x 1.6 cm most consistent with a meningioma which was previously 0.5 x 1.2 cm -Outpatient neurosurgery follow-up recommended Dysphagia Failed swallow evaluation Plan for PEG placement Hypertension -Hold antihypertensives in setting of hypotension -Blood pressure monitoring per protocol GERD -Continue PPI -Changed to Protonix due to thrombocytopenia Hyperlipidemia -Continue statin therapy DVT prophylaxis -GI prophylaxis -Subcu heparin -SCDs to bilateral lower extremities while in bed History Interval history: This is a 80-year-old female with hypertension, GERD, colon cancer s/p resection, dementia and former smoker who presented to the emergency department with shortness of breath, decreased appetite and decreased p.o. intake over the past few days. Patient tested positive for urinary tract infection on home test kit and was subsequently started on oral Levaquin 500 mg daily for the past 3 days. Work-up in the emergency department revealed acute kidney injury, pyuria, possible developing pneumonia or aspiration, enlarged left middle mediastinum suggesting adenopathies. Patient was admitted to the hospital service for pneumonia as a COVID-19 PUI. Infectious disease was consulted. 09/17: Patient is on room air at the time my examination entry COVID-19 PCR resulted as negative. Patient will be transferred to medical floor. Infectious disease has stopped azithromycin continue ceftriaxone for possible urinary tract infection. We have also ordered a repeat COVID-19 PCR 09/18: No acute events reported overnight. Patient still remains in bilateral mittens-repeat COVID-19 PCR will need to be repeated tomorrow per hospital policy.This morning patient has leukopenia, hypernatremia, hyperchloremia but her acute kidney injury has improved. 09/19: Patient noted to be in atrial fibrillation with RVR this morning around 0600 and cardiology was consulted. Patient has been started on amiodarone drip after bolus. ST was consulted today for decreased p.o. intake as the patient was placed on MIVF due to persistent hypoglycemia yesterday. Her hyperchloremia and hypernatremia have improved however she is hypokalemic on her creatinine/BUN have increased. ST has recommended PEG tube placement. Patient's family unable to be contacted for update, confirmation of history or possible PEG tube placement. Her daughter was called several times today by [facility] [employer]. Patient's repeat COVID-19 PCR is pending. She was given a 250 ml normal saline bolus due to hypotension. Repeat CMP in the a.m. Heme/Onc consulted for thrombocytopenia. 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 Start heparin drip for new onset afib with RVR and Eliquis 2.5 mg p.o. twice daily at discharge. Wean IV amiodarone and start digoxin and Lopressor IV per Cardiology. Continue ceftriaxone for total of 3 days for UTI per ID recommendations. Continue to follow blood and urine cultures. Follow-up repeat Covid testing today. PEG placement per Speech recommendations. 09/21: Await echocardiogram. Continue heparin drip for new onset atrial fibrillation with RVR and transition to Eliquis at discharge. Cardiology st opped IV amiodarone but will continue with IV digoxin and Lopressor until NG tube placement. NG tube placement ordered this morning. GI consultation pending for PEG placement. Repeat Covid testing positive on 09/19. DC Solu- Medrol 40 mg every 8 hours and start dexamethasone 6 mg IV daily. ? Remdesivir given renal insufficiency and will assess for hypoxia. ID following 09/22: Patient's hypernatremia slightly improved however she remains with hyperkalemia and MINERVA slightly improved. Patient is minimally interactive and remains on room air. No acute events reported overnight. GI consulted regarding PEG tube placement 09/23: Patient hypernatremia and hyperchloremia worsened therefore she was started on 400 mL FWF every 8 hours and her MINERVA slightly improved. No acute events reported overnight. Patient still remains minimally interactive and on room air. 09/24: With increase of FWF and hypotonic IVF patients hyper natremia resolved yesterday evening and her hyperchloremia has improved. This morning the hypotonic IVF was discontinued. Her BUN/creatinine also improved. Per GI in or nolberto for PEG tube placement patient is Eliquis has to be held for 2 days prior. Patient remains on room air with no acute events reported overnight. CTH, CXR, NH3 and repeat BC x2 pending 09/25: Peg placement consent obtained by Severino HANNA holding for procedure. Remains on RA with selective interaction. No acute events reported overnight. CXR has improved, CTH shows slight increase in extra-axial lesion. No acute events reported overnight. She will need follow up with neurosurgery in the office 09/26: No acute events reported overnight. Patient was supposed to have a PEG tube placement today however this has been delayed till this weekend. We will continue to withhold Eliquis. Patient will be n.p.o. after midnight. ID has signed off today. 09/27: No acute events noted overnight. Plan for PEG placement on Tuesday. NPO after midnight on 09/29. 09/28. She has no complaints this morning. Vitals stable. ELiquis on hold in anticipation of PEG placement on 09/29. Hospitalist Physical - Physical exam Narrative exam: VITAL SIGNS: Reviewed. GENERAL: Awake HEAD: No signs of head trauma. EYES: Pupils are equal. Extraocular motions intact. MOUTH: Oropharynx is normal. NECK: No adenopathy, no JVD. CHEST: Chest with diminished breath sounds bilaterally. No wheezes, rales, or rhonchi. CARDIAC: normal S1 and S2, without murmurs, gallops, or rubs. ABDOMEN: Soft, non tender and non distended. No rebound or guarding, and no masses palpated. Bowel Sounds normal. MUSCULOSKELETAL: No edema NEUROLOGIC EXAM: Alert and oriented x3. No focal neurologic deficits SKIN: No obvious lesions - Constitutional Vitals: Temp Pulse Resp BP Pulse Ox 98.4 F 51 L 20 92/37 100 09/28/20 06:21 09/28/20 06:21 09/28/20 06:21 09/28/20 06:21 09/28/20 06:21 HEART Score - HEART Score Troponin: Troponin T 0.029 ng/mL (0.00-0.029) 09/16/20 23:05 Results - Labs CBC & Chem 7: 09/27/20 04:43 09/27/20 04:43 Labs: Laboratory Last Values WBC 10.5 K/mm3 (4.5-11.0) 09/27/20 04:43 RBC 3.27 M/mm3 (3.65-5.03) L 09/27/20 04:43 Hgb 10.3 gm/dl (10.1-14.3) 09/27/20 04:43 Hct 31.5 % (30.3-42.9) 09/27/20 04:43 MCV 96 fl (79-97) 09/27/20 04:43 MCH 32 pg (28-32) 09/27/20 04:43 MCHC 33 % (30-34) 09/27/20 04:43 RDW 16.7 % (13.2-15.2) H 09/27/20 04:43 Plt Count 221 K/mm3 (140-440) 09/27/20 04:43 Lymph % (Auto) 19.0 % (13.4-35.0) 09/24/20 15:25 [place] % (Auto) 2.7 % (0.0-7.3) 09/24/20 15:25 Eos % (Auto) 0.2 % (0.0-4.3) 09/24/20 15:25 Baso % (Auto) 0.8 % (0.0-1.8) 09/24/20 15:25 Lymph # (Auto) 2.0 K/mm3 (1.2-5.4) 09/24/20 15:25 [place] # (Auto) 0.3 K/mm3 (0.0-0.8) 09/24/20 15:25 Eos # (Auto) 0.0 K/mm3 (0.0-0.4) 09/24/20 15:25 Baso # (Auto) 0.1 K/mm3 (0.0-0.1) 09/24/20 15:25 Seg Neutrophils % 77.3 % (40.0-70.0) H 09/24/20 15:25 Seg Neutrophils # 7.9 K/mm3 (1.8-7.7) H 09/24/20 15:25 PT 14.2 Sec. (12.2-14.9) 09/27/20 04:43 INR 1.11 (0.87-1.13) 09/27/20 04:43 APTT 37.4 Sec. (24.2-36.6) H 09/20/20 13:06 D-Dimer 425.43 ng/mlDDU (0-234) H 09/16/20 21:28 Heparin Anti-Xa Level 0.32 U.I./ml (0.3-0.7) 09/22/20 07:58 Sodium 140 mmol/L (137-145) 09/27/20 04:43 Potassium 4.3 mmol/L (3.6-5.0) 09/27/20 04:43 Chloride 105.0 mmol/L (98-107) 09/27/20 04:43 Carbon Dioxide 28 mmol/L (22-30) 09/27/20 04:43 Anion Gap 11 mmol/L 09/27/20 04:43 BUN 22 mg/dL (7-17) H 09/27/20 04:43 Creatinine 0.9 mg/dL (0.6-1.2) 09/27/20 04:43 Estimated GFR > 60 ml/min 09/27/20 04:43 BUN/Creatinine Ratio 24 % 09/27/20 04:43 Glucose 92 mg/dL (65-100) 09/27/20 04:43 POC Glucose 128 mg/dL (70-105) H 09/27/20 21:44 Lactic Acid 0.90 mmol/L (0.7-2.0) 09/17/20 14:35 Calcium 8.7 mg/dL (8.4-10.2) 09/27/20 04:43 Ferritin 374.8 ng/mL (10.0-200.0) H 09/16/20 21:28 Total Bilirubin 0.50 mg/dL (0.1-1.2) 09/24/20 15:25 AST 106 units/L (5-40) H 09/24/20 15:25 ALT 98 units/L (7-56) H 09/24/20 15:25 Alkaline Phosphatase 73 units/L (35-129) 09/24/20 15:25 Ammonia 24.0 umol/L (25-60) L 09/25/20 07:57 Lactate Dehydrogenase 179 units/L (91-180) 09/16/20 23:05 Troponin T 0.029 ng/mL (0.00-0.029) 09/16/20 23:05 C-Reactive Protein 14.90 mg/dL (0.00-1.30) H 09/16/20 23:05 Total Protein 6.0 g/dL (6.3-8.2) L 09/24/20 15:25 Albumin 2.9 g/dL (3.9-5) L 09/24/20 15:25 Albumin/Globulin Ratio 0.9 % 09/24/20 15:25 Procalcitonin 0.07 ng/mL (<0.15) 09/24/20 15:25 Urine Color Yellow (Yellow) 09/24/20 22:50 Urine Turbidity Clear (Clear) 09/24/20 22:50 Urine pH 7.0 (5.0-7.0) 09/24/20 22:50 Ur Specific [place] 1.016 (1.003-1.030) 09/24/20 22:50 Urine Protein 30 mg/dl mg/dL (Negative) 09/24/20 22:50 Urine Glucose (UA) >=500 mg/dL (Negative) 09/24/20 22:50 Urine Ketones Neg mg/dL (Negative) 09/24/20 22:50 Urine Blood Neg (Negative) 09/24/20 22:50 Urine Nitrite Neg (Negative) 09/24/20 22:50 Urine Bilirubin Neg (Negative) 09/24/20 22:50 Urine Urobilinogen < 2.0 mg/dL (<2.0) 09/24/20 22:50 Ur Leukocyte Esterase Neg (Negative) 09/24/20 22:50 Urine WBC (Auto) 1.0 /HPF (0.0-6.0) 09/24/20 22:50 Urine RBC (Auto) 1.0 /HPF (0.0-6.0) 09/24/20 22:50 U Epithel Cells (Auto) < 1.0 /HPF (0-13.0) 09/24/20 22:50 Urine Bacteria (Auto) 1+ /HPF (Negative) 09/17/20 Unknown Urine Mucus 2+ /HPF 09/17/20 Unknown Urine Yeast (Budding) 1+ /HPF 09/17/20 Unknown Urine Osmolality 1096 Mosm/kg 09/19/20 17:35 Urine Creatinine 179.4 mg/dL (0.1-20.0) H 09/19/20 17:35 Urine Sodium 193 mmol/L 09/19/20 17:35 Coronavirus (PCR) Positive (Negative) A 09/19/20 11:00 Microbiology: Microbiology 09/24/20 15:40 Peripheral/Venous Blood Culture - Preliminary NO GROWTH AFTER 72 HOURS 09/24/20 15:25 Peripheral/Venous Blood Culture - Preliminary NO GROWTH AFTER 72 HOURS - Diagnostic Impressions Diagnostic Impressions: Echocardiogram 09/20/20 10:42 Transthoracic Echocardiogram Indication: A FIB BP: 151/87 HR: 86 Conclusions *Global left ventricular systolic function is normal. *The estimated ejection fraction is 50-55%. *The right ventricular global systolic function is normal. *The aortic valve is not well visualized. *There is mild aortic regurgitation. *Mild aortic leaflet calcification is visualized. *There is mild mitral regurgitation. *There is mild to moderate pulmonic regurgitation. *There is evidence of moderate pulmonary hypertension. Findings Procedure Info: The study quality is fair. Left Ventricle: The left ventricular chamber size is normal. There is no left ventricular hypertrophy. Global left ventricular wall motion and contractility are within normal limits. Global left ventricular systolic function is normal. The estimated ejection fraction is 50-55%. Abnormal left ventricular diastolic function is observed. Left Atrium: The left atrium is severely dilated. Right Ventricle: The right ventricular cavity size is normal. The right ventricular global systolic function is normal. Right Atrium: The right atrial cavity size is normal. Aortic Valve: The aortic valve is not well visualized. Mild aortic leaflet calcification is visualized. There is mild aortic regurgitation. Mitral Valve: There is mitral annular calcification. The mitral valve leaflets are mildly thickened. There is mild mitral regurgitation. Tricuspid Valve: The tricuspid valve appears normal in structure and function. There is moderate tricuspid regurgitation. There is evidence of moderate pulmonary hypertension. Pulmonic Valve: The pulmonic valve is not well visualized.High gradients seen can not rule out stenosis There is mild to moderate pulmonic regurgitation. Pericardium: There is no pericardial effusion. Aorta: The aorta appears normal. Pulmonary Artery: The main pulmonary artery is not well visualized. Venous: The inferior vena cava appears abnormal. The inferior vena cava is dilated. There is less than 50% respiratory change in the inferior vena cava dimension. Measurements Chambers 2D Name Value Normal Range IVSd (2D) 0.89 cm (0.6 - 1.1) LVPWd (2D) 0.84 cm (0.6 - 1.1) LVIDd (2D) 4.67 cm (3.7 - 5.6) LVIDs (2D) 3.42 cm (2 - 3.8) LV FS (2D) 26.77 % - EF Teichholz (2D) 52.3 % - Ao root diameter (2D) 3.07 cm (2 - 3.7) Volumes/Mass Name Value Normal Range LA ESV SP 4CH (A/L) 78.85 ml - LA ESV SP 2CH (A/L) 111.2 ml - LA ESV BP (A/L) 93.86 ml - LA ESV BP (A/L) index 51.57 ml/m2 - LA ESV SP 4CH (MOD) 69.77 ml - LA ESV SP 2CH (MOD) 105.54 ml - LA ESV BP (MOD) 85.78 ml - LA ESV BP (MOD) index 47.13 ml/m2 - LV EDV SP 4CH (MOD) 68.03 ml - LV ESV SP 4CH (MOD) 31.63 ml - EF SP 4CH (MOD) 53.5 % - LV EDV SP 2CH (MOD) 68.71 ml - LV ESV SP 2CH (MOD) 28.59 ml - EF SP 2CH (MOD) 58.39 % - LV EDV BP 68.15 ml - LV ESV BP 30.43 ml - BP EF (MOD) 55.34 % - Diastolic/Systolic Function Name Value Normal Range MV E-wave Vmax 0.99 m/sec - MV deceleration time 131.92 msec - MV A-wave Vmax 1.17 m/sec - MV E:A ratio 0.85 ratio - Aortic Valve Name Value Normal Range AV Vmax 1.38 m/sec - AV VTI 26.19 cm - AV peak gradient 7.59 mmHg - AV mean gradient 4.81 mmHg - LVOT diameter 2.19 cm - LVOT Vmax 0.78 m/sec - LVOT VTI 21.91 cm - LVOT peak gradient 2.46 mmHg - LVOT mean gradient 1.53 mmHg - SV LVOT 82.34 ml - EMMY (continuity Vmax) 2.14 cm2 - EMMY (continuity VTI) 3.14 cm2 - AR PHT 657.65 msec - AR peak gradient 67.31 mmHg - Ascending Ao 2.79 cm - Tricuspid Valve Name Value Normal Range TR Vmax 4.33 m/sec - TR peak gradient 75 mmHg - RAP 8 mmHg - RVSP 83 mmHg - IVC diameter 2.15 cm (1.2 - 2.3) Pulmonic Valve/Qp:Qs Name Value Normal Range PV Vmax 3.01 m/sec - PV VTI 86.98 cm - PV peak gradient 36.25 mmHg - PV mean gradient 29.37 mmHg - VT end-diastolic Vmax 1.69 m/sec - RVOT Vmax 0.36 m/sec - RVOT VTI 7.36 cm - RVOT peak gradient 0.52 mmHg - PV acceleration time 81.83 msec - [place]/IV: Voiding Method External Female Catheter Active Medications - Current Medications Current Medications: Generic Name Dose Route Start Last Admin Trade Name Freq PRN Reason Stop Dose Admin Acetaminophen 650 mg 09/17/20 03:32 Acetaminophen 325 Mg Tab PO Q4H PRN Pain MILD(1-3)/Fever >100.5/NIÑO Lipase/Protease/Amylase 1 each 09/21/20 10:00 Lipase 10,500/Protease 25,000/Amylase 43,750 (Units) Dr Og FEEDTUBE PRN PRN For Clogged Feeding Tube Ascorbic Acid 250 mg 09/20/20 22:00 09/27/20 21:09 Ascorbic Acid 250 Mg Tab PO 250 mg BID RIGO Administration Cholecalciferol 1,000 unit 09/21/20 10:00 09/27/20 09:41 Cholecalciferol (Vit D3) 1000 Unit (25 Mcg) Tab PO 1,000 unit QDAY RIGO Administration Dextrose 0 ml 09/19/20 04:40 09/19/20 05:15 Dextrose 50% In Water (25gm) 50 Ml Syringe IV 50 ml Q30MIN PRN Administration Hypoglycemia Protocol Sodium Chloride 1,000 mls @ 50 mls/hr 09/26/20 12:00 09/27/20 22:26 Nacl 0.9% 1000 Ml IV 50 mls/hr DIRECT RIGO Administration Insulin Human Lispro 0 unit 09/25/20 11:30 09/28/20 08:26 Insulin Lispro 100 Unit/Ml SUB-Q Not Given ACHS [facility]1983 Protocol Lansoprazole 30 mg 09/23/20 10:00 09/27/20 09:40 Lansoprazole 30 Mg Solutab FEEDTUBE 30 mg QDAY RIGO Administration Magnesium Hydroxide 30 ml 09/17/20 03:32 Magnesium Hydroxide (Mom) Oral Liqd Udc PO Q4H PRN Constipation Metoprolol Tartrate 25 mg 09/22/20 11:00 09/27/20 22:11 Metoprolol Tartrate 25 Mg Tab FEEDTUBE Not Given BID [facility]1983 Morphine Sulfate 2 mg 09/17/20 03:32 Morphine 2 Mg/1 Ml Inj IV Q4H PRN Pain, Moderate (4-6) Ondansetron HCl 4 mg 09/17/20 03:32 Ondansetron 4 Mg/2 Ml Inj IV Q8H PRN Nausea And Vomiting Pravastatin Sodium 40 mg 09/17/20 22:00 09/27/20 21:09 Pravastatin 40 Mg Tab PO 40 mg QHS RIGO Administration Simple Syrup 15 ml 09/21/20 09:46 Simple Syrup 15 Ml FEEDTUBE PRN PRN Hypoglycemia Simple Syrup 30 ml 09/21/20 09:46 Simple Syrup 15 Ml FEEDTUBE PRN PRN Hypoglycemia Sodium Bicarbonate 325 mg 09/21/20 09:46 Sodium Bicarbonate 325 Mg Tab FEEDTUBE PRN PRN For Clogged Feeding Tube Sodium Chloride 10 ml 09/17/20 10:00 09/27/20 21:10 Sodium Chloride 0.9% 10 Ml Flush Syringe IV 10 ml BID RIGO Administration Sodium Chloride 10 ml 09/17/20 03:32 Sodium Chloride 0.9% 10 Ml Flush Syringe IV PRN PRN LINE FLUSH Zinc Sulfate 220 mg 09/20/20 22:00 09/27/20 21:10 Zinc Sulfate 220 Mg Cap PO 220 mg BID RIGO Administration Nutrition/Malnutrition Assess - Dietary Evaluation Nutrition/Malnutrition Findings: Nutrition Notes Start: 09/21/20 09:22 Freq: Status: Active Protocol: Document 09/26/20 09:53 AT (Rec: 09/26/20 10:04 AT [id number]) Co-Sign 09/26/20 09:53 CW Nutrition Notes Initial or Follow up Reassessment Current Diagnosis Acute Kidney Injury,Decubitus( Pressure Ulcer),Sepsis, Hypertension,Hyperlipidemia Other Pertinent Diagnosis Dementia, COVID(+), UTI, AMS, A-fib Current Diet NPO Labs/Tests Na 142 Pertinent Medications Reviewed Height 5 ft 2 in Weight 72.2 kg Dana Body Weight (kg) 50.00 BMI 29.1 Weight change and time frame 12% weight loss x 3 days ( possibly due to errors) Weight Status Overweight Subjective/Other Information Follow up for flushes and Na. Pt's Na is WNL. Last flush given was 400mL, pt now NPO for a procedure this morning. As of 23:28 09/25, pt was on Osmolite 1.5 at goal rate and tolerating the feeds. Percent of energy/protein needs met: 0%/0% Burn Absent Trauma Absent Current % PO Negligible Minimum of two criteria Yes Interpretation of Weight Loss (severe) >2% in 1 week Fluid Accumulation Mild (non-severe) Reduced [employer] Strength Measurably Reduced (severe) #3 Nutrition Diagnosis Increased nutrient needs ( specify in comment below) Diagnosis Progress(for reassessment Continues documentation) #2 Nutrition Diagnosis Malnutrition As Evidenced by Signs and Symptoms possible weight loss of 12% Diagnosis Progress(for reassessment Worsened documentation) #1 Nutrition Diagnosis Inadequate oral intake Diagnosis Progress(for reassessment Continues documentation) Is patient on ventilator? No Is Patient Ambulatory and/or Out of Bed No [facility] 1392.924 Calculation Used for Recommendations [facility] Additional Notes PRO needs: 58-108g (0.8-1.5g/ kg ABW) Fluid needs: 1 mL/kcal or per MD Nutrition Intervention Change Diet Order: Resume TF Nutrition Support: Osmolite 1.5 at 40ml/hr Flush 120 ml q4h Kcal 1,440 Protein (gm) 60 Fluid (mL) 732 Add Supplement/Snack (indicate name/kcal [place] BID /protein ) Provides kCal: 190 Provides Protein (gm) 5 Goal #1 TF tolerance Goal #2 Wound healing Goal #3 Meet at least 75% of estimated energy and protein needs via TF Anticipated Discharge Needs: Unable to determine at this time Follow-Up By: 09/30/20 Additional Comments F/U TF restart/tolerance, weight stabilization
[2020-09-28] MEDS: ASCORBIC ACID 250 MG TAB PO SCH ×2 (10:17→21:03)
[2020-09-28] MEDS: ZINC SULFATE 220 MG CAP PO SCH ×2 (10:17→21:03)
[2020-09-28] MEDS: LANSOPRAZOLE 30 MG SOLUTAB FEEDTUBE SCH (10:17)
[2020-09-28] MEDS: CHOLECALCIFEROL (VIT D3) 1000 UNIT (25 mcg) TAB PO SCH (10:17)
[2020-09-28] MEDS: SODIUM CHLORIDE 0.9% 1000 ML 1,000 ML IV SCH (10:17)
[2020-09-28] MEDS: METOPROLOL TARTRATE 25 MG TAB FEEDTUBE SCH ×2 (10:18→23:30)
--- NOTE | 2020-09-28 17:45 | Gastroenterology Progress Note ---
Assessment and Plan 1. GI: pt w/o GI issues overnight -plan egd/peg either 1-2 days based on GI scheduling - continue other meds and diet Subjective Date of service: 09/28/20 Principal diagnosis: afib, COVID Interval history: no GI issues overnight Objective - Constitutional Vitals: Temp Pulse Resp BP Pulse Ox 97.4 F L 53 L 20 125/31 96 09/28/20 15:59 09/28/20 15:59 09/28/20 06:21 09/28/20 15:59 09/28/20 15:59 General appearance: no acute distress - EENT Eyes: PERRL - Respiratory Respiratory: bilateral: CTA - Cardiovascular Rhythm: regular Heart Sounds: Present: S1 & S2 - Gastrointestinal General gastrointestinal: Present: soft, non-tender - Labs CBC & Chem 7: 09/27/20 04:43 09/27/20 04:43 Labs: Laboratory Results - last 24 hr 09/27/20 09/28/20 21:44 07:50 POC Glucose 128 H 126 H
[2020-09-28] MEDS: PRAVASTATIN 40 MG TAB PO SCH (21:03)
[2020-09-29] MEDS: INSULIN LISPRO 100 UNIT/ML SUB-Q SCH ×4 (07:30→22:29)
--- NOTE | 2020-09-29 09:05 | Progress Note ---
Assessment and Plan Assessment and plan: Sepsis -Presented with hypotension, acute kidney injury, and possible developing pneumonia on CXR -S/p 2.4 L normal saline in the emergency department -Infectious disease consulted, appreciate recommendations -Antibiotic therapy -09/16 blood cultures x2 NGTD COVID-19 pneumonia -09/17 COVID-19 PCR negative -09/19 COVID 19 PCR positive -Infectious disease consulted, patient recommendations -S/p antibiotic therapy -Droplet/isolation precautions -Pulmonary hygiene -OOB 3 times daily -Prone to sleep as needed -Supplemental oxygen as needed -Anticoagulation per protocol -Trend COVID- inflammatory markers for risk stratification -Vitamin C, D and zinc Pneumonia -09/17 CXR shows possible developing pneumonia -09/24 CXR shows left-sided airspace disease improvement since but has not completely resolved -s/p Antibiotic therapy -Pulmonary hygiene -SPO2 monitoring A. fib with RVR -Patient has a history of atrial fibrillation is on beta-blockers and anticoagulation -09/19 patient noted to be in A. fib with RVR -Cardiology consult, appreciate recommendations -S/p heparin drip -Per oncology: Okay to take Eliquis 2.5 twice daily as long as platelet count is greater than 30 -09/20 TTE shows ejection fraction 55%, mild AR, mild MR, moderate TR, mild to moderate SC with mild pulmonary hypertension and RVSP calculated at 83 mmHg. -S/p amiodarone, IV digoxin and beta-jennifer -Now rate controlled Dementia -Supportive care -Verbal de-escalation and redirection as needed -Fall, aspiration precautions -Supportive care -GI consulted for PEG tube placement -09/24 CT head/brain shows moderate microvascular angiopathy with mild cerebral atrophy without clear CT evidence of acute intracranial hemorrhage and mild interval increase in size of extra-axial lesion along the anterior right flax currently measuring 0.7 x 1.6 cm most consistent with a meningioma which was previously 0.5 x 1.2 cm -Outpatient neurosurgery follow-up recommended Dysphagia Failed swallow evaluation Plan for PEG placement Hypertension -Hold antihypertensives in setting of hypotension -Blood pressure monitoring per protocol GERD -Continue PPI -Changed to Protonix due to thrombocytopenia Hyperlipidemia -Continue statin therapy DVT prophylaxis -GI prophylaxis -Subcu heparin -SCDs to bilateral lower extremities while in bed History Interval history: This is a 80-year-old female with hypertension, GERD, colon cancer s/p resection, dementia and former smoker who presented to the emergency department with shortness of breath, decreased appetite and decreased p.o. intake over the past few days. Patient tested positive for urinary tract infection on home test kit and was subsequently started on oral Levaquin 500 mg daily for the past 3 days. Work-up in the emergency department revealed acute kidney injury, pyuria, possible developing pneumonia or aspiration, enlarged left middle mediastinum suggesting adenopathies. Patient was admitted to the hospital service for pneumonia as a COVID-19 PUI. Infectious disease was consulted. 09/17: Patient is on room air at the time my examination entry COVID-19 PCR resulted as negative. Patient will be transferred to medical floor. Infectious disease has stopped azithromycin continue ceftriaxone for possible urinary tract infection. We have also ordered a repeat COVID-19 PCR 09/18: No acute events reported overnight. Patient still remains in bilateral mittens-repeat COVID-19 PCR will need to be repeated tomorrow per hospital policy.This morning patient has leukopenia, hypernatremia, hyperchloremia but her acute kidney injury has improved. 09/19: Patient noted to be in atrial fibrillation with RVR this morning around 0600 and cardiology was consulted. Patient has been started on amiodarone drip after bolus. ST was consulted today for decreased p.o. intake as the patient was placed on MIVF due to persistent hypoglycemia yesterday. Her hyperchloremia and hypernatremia have improved however she is hypokalemic on her creatinine/BUN have increased. ST has recommended PEG tube placement. Patient's family unable to be contacted for update, confirmation of history or possible PEG tube placement. Her daughter was called several times today by [employer]. Patient's repeat COVID-19 PCR is pending. She was given a 250 ml normal saline bolus due to hypotension. Repeat CMP in the a.m. Heme/Onc consulted for thrombocytopenia. 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 Start heparin drip for new onset afib with RVR and Eliquis 2.5 mg p.o. twice daily at discharge. Wean IV amiodarone and start digoxin and Lopressor IV per Cardiology. Continue ceftriaxone for total of 3 days for UTI per ID recommendations. Continue to follow blood and urine cultures. Follow-up repeat Covid testing today. PEG placement per Speech recommendations. 09/21: Await echocardiogram. Continue heparin drip for new onset atrial fibrillation with RVR and transition to Eliquis at discharge. Cardiology st opped IV amiodarone but will continue with IV digoxin and Lopressor until NG tube placement. NG tube placement ordered this morning. GI consultation pending for PEG placement. Repeat Covid testing positive on 09/19. DC Solu- Medrol 40 mg every 8 hours and start dexamethasone 6 mg IV daily. ? Remdesivir given renal insufficiency and will assess for hypoxia. ID following 09/22: Patient's hypernatremia slightly improved however she remains with hyperkalemia and MINERVA slightly improved. Patient is minimally interactive and remains on room air. No acute events reported overnight. GI consulted regarding PEG tube placement 09/23: Patient hypernatremia and hyperchloremia worsened therefore she was started on 400 mL FWF every 8 hours and her MINERVA slightly improved. No acute events reported overnight. Patient still remains minimally interactive and on room air. 09/24: With increase of FWF and hypotonic IVF patients hyper natremia resolved yesterday evening and her hyperchloremia has improved. This morning the hypotonic IVF was discontinued. Her BUN/creatinine also improved. Per GI in or nolberto for PEG tube placement patient is Eliquis has to be held for 2 days prior. Patient remains on room air with no acute events reported overnight. CTH, CXR, NH3 and repeat BC x2 pending 09/25: Peg placement consent obtained by Severino HANNA holding for procedure. Remains on RA with selective interaction. No acute events reported overnight. CXR has improved, CTH shows slight increase in extra-axial lesion. No acute events reported overnight. She will need follow up with neurosurgery in the office 09/26: No acute events reported overnight. Patient was supposed to have a PEG tube placement today however this has been delayed till this weekend. We will continue to withhold Eliquis. Patient will be n.p.o. after midnight. ID has signed off today. 09/27: No acute events noted overnight. Plan for PEG placement on Tuesday. NPO after midnight on 09/29. 09/28. She has no complaints this morning. Vitals stable. Eliquis on hold in anticipation of PEG placement on 09/29. 09/29. Plan for PEG placement underway. She is awake and alert. Hospitalist Physical - Physical exam Narrative exam: VITAL SIGNS: Reviewed. GENERAL: Awake HEAD: No signs of head trauma. EYES: Pupils are equal. Extraocular motions intact. MOUTH: Oropharynx is normal. NECK: No adenopathy, no JVD. CHEST: Chest with diminished breath sounds bilaterally. No wheezes, rales, or rhonchi. CARDIAC: normal S1 and S2, without murmurs, gallops, or rubs. ABDOMEN: Soft, non tender and non distended. No rebound or guarding, and no masses palpated. Bowel Sounds normal. MUSCULOSKELETAL: No edema NEUROLOGIC EXAM: Alert and oriented x2. No gross focal neurologic deficits SKIN: No obvious lesions - Constitutional Vitals: Temp Pulse Resp BP Pulse Ox 99.3 F 61 16 136/34 95 09/29/20 04:58 09/29/20 04:58 09/29/20 04:58 09/29/20 04:58 09/29/20 04:58 HEART Score - HEART Score Troponin: Troponin T 0.029 ng/mL (0.00-0.029) 09/16/20 23:05 Results - Labs CBC & Chem 7: 09/27/20 04:43 09/27/20 04:43 Labs: Laboratory Last Values WBC 10.5 K/mm3 (4.5-11.0) 09/27/20 04:43 RBC 3.27 M/mm3 (3.65-5.03) L 09/27/20 04:43 Hgb 10.3 gm/dl (10.1-14.3) 09/27/20 04:43 Hct 31.5 % (30.3-42.9) 09/27/20 04:43 MCV 96 fl (79-97) 09/27/20 04:43 MCH 32 pg (28-32) 09/27/20 04:43 MCHC 33 % (30-34) 09/27/20 04:43 RDW 16.7 % (13.2-15.2) H 09/27/20 04:43 Plt Count 221 K/mm3 (140-440) 09/27/20 04:43 Lymph % (Auto) 19.0 % (13.4-35.0) 09/24/20 15:25 [place] % (Auto) 2.7 % (0.0-7.3) 09/24/20 15:25 Eos % (Auto) 0.2 % (0.0-4.3) 09/24/20 15:25 Baso % (Auto) 0.8 % (0.0-1.8) 09/24/20 15:25 Lymph # (Auto) 2.0 K/mm3 (1.2-5.4) 09/24/20 15:25 [place] # (Auto) 0.3 K/mm3 (0.0-0.8) 09/24/20 15:25 Eos # (Auto) 0.0 K/mm3 (0.0-0.4) 09/24/20 15:25 Baso # (Auto) 0.1 K/mm3 (0.0-0.1) 09/24/20 15:25 Seg Neutrophils % 77.3 % (40.0-70.0) H 09/24/20 15:25 Seg Neutrophils # 7.9 K/mm3 (1.8-7.7) H 09/24/20 15:25 PT 14.2 Sec. (12.2-14.9) 09/27/20 04:43 INR 1.11 (0.87-1.13) 09/27/20 04:43 APTT 37.4 Sec. (24.2-36.6) H 09/20/20 13:06 D-Dimer 425.43 ng/mlDDU (0-234) H 09/16/20 21:28 Heparin Anti-Xa Level 0.32 U.I./ml (0.3-0.7) 09/22/20 07:58 Sodium 140 mmol/L (137-145) 09/27/20 04:43 Potassium 4.3 mmol/L (3.6-5.0) 09/27/20 04:43 Chloride 105.0 mmol/L (98-107) 09/27/20 04:43 Carbon Dioxide 28 mmol/L (22-30) 09/27/20 04:43 Anion Gap 11 mmol/L 09/27/20 04:43 BUN 22 mg/dL (7-17) H 09/27/20 04:43 Creatinine 0.9 mg/dL (0.6-1.2) 09/27/20 04:43 Estimated GFR > 60 ml/min 09/27/20 04:43 BUN/Creatinine Ratio 24 % 09/27/20 04:43 Glucose 92 mg/dL (65-100) 09/27/20 04:43 POC Glucose 124 mg/dL (70-105) H 09/28/20 21:56 Lactic Acid 0.90 mmol/L (0.7-2.0) 09/17/20 14:35 Calcium 8.7 mg/dL (8.4-10.2) 09/27/20 04:43 Ferritin 374.8 ng/mL (10.0-200.0) H 09/16/20 21:28 Total Bilirubin 0.50 mg/dL (0.1-1.2) 09/24/20 15:25 AST 106 units/L (5-40) H 09/24/20 15:25 ALT 98 units/L (7-56) H 09/24/20 15:25 Alkaline Phosphatase 73 units/L (35-129) 09/24/20 15:25 Ammonia 24.0 umol/L (25-60) L 09/25/20 07:57 Lactate Dehydrogenase 179 units/L (91-180) 09/16/20 23:05 Troponin T 0.029 ng/mL (0.00-0.029) 09/16/20 23:05 C-Reactive Protein 14.90 mg/dL (0.00-1.30) H 09/16/20 23:05 Total Protein 6.0 g/dL (6.3-8.2) L 09/24/20 15:25 Albumin 2.9 g/dL (3.9-5) L 09/24/20 15:25 Albumin/Globulin Ratio 0.9 % 09/24/20 15:25 Procalcitonin 0.07 ng/mL (<0.15) 09/24/20 15:25 Urine Color Yellow (Yellow) 09/24/20 22:50 Urine Turbidity Clear (Clear) 09/24/20 22:50 Urine pH 7.0 (5.0-7.0) 09/24/20 22:50 Ur Specific [place] 1.016 (1.003-1.030) 09/24/20 22:50 Urine Protein 30 mg/dl mg/dL (Negative) 09/24/20 22:50 Urine Glucose (UA) >=500 mg/dL (Negative) 09/24/20 22:50 Urine Ketones Neg mg/dL (Negative) 09/24/20 22:50 Urine Blood Neg (Negative) 09/24/20 22:50 Urine Nitrite Neg (Negative) 09/24/20 22:50 Urine Bilirubin Neg (Negative) 09/24/20 22:50 Urine Urobilinogen < 2.0 mg/dL (<2.0) 09/24/20 22:50 Ur Leukocyte Esterase Neg (Negative) 09/24/20 22:50 Urine WBC (Auto) 1.0 /HPF (0.0-6.0) 09/24/20 22:50 Urine RBC (Auto) 1.0 /HPF (0.0-6.0) 09/24/20 22:50 U Epithel Cells (Auto) < 1.0 /HPF (0-13.0) 09/24/20 22:50 Urine Bacteria (Auto) 1+ /HPF (Negative) 09/17/20 Unknown Urine Mucus 2+ /HPF 09/17/20 Unknown Urine Yeast (Budding) 1+ /HPF 09/17/20 Unknown Urine Osmolality 1096 Mosm/kg 09/19/20 17:35 Urine Creatinine 179.4 mg/dL (0.1-20.0) H 09/19/20 17:35 Urine Sodium 193 mmol/L 09/19/20 17:35 Coronavirus (PCR) Positive (Negative) A 09/19/20 11:00 Microbiology: Microbiology 09/24/20 15:40 Peripheral/Venous Blood Culture - Preliminary NO GROWTH AFTER 4 DAYS 09/24/20 15:25 Peripheral/Venous Blood Culture - Preliminary NO GROWTH AFTER 4 DAYS - Diagnostic Impressions Diagnostic Impressions: Echocardiogram 09/20/20 10:42 Transthoracic Echocardiogram Indication: A FIB BP: 151/87 HR: 86 Conclusions *Global left ventricular systolic function is normal. *The estimated ejection fraction is 50-55%. *The right ventricular global systolic function is normal. *The aortic valve is not well visualized. *There is mild aortic regurgitation. *Mild aortic leaflet calcification is visualized. *There is mild mitral regurgitation. *There is mild to moderate pulmonic regurgitation. *There is evidence of moderate pulmonary hypertension. Findings Procedure Info: The study quality is fair. Left Ventricle: The left ventricular chamber size is normal. There is no left ventricular hypertrophy. Global left ventricular wall motion and contractility are within normal limits. Global left ventricular systolic function is normal. The estimated ejection fraction is 50-55%. Abnormal left ventricular diastolic function is observed. Left Atrium: The left atrium is severely dilated. Right Ventricle: The right ventricular cavity size is normal. The right ventricular global systolic function is normal. Right Atrium: The right atrial cavity size is normal. Aortic Valve: The aortic valve is not well visualized. Mild aortic leaflet calcification is visualized. There is mild aortic regurgitation. Mitral Valve: There is mitral annular calcification. The mitral valve leaflets are mildly thickened. There is mild mitral regurgitation. Tricuspid Valve: The tricuspid valve appears normal in structure and function. There is moderate tricuspid regurgitation. There is evidence of moderate pulmonary hypertension. Pulmonic Valve: The pulmonic valve is not well visualized.High gradients seen can not rule out stenosis There is mild to moderate pulmonic regurgitation. Pericardium: There is no pericardial effusion. Aorta: The aorta appears normal. Pulmonary Artery: The main pulmonary artery is not well visualized. Venous: The inferior vena cava appears abnormal. The inferior vena cava is dilated. There is less than 50% respiratory change in the inferior vena cava dimension. Measurements Chambers 2D Name Value Normal Range IVSd (2D) 0.89 cm (0.6 - 1.1) LVPWd (2D) 0.84 cm (0.6 - 1.1) LVIDd (2D) 4.67 cm (3.7 - 5.6) LVIDs (2D) 3.42 cm (2 - 3.8) LV FS (2D) 26.77 % - EF Teichholz (2D) 52.3 % - Ao root diameter (2D) 3.07 cm (2 - 3.7) Volumes/Mass Name Value Normal Range LA ESV SP 4CH (A/L) 78.85 ml - LA ESV SP 2CH (A/L) 111.2 ml - LA ESV BP (A/L) 93.86 ml - LA ESV BP (A/L) index 51.57 ml/m2 - LA ESV SP 4CH (MOD) 69.77 ml - LA ESV SP 2CH (MOD) 105.54 ml - LA ESV BP (MOD) 85.78 ml - LA ESV BP (MOD) index 47.13 ml/m2 - LV EDV SP 4CH (MOD) 68.03 ml - LV ESV SP 4CH (MOD) 31.63 ml - EF SP 4CH (MOD) 53.5 % - LV EDV SP 2CH (MOD) 68.71 ml - LV ESV SP 2CH (MOD) 28.59 ml - EF SP 2CH (MOD) 58.39 % - LV EDV BP 68.15 ml - LV ESV BP 30.43 ml - BP EF (MOD) 55.34 % - Diastolic/Systolic Function Name Value Normal Range MV E-wave Vmax 0.99 m/sec - MV deceleration time 131.92 msec - MV A-wave Vmax 1.17 m/sec - MV E:A ratio 0.85 ratio - Aortic Valve Name Value Normal Range AV Vmax 1.38 m/sec - AV VTI 26.19 cm - AV peak gradient 7.59 mmHg - AV mean gradient 4.81 mmHg - LVOT diameter 2.19 cm - LVOT Vmax 0.78 m/sec - LVOT VTI 21.91 cm - LVOT peak gradient 2.46 mmHg - LVOT mean gradient 1.53 mmHg - SV LVOT 82.34 ml - EMMY (continuity Vmax) 2.14 cm2 - EMMY (continuity VTI) 3.14 cm2 - AR PHT 657.65 msec - AR peak gradient 67.31 mmHg - Ascending Ao 2.79 cm - Tricuspid Valve Name Value Normal Range TR Vmax 4.33 m/sec - TR peak gradient 75 mmHg - RAP 8 mmHg - RVSP 83 mmHg - IVC diameter 2.15 cm (1.2 - 2.3) Pulmonic Valve/Qp:Qs Name Value Normal Range PV Vmax 3.01 m/sec - PV VTI 86.98 cm - PV peak gradient 36.25 mmHg - PV mean gradient 29.37 mmHg - SC end-diastolic Vmax 1.69 m/sec - RVOT Vmax 0.36 m/sec - RVOT VTI 7.36 cm - RVOT peak gradient 0.52 mmHg - PV acceleration time 81.83 msec - [place]/IV: Voiding Method External Female Catheter Active Medications - Current Medications Current Medications: Generic Name Dose Route Start Last Admin Trade Name Freq PRN Reason Stop Dose Admin Acetaminophen 650 mg 09/17/20 03:32 Acetaminophen 325 Mg Tab PO Q4H PRN Pain MILD(1-3)/Fever >100.5/NIÑO Lipase/Protease/Amylase 1 each 09/21/20 10:00 Lipase 10,500/Protease 25,000/Amylase 43,750 (Units) Dr Og FEEDTUBE PRN PRN For Clogged Feeding Tube Ascorbic Acid 250 mg 09/20/20 22:00 09/28/20 21:03 Ascorbic Acid 250 Mg Tab PO 250 mg BID RIGO Administration Cholecalciferol 1,000 unit 09/21/20 10:00 09/28/20 10:17 Cholecalciferol (Vit D3) 1000 Unit (25 Mcg) Tab PO 1,000 unit QDAY RIGO Administration Dextrose 0 ml 09/19/20 04:40 09/19/20 05:15 Dextrose 50% In Water (25gm) 50 Ml Syringe IV 50 ml Q30MIN PRN Administration Hypoglycemia Protocol Sodium Chloride 1,000 mls @ 50 mls/hr 09/26/20 12:00 09/28/20 10:17 Nacl 0.9% 1000 Ml IV 50 mls/hr DIRECT RIGO Administration Insulin Human Lispro 0 unit 09/25/20 11:30 09/29/20 07:30 Insulin Lispro 100 Unit/Ml SUB-Q Not Given ACHS RIGO Protocol Lansoprazole 30 mg 09/23/20 10:00 09/28/20 10:17 Lansoprazole 30 Mg Solutab FEEDTUBE 30 mg QDAY RIGO Administration Magnesium Hydroxide 30 ml 09/17/20 03:32 Magnesium Hydroxide (Mom) Oral Liqd Udc PO Q4H PRN Constipation Metoprolol Tartrate 25 mg 09/22/20 11:00 09/28/20 23:30 Metoprolol Tartrate 25 Mg Tab FEEDTUBE Not Given BID RIGO Morphine Sulfate 2 mg 09/17/20 03:32 Morphine 2 Mg/1 Ml Inj IV Q4H PRN Pain, Moderate (4-6) Ondansetron HCl 4 mg 09/17/20 03:32 Ondansetron 4 Mg/2 Ml Inj IV Q8H PRN Nausea And Vomiting Pravastatin Sodium 40 mg 09/17/20 22:00 09/28/20 21:03 Pravastatin 40 Mg Tab PO 40 mg QHS RIGO Administration Simple Syrup 15 ml 09/21/20 09:46 Simple Syrup 15 Ml FEEDTUBE PRN PRN Hypoglycemia Simple Syrup 30 ml 09/21/20 09:46 Simple Syrup 15 Ml FEEDTUBE PRN PRN Hypoglycemia Sodium Bicarbonate 325 mg 09/21/20 09:46 Sodium Bicarbonate 325 Mg Tab FEEDTUBE PRN PRN For Clogged Feeding Tube Sodium Chloride 10 ml 09/17/20 10:00 09/28/20 21:03 Sodium Chloride 0.9% 10 Ml Flush Syringe IV 10 ml BID RIGO Administration Sodium Chloride 10 ml 09/17/20 03:32 Sodium Chloride 0.9% 10 Ml Flush Syringe IV PRN PRN LINE FLUSH Zinc Sulfate 220 mg 09/20/20 22:00 09/28/20 21:03 Zinc Sulfate 220 Mg Cap PO 220 mg BID RIGO Administration Nutrition/Malnutrition Assess - Dietary Evaluation Nutrition/Malnutrition Findings: Nutrition Notes Start: 09/21/20 09:22 Freq: Status: Active Protocol: Document 09/26/20 09:53 AT (Rec: 09/26/20 10:04 AT [id number]) Co-Sign 09/26/20 09:53 CW Nutrition Notes Initial or Follow up Reassessment Current Diagnosis Acute Kidney Injury,Decubitus( Pressure Ulcer),Sepsis, Hypertension,Hyperlipidemia Other Pertinent Diagnosis Dementia, COVID(+), UTI, AMS, A-fib Current Diet NPO Labs/Tests Na 142 Pertinent Medications Reviewed Height 5 ft 2 in Weight 72.2 kg [place] Body Weight (kg) 50.00 BMI 29.1 Weight change and time frame 12% weight loss x 3 days ( possibly due to errors) Weight Status Overweight Subjective/Other Information Follow up for flushes and Na. Pt's Na is WNL. Last flush given was 400mL, pt now NPO for a procedure this morning. As of 23:28 09/25, pt was on Osmolite 1.5 at goal rate and tolerating the feeds. Percent of energy/protein needs met: 0%/0% Burn Absent Trauma Absent Current % PO Negligible Minimum of two criteria Yes Interpretation of Weight Loss (severe) >2% in 1 week Fluid Accumulation Mild (non-severe) Reduced [employer] Strength Measurably Reduced (severe) #3 Nutrition Diagnosis Increased nutrient needs ( specify in comment below) Diagnosis Progress(for reassessment Continues documentation) #2 Nutrition Diagnosis Malnutrition As Evidenced by Signs and Symptoms possible weight loss of 12% Diagnosis Progress(for reassessment Worsened documentation) #1 Nutrition Diagnosis Inadequate oral intake Diagnosis Progress(for reassessment Continues documentation) Is patient on ventilator? No Is Patient Ambulatory and/or Out of Bed No REE-([facility]-confined to bed) 1392.92 Calculation Used for Recommendations [facility] Additional Notes PRO needs: 58-108g (0.8-1.5g/ kg ABW) Fluid needs: 1 mL/kcal or per MD Nutrition Intervention Change Diet Order: Resume TF Nutrition Support: Osmolite 1.5 at 40ml/hr Flush 120 ml q4h Kcal 1,440 Protein (gm) 60 Fluid (mL) 732 Add Supplement/Snack (indicate name/kcal [place] BID /protein ) Provides kCal: 190 Provides Protein (gm) 5 Goal #1 TF tolerance Goal #2 Wound healing Goal #3 Meet at least 75% of estimated energy and protein needs via TF Anticipated Discharge Needs: Unable to determine at this time Follow-Up By: 09/30/20 Additional Comments F/U TF restart/tolerance, weight stabilization
--- NOTE | 2020-09-29 10:11 | Gastroenterology Progress Note ---
Assessment and Plan GI: pt for peg tube placement - pt for procedure in am due to scheduling - continue current plan, ok to restart feeds today, npo after midnight Subjective Date of service: 09/29/20 Principal diagnosis: afib, COVID Interval history: - no GI complaints overnight Objective - Constitutional Vitals: Temp Pulse Resp BP Pulse Ox 99.3 F 61 16 136/34 95 09/29/20 04:58 09/29/20 04:58 09/29/20 04:58 09/29/20 04:58 09/29/20 04:58 General appearance: no acute distress - EENT Eyes: PERRL - Respiratory Respiratory: bilateral: CTA - Cardiovascular Rhythm: regular Heart Sounds: Present: S1 & S2 - Gastrointestinal General gastrointestinal: Present: soft, non-tender, non-distended - Labs CBC & Chem 7: 09/27/20 04:43 09/27/20 04:43 Labs: Laboratory Results - last 24 hr 09/28/20 09/28/20 09/28/20 11:21 16:00 21:56 POC Glucose 124 H 123 H 124 H 09/29/20 07:57 POC Glucose 111 H
[2020-09-29] MEDS: ASCORBIC ACID 250 MG TAB PO SCH ×2 (11:47→21:40)
[2020-09-29] MEDS: ZINC SULFATE 220 MG CAP PO SCH ×2 (11:47→21:40)
[2020-09-29] MEDS: CHOLECALCIFEROL (VIT D3) 1000 UNIT (25 mcg) TAB PO SCH (11:47)
[2020-09-29] MEDS: METOPROLOL TARTRATE 25 MG TAB FEEDTUBE SCH ×2 (11:48→21:40)
[2020-09-29] MEDS: LANSOPRAZOLE 30 MG SOLUTAB FEEDTUBE SCH (11:48)
[2020-09-29] MEDS: PRAVASTATIN 40 MG TAB PO SCH (21:40)
[2020-09-30 05:13] LABS: Hematocrit 29.5 % (30.3-42.9); Hemoglobin 9.4 gm/dl (10.1-14.3); Mean Corpuscular HGB Conc 32 % (30-34); Mean Corpuscular Volume 96 fl (79-97); Platelet Count 285 K/mm3 (140-440); Red Blood Count 3.08 M/mm3 (3.65-5.03); Red Cell Distribution Width 16.7 % (13.2-15.2)
[2020-09-30 05:15] LABS: Basophils % (Auto) 0.7 % (0.0-1.8); Eosinophils % (Auto) 1.6 % (0.0-4.3); Lymphocytes % (Auto) 38.5 % (13.4-35.0); Monocytes # (Auto) 0.3 K/mm3 (0.0-0.8); Monocytes % (Auto) 3.6 % (0.0-7.3)
[2020-09-30 05:16] LABS: Basophils # (Auto) 0.1 K/mm3 (0.0-0.1); Eosinophils # (Auto) 0.1 K/mm3 (0.0-0.4)
[2020-09-30 05:30] LABS: Alanine Aminotransferase 28 units/L (7-56); Albumin 2.9 g/dL (3.9-5); BUN/Creatinine Ratio 18; Blood Urea Nitrogen 14 mg/dL (7-17); Calcium 8.7 mg/dL (8.4-10.2); Hemolysis Index 0
--- NOTE | 2020-09-30 08:51 | Progress Note ---
Assessment and Plan Assessment and plan: Sepsis -Presented with hypotension, acute kidney injury, and possible developing pneumonia on CXR -S/p 2.4 L normal saline in the emergency department -Infectious disease consulted, appreciate recommendations -Antibiotic therapy -09/16 blood cultures x2 NGTD COVID-19 pneumonia -09/17 COVID-19 PCR negative -09/19 COVID 19 PCR positive -Infectious disease consulted, patient recommendations -S/p antibiotic therapy -Droplet/isolation precautions -Pulmonary hygiene -OOB 3 times daily -Prone to sleep as needed -Supplemental oxygen as needed -Anticoagulation per protocol -Trend COVID- inflammatory markers for risk stratification -Vitamin C, D and zinc Pneumonia -09/17 CXR shows possible developing pneumonia -09/24 CXR shows left-sided airspace disease improvement since but has not completely resolved -s/p Antibiotic therapy -Pulmonary hygiene -SPO2 monitoring A. fib with RVR -Patient has a history of atrial fibrillation is on beta-blockers and anticoagulation -09/19 patient noted to be in A. fib with RVR -Cardiology consult, appreciate recommendations -S/p heparin drip -Per oncology: Okay to take Eliquis 2.5 twice daily as long as platelet count is greater than 30 -09/20 TTE shows ejection fraction 55%, mild AR, mild MR, moderate TR, mild to moderate MA with mild pulmonary hypertension and RVSP calculated at 83 mmHg. -S/p amiodarone, IV digoxin and beta-jennifer -Now rate controlled Dementia -Supportive care -Verbal de-escalation and redirection as needed -Fall, aspiration precautions -Supportive care -GI consulted for PEG tube placement -09/24 CT head/brain shows moderate microvascular angiopathy with mild cerebral atrophy without clear CT evidence of acute intracranial hemorrhage and mild interval increase in size of extra-axial lesion along the anterior right flax currently measuring 0.7 x 1.6 cm most consistent with a meningioma which was previously 0.5 x 1.2 cm -Outpatient neurosurgery follow-up recommended Dysphagia Failed swallow evaluation Plan for PEG placement by GI Hypertension -Hold antihypertensives in setting of hypotension -Blood pressure monitoring per protocol GERD -Continue PPI -Changed to Protonix due to thrombocytopenia Hyperlipidemia -Continue statin therapy DVT prophylaxis -GI prophylaxis -Already on Eliquis -SCDs to bilateral lower extremities while in bed History Interval history: This is a 80-year-old female with hypertension, GERD, colon cancer s/p resection, dementia and former smoker who presented to the emergency department with shortness of breath, decreased appetite and decreased p.o. intake over the past few days. Patient tested positive for urinary tract infection on home test kit and was subsequently started on oral Levaquin 500 mg daily for the past 3 days. Work-up in the emergency department revealed acute kidney injury, pyuria, possible developing pneumonia or aspiration, enlarged left middle mediastinum suggesting adenopathies. Patient was admitted to the hospital service for pneumonia as a COVID-19 PUI. Infectious disease was consulted. 09/17: Patient is on room air at the time my examination entry COVID-19 PCR resulted as negative. Patient will be transferred to medical floor. Infectious disease has stopped azithromycin continue ceftriaxone for possible urinary tract infection. We have also ordered a repeat COVID-19 PCR 09/18: No acute events reported overnight. Patient still remains in bilateral mittens-repeat COVID-19 PCR will need to be repeated tomorrow per hospital policy.This morning patient has leukopenia, hypernatremia, hyperchloremia but her acute kidney injury has improved. 09/19: Patient noted to be in atrial fibrillation with RVR this morning around 0600 and cardiology was consulted. Patient has been started on amiodarone drip after bolus. ST was consulted today for decreased p.o. intake as the patient was placed on MIVF due to persistent hypoglycemia yesterday. Her hyperchloremia and hypernatremia have improved however she is hypokalemic on her creatinine/BUN have increased. ST has recommended PEG tube placement. Patient's family unable to be contacted for update, confirmation of history or possible PEG tube placement. Her daughter was called several times today by SQUEEZER OPERATOR. Patient's repeat COVID-19 PCR is pending. She was given a 250 ml normal saline bolus due to hypotension. Repeat CMP in the a.m. Heme/Onc consulted for thrombocytopenia. 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 Start heparin drip for new onset afib with RVR and Eliquis 2.5 mg p.o. twice daily at discharge. Wean IV amiodarone and start digoxin and Lopressor IV per Cardiology. Continue ceftriaxone for total of 3 days for UTI per ID recommendations. Continue to follow blood and urine cultures. Follow-up repeat Covid testing today. PEG placement per Speech recommendations. 09/21: Await echocardiogram. Continue heparin drip for new onset atrial fibrillation with RVR and transition to Eliquis at discharge. Cardiology stopped IV amiodarone but will continue with IV digoxin and Lopressor until NG tube placement. NG tube placement ordered this morning. GI consultation pending for PEG placement. Repeat Covid testing positive on 09/19. DC Solu- Medrol 40 mg every 8 hours and start dexamethasone 6 mg IV daily. ? Remdesivir given renal insufficiency and will assess for hypoxia. ID following 09/22: Patient's hypernatremia slightly improved however she remains with hyperkalemia and MINERVA slightly improved. Patient is minimally interactive and remains on room air. No acute events reported overnight. GI consulted regarding PEG tube placement 09/23: Patient hypernatremia and hyperchloremia worsened therefore she was started on 400 mL FWF every 8 hours and her MINERVA slightly improved. No acute events reported overnight. Patient still remains minimally interactive and on room air. 09/24: With increase of FWF and hypotonic IVF patients hyper natremia resolved yesterday evening and her hyperchloremia has improved. This morning the hypotonic IVF was discontinued. Her BUN/creatinine also improved. Per GI in order for PEG tube placement patient is Eliquis has to be held for 2 days prior. Patient remains on room air with no acute events reported overnight. CTH, CXR, NH3 and repeat BC x2 pending 09/25: Peg placement consent obtained by CYNDI, Severino holding for procedure. Remains on RA with selective interaction. No acute events reported overnight. CXR has improved, CTH shows slight increase in extra-axial lesion. No acute events reported overnight. She will need follow up with neurosurgery in the office 09/26: No acute events reported overnight. Patient was supposed to have a PEG tube placement today however this has been delayed till this weekend. We will continue to withhold Eliquis. Patient will be n.p.o. after midnight. ID has signed off today. 09/27: No acute events noted overnight. Plan for PEG placement on Tuesday. NPO after midnight on 09/29. 09/28. She has no complaints this morning. Vitals stable. Eliquis on hold in anticipation of PEG placement on 09/29. 09/29. Plan for PEG placement underway. She is awake and alert. 09/30. Plan for PEG placement today. No change in medical condition. Resume Eliquis after PEG placement. Hospitalist Physical - Physical exam Narrative exam: VITAL SIGNS: Reviewed. GENERAL: Awake HEAD: No signs of head trauma. EYES: Pupils are equal. Extraocular motions intact. MOUTH: Oropharynx is normal. NECK: No adenopathy, no JVD. CHEST: Chest with diminished breath sounds bilaterally. No wheezes, rales, or rhonchi. CARDIAC: normal S1 and S2, without murmurs, gallops, or rubs. ABDOMEN: Soft, non tender and non distended. No rebound or guarding, and no masses palpated. Bowel Sounds normal. MUSCULOSKELETAL: No edema NEUROLOGIC EXAM: Alert and oriented x2. No gross focal neurologic deficits SKIN: No obvious lesions - Constitutional Vitals: Temp Pulse Resp BP Pulse Ox 99.0 F 65 18 149/40 100 09/30/20 00:22 09/30/20 00:22 09/30/20 00:22 09/30/20 00:22 09/30/20 00:22 HEART Score - HEART Score Troponin: Troponin T 0.029 ng/mL (0.00-0.029) 09/16/20 23:05 Results - Labs CBC & Chem 7: 09/30/20 04:16 09/30/20 04:16 Labs: Laboratory Last Values WBC 7.8 K/mm3 (4.5-11.0) 09/30/20 04:16 RBC 3.08 M/mm3 (3.65-5.03) L 09/30/20 04:16 Hgb 9.4 gm/dl (10.1-14.3) L 09/30/20 04:16 Hct 29.5 % (30.3-42.9) L 09/30/20 04:16 MCV 96 fl (79-97) 09/30/20 04:16 MCH 31 pg (28-32) 09/30/20 04:16 MCHC 32 % (30-34) 09/30/20 04:16 RDW 16.7 % (13.2-15.2) H 09/30/20 04:16 Plt Count 285 K/mm3 (140-440) 09/30/20 04:16 Lymph % (Auto) 38.5 % (13.4-35.0) H 09/30/20 04:16 [place] % (Auto) 3.6 % (0.0-7.3) 09/30/20 04:16 Eos % (Auto) 1.6 % (0.0-4.3) 09/30/20 04:16 Baso % (Auto) 0.7 % (0.0-1.8) 09/30/20 04:16 Lymph # (Auto) 3.0 K/mm3 (1.2-5.4) 09/30/20 04:16 [place] # (Auto) 0.3 K/mm3 (0.0-0.8) 09/30/20 04:16 Eos # (Auto) 0.1 K/mm3 (0.0-0.4) 09/30/20 04:16 Baso # (Auto) 0.1 K/mm3 (0.0-0.1) 09/30/20 04:16 Seg Neutrophils % 55.6 % (40.0-70.0) 09/30/20 04:16 Seg Neutrophils # 4.4 K/mm3 (1.8-7.7) 09/30/20 04:16 PT 14.2 Sec. (12.2-14.9) 09/27/20 04:43 INR 1.11 (0.87-1.13) 09/27/20 04:43 APTT 37.4 Sec. (24.2-36.6) H 09/20/20 13:06 D-Dimer 425.43 ng/mlDDU (0-234) H 09/16/20 21:28 Heparin Anti-Xa Level 0.32 U.I./ml (0.3-0.7) 09/22/20 07:58 Sodium 141 mmol/L (137-145) 09/30/20 04:16 Potassium 4.7 mmol/L (3.6-5.0) 09/30/20 04:16 Chloride 107.8 mmol/L (98-107) H 09/30/20 04:16 Carbon Dioxide 26 mmol/L (22-30) 09/30/20 04:16 Anion Gap 12 mmol/L 09/30/20 04:16 BUN 14 mg/dL (7-17) 09/30/20 04:16 Creatinine 0.8 mg/dL (0.6-1.2) 09/30/20 04:16 Estimated GFR > 60 ml/min 09/30/20 04:16 BUN/Creatinine Ratio 18 % 09/30/20 04:16 Glucose 90 mg/dL (65-100) 09/30/20 04:16 POC Glucose 88 mg/dL (70-105) 09/30/20 08:07 Lactic Acid 0.90 mmol/L (0.7-2.0) 09/17/20 14:35 Calcium 8.7 mg/dL (8.4-10.2) 09/30/20 04:16 Ferritin 374.8 ng/mL (10.0-200.0) H 09/16/20 21:28 Total Bilirubin 1.10 mg/dL (0.1-1.2) 09/30/20 04:16 AST 17 units/L (5-40) 09/30/20 04:16 ALT 28 units/L (7-56) 09/30/20 04:16 Alkaline Phosphatase 70 units/L (35-129) 09/30/20 04:16 Ammonia 24.0 umol/L (25-60) L 09/25/20 07:57 Lactate Dehydrogenase 179 units/L (91-180) 09/16/20 23:05 Troponin T 0.029 ng/mL (0.00-0.029) 09/16/20 23:05 C-Reactive Protein 14.90 mg/dL (0.00-1.30) H 09/16/20 23:05 Total Protein 4.7 g/dL (6.3-8.2) L 09/30/20 04:16 Albumin 2.9 g/dL (3.9-5) L 09/30/20 04:16 Albumin/Globulin Ratio 1.6 % 09/30/20 04:16 Procalcitonin 0.07 ng/mL (<0.15) 09/24/20 15:25 Urine Color Yellow (Yellow) 09/24/20 22:50 Urine Turbidity Clear (Clear) 09/24/20 22:50 Urine pH 7.0 (5.0-7.0) 09/24/20 22:50 Ur Specific [place] 1.016 (1.003-1.030) 09/24/20 22:50 Urine Protein 30 mg/dl mg/dL (Negative) 09/24/20 22:50 Urine Glucose (UA) >=500 mg/dL (Negative) 09/24/20 22:50 Urine Ketones Neg mg/dL (Negative) 09/24/20 22:50 Urine Blood Neg (Negative) 09/24/20 22:50 Urine Nitrite Neg (Negative) 09/24/20 22:50 Urine Bilirubin Neg (Negative) 09/24/20 22:50 Urine Urobilinogen < 2.0 mg/dL (<2.0) 09/24/20 22:50 Ur Leukocyte Esterase Neg (Negative) 09/24/20 22:50 Urine WBC (Auto) 1.0 /HPF (0.0-6.0) 09/24/20 22:50 Urine RBC (Auto) 1.0 /HPF (0.0-6.0) 09/24/20 22:50 U Epithel Cells (Auto) < 1.0 /HPF (0-13.0) 09/24/20 22:50 Urine Bacteria (Auto) 1+ /HPF (Negative) 09/17/20 Unknown Urine Mucus 2+ /HPF 09/17/20 Unknown Urine Yeast (Budding) 1+ /HPF 09/17/20 Unknown Urine Osmolality 1096 Mosm/kg 09/19/20 17:35 Urine Creatinine 179.4 mg/dL (0.1-20.0) H 09/19/20 17:35 Urine Sodium 193 mmol/L 09/19/20 17:35 Coronavirus (PCR) Positive (Negative) A 09/19/20 11:00 Microbiology: Microbiology 09/24/20 15:40 Peripheral/Venous Blood Culture - Final NO GROWTH AFTER 5 DAYS 09/24/20 15:25 Peripheral/Venous Blood Culture - Final NO GROWTH AFTER 5 DAYS - Diagnostic Impressions Diagnostic Impressions: Echocardiogram 09/20/20 10:42 Transthoracic Echocardiogram Indication: A FIB BP: 151/87 HR: 86 Conclusions *Global left ventricular systolic function is normal. *The estimated ejection fraction is 50-55%. *The right ventricular global systolic function is normal. *The aortic valve is not well visualized. *There is mild aortic regurgitation. *Mild aortic leaflet calcification is visualized. *There is mild mitral regurgitation. *There is mild to moderate pulmonic regurgitation. *There is evidence of moderate pulmonary hypertension. Findings Procedure Info: The study quality is fair. Left Ventricle: The left ventricular chamber size is normal. There is no left ventricular hypertrophy. Global left ventricular wall motion and contractility are within normal limits. Global left ventricular systolic function is normal. The estimated ejection fraction is 50-55%. Abnormal left ventricular diastolic function is observed. Left Atrium: The left atrium is severely dilated. Right Ventricle: The right ventricular cavity size is normal. The right ventricular global systolic function is normal. Right Atrium: The right atrial cavity size is normal. Aortic Valve: The aortic valve is not well visualized. Mild aortic leaflet calcification is visualized. There is mild aortic regurgitation. Mitral Valve: There is mitral annular calcification. The mitral valve leaflets are mildly thickened. There is mild mitral regurgitation. Tricuspid Valve: The tricuspid valve appears normal in structure and function. There is moderate tricuspid regurgitation. There is evidence of moderate pulmonary hypertension. Pulmonic Valve: The pulmonic valve is not well visualized.High gradients seen can not rule out stenosis There is mild to moderate pulmonic regurgitation. Pericardium: There is no pericardial effusion. Aorta: The aorta appears normal. Pulmonary Artery: The main pulmonary artery is not well visualized. Venous: The inferior vena cava appears abnormal. The inferior vena cava is dilated. There is less than 50% respiratory change in the inferior vena cava dimension. Measurements Chambers 2D Name Value Normal Range IVSd (2D) 0.89 cm (0.6 - 1.1) LVPWd (2D) 0.84 cm (0.6 - 1.1) LVIDd (2D) 4.67 cm (3.7 - 5.6) LVIDs (2D) 3.42 cm (2 - 3.8) LV FS (2D) 26.77 % - EF Teichholz (2D) 52.3 % - Ao root diameter (2D) 3.07 cm (2 - 3.7) Volumes/Mass Name Value Normal Range LA ESV SP 4CH (A/L) 78.85 ml - LA ESV SP 2CH (A/L) 111.2 ml - LA ESV BP (A/L) 93.86 ml - LA ESV BP (A/L) index 51.57 ml/m2 - LA ESV SP 4CH (MOD) 69.77 ml - LA ESV SP 2CH (MOD) 105.54 ml - LA ESV BP (MOD) 85.78 ml - LA ESV BP (MOD) index 47.13 ml/m2 - LV EDV SP 4CH (MOD) 68.03 ml - LV ESV SP 4CH (MOD) 31.63 ml - EF SP 4CH (MOD) 53.5 % - LV EDV SP 2CH (MOD) 68.71 ml - LV ESV SP 2CH (MOD) 28.59 ml - EF SP 2CH (MOD) 58.39 % - LV EDV BP 68.15 ml - LV ESV BP 30.43 ml - BP EF (MOD) 55.34 % - Diastolic/Systolic Function Name Value Normal Range MV E-wave Vmax 0.99 m/sec - MV deceleration time 131.92 msec - MV A-wave Vmax 1.17 m/sec - MV E:A ratio 0.85 ratio - Aortic Valve Name Value Normal Range AV Vmax 1.38 m/sec - AV VTI 26.19 cm - AV peak gradient 7.59 mmHg - AV mean gradient 4.81 mmHg - LVOT diameter 2.19 cm - LVOT Vmax 0.78 m/sec - LVOT VTI 21.91 cm - LVOT peak gradient 2.46 mmHg - LVOT mean gradient 1.53 mmHg - SV LVOT 82.34 ml - EMMY (continuity Vmax) 2.14 cm2 - EMMY (continuity VTI) 3.14 cm2 - AR PHT 657.65 msec - AR peak gradient 67.31 mmHg - Ascending Ao 2.79 cm - Tricuspid Valve Name Value Normal Range TR Vmax 4.33 m/sec - TR peak gradient 75 mmHg - RAP 8 mmHg - RVSP 83 mmHg - IVC diameter 2.15 cm (1.2 - 2.3) Pulmonic Valve/Qp:Qs Name Value Normal Range PV Vmax 3.01 m/sec - PV VTI 86.98 cm - PV peak gradient 36.25 mmHg - PV mean gradient 29.37 mmHg - MA end-diastolic Vmax 1.69 m/sec - RVOT Vmax 0.36 m/sec - RVOT VTI 7.36 cm - RVOT peak gradient 0.52 mmHg - PV acceleration time 81.83 msec - [place]/IV: Voiding Method External Female Catheter Active Medications - Current Medications Current Medications: Generic Name Dose Route Start Last Admin Trade Name Freq PRN Reason Stop Dose Admin Acetaminophen 650 mg 09/17/20 03:32 Acetaminophen 325 Mg Tab PO Q4H PRN Pain MILD(1-3)/Fever >100.5/NIÑO Lipase/Protease/Amylase 1 each 09/21/20 10:00 Lipase 10,500/Protease 25,000/Amylase 43,750 (Units) Dr Og FEEDTUBE PRN PRN For Clogged Feeding Tube Ascorbic Acid 250 mg 09/20/20 22:00 09/29/20 21:40 Ascorbic Acid 250 Mg Tab PO 250 mg BID RIGO Administration Cholecalciferol 1,000 unit 09/21/20 10:00 09/29/20 11:47 Cholecalciferol (Vit D3) 1000 Unit (25 Mcg) Tab PO 1,000 unit QDAY RIGO Administration Dextrose 0 ml 09/19/20 04:40 09/19/20 05:15 Dextrose 50% In Water (25gm) 50 Ml Syringe IV 50 ml Q30MIN PRN Administration Hypoglycemia Protocol Sodium Chloride 1,000 mls @ 50 mls/hr 09/26/20 12:00 09/28/20 10:17 Nacl 0.9% 1000 Ml IV 50 mls/hr DIRECT RIGO Administration Insulin Human Lispro 0 unit 09/25/20 11:30 09/29/20 22:29 Insulin Lispro 100 Unit/Ml SUB-Q Not Given ACHS RIGO Protocol Lansoprazole 30 mg 09/23/20 10:00 09/29/20 11:48 Lansoprazole 30 Mg Solutab FEEDTUBE 30 mg QDAY RIGO Administration Magnesium Hydroxide 30 ml 09/17/20 03:32 Magnesium Hydroxide (Mom) Oral Liqd Udc PO Q4H PRN Constipation Metoprolol Tartrate 25 mg 09/22/20 11:00 09/29/20 21:40 Metoprolol Tartrate 25 Mg Tab FEEDTUBE 25 mg BID RIGO Administration Morphine Sulfate 2 mg 09/17/20 03:32 Morphine 2 Mg/1 Ml Inj IV Q4H PRN Pain, Moderate (4-6) Ondansetron HCl 4 mg 09/17/20 03:32 Ondansetron 4 Mg/2 Ml Inj IV Q8H PRN Nausea And Vomiting Pravastatin Sodium 40 mg 09/17/20 22:00 09/29/20 21:40 Pravastatin 40 Mg Tab PO 40 mg QHS RIGO Administration Simple Syrup 15 ml 09/21/20 09:46 Simple Syrup 15 Ml FEEDTUBE PRN PRN Hypoglycemia Simple Syrup 30 ml 09/21/20 09:46 Simple Syrup 15 Ml FEEDTUBE PRN PRN Hypoglycemia Sodium Bicarbonate 325 mg 09/21/20 09:46 Sodium Bicarbonate 325 Mg Tab FEEDTUBE PRN PRN For Clogged Feeding Tube Sodium Chloride 10 ml 09/17/20 10:00 09/29/20 21:40 Sodium Chloride 0.9% 10 Ml Flush Syringe IV 10 ml BID RIGO Administration Sodium Chloride 10 ml 09/17/20 03:32 09/29/20 11:48 Sodium Chloride 0.9% 10 Ml Flush Syringe IV 10 ml PRN PRN Administration LINE FLUSH Zinc Sulfate 220 mg 09/20/20 22:00 09/29/20 21:40 Zinc Sulfate 220 Mg Cap PO 220 mg BID RIGO Administration Nutrition/Malnutrition Assess - Dietary Evaluation Nutrition/Malnutrition Findings: Nutrition Notes Start: 09/21/20 09:22 Freq: Status: Active Protocol: Document 09/26/20 09:53 AT (Rec: 09/26/20 10:04 AT [id number]) Co-Sign 09/26/20 09:53 CW Nutrition Notes Initial or Follow up Reassessment Current Diagnosis Acute Kidney Injury,Decubitus( Pressure Ulcer),Sepsis, Hypertension,Hyperlipidemia Other Pertinent Diagnosis Dementia, COVID(+), UTI, AMS, A-fib Current Diet NPO Labs/Tests Na 142 Pertinent Medications Reviewed Height 5 ft 2 in Weight 72.2 kg [place] Body Weight (kg) 50.00 BMI 29.1 Weight change and time frame 12% weight loss x 3 days ( possibly due to errors) Weight Status Overweight Subjective/Other Information Follow up for flushes and Na. Pt's Na is WNL. Last flush given was 400mL, pt now NPO for a procedure this morning. As of 23:28 09/25, pt was on Osmolite 1.5 at goal rate and tolerating the feeds. Percent of energy/protein needs met: 0%/0% Burn Absent Trauma Absent Current % PO Negligible Minimum of two criteria Yes Interpretation of Weight Loss (severe) >2% in 1 week Fluid Accumulation Mild (non-severe) Reduced Roll Hand Strength Measurably Reduced (severe) #3 Nutrition Diagnosis Increased nutrient needs ( specify in comment below) Diagnosis Progress(for reassessment Continues documentation) #2 Nutrition Diagnosis Malnutrition As Evidenced by Signs and Symptoms possible weight loss of 12% Diagnosis Progress(for reassessment Worsened documentation) #1 Nutrition Diagnosis Inadequate oral intake Diagnosis Progress(for reassessment Continues documentation) Is patient on ventilator? No Is Patient Ambulatory and/or Out of Bed No REE-([facility]-confined to bed) 1392.924 Calculation Used for Recommendations [facility] Additional Notes PRO needs: 58-108g (0.8-1.5g/ kg ABW) Fluid needs: 1 mL/kcal or per MD Nutrition Intervention Change Diet Order: Resume TF Nutrition Support: Osmolite 1.5 at 40ml/hr Flush 120 ml q4h Kcal 1,440 Protein (gm) 60 Fluid (mL) 732 Add Supplement/Snack (indicate name/kcal [place] BID /protein ) Provides kCal: 190 Provides Protein (gm) 5 Goal #1 TF tolerance Goal #2 Wound healing Goal #3 Meet at least 75% of estimated energy and protein needs via TF Anticipated Discharge Needs: Unable to determine at this time Follow-Up By: 09/30/20 Additional Comments F/U TF restart/tolerance, weight stabilization
[2020-09-30] MEDS: ASCORBIC ACID 250 MG TAB PO SCH ×2 (09:55→22:55)
[2020-09-30] MEDS: LANSOPRAZOLE 30 MG SOLUTAB FEEDTUBE SCH (09:55)
[2020-09-30] MEDS: CHOLECALCIFEROL (VIT D3) 1000 UNIT (25 mcg) TAB PO SCH (09:55)
[2020-09-30] MEDS: INSULIN LISPRO 100 UNIT/ML SUB-Q SCH ×3 (09:55→22:58)
[2020-09-30] MEDS: ZINC SULFATE 220 MG CAP PO SCH ×2 (09:56→22:55)
[2020-09-30] MEDS: METOPROLOL TARTRATE 25 MG TAB FEEDTUBE SCH ×2 (10:51→22:55)
[2020-09-30] MEDS ORDERED: SODIUM CHLORIDE 0.9% 1000 ML 1,000 ML IV SCH (12:45)
[2020-09-30] MEDS ORDERED: ceFAZolin/Water 2 GM/20 ML 2 GM/20 ML SYRINGE IV NR (13:00)
[2020-09-30] MEDS ORDERED: propofoL 200 MG/20 ML VIAL IV ONE (15:44)
[2020-09-30] MEDS ORDERED: LIDOCAINE MPF (2%) 20 MG/1 ML VIAL 5 ML ONE (15:44)
[2020-09-30] MEDS ORDERED: PHENYLEPHRINE/NS 1,000 MCG/10 ML SYRINGE (OR USE) IV ONE (16:16)
--- NOTE | 2020-09-30 16:16 | Post Operative Note ---
Pre-op diagnosis: dysphagia Post-op diagnosis: same Findings: EGD: hiatal hernia - gastritis - negative other - 20F pull peg placed, bumper at 3 cm Procedure: EGD/peg Anesthesia: STEPHIE ZELAYA Surgeon: MARY HEAD Estimated blood loss: none Pathology: list Specimen disposition: to lab Condition: stable Disposition: floor
--- NOTE | 2020-09-30 16:27 | Operative Report ---
PROCEDURE: EGD with PEG tube placement. INDICATIONS: 1. Dysphagia. 2. Weight loss. MEDICATIONS: Propofol per MOLDED [employer] INSPECTOR TRIMMER. COMPLICATIONS: None. DESCRIPTION OF PROCEDURE: The patient brought to procedure suite. The patient had the procedure discussed with family at length. All risks, complications, and benefits were discussed after which consent was gotten for the procedure performed. The patient placed in the supine position. Mouth block was placed in the patient's oral cavity. After adequate sedation medication as above, endoscope placed in the mouth and brought to level of the second portion of duodenum. Retroflexion view was performed. The patient's vital signs remained stable throughout the procedure. FINDINGS: There was a small hiatal hernia at GE junction 38 cm from the gums. Esophagus otherwise grossly appeared normal. There was mild gastritis in the stomach. Stomach otherwise grossly appeared normal. Duodenum appeared to be normal. Retroflexion view performed in the stomach showed no other pathology other than noted above. After this inspection using standard technique and transillumination, an area for adequate placement of PEG was found. Using standard technique, a 20-[place] pull PEG was then placed. Post-procedure, the patient was satisfactory. The patient tolerated the procedure well. No complications during the procedure. IMPRESSION: 1. Hiatal hernia. 2. Mild gastritis. 3. Otherwise, normal esophagogastroduodenoscopy. 4. PEG tube placed without obvious complications. RECOMMENDATIONS: 1. Standard PEG tube orders, see chart. 2. Watch for signs of bleeding or infection. 3. Okay to use PEG in 6 hours. 4. We will follow up in a.m. JOB# [id number] [facility]
--- NOTE | 2020-09-30 16:36 | Post Anesthesia Evaluation ---
- Post Anesthesia Evaluation Airway Patent: Yes Stable Respiratory Function: Yes Nausea/Vomiting: No Temp > 96.8F: Yes Pain Manageable: Yes Adequeate Hydration: Yes Anesthesia Complications: No
--- NOTE | 2020-09-30 16:36 | Anesthesia Day of Surgery ---
Anesthesia Day of Surgery - Day of Surgery Patient Examined: Yes Patient H&P Reviewed: Yes Patient is NPO: Yes
--- NOTE | 2020-09-30 16:36 | Anesthesia Consultation ---
Anesthesia Consult and Med Hx Date of service: 09/30/20 - Airway Anesthetic Teeth Evaluation: Poor Mallampati Class: Class III Intubation Access Assessment: Possibly Difficult - Pre-Operative Health Status ASA Pre-Surgery Classification: ASA3 Proposed Anesthetic Plan: MAC - Pulmonary Hx Respiratory Symptoms: Yes (off O2 x several days) Hx Pneumonia: Yes (COVID+ this admission.) - Cardiovascular System Hx Hypertension: Yes Hx Cardia Arrhythmia: Yes (afib complicated by RVR ) - Central Nervous System Hx Psychiatric Problems: Yes (dementia) - Endocrine Hx Renal Disease: No Hx Liver Disease: No Hx Insulin Dependent Diabetes: No Hx Non-Insulin Dependent Diabetes: No Hx Thyroid Disease: No - Hematic Hx Anemia: Yes - Other Systems Hx Obesity: No
[2020-09-30] MEDS: PRAVASTATIN 40 MG TAB PO SCH (22:55)
[2020-10-01 05:21] LABS: Hematocrit 30.5 % (30.3-42.9); Hemoglobin 9.9 gm/dl (10.1-14.3); Mean Corpuscular HGB Conc 32 % (30-34); Mean Corpuscular Volume 96 fl (79-97); Platelet Count 312 K/mm3 (140-440); Red Blood Count 3.19 M/mm3 (3.65-5.03)
[2020-10-01 05:45] LABS: Alanine Aminotransferase 23 units/L (7-56); BUN/Creatinine Ratio 18; Blood Urea Nitrogen 14 mg/dL (7-17); Calcium 9.2 mg/dL (8.4-10.2); Hemolysis Index 17
[2020-10-01 06:14] LABS: Total Cells Counted 100
[2020-10-01 06:15] LABS: Anisocytosis 1+; Platelet Estimate Consistent w Auto
[2020-10-01] MEDS: INSULIN LISPRO 100 UNIT/ML SUB-Q SCH ×3 (07:30→16:30)
[2020-10-01] MEDS: ZINC SULFATE 220 MG CAP PO SCH (09:55)
[2020-10-01] MEDS: LANSOPRAZOLE 30 MG SOLUTAB FEEDTUBE SCH (09:55)
[2020-10-01] MEDS: METOPROLOL TARTRATE 25 MG TAB FEEDTUBE SCH (09:55)
[2020-10-01] MEDS: ASCORBIC ACID 250 MG TAB PO SCH (09:55)
[2020-10-01] MEDS: CHOLECALCIFEROL (VIT D3) 1000 UNIT (25 mcg) TAB PO SCH (09:55)
[2020-10-01] MEDS ORDERED: APIXABAN 2.5 MG TAB PO SCH (10:00)
--- NOTE | 2020-10-01 10:23 | Discharge Summary ---
Providers - Providers Date of Admission: 09/17/20 01:56 Date of discharge: 10/01/20 Attending physician: BERNADETTE HAGEN 09/17/20 03:32 Consult to Physician [CONS] Routine Comment: Consulting Provider: MER GUILLEN Physician Instructions: Reason For Exam: Pneumonia R/O Covid -19 09/17/20 19:21 Physical Therapy Evaluation and Treat [CONS] Routine Comment: Reason For Exam: pt weak may be a candidate for HARJEET 09/18/20 12:55 Speech Therapy Evaluation and Treat [CONS] Urgent Reason For Exam: coughing with meals lunch held 09/18/20 18:26 Consult to Wound/ET Nurse [CONS] Routine Reason For Exam: wound right and left heel 09/19/20 08:46 Consult to Physician [CONS] Routine Comment: Consulting Provider: ROBBIN HUYNH Physician Instructions: Reason For Exam: afib 09/19/20 10:47 Consult to Physician [CONS] Routine Comment: Consulting Provider: BAUTISTA JENKINS Physician Instructions: Reason For Exam: thrombocytopenia 09/19/20 15:43 Consult to Physician [CONS] Routine Comment: Consulting Provider: THIERNO WOLFF Physician Instructions: Reason For Exam: PEG placement? 09/21/20 09:11 Consult to Dietitian/Nutrition [CONS] Routine Physician Instructions: Reason For Exam: Reason for Consult: Write/Manage Tube Feeding 09/28/20 18:02 Speech Therapy Evaluation and Treat [CONS] Routine Reason For Exam: prior to peg placement 09/30/20 16:17 Consult to Dietitian/Nutrition [CONS] Routine Physician Instructions: Reason For Exam: Reason for Consult: post-peg Primary care physician: TARA DIAZ Hospitalization Condition: Stable Hospital course: This is a 80-year-old female with hypertension, GERD, colon cancer s/p resection, dementia and former smoker who presented to the emergency department with shortness of breath, decreased appetite and decreased p.o. intake over the past few days. Patient tested positive for urinary tract infection on home test kit and was subsequently started on oral Levaquin 500 mg daily for the past 3 days. Work-up in the emergency department revealed acute kidney injury, pyuria, possible developing pneumonia or aspiration, enlarged left middle mediastinum suggesting adenopathies. Patient was admitted to the hospital service for pneumonia as a COVID-19 PUI. Infectious disease was consulted. 09/17: Patient is on room air at the time my examination entry COVID-19 PCR resulted as negative. Patient will be transferred to medical floor. Infectious disease has stopped azithromycin continue ceftriaxone for possible urinary tract infection. We have also ordered a repeat COVID-19 PCR 09/18: No acute events reported overnight. Patient still remains in bilateral mittens-repeat COVID-19 PCR will need to be repeated tomorrow per hospital policy.This morning patient has leukopenia, hypernatremia, hyperchloremia but her acute kidney injury has improved. 09/19: Patient noted to be in atrial fibrillation with RVR this morning around 0600 and cardiology was consulted. Patient has been started on amiodarone drip after bolus. ST was consulted today for decreased p.o. intake as the patient was placed on MIVF due to persistent hypoglycemia yesterday. Her hyperchloremia and hypernatremia have improved however she is hypokalemic on her creatinine/BUN have increased. ST has recommended PEG tube placement. Patient's family unable to be contacted for update, confirmation of history or possible PEG tube placement. Her daughter was called several times today by [facility]. Patient's repeat COVID-19 PCR is pending. She was given a 250 ml normal saline bolus due to hypotension. Repeat CMP in the a.m. Heme/Onc consulted for thrombocytopenia. 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 Start heparin drip for new onset afib with RVR and Eliquis 2.5 mg p.o. twice daily at discharge. Wean IV amiodarone and start digoxin and Lopressor IV per Cardiology. Continue ceftriaxone for total of 3 days for UTI per ID [place] mmendations. Continue to follow blood and urine cultures. Follow-up repeat Covid testing today. PEG placement per Speech recommendations. 09/21: Await echocardiogram. Continue heparin drip for new onset atrial fibrillation with RVR and transition to Eliquis at discharge. Cardiology stopped IV amiodarone but will continue with IV digoxin and Lopressor until NG tube placement. NG tube placement ordered this morning. GI consultation pending for PEG placement. Repeat Covid testing positive on 09/19. DC Solu- Medrol 40 mg every 8 hours and start dexamethasone 6 mg IV daily. ? Remdesivir given renal insufficiency and will assess for hypoxia. ID following 09/22: Patient's hypernatremia slightly improved however she remains with hyperkalemia and MINERVA slightly improved. Patient is minimally interactive and remains on room air. No acute events reported overnight. GI consulted regarding PEG tube placement 09/23: Patient hypernatremia and hyperchloremia worsened therefore she was started on 400 mL FWF every 8 hours and her MINERVA slightly improved. No acute events reported overnight. Patient still remains minimally interactive and on room air. 09/24: With increase of FWF and hypotonic IVF patients hyper natremia resolved yesterday evening and her hyperchloremia has improved. This morning the hypotonic IVF was discontinued. Her BUN/creatinine also improved. Per GI in order for PEG tube placement patient is Eliquis has to be held for 2 days prior. Patient remains on room air with no acute events reported overnight. CTH, CXR, NH3 and repeat BC x2 pending 09/25: Peg placement consent obtained by CYNDI, Jenniferquis holding for procedure. Remains on RA with selective interaction. No acute events reported overnight. CXR has improved, CTH shows slight increase in extra-axial lesion. No acute events reported overnight. She will need follow up with neurosurgery in the office 09/26: No acute events reported overnight. Patient was supposed to have a PEG tube placement today however this has been delayed till this weekend. We will continue to withhold Eliquis. Patient will be n.p.o. after midnight. ID has signed off today. 09/27: No acute events noted overnight. Plan for PEG placement on Tuesday. NPO after midnight on 09/29. 09/28. She has no complaints this morning. Vitals stable. Eliquis on hold in anticipation of PEG placement on 09/29. 09/29. Plan for PEG placement underway. She is awake and alert. 09/30. Plan for PEG placement today. No change in medical condition. Resume Eliquis after PEG placement. 10/01. PEG placed yesterday. On feeds. No change in medical condition. Eliquis resumed. Patient remains stable to the facility. Family in agreement. Disposition: [id number] Time spent for discharge: 40 mins - Discharge Diagnoses (1) MINERVA (acute kidney injury) Status: Acute (2) Altered mental status Status: Acute (3) New onset atrial fibrillation Status: Acute (4) Dementia Status: Chronic Qualifiers: Dementia type: unspecified type Dementia behavioral disturbance: with behavioral disturbance Qualified Code(s): F03.91 - Unspecified dementia with behavioral disturbance (5) Moderate tricuspid regurgitation Status: Chronic (6) Pulmonary hypertension Status: Chronic (7) Pneumonia Status: Suspected (8) Sepsis Status: Suspected Core Measure Documentation - Palliative Care Palliative Care/ Comfort Measures: Not Applicable - Core Measures Any of the following diagnoses?: none Exam - Physical Exam Narrative exam: VITAL SIGNS: Reviewed. GENERAL: Awake HEAD: No signs of head trauma. EYES: Pupils are equal. Extraocular motions intact. MOUTH: Oropharynx is normal. NECK: No adenopathy, no JVD. CHEST: Chest with diminished breath sounds bilaterally. No wheezes, rales, or rhonchi. CARDIAC: normal S1 and S2, without murmurs, gallops, or rubs. ABDOMEN: Soft, non tender and non distended. No rebound or guarding, and no masses palpated. Bowel Sounds normal. MUSCULOSKELETAL: No edema NEUROLOGIC EXAM: Alert and oriented x2. No gross focal neurologic deficits SKIN: No obvious lesions - Constitutional Vitals: Temp Pulse Resp BP Pulse Ox 98.0 F 70 17 128/36 95 10/01/20 05:07 10/01/20 05:10 10/01/20 05:07 10/01/20 05:07 10/01/20 05:10 Plan Activity: advance as tolerated Diet: low fat, low cholesterol, low salt, diabetic Wound: change dressing, per wound nurse instructions Additional Instructions: Continue medications as prescribed. Follow up with cardiology in the office in 1-2 weeks. Follow up with neurosurgery in the office for monitoring of brain meningioma Follow up with: TARA DIAZ MD [Primary Care Provider] - 3-5 Days FRANK MEREDITH MD [Staff Physician] - 7 Days JOSH MARIE II, MD [Staff Physician] - 7 Days Prescriptions: Pravastatin [Pravachol] 40 mg PO QHS #30 tablet Apixaban [Eliquis] 2.5 mg PO Q12HR #60 tablet Metoprolol [Lopressor TAB] 25 mg FEEDTUBE BID #60 tablet Lansoprazole Solutab [Prevacid Solutab] 30 mg FEEDTUBE QDAY #30 tab.rapdis Cholecalciferol Vit D3 [Vitamin D3 1,000 UNIT TAB] 1,000 unit PO QDAY #30 tablet Zinc Sulfate 220 mg PO DAILY #14 capsule
--- NOTE | 2020-10-01 14:24 | Gastroenterology Progress Note ---
Assessment and Plan GI: s/p peg w/o complication - ok to use peg as needed - will sign off, call if needed Subjective Date of service: 10/01/20 Principal diagnosis: afib, COVID Interval history: - no GI issues overnight per staff. Tolerating tube feeds well Objective - Constitutional Vitals: Temp Pulse Resp BP Pulse Ox 99.5 F 57 L 24 140/30 100 10/01/20 12:02 10/01/20 12:02 10/01/20 12:02 10/01/20 12:02 10/01/20 12:02 General appearance: no acute distress - EENT Eyes: PERRL - Respiratory Respiratory: bilateral: CTA - Cardiovascular Rhythm: regular Heart Sounds: Present: S1 & S2 - Gastrointestinal General gastrointestinal: Present: soft, non-tender, non-distended - Labs CBC & Chem 7: 10/01/20 04:48 10/01/20 04:48 Labs: Laboratory Results - last 24 hr 09/30/20 09/30/20 09/30/20 12:38 17:44 21:15 WBC RBC Hgb Hct MCV MCH MCHC RDW Plt Count Add Manual Diff Total Counted Seg Neuts % (Manual) Lymphocytes % (Manual) Monocytes % (Manual) Eosinophils % (Manual) Nucleated RBC % Seg Neutrophils # Man Band Neutrophils # Lymphocytes # (Manual) Abs React Lymphs (Man) Monocytes # (Manual) Eosinophils # (Manual) Basophils # (Manual) Metamyelocytes # Myelocytes # Promyelocytes # Blast Cells # WBC Morphology Hypersegmented Neuts Hyposegmented Neuts Hypogranular Neuts Smudge Cells Toxic Granulation Toxic Vacuolation Dohle Bodies Pelger-Huet Anomaly Cass Rods Platelet Estimate Clumped Platelets Plt Clumps, EDTA Large Platelets Giant Platelets Platelet Satelliting Plt Morphology Comment RBC Morphology Dimorphic RBCs Polychromasia Hypochromasia Poikilocytosis Anisocytosis Microcytosis Macrocytosis Spherocytes Pappenheimer Bodies Sickle Cells Target Cells Tear Drop Cells Ovalocytes Helmet Cells Munoz-[place] Bodies Atkins Rings [place] Cells Bite Cells Crenated Cell Elliptocytes Acanthocytes (Spur) Rouleaux Hemoglobin C Crystals Schistocytes Malaria parasites Priyank Bodies Hem Pathologist Commnt Sodium Potassium Chloride Carbon Dioxide Anion Gap BUN Creatinine Estimated GFR BUN/Creatinine Ratio Glucose POC Glucose 88 92 70 Calcium Total Bilirubin AST ALT Alkaline Phosphatase Total Protein Albumin Albumin/Globulin Ratio Coronavirus (PCR) 09/30/20 10/01/20 10/01/20 Unknown 04:48 04:48 WBC 6.4 RBC 3.19 L Hgb 9.9 L Hct 30.5 MCV 96 MCH 31 MCHC 32 RDW 17.0 H Plt Count 312 Add Manual Diff Complete Total Counted 100 Seg Neuts % (Manual) 77.0 H Lymphocytes % (Manual) 17.0 Monocytes % (Manual) 5.0 Eosinophils % (Manual) 1.0 Nucleated RBC % Not Reportable Seg Neutrophils # Man 4.9 Band Neutrophils # 0.0 Lymphocytes # (Manual) 1.1 L Abs React Lymphs (Man) 0.0 Monocytes # (Manual) 0.3 Eosinophils # (Manual) 0.1 Basophils # (Manual) 0.0 Metamyelocytes # 0.0 Myelocytes # 0.0 Promyelocytes # 0.0 Blast Cells # 0.0 WBC Morphology Not Reportable Hypersegmented Neuts Not Reportable Hyposegmented Neuts Not Reportable Hypogranular Neuts Not Reportable Smudge Cells Not Reportable Toxic Granulation Not Reportable Toxic Vacuolation Not Reportable Dohle Bodies Not Reportable Pelger-Huet Anomaly Not Reportable Cass Rods Not Reportable Platelet Estimate Consistent w auto Clumped Platelets Not Reportable Plt Clumps, EDTA Not Reportable Large Platelets Not Reportable Giant Platelets Not Reportable Platelet Satelliting Not Reportable Plt Morphology Comment Not Reportable RBC Morphology Not Reportable Dimorphic RBCs Not Reportable Polychromasia Few Hypochromasia Not Reportable Poikilocytosis Not Reportable Anisocytosis 1+ Microcytosis Not Reportable Macrocytosis Not Reportable Spherocytes Not Reportable Pappenheimer Bodies Not Reportable Sickle Cells Not Reportable Target Cells Not Reportable Tear Drop Cells Not Reportable Ovalocytes Not Reportable Helmet Cells Not Reportable Munoz-[place] Bodies Not Reportable Atkins Rings Not Reportable Kira Cells Not Reportable Bite Cells Not Reportable Crenated Cell Not Reportable Elliptocytes Not Reportable Acanthocytes (Spur) Not Reportable Rouleaux Not Reportable Hemoglobin C Crystals Not Reportable Schistocytes Not Reportable Malaria parasites Not Reportable Priyank Bodies Not Reportable Hem Pathologist Commnt No Sodium 143 Potassium 4.5 Chloride 107.2 H Carbon Dioxide 28 Anion Gap 12 BUN 14 Creatinine 0.8 Estimated GFR > 60 BUN/Creatinine Ratio 18 Glucose 150 H POC Glucose Calcium 9.2 Total Bilirubin 1.20 AST 18 ALT 23 Alkaline Phosphatase 74 Total Protein 5.6 L Albumin 3.0 L Albumin/Globulin Ratio 1.2 Coronavirus (PCR) Negative 10/01/20 06:47 WBC RBC Hgb Hct MCV MCH MCHC RDW Plt Count Add Manual Diff Total Counted Seg Neuts % (Manual) Lymphocytes % (Manual) Monocytes % (Manual) Eosinophils % (Manual) Nucleated RBC % Seg Neutrophils # Man Band Neutrophils # Lymphocytes # (Manual) Abs React Lymphs (Man) Monocytes # (Manual) Eosinophils # (Manual) Basophils # (Manual) Metamyelocytes # Myelocytes # Promyelocytes # Blast Cells # WBC Morphology Hypersegmented Neuts Hyposegmented Neuts Hypogranular Neuts Smudge Cells Toxic Granulation Toxic Vacuolation Dohle Bodies Pelger-Huet Anomaly Cass Rods Platelet Estimate Clumped Platelets Plt Clumps, EDTA Large Platelets Giant Platelets Platelet Satelliting Plt Morphology Comment RBC Morphology Dimorphic RBCs Polychromasia Hypochromasia Poikilocytosis Anisocytosis Microcytosis Macrocytosis Spherocytes Pappenheimer Bodies Sickle Cells Target Cells Tear Drop Cells Ovalocytes Helmet Cells Munoz-[place] Bodies Atkins Rings [place] Cells Bite Cells Crenated Cell Elliptocytes Acanthocytes (Spur) Rouleaux Hemoglobin C Crystals Schistocytes Malaria parasites Priyank Bodies Hem Pathologist Commnt Sodium Potassium Chloride Carbon Dioxide Anion Gap BUN Creatinine Estimated GFR BUN/Creatinine Ratio Glucose POC Glucose 121 H Calcium Total Bilirubin AST ALT Alkaline Phosphatase Total Protein Albumin Albumin/Globulin Ratio Coronavirus (PCR)
--- NOTE | 2020-10-01 15:23 | Post Anesthesia Evaluation ---
- Post Anesthesia Evaluation Patient Participated: Yes Airway Patent: Yes Stable Respiratory Function: Yes Nausea/Vomiting: No Temp > 96.8F: Yes Pain Manageable: Yes Adequeate Hydration: Yes Anesthesia Complications: No Block Receding Appropriately: Not Applicable Patient on Ventilator: No
[2020-10-01 17:50] VITALS: BP 133/35
== END 2020-10-01 18:15 | DRG 871 ==
LOC: ED 20:34 → 3A 09-17 01:56 → 4A 09-17 21:16 → CC1 09-20 16:06 → 3A 09-21 12:53
PROVIDERS: ADMIT Internal Medicine Geriatric Medicine; ATTEND Internal Medicine
PROC: 0DJ08ZZ Inspection of Upper Intestinal Tract, Via Natural or Artificial Opening Endoscopic (ICD-10-PCS; principal; 2020-09-30)
PROC: 0DH63UZ Insertion of Feeding Device into Stomach, Percutaneous Approach (ICD-10-PCS; 2020-09-30)
DX: A41.9 Sepsis, unspecified organism (principal); N17.0 Acute kidney failure with tubular necrosis; U07.1 COVID-19; J12.82 Pneumonia due to coronavirus disease 2019; N39.0 Urinary tract infection, site not specified; F03.91 Unspecified dementia, unspecified severity, with behavioral disturbance; E87.0 Hyperosmolality and hypernatremia; E86.0 Dehydration; K29.70 Gastritis, unspecified, without bleeding; I48.91 Unspecified atrial fibrillation; K46.9 Unspecified abdominal hernia without obstruction or gangrene; E16.2 Hypoglycemia, unspecified; K21.9 Gastro-esophageal reflux disease without esophagitis; F03.90 Unspecified dementia, unspecified severity, without behavioral disturbance, psychotic disturbance, mood disturbance, and anxiety; Z87.891 Personal history of nicotine dependence; Z79.899 Other long term (current) drug therapy; E78.5 Hyperlipidemia, unspecified; E87.8 Other disorders of electrolyte and fluid balance, not elsewhere classified; R13.10 Dysphagia, unspecified; Z85.038 Personal history of other malignant neoplasm of large intestine
CPT/HCPCS: 36415; 70450; 71045; 74018; 76770; 80048; 80053; 81001; 82140; 82570; 82728; 82947; 82962; 83615; 83935; 84145; 84300; 84484; 85007; 85014; 85018; 85025; 85027; 85049; 85379; 85520; 85610; 85730; 86140; 87040; 87086; 93005; 93306; 96361; 96365; 96368; G0378; A9270-GY; C9113; J0282; J0456; J0696; J1100; J1160; J1450; J1644; J2370; J2704; J2920; J7030; J7042; J7050; J7060; U0003